=== PATIENT | female | born 1965 | race Caucasian/White ===

== ENCOUNTER 2020-01-26 15:01 | Outpatient (CLI) | payer OTHER, MEDICAID, SELFPAY ==
--- NOTE | ~2020-01-26 | XR_ITS ---
EXAMINATION: XR ribs RT 2V DATE: 01/26/2020 15:21 INDICATION: Lower posterior right rib pain TECHNIQUE: 3 views of the right ribs were obtained. COMPARISON: Chest radiograph dated 03/31/2018 FINDINGS: Nondisplaced fracture at the anteriormost right eighth rib. Old healed fractures at the anterior righ t third, fourth, fifth and sixth ribs. Right lung is clear with no pulmonary edema, pleural effusion or pneumothorax. Passage the left lung base with suggestion of small left pleural effusion. Heart siz e is normal. Mild S-shaped thoracolumbar scoliosis. IMPRESSION: 1. Acute appearing nondisplaced anterior right eighth rib fracture and old healed fractures of the an terior right third-sixth ribs. 2. Opacities at the left lung base which could represent atelectasis and/or pneumonia with suggestion of small left pleural effusion. Reviewed, dictated and finalized at location A. 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 Acute appearing nondisplaced anterior right eighth rib fracture and old heal ed fractures of the anterior right third-sixth ribs. 2. Opacities at the left lung base which could represent atelectasis and/or pne umonia with suggestion of small left pleural effusion.
== END 2020-01-26 15:02 | disposition home or self-care (01) ==
LOC: CHSIMG 15:03
PROVIDERS: PCP Internal Medicine; Visit Provider Nurse Practitioner Family
DX: R07.81 Pleurodynia (principal)
CPT/HCPCS: 71100

== ENCOUNTER 2020-02-08 10:02 | Outpatient (CLI) | payer OTHER, MEDICAID, SELFPAY ==
--- NOTE | ~2020-02-08 | CT_ITS ---
EXAMINATION: CT chest wo con DATE: 02/08/2020 10:34 INDICATION: Right-sided rib fractures. Right lower lateral rib pain. TECHNIQUE: Computed tomography (CT) of the chest was performed without intravenous contrast. The dose -length product was 177.89 mGy-cm. Automated exposure control and iterative reconstruction technique were employed. COMPARISON: None FINDINGS: Small pericardial effusion. No significant pleural effusion. No thoracic lymphadenopathy. T here are gallstones. Small subcentimeter hypodensity right hepatic lobe, most likely benign cyst or h emangioma. There are healed third-6 right rib fractures anteriorly. There is a nondisplaced right bhavna th rib fracture laterally, likely chronic or subacute. There is scoliosis. No endobronchial lesions. No suspicious pulmonary nodules or masses. No focal airspace consolidation. IMPRESSION: 1. No acute cardiopulmonary disease. 2: Nondisplaced right ninth rib fracture laterally, likely subacute or chronic. 3: Healed right third-sixth rib fractures. 4: Cholelithiasis. Reviewed, dictated and finalized at location A.
== END 2020-02-08 10:03 | disposition home or self-care (01) ==
PROVIDERS: PCP Internal Medicine; Visit Provider Internal Medicine
DX: S22.39XD Fracture of one rib, unspecified side, subsequent encounter for fracture with routine healing (principal)
CPT/HCPCS: 71250

== ENCOUNTER 2020-04-03 13:44 | Outpatient (CLI) | payer OTHER, MEDICAID, SELFPAY | END 2020-04-03 13:45 | disposition home or self-care (01) | LOC: CHSLAB 13:46 | PROVIDERS: PCP Internal Medicine; Visit Provider Specialist | DX: L57.0 Actinic keratosis (principal) | CPT/HCPCS: 88305 ==

== ENCOUNTER 2021-04-04 13:24 | Outpatient (CLI) | payer OTHER, MEDICAID, SELFPAY ==
--- NOTE | ~2021-04-04 | XR_ITS ---
EXAMINATION: XR lumbar spine 2-3V EXAM DATE: 04/04/2021 13:57 INDICATION: Low back pain . TECHNIQUE: Lumber spine frontal, lateral, lateral L5-S1 projections for interpretation. Comparison is made to prior examination from 04/04/2021. FINDINGS: The vertebral bodies are aligned in the AP dimension. Mild thoracolumbar scoliosis. Mild lo ss of the L1-2 and L3-4 disc height. There is mild to moderate lumbar facet arthropathy. There are no acute fractures identified. Paraspinal soft tissue is unremarkable. There are no bony erosions ident ified. Sacrum, sacroiliac joints, sacral arcuate lines are intact. Difficult to appreciate any signif icant change compared to prior study. IMPRESSION: 1. Mild thoracal lumbar scoliosis. 2. Mild to moderate facet arthropathy. 3. Mild disc disease. Reviewed, dictated and finalized at location B.
[2021-04-04 13:45] LABS: Add Urine Microscopic? NO; Appearance Urine Clear (Clear); Bilirubin Urine Negative (Negative); Blood Urine Negative (Negative); Color Urine Yellow (Yellow); Glucose Urine UA Negative (Negative); Hematocrit 39.7 % (35.0-49.0); Hemoglobin 13.1 g/dL (12.0-15.0); Ketones Urine Negative (Negative); Leukocyte Esterase Ur Negative LEU/UL (Negative); Mean Corpuscular Hemoglobin 29.6 pg (27.0-31.0); Mean Corpuscular Volume 89.6 fL (78.0-102.0); Mean Platelet Volume 9.7 fl (9.2-11.8); Nitrate Urine Negative (Negative); Platelet Count Result 251 K/mm3 (150-420); Protein Urine Negative (Negative); Red Blood Count 4.43 M/mm3 (4.20-5.40); Red Cell Distribution Width 12.9 % (11.6-14.4); Specific Grav Ur 1.015 (1.010-1.020); Urobilinogen Urine 0.2 mg/dL (0.2-1.0); White Blood Count 3.6 K/mm3 (4.8-10.8)
[2021-04-04 14:13] LABS: Band Neutrophils Percent 0 % (0-6); Basophils Percent Manual 0 % (0-1); Eosinophils Absolute Manual 0.18 K/mm3 (0.02-0.5); Eosinophils Percent Manual 5 % (1-6); Lymphocytes Percent Manual 28 % (18-44); Monocytes Absolute Manual 0.18 K/mm3 (0.1-0.90); Monocytes Percent Manual 5 % (3-9); Neutrophils Absolute Manual 2.23 K/mm3 (1.7-7.2); Neutrophils Percent Manual 62 % (46-73); Platelet Estimate Adequate (Adequate); Total Cells Counted 100
[2021-04-04 15:17] LABS: Alanine Aminotransferase 23 U/L (14-59); Albumin Level 4.2 g/dL (3.4-5.0); Alkaline Phosphatase 67 U/L (46-116); Anion Gap 6 mmol/L (8-16); Aspartate Amino Transferase 15 U/L (15-37); Bilirubin,Total 0.4 mg/dL (0.00-1.00); Blood Urea Nitrogen 16 mg/dL (7-18); Calcium 8.9 mg/dL (8.5-10.1); Carbon Dioxide 31 mmol/L (21-32); Chloride 101 mmol/L (98-108); Cholesterol 178 mg/dL (0-200); Estimated Glomerular Filt Rate > 60; Glucose 74 mg/dL (70-99); HDL Direct 49 mg/dL (40-60); LDL Cholesterol Calculated 111 mg/dL (<130); Osmolality Calculated 286 mOsm/kg (285-295); Potassium 4.8 mmol/L (3.5-5.1); Sodium 138 mmol/L (136-145); Thyroid Stimulating Hormone 1.58 uIU/mL (0.36-3.74); Triglycerides 88 mg/dL (0-150)
== END 2021-04-04 13:25 | disposition home or self-care (01) ==
LOC: CHSLAB 13:28
PROVIDERS: PCP Internal Medicine; Visit Provider Internal Medicine
DX: N30.90 Cystitis, unspecified without hematuria (principal); E78.00 Pure hypercholesterolemia, unspecified; M47.816 Spondylosis without myelopathy or radiculopathy, lumbar region
CPT/HCPCS: 36415; 72100; 80053; 80061; 81003; 84443; 85025

== ENCOUNTER 2021-09-03 14:54 | Outpatient (CLI) | payer OTHER, MEDICAID, SELFPAY ==
[2021-09-03 16:52] LABS: SARS-CoV-2 RNA PCR Negative (Negative)
== END 2021-09-03 14:55 | disposition home or self-care (01) ==
LOC: CHSLAB 14:57
PROVIDERS: Internal Medicine; PCP Internal Medicine; Visit Provider Internal Medicine
DX: Z20.822 Contact with and (suspected) exposure to COVID-19 (principal)
CPT/HCPCS: C9803; U0003; U0005

== ENCOUNTER 2024-01-09 12:01 | Emergency (ER) | payer OTHER, MEDICAID, SELFPAY ==
--- NOTE | ~2024-01-09 | CT_ITS ---
EXAMINATION: CT brain wo con INDICATION: Head injury COMPARISON: None TECHNIQUE: Standard unenhanced head CT. The dose-length product (DLP) was 605.33 mGy-cm. The mA was a djusted according to patient size. Iterative reconstruction technique was employed. FINDINGS: No acute intraparenchymal hemorrhage. No evidence of mass lesion. No evidence of acute infa rction. There is mild periventricular and subcortical hypodensity probably related to small vessel is chemic disease. There is mild prominence of the sulci and ventricles related to cerebral atrophy. Int racranial calcified cerebral atherosclerosis is noted. No extra-axial collections. No mass effect or midline shift. The orbits and soft tissues are unremarkable. There is mild mucosal thickening of the paranasal sinuses. IMPRESSION: 1. No acute intracranial abnormality. 2. Age related findings. Reviewed, dictated and finalized at location F. D DESIGNER
--- NOTE | ~2024-01-09 | CT_ITS ---
EXAMINATION: CT facial & cervical spine wo DATE: 01/09/2024 12:45 INDICATION: Head injury TECHNIQUE: Computed tomography (CT) of the maxillofacial region and cervical spine was performed with out intravenous contrast. The dose-length product (DLP) was 253.52 mGy-cm. Automated exposure control and iterative reconstruction technique were employed. COMPARISON: None FINDINGS: MAXILLOFACIAL CT: There are nondisplaced bilateral nasal bone fractures. The globes and orbits are normal. No additiona l facial fracture is identified. There is mild mucosal thickening of the paranasal sinuses. CERVICAL SPINE CT: Bone alignment is normal. There is no fracture. The vertebral body heights are normal. There is mild loss of intervertebral disc space height at C3-4 and C4-5. The odontoid process is intact. IMPRESSION: 1. Nondisplaced nasal bone fractures. 2. Mild cervical spondylosis without acute findings. Reviewed, dictated and finalized at location F. 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
[2024-01-09 12:01] VITALS: BP 137/88; PULSE 70; RESP 18; TEMP 36.7; O2SAT 98
[2024-01-09] MEDS: NEOMYCIN/POLYMYXIN/BACITRACIN OINTMENT PACKET 1 PACKET TOPICAL (12:41)
[2024-01-09] MEDS: TETANUS,DIPHTHERIA,AC PERTUSSIS ADULT 0.5 ML (ADACEL) IM (12:41)
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
[2024-01-09 13:20] VITALS: BP 151/90; PULSE 65; RESP 16; O2SAT 96
== END 2024-01-09 13:23 | disposition home or self-care (01) ==
PROVIDERS: Emergency Provider Emergency Medicine; PCP Internal Medicine
DX: S02.2XXA Fracture of nasal bones, initial encounter for closed fracture (principal); Z79.899 Other long term (current) drug therapy; Z23 Encounter for immunization; W05.2XXA Fall from non-moving motorized mobility scooter, initial encounter
CPT/HCPCS: 70450; 70486; 72125; 90471; 90715; 99284

== ENCOUNTER 2024-02-29 08:07 | Outpatient (CLI) | payer OTHER, MEDICAID, SELFPAY ==
--- NOTE | 2024-02-29 08:16 | EST_ITS ---
Patient Info Name: An Barrientos Age: 58 years : 1965 Gender: Female Ht: 59 in Wt: 166 lbs BSA: 1.81 m2 HR: 66 bpm BP: 139 / 78 mmHg Heart Rhythm: Sinus Rhythm Technical Quality: Excellent Exam Date: 02/29/2024 9:45 AM Exam Location: Echo Lab Patient Status: Outpatient Admit Date: 02/29/2024 Staff Ordering Physician: Xavi Allen MD Attending Provider: Xavi Allen MD Exercise Technologist: Hilaria Eid CRT Exercise Physician: Thuy Meier CEP Exam Type: CA stress jerry w NM Study Info Indications ChestPain - A nuclear stress test was performed. History/Risk Factors Patient has no known cardiac history or risk factors. Summary 1. Patient has no known cardiac history or risk factors. 2. 1. Negative lexiscan stress test for ischemic ST changes by ECG criteria. 3. 2. Stable hemodynamics throughout the test. 4. 3. Nuclear scan to follow and will be reported separately. Please correlate with it. Protocol: LEXISCAN Stress ECG Details Stage: REST Duration (min): 3 min : 44 sec HR (bpm): 65 SBP (mmHg): 139 DBP (mmHg): 78 Stage: REST Duration (min): 7 min : 17 sec HR (bpm): 64 SBP (mmHg): 139 DBP (mmHg): 78 Stage: STAGE 1 Duration (min): 0 min : 21 sec HR (bpm): 64 SBP (mmHg): 139 DBP (mmHg): 78 Stage: RECOVERY Duration (min): 0 min : 38 sec HR (bpm): 106 SBP (mmHg): 139 DBP (mmHg): 78 Stage: RECOVERY Duration (min): 1 min : 38 sec HR (bpm): 117 SBP (mmHg): 139 DBP (mmHg): 78 Stage: RECOVERY Duration (min): 2 min : 38 sec HR (bpm): 103 SBP (mmHg): 127 DBP (mmHg): 98 Stage: RECOVERY Duration (min): 3 min : 38 sec HR (bpm): 96 SBP (mmHg): 127 DBP (mmHg): 98 Stage: RECOVERY Duration (min): 4 min : 38 sec HR (bpm): 89 SBP (mmHg): 127 DBP (mmHg): 98 Stage: RECOVERY Duration (min): 5 min : 38 sec HR (bpm): 85 SBP (mmHg): 188 DBP (mmHg): 61 Stage: RECOVERY Duration (min): 6 min : 38 sec HR (bpm): 81 SBP (mmHg): 188 DBP (mmHg): 61 Stage: RECOVERY Duration (min): 6 min : 57 sec HR (bpm): 79 SBP (mmHg): 124 DBP (mmHg): 93 Rest HR: 64 bpm Peak HR: 117 bpm Rest Sys BP: 139 mmHg Peak Sys BP: 188 mmHg Max Pred HR: 163 bpm % Max Pred HR: 72 % Target HR: 139 bpm Max RPP: 21,996 bpm*mmHg Termination Reason: Completed Protocol Cardiac Symptoms: Lightheaded/pre-syncope, Dyspnea Total Time: 0 min : 21 sec Rest Enrique BP: 78 mmHg Peak Enrique BP: 61 mmHg Total Dose: 0.4 mg Resting ECG Normal sinus rhythm, low voltage in precordial leads. Stress ECG No abnormal ST/T wave changes. Arrhythmias No arrhythmias were observed during the examination. Report Signatures
--- NOTE | 2024-02-29 14:31 | WPDCARIOSTRE ---
Nuclear Stress Test INDICATIONS Indications: Chest pain PROCEDURE Procedure Performed: Myocardial Perf Spect-Multi Procedure: Patient underwent a lexiscan stress test and immediately was injected with 30 mCi of cardiolyte. Multiple tomographic images were obtained. These are of good quality. There is a moderate size, moderate severity apical perfusion defect with stress imaging. A separate resting images were obtained after patient was injected with 10 mCi of cardiolyte. Multiple tomographic images were obtained. These are of good quality. There is a moderate size, moderate severity apical perfusion defect with rest imaging. CONCLUSION Conclusion: 1. Myocardial perfusion imaging demonstrating a fixed moderate size apical perfusion defect suggestive of breast attenuation artifact. 2. No reversible ischemia. 3. Left ventriculogram demonstrates normal measured ejection fraction of 83% with no wall motion abnormalities. 4. TID score 1.01 is not elevated.
== END 2024-02-29 08:08 | disposition home or self-care (01) ==
LOC: CHSCARD 08:11
PROVIDERS: PCP Internal Medicine; Visit Provider Internal Medicine
DX: R07.9 Chest pain, unspecified (principal)
CPT/HCPCS: 78452; 93017; A9502; J2785

== ENCOUNTER 2024-06-16 11:33 | Outpatient (CLI) | payer OTHER, MEDICAID, SELFPAY ==
[2024-06-16 12:18] LABS: Appearance Urine Clear (Clear); Basophils Absolute Auto 0.07 K/mm3 (0.00-0.10); Basophils Percent Auto 1.6 % (0.0-1.0); Bilirubin Urine Negative (Negative); Blood Urine Negative (Negative); Color Urine Light Yellow (Yellow); Eosinophils Absolute Auto 0.17 K/mm3 (0.02-0.50); Eosinophils Percent Auto 3.9 % (1.0-6.0); Glucose Urine UA Negative (Negative); Hematocrit 42.5 % (35.0-49.0); Hemoglobin 14.2 g/dL (12.0-15.0); Immature Granulocyte Absolute 0.02 K/mm3 (0.00-0.00); Immature Granulocyte Percent A 0.5 % (0.0-0.0); Ketones Urine Negative (Negative); Leukocyte Esterase Ur Negative (Negative); Lymphocytes Absolute Auto 1.37 K/mm3 (1.10-4.50); Lymphocytes Percent Auto 31.8 % (18.0-42.0); Mean Corpuscular HGB Conc 33.4 g/dL (32-36); Mean Corpuscular Hemoglobin 30.4 pg (27.0-31.0); Mean Platelet Volume 9.9 fl (9.2-11.8); Monocytes Absolute Auto 0.34 K/mm3 (0.10-0.90); Monocytes Percent Auto 7.9 % (2.0-11.0); Neutrophils Absolute Auto 2.34 K/mm3 (1.70-7.20); Neutrophils Percent Auto 54.3 % (50.0-70.0); Nitrate Urine Negative (Negative); Platelet Count Result 276 K/mm3 (150-420); Protein Urine Negative (Negative); Red Blood Count 4.67 M/mm3 (4.20-5.40); Red Cell Distribution Width 12.4 % (11.6-14.4); Specific Grav Ur 1.015 (1.010-1.020); Urobilinogen Urine 0.2 mg/dL (0.2-1.0); White Blood Count 4.3 K/mm3 (4.8-10.8); pH Urine 5.5 (5.0-8.0)
[2024-06-16 12:49] LABS: Add Urine Microscopic? NO
[2024-06-16 13:33] LABS: Alanine Aminotransferase 22 U/L (14-59); Alkaline Phosphatase 96 U/L (46-116); Anion Gap 8 mmol/L (4-12); Aspartate Amino Transferase 18 U/L (15-37); Bilirubin,Total 0.2 mg/dL (0.00-1.00); Blood Urea Nitrogen 13 mg/dL (7-18); Calcium 9.1 mg/dL (8.5-10.1); Carbon Dioxide 30 mmol/L (21-32); Chloride 101 mmol/L (98-108); Estimated Glomerular Filt Rate > 60; Glucose 76 mg/dL (70-99); NT Pro B Type Natriuretic Pept 166 pg/mL (0-125); Osmolality Calculated 287 mOsm/kg (285-295); Potassium 4.4 mmol/L (3.5-5.1); Sodium 139 mmol/L (136-145); Total Protein 6.9 g/dL (6.4-8.2)
== END 2024-06-16 11:34 | disposition home or self-care (01) ==
PROVIDERS: PCP Internal Medicine; Visit Provider Internal Medicine
DX: R05.9 Cough, unspecified (principal); R60.9 Edema, unspecified
CPT/HCPCS: 36415; 80053; 81003; 83880; 84443; 85025

== ENCOUNTER 2024-06-17 11:03 | Outpatient (CLI) | payer OTHER, MEDICAID, SELFPAY | END 2024-06-17 11:04 | disposition home or self-care (01) | LOC: CHSCARD 11:05 | PROVIDERS: PCP Internal Medicine; Visit Provider Internal Medicine | DX: R05.3 Chronic cough (principal); R60.9 Edema, unspecified | CPT/HCPCS: 94060; 94726; 94729 ==

== ENCOUNTER 2024-07-15 11:58 | Outpatient (CLI) | payer OTHER, MEDICAID, SELFPAY ==
[2024-07-15 13:07] LABS: NT Pro B Type Natriuretic Pept 136 pg/mL (0-125)
== END 2024-07-15 11:59 | disposition home or self-care (01) ==
LOC: CHSLAB 12:00
PROVIDERS: PCP Internal Medicine; Visit Provider Internal Medicine
DX: R06.02 Shortness of breath (principal); R70.0 Elevated erythrocyte sedimentation rate
CPT/HCPCS: 36415; 83880

== ENCOUNTER 2024-08-03 13:15 | Outpatient (CLI) | payer OTHER, MEDICAID, SELFPAY ==
[2024-08-05 04:19] LABS: Vitamin D 25 Hydroxy 33 ng/mL (30-100)
[2024-08-05 10:22] LABS: Anion Gap 6 mmol/L (4-12); Blood Urea Nitrogen 22 mg/dL (7-17); Calcium 9.2 mg/dL (8.4-10.2); Carbon Dioxide 32 mmol/L (22-30); Chloride 100 mmol/L (98-107); Estimated Glomerular Filt Rate 51; Glucose 77 mg/dL (65-110); Osmolality Calculated 288 mOsm/kg (285-295); Potassium 4.3 mmol/L (3.4-5.0); Sodium 138 mmol/L (137-145)
== END 2024-08-03 13:16 | disposition home or self-care (01) ==
PROVIDERS: PCP Internal Medicine
DX: E03.9 Hypothyroidism, unspecified (principal); M81.0 Age-related osteoporosis without current pathological fracture
CPT/HCPCS: 36415; 80048; 82306; 84443

== ENCOUNTER 2025-06-30 21:02 | Emergency (ER) | payer OTHER, MEDICAID, SELFPAY ==
--- NOTE | ~2025-06-30 | CT_ITS ---
EXAMINATION: CT abdomen pelvis w con DATE: 07/01/2025 00:36 INDICATION: Chronic pelvic pain TECHNIQUE: Computed tomography (CT) of the abdomen and pelvis was performed with 100 mL Omnipaque-350 intravenous contrast. Automated exposure control and iterative reconstruction technique were employe d. The dose-length product was 515.11 mGy-cm. COMPARISON: None FINDINGS: Mild dependent atelectasis in bilateral lower lobes. Heart size normal. No pericardial or pleural eff usion. 1.5 similar cyst in the right hepatic lobe. Gallbladder, spleen, pancreas, bilateral adrenal g lands and kidneys are normal. Bowels including the appendix are normal. 14.2 x 5.3 x 13.2 cm septated cystic mass in the pelvis likely of ovarian origin but abutting both the left and right ovaries. Ike dder and uterus are unremarkable. Trace amount of likely physiologic free fluid in the deep pelvis. N o abscess or free intraperitoneal gas. No pathologically enlarged abdominal or pelvic lymphadenopathy . 25 degrees thoracolumbar levoscoliosis with mild spondylosis. IMPRESSION: 1. 14.2 cm complex septated cystic mass in the pelvis likely ovarian neoplasm but indeterminate wheth er arising from the left or right. Recommend gynecologic consultation. Reviewed, dictated and finalized at location A. IMPRESSION: 1. 14.2 cm complex septated cystic mass in the pelvis likely ovarian neoplasm b ut indeterminate whether arising from the left or right. Recommend gynecologic consultation.
[2025-06-30 21:05] VITALS: BP 148/81; PULSE 70; RESP 18; TEMP 36.4; O2SAT 100
--- OUTSIDE RECORDS SUMMARY | 2025-06-30 21:11 | XMS_ITS | Encounter Summary ---
Author Organization [employer] Address [address] [place] [address] Care Team Providers Care Linux Consultant Name Role Phone Xavi Allen MD Primary Care Provider [phone] Encounter Details Date Type Department Care Team (Late st Contact Info) Description 02/11/2006 Outpatient [facility] Division of Neurology [address] [address] Radha Lin MD [address] [facility] [address] [place] [address] Social History Tobacco Use Types Packs/Day Years Used Date Smoking Tobacco: Never Assessed Comments Unknown Sex and Gender Information Value Date Recorded Sex Assigned at Not on file Legal Sex Female 3:52 AM ANALYSIS INTERNSHIP Gender Identity Not on file Sexual Orientation Not on file documented as of this encounter Plan of Treatment Not on file documented as of this encounter Visit Diagnoses Not on filedocumented in this encounter Care Teams Linux Consultant Relationship Specialty Start Date End Date Xavi Allen MD [address] [place] [address] PCP - General Internal Medicine 07/02/18 documented as of this encounter
--- OUTSIDE RECORDS SUMMARY | 2025-06-30 21:12 | XMS_ITS | Encounter Summary ---
Author Organization [facility] Address [address] [place] [address] Care Team Providers Care Cager Operator Name Role Phone Xavi Allen MD Primary Care Provider [phone] Encounter Details Date Type Department Care Team (Late st Contact Info) Description 12/02/2000 Outpatient [facility] Division of Neurology [address] [address] Radha Lin MD [address] [facility] [address] [place] [phone] Social History Tobacco Use Types Packs/Day Years Used Date Smoking Tobacco: Never Assessed Comments Unknown Sex and Gender Information Value Date Recorded Sex Assigned at Not on file Legal Sex Female 3:52 AM PLASTIC DOLLS MOLD FILLER Gender Identity Not on file Sexual Orientation Not on file documented as of this encounter Plan of Treatment Not on file documented as of this encounter Visit Diagnoses Not on filedocumented in this encounter Care Teams Cager Operator Relationship Specialty Start Date End Date Xavi Allen MD [address] [place] [address] PCP - General Internal Medicine 07/02/18 documented as of this encounter
--- OUTSIDE RECORDS SUMMARY | 2025-06-30 21:12 | XMS_ITS | Encounter Summary ---
Author Organization [facility] Address [facility] [place] [address] Care Team Providers Care Wildlife Refuge Manager Name Role Phone Xavi Allen MD Primary Care Provider [phone] Encounter Details Date Type Department Care Team (Late st Contact Info) Description 01/08/2021 Editorially Message Enc [place] [address] Denise Hernandez, [facility] [address] [place] [address] [place] [address] Visit Follow Up Social History Tobacco Use Types Packs/Day Years Used Date Smoking Tobacco: Never Smokeless Tobacco: Never Alcohol Use Standard Drinks/Week Comments No 0 (1 standard drink = 0.6 oz pur e alcohol) AUDIT-C Answer Date Recorded Frequency of Alcohol Consumption Never 07/04/2019 Average Number of Drinks Not on file 019 Frequency of Binge Drinking Not on file 03/2019 Comments Unknown Sex and Gender Information Value Date Recorded Sex Assigned at Not on file Legal Sex Female 11:04 PM ENERGY INFRASTRUCTURE ENGINEER Gender Identity Not on file Sexual Orientation Not on file COVID-19 Exposure Response Date Recorded In the last month, have you been in contact with someone who was confirmed or suspected to have Coronavirus / COVID-19? No / Unsure 01/08/2021 2:12 PM ENERGY INFRASTRUCTURE ENGINEER documented as of this encounter Plan of Treatment Not on file documented as of this encounter Visit Diagnoses Not on filedocumented in this encounter Care Teams Wildlife Refuge Manager Relationship Specialty Start Date End Date Xavi Allen MD [address] [place] [address] PCP - General INTERNAL MEDICINE 05/10/19 documented as of this encounter
--- OUTSIDE RECORDS SUMMARY | 2025-06-30 21:12 | XMS_ITS | Encounter Summary ---
Author Organization [facility] Address [address] [place] [address] Care Team Providers Care Presser Machine Name Role Phone Xavi Allen MD Primary Care Provider [phone] Encounter Details Date Type Department Care Team (Latest Contact Info) Description 03/01/2002 Outpatient Historical [facility] Radha Lin MD [address] [facility] [address] [place] [address] MULTIPLE SCLEROSIS (CMS/HCC) (Primary Dx) Social History Tobacco Use Types Packs/Day Years Used Date Smoking Tobacco: Never Assessed Comments Unknown Sex and Gender Information Value Date Recorded Sex Assigned at Not on file Legal Sex Female 3:52 AM REIMBURSEMENT REP Gender Identity Not on file Sexual Orientation Not on file documented as of this encounter Plan of Treatment Not on file documented as of this encounter Visit Diagnoses Diagnosis Multiple sclerosis (CMS/HCC)- Primary Multiple sclerosis documented in this encounter Care Teams Presser Machine Relationship Specialty Start Date End Date Xavi Allen MD [address] [place] [address] PCP - General Internal Medicine 07/02/18 documented as of this encounter
--- OUTSIDE RECORDS SUMMARY | 2025-06-30 21:12 | XMS_ITS | Patient Health Record ---
Author Organization [facility] Address [address] [place], [place] [address] Care Team Providers Care Clinical Fellow Name Role Phone Xavi Allen Unavailable Unavailable Reason For Referral No Information Medications Medication SIG (Take, Route, Frequency, Duration) Notes Start Date End Date Status cholecalciferol 0.025 MG Oral Tablet ORAL cholecalciferol 0.025 MG Ora l TabletOriginal Medicationcholecalciferol 0.025 MG Oral Tablet *Reorder from [employer] for eRx and Interaction Alerts* 08/11/20 16 Active calcium carbonate 1250 MG Oral Tablet ORAL calcium carbonate 1250 MG Oral TabletOriginal Medicationcalcium carbonate 1250 MG Oral Tablet *Reorder from [employer] for eRx and Interaction Alerts* 08/11/20 16 Active levothyroxine sodium 0.137 MG Oral Capsule ORAL levothyroxine sodium 0.137 M G Oral CapsuleOriginal Medicationlevothyroxine sodium 0.137 MG Oral Capsule *Reorder from [employer] for eRx and Interaction Alerts* 08/11/20 16 Active citalopram 20 MG Oral Tablet [Celexa] ORAL citalopram 20 MG Oral Tablet [Celexa]Original Medicationcitalopram 20 MG Oral Tablet [Celexa] *Reorder from [employer] for eRx and Interaction Alerts* 08/11/20 16 Active Baclofen 20 MG Oral Tablet ORAL baclofen 20 MG Oral TabletOriginal Medicationbaclofen 20 MG Oral Tablet *Reorder from [employer] for eRx and Interaction Alerts* 08/11/20 16 Active nitrofurantoin, macrocrystals 25 MG / nitrofurantoin, monohydrate 75 MG Oral Capsule [Macrobid] ORAL nitrofurantoin, macrocrystal s 25 MG / nitrofurantoin, monohydrate 75 MG Oral Capsule [Macrobid]Original Medicationnitrofurantoin, macrocrystals 25 MG / nitrofurantoin, monohydrate 75 MG Oral Capsule [Macrobid] 08/11/20 16 Active montelukast 10 MG Oral Tablet ORAL montelukast 10 MG Oral TabletOriginal Medicationmontelukast 10 MG Oral Tablet *Reorder from [employer] for eRx and Interaction Alerts* 08/11/20 16 Active 12 HR dalfampridine 10 MG Extended Release Oral Tablet [Ampyra] ORAL 12 HR dalfampridine 10 MG Extended Release Oral Tablet [Ampyra]Original [id number] HR dalfampridine 10 MG Extended Release Oral Tablet [Ampyra] *Reorder from [employer] for eRx and Interaction Alerts* 08/11/20 16 Active Gabapentin 100 MG Oral Capsule ORAL gabapentin 100 MG Oral CapsuleOriginal Medicationgabapentin 100 MG Oral Capsule *Reorder from [employer] for eRx and Interaction Alerts* 08/11/20 16 Active alendronic acid 70 MG Oral Tablet [Fosamax] ORAL alendronic acid 70 MG Oral Tablet [Fosamax]Original Medicationalendronic acid 70 MG Oral Tablet [Fosamax] *Reorder from [employer] for eRx and Interaction Alerts* 08/11/20 16 Active 15 ML natalizumab 20 MG/ML Injection [Tysabri] INTRAVENOUS 15 ML natalizumab 20 MG/ML Injection [Tysabri]Original [id number] ML natalizumab 20 MG/ML Injection [Tysabri] *Reorder from [employer] for eRx and Interaction Alerts* 08/11/20 16 Active armodafinil 50 MG Oral Tablet [Nuvigil] ORAL armodafinil 50 MG Oral Table t [Nuvigil]Original Medicationarmodafinil 50 MG Oral Tablet [Nuvigil] *Reorder from [employer] for eRx and Interaction Alerts* 08/11/20 16 Active Plan Of Treatment No Information Insurance Providers Payer Name Payer Address Payer Phone Subscriber Number Group Number Insured Name Patient Relationship to Insured Coverage Start Date Coverage End Date Samuel Rule Insurance ([facility]) [address] [address] [place], [place] [id number] BUTCH HOLT Self - patient is the insured
--- OUTSIDE RECORDS SUMMARY | 2025-06-30 21:12 | XMS_ITS | Encounter Summary ---
Author Organization [facility] Address [address] [place] [address] Care Team Providers Care Wood Finisher Name Role Phone Xavi Allen MD Primary Care Provider [phone] Encounter Details Date Type Department Care Team (Latest Contact Info) Description 12/02/2000 Outpatient Historical [facility] KASI Lin, Radha Batres MD [address] [facility] [address] [place] [phone] Multiple sclerosis (CMS/HCC) (Primary Dx) Social History Tobacco Use Types Packs/Day Years Used Date Smoking Tobacco: Never Assessed Comments Unknown Sex and Gender Information Value Date Recorded Sex Assigned at Not on file Legal Sex Female 3:52 AM DIGITAL STRATEGY DIRECTOR Gender Identity Not on file Sexual Orientation Not on file documented as of this encounter Plan of Treatment Not on file documented as of this encounter Visit Diagnoses Diagnosis Multiple sclerosis (CMS/HCC)- Primary Multiple sclerosis documented in this encounter Care Teams Wood Finisher Relationship Specialty Start Date End Date Xavi Allen MD [address] [place] [address] PCP - General Internal Medicine 07/02/18 documented as of this encounter
--- OUTSIDE RECORDS SUMMARY | 2025-06-30 21:12 | XMS_ITS | Encounter Summary ---
Author Organization [facility] Address [address] [place] [address] Care Team Providers Care Van Driver Helper Name Role Phone Xavi Allen MD Primary Care Provider [phone] Encounter Details Date Type Department Care Team (Late st Contact Info) Description 09/02/2006 Outpatient [facility] Division of Neurology [address] [address] Radha Lin MD [address] [facility] [address] [place] [address] Social History Tobacco Use Types Packs/Day Years Used Date Smoking Tobacco: Never Assessed Comments Unknown Sex and Gender Information Value Date Recorded Sex Assigned at Not on file Legal Sex Female 3:52 AM JAVA SECURITY ARCHITECT Gender Identity Not on file Sexual Orientation Not on file documented as of this encounter Plan of Treatment Not on file documented as of this encounter Visit Diagnoses Not on filedocumented in this encounter Care Teams Van Driver Helper Relationship Specialty Start Date End Date Xavi Allen MD [address] [place] [address] PCP - General Internal Medicine 07/02/18 documented as of this encounter
--- OUTSIDE RECORDS SUMMARY | 2025-06-30 21:12 | XMS_ITS | Encounter Summary ---
Author Organization [employer] [facility] Address [address] [place] [address] Care Team Providers Care Middle School Reading Teacher Name Role Phone Xavi Allen MD Primary Care Provider [phone] Encounter Details Date Type Department Care Team (Latest Contact Info) Description 01/19/2001 Outpatient Historical [facility] Radha Lin MD [address] [facility] [address] [place] [phone] Special screening for osteoporosis (Primary Dx) Social History Tobacco Use Types Packs/Day Years Used Date Smoking Tobacco: Never Assessed Comments Unknown Sex and Gender Information Value Date Recorded Sex Assigned at Not on file Legal Sex Female 3:52 AM PIPELINE INSPECTOR Gender Identity Not on file Sexual Orientation Not on file documented as of this encounter Plan of Treatment Not on file documented as of this encounter Visit Diagnoses Diagnosis Special screening for osteoporosis- Primary documented in this encounter Care Teams Middle School Reading Teacher Relationship Specialty Start Date End Date Xavi Allen MD [address] [place] [address] PCP - General Internal Medicine 07/02/18 documented as of this encounter
--- OUTSIDE RECORDS SUMMARY | 2025-06-30 21:12 | XMS_ITS | Encounter Summary ---
Author Organization [facility] Address [address] [place] [address] Care Team Providers Care Sewer Pipe Layer Helper Name Role Phone Xavi Allen MD Primary Care Provider [phone] Encounter Details Date Type Department Care Team (Late st Contact Info) Description 09/02/2006 Outpatient Historical [facility] [address] [facility] [address] Radha Lin MD [address] [facility] [address] [place] [address] Social History Tobacco Use Types Packs/Day Years Used Date Smoking Tobacco: Never Assessed Comments Unknown Sex and Gender Information Value Date Recorded Sex Assigned at Not on file Legal Sex Female 3:52 AM GENERAL SURGEON Gender Identity Not on file Sexual Orientation Not on file documented as of this encounter Plan of Treatment Not on file documented as of this encounter Visit Diagnoses Not on filedocumented in this encounter Care Teams Sewer Pipe Layer Helper Relationship Specialty Start Date End Date Xavi Allen MD [address] [place] [address] PCP - General Internal Medicine 07/02/18 documented as of this encounter
--- OUTSIDE RECORDS SUMMARY | 2025-06-30 21:12 | XMS_ITS | Encounter Summary ---
Author Organization [facility] Address [address] [place] [address] Care Team Providers Care Industrial Machinery Mechanic Name Role Phone Xavi Allen MD Primary Care Provider Encounter Details Date Type Department Care Team (Late st Contact Info) Description 03/22/2002 Outpatient Historical [facility] Social History Tobacco Use Types Packs/Day Years Used Date Smoking Tobacco: Never Assessed Comments Unknown Sex and Gender Information Value Date Recorded Sex Assigned at Not on file Legal Sex Female 3:52 AM SLIP MIXER Gender Identity Not on file Sexual Orientation Not on file documented as of this encounter Plan of Treatment Not on file documented as of this encounter Visit Diagnoses Not on filedocumented in this encounter Care Teams Industrial Machinery Mechanic Relationship Specialty Start Date End Date Xavi Allen MD [address] [place] [address] PCP - General Internal Medicine 07/02/18 documented as of this encounter
--- OUTSIDE RECORDS SUMMARY | 2025-06-30 21:12 | XMS_ITS | Encounter Summary ---
Author Organization [facility] Address [address] [place] [address] Care Team Providers Care Cementer Machine Applicator Name Role Phone Xavi Allen MD Primary Care Provider [phone] Encounter Details Date Type Department Care Team (Late st Contact Info) Description 03/07/2002 Outpatient [facility] Division of Neurology [address] [address] Maverick Boyce MD [address] [place] [phone] Social History Tobacco Use Types Packs/Day Years Used Date Smoking Tobacco: Never Assessed Comments Unknown Sex and Gender Information Value Date Recorded Sex Assigned at Not on file Legal Sex Female 3:52 AM QUALITY COMPLIANCE CONSULTANT Gender Identity Not on file Sexual Orientation Not on file documented as of this encounter Plan of Treatment Not on file documented as of this encounter Visit Diagnoses Not on filedocumented in this encounter Care Teams Cementer Machine Applicator Relationship Specialty Start Date End Date Xavi Allen MD [address] [place] [address] PCP - General Internal Medicine 07/02/18 documented as of this encounter
--- OUTSIDE RECORDS SUMMARY | 2025-06-30 21:12 | XMS_ITS | Encounter Summary ---
Author Organization [facility] Address [address] [place] [address] Care Team Providers Care Firewall Administrator Name Role Phone Xavi Allen MD Primary Care Provider [phone] Encounter Details Date Type Department Care Team (Late st Contact Info) Description 03/01/2002 Outpatient [facility] Division of Neurology [address] [address] Radha Lin MD [address] [facility] [address] [place] [address] Social History Tobacco Use Types Packs/Day Years Used Date Smoking Tobacco: Never Assessed Comments Unknown Sex and Gender Information Value Date Recorded Sex Assigned at Not on file Legal Sex Female 3:52 AM SIGN CARPENTER Gender Identity Not on file Sexual Orientation Not on file documented as of this encounter Plan of Treatment Not on file documented as of this encounter Visit Diagnoses Not on filedocumented in this encounter Care Teams Firewall Administrator Relationship Specialty Start Date End Date Xavi Allen MD [address] [place] [address] PCP - General Internal Medicine 07/02/18 documented as of this encounter
--- OUTSIDE RECORDS SUMMARY | 2025-06-30 21:12 | XMS_ITS | Encounter Summary ---
Author Organization [facility] Address [address] [place] [address] Care Team Providers Care Varnishing Machine Operator Name Role Phone Xavi Allen MD Primary Care Provider [phone] Encounter Details Date Type Department Care Team (Late st Contact Info) Description 03/01/2002 Outpatient [facility] Division of Neurology [address] [address] Maverick Boyce MD [address] [place] [phone] Social History Tobacco Use Types Packs/Day Years Used Date Smoking Tobacco: Never Assessed Comments Unknown Sex and Gender Information Value Date Recorded Sex Assigned at Not on file Legal Sex Female 3:52 AM MANOMETER TECHNICIAN Gender Identity Not on file Sexual Orientation Not on file documented as of this encounter Plan of Treatment Not on file documented as of this encounter Visit Diagnoses Not on filedocumented in this encounter Care Teams Varnishing Machine Operator Relationship Specialty Start Date End Date Xavi Allen MD [address] [place] [address] PCP - General Internal Medicine 07/02/18 documented as of this encounter
--- OUTSIDE RECORDS SUMMARY | 2025-06-30 21:12 | XMS_ITS | Encounter Summary ---
Author Organization [facility] Address [facility] [place] [address] Care Team Providers Care Coordinator Of Placement Name Role Phone Xavi Allen MD Primary Care Provider [phone] Encounter Details Date Type Department Care Team (Late st Contact Info) Description 01/07/2023 HandInScan Message Enc [facility] [place] [address] eDnise Hernandez, [facility] [address] [place] [address] [place] [address] Visit Follow Up Social History Tobacco Use [...] on file Legal Sex Female 11:04 PM SEAMSTRESS FITTER Gender Identity Not on file Sexual Orientation Not on file COVID-19 Exposure Response Date Recorded In the last 10 days, have yo u been in contact with someone who was confirmed or suspected to have Coronavirus/COVID-19? No / Unsure 01/07/2023 11:06 AM SEAMSTRESS FITTER documented as of this encounter Plan of Treatment Not on file documented as of this encounter Visit Diagnoses Not on filedocumented in this encounter Care Teams Coordinator Of Placement Relationship Specialty Start Date End Date Xavi Allen MD [address] [place] [address] PCP - General INTERNAL MEDICINE 05/10/19 documented as of this encounter
--- OUTSIDE RECORDS SUMMARY | 2025-06-30 21:12 | XMS_ITS | Encounter Summary ---
Author Organization [facility] Address [address] [place] [address] Care Team Providers Care Over Short And Damage Clerk Name Role Phone Xavi Allen MD Primary Care Provider Encounter Details Date Type Department Care Team (Late st Contact Info) Description 03/11/2002 Outpatient Historical HIS MRI DEPT Social History Tobacco Use Types Packs/Day Years Used Date Smoking Tobacco: Never Assessed Comments Unknown Sex and Gender Information Value Date Recorded Sex Assigned at Not on file Legal Sex Female 3:52 AM TOPOGRAPHIC COMPUTATOR Gender Identity Not on file Sexual Orientation Not on file documented as of this encounter Plan of Treatment Not on file documented as of this encounter Visit Diagnoses Not on filedocumented in this encounter Care Teams Over Short And Damage Clerk Relationship Specialty Start Date End Date Xavi Allen MD [address] [place] [address] PCP - General Internal Medicine 07/02/18 documented as of this encounter
--- OUTSIDE RECORDS SUMMARY | 2025-06-30 21:12 | XMS_ITS | Clinical Summary ---
Author Organization [facility] Address [address] [place] [address] Phone Care Team Providers Care Sole Tacker Name Role Phone Xavi Allen MD Primary Care Provider [phone] Allergies Active Allergy Reactions Criticality Noted Date Comments Azathioprine Rash Low 02/03/2013 Hydrocodone-Ibuprofen Rash Low 03/03/2013 Sulfa (Sulfonamide Antibiotics) Fever Low 02/03/2013 Sulfamethoxazole-Trimet hoprim Unknown,Other (See Comments) 02/03/2013 gives me fever Medications calcium 500 mg Oral Tab Take 1,000 mg by mouth daily. Active ERGOCALCIFEROL, VITAMIN D2, (VITAMIN D ORAL) Take 1,000 mg by mouth daily . Active Cetirizine (ZYRTEC) 10 mg Oral Cap Take 10 mg by mouth daily with breakfast. Active natalizumab (TYSABRI) 300 mg/15 mL IV Soln 300 mg by See Admin Instructions route see administration instructions. 15 mg 11 03/24/20 13 Active MONTELUKAST SODIUM (SINGULAIR ORAL) daily at bedtime. Active nitrofurantoin macrocrystal (MACRODANTIN) 50 mg capsule Take 50 mg by mouth daily . 01/04/20 15 Active alendronate (FOSAMAX) 70 mg tablet 05/08/20 15 Active metroNIDAZOLE (METROGEL) 0.75 % Gel Apply to affected area 2 times daily. Active citalopram (CeleXA) 20 mg tabletIndication s:Multiple sclerosis (CMS/HCC) TAKE 1 TABLET BY MOUTH DAILY IN THE MORNING 30 Tablet 11 02/11/20 17 Active magnesium oxide (MAG-OX) 400 mg tablet Take 400 mg by mouth every Thursday, Thursday, and Thursday. Active cholecalciferol, vitamin D3, 1,000 unit Take by mouth. Acti ve levothyroxine 75 mcg tablet Take 75 mcg by mouth daily stummel selector. Active triamcinolone acetonide (KENALOG) 0.1 % Cream Apply to affected area 1 time daily as needed. Active armodafinil (NUVIGIL) 150 mg tabletIndication s:Multiple sclerosis (CMS/HCC) TAKE ONE TABLET BY MOUTH DAILY-GENERIC FOR NUVIGIL. 30 Tablet 5 10/20/20 17 Active dalfampridine (AMPYRA) 10 mg Extended Release 12 hour tabletIndication s:Multiple sclerosis (CMS/HCC),Neurol ogic gait disorder Take 1 tablet by mouth twice a day. DX: G35 Multiple Sclerosis, R26.9 Neurological Gait Disorder. 60 Tablet 6 12/22/19 18 Active gabapentin (NEURONTIN) 100 mg capsule TAKE 1 CAPSULE BY MOUTH THREE TIMES DAILY 90 Capsule 3 01/22/20 18 Active baclofen (LIORESAL) 20 mg tablet TAKE 1 TABLET BY MOUTH TWO TIMES A DAY. 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 MS (multiple sclerosis) 07/31/2001 Overview (10/26/2017): Sx 1988 Dx 1989? JCV antibody test: 08/21/17: Results: Neg; Index: 0.13. 1. Imuran: States for only 3 days, (systemic rash): Approx 1996 2.Avonex 01/1998-06/2009 3. Copaxone 06/2009-04/2011 4. Tysabri 05/29/2011-Present 05/12/17 JCV Antibody Negative Index 0.12 Ampyra 25 ft timed walk: 02/2012= 22.4, 23.1 seconds Off drug x1 yr Restart= 08/2015 25 ft timed walk: 04/29/16 33.58 sec Assessment & Plan (01/17/2016 1:49 PM ATOMIC PHYSICS TEACHER): . Resolved Problems Problem Noted Date Diagnosed Date Resolved Date Right sided weakness 03/01/2016 016 Urinary retention 03/01/2016 03/03/2016 Constipation 03/01/2016 03/03/2016 Encounters Date Type Department Care Team Description 06/14/2025 External Device Data STL ABSTRACTION Provider, Abstract 06/14/2025 External Device Data STL ABSTRACTION Provider, Abstract 05/16/2025 External Device Data STL ABSTRACTION Provider, Abstract 04/25/2025 External Device Data STL ABSTRACTION Provider, Abstract 04/19/2025 External Device Data STL ABSTRACTION Provider, Abstract 04/18/2025 External Device Data STL ABSTRACTION Provider, Abstract 04/04/2025 External Device Data STL ABSTRACTION Provider, Abstract from Last 3 Months Immunizations Immunization Administration Dates Next Due Influenza Seasonal Unspecified Formulation IM ,08/30/2015 Pneumococcal conjugate, unspecified formulation 08/30/2015 Family History Medical History Relation Name Comments Cancer Father Prostate Diabetes Maternal Grandfather Heart Disease Mother Diabetes Paternal Grandmother Heart Disease Sister 1 Other Sister 1 Heart Disease Sister 2 Cancer Sister 3 Relation Name Status Comments Father Maternal Grandfather Mother Alive Paternal Grandmother Sister 1 Alive Sister 2 Alive Sister 3 Alive Social History Tobacco Use Types Packs/Day Years Used Date Smoking Tobacco: Never Smokeless Tobacco: Never Alcohol Use Standard Drinks/Week Comments No 0 (1 standard drink = 0.6 oz pur e alcohol) Comments No Sex and Gender Information Value Date Recorded Sex Assigned at Not on file Legal Sex Female 3:52 AM ATOMIC PHYSICS TEACHER Gender Identity Not on file Sexual Orientation Not on file Occupation Industry Job Start Date Job End Date Not on file Not on file Not on file Not on file Last Filed Vital Signs Vital Sign Reading Time Taken Comments Blood Pressure 145/84 01/25/2018 3:07 PM ATOMIC PHYSICS TEACHER Pulse 104 01/25/2018 3:07 PM ATOMIC PHYSICS TEACHER Temperature 36.9 C (98.4 F) 01/25/2018 3:07 PM ATOMIC PHYSICS TEACHER Respiratory Rate 18 01/25/2018 2:26 PM ATOMIC PHYSICS TEACHER Oxygen Saturation 98% 08/17/2017 1:37 PM CDT Inhaled Oxygen Concentration - - Weight 70.3 kg (155 lb) 12/28/2017 10:37 AM ATOMIC PHYSICS TEACHER Height 144.8 cm (4' 9) 12/28/2017 10:37 AM ATOMIC PHYSICS TEACHER Body Mass Index 33.54 12/28/2017 10:37 AM ATOMIC PHYSICS TEACHER Plan of Treatment Health Maintenance Due Date Last Done Comments Pre-Diabetes and Diabetes Screening 1965 HEPATITIS B VACCINES (1 of 3 - 19+ 3-dose series) 1985 HPV/Cotest (21-29) 1987 HPV/Cotest (30-65) 1996 BREAST CANCER SCREENING 2006 COLORECTAL SCREENING 2011 Colorectal Cancer Screening 2011 FIT-DNA Q 3 years 2011 FIT/FOBT Q 1 year 2011 Flex Sig/CT Colonography Q 5 years 2011 COVID-19 Vaccine ( - 2023-2 5 season) 2024 02/21/2021, 02/01/2021 INFLUENZA VACCINE (#1) 2025 , 10/12/2020, 09/16/2019, Additional history exists CERVICAL CANCER SCREENING 06/01/2027 PAP SMEAR 06/01/2027 06/01/2024 DTAP/TDAP/TD VACCINES (2 - T d or Tdap) 10/20/2028 10/20/2018 ZOSTER VACCINE Completed 10/30/2021, 01/01, 07/05/2020 Insurance [place] [id number] Advance Directives For more information, please contact: [phone] * Full Code (Latest Code Status on File) Date Activated Date Inactivated Comments 03/01/2016 1:21 AM 03/04/2016 8:01 PM Care Teams Sole Tacker Relationship Specialty Start Date End Date Xavi Allen MD [address] [place] [address] PCP - General Internal Medicine 07/02/18
--- OUTSIDE RECORDS SUMMARY | 2025-06-30 21:12 | XMS_ITS | Encounter Summary ---
Author Organization [facility] Address [address] [place] [address] Care Team Providers Care Field Mechanic Name Role Phone Xavi Allen MD Primary Care Provider [phone] Encounter Details Date Type Department Care Team (Latest Contact Info) Description 09/02/2006 Outpatient Historical HIS [facility] KASI Lin, Radha Batres MD [address] [place] [address] Multiple Sclerosis (CMS/[facility]) (Primary Dx) Social History Tobacco Use Types Packs/Day Years Used Date Smoking Tobacco: Never Assessed Comments Unknown Sex and Gender Information Value Date Recorded Sex Assigned at Not on file Legal Sex Female 3:52 AM SHOEBLACK Gender Identity Not on file Sexual Orientation Not on file documented as of this encounter Plan of Treatment Not on file documented as of this encounter Procedures Procedure Name Priority Date/Time Associated Diagnosis Comments TSH REFLEXIVE Routine 09/02/2006 1:07 PM CDT URINALYSIS WITH REFLEX CULTURE Routine 09/02/2006 1:07 PM CDT URINALYSIS W/REFLEX MICROSCOPIC Routine 09/02/2006 1:07 PM CDT documented in this encounter Results * (ABNORMAL) URINALYSIS (09/02/2006 1:07 PM CDT) COLOR UA Yellow INTERFACE SYSTEM CLARITY UA Clear Clear INTERFACE SYSTEM SPECIFIC GRAVITY UA 1.005 1.001 - 1.035 INTERFACE SYSTEM PH UA 5.0 5.0 - 8.0 INTERFACE SYSTEM LEUKOCYTE ESTERASE UA Negative Negative INTERFACE SYSTEM NITRITE UA Negative Negative INTERFACE SYSTEM PROTEIN UA Negative Negative INTERFACE SYSTEM GLUCOSE UA Negative Negative INTERFACE SYSTEM KETONES UA 1+(A) Negative INTERFACE SYSTEM UROBILINOGEN UA <1 <=1 mg/dL INTE RFACE SYSTEM BILIRUBIN UA Negative Negative INTERFA CE SYSTEM BLOOD UA Negative Negative INTERFACE SYSTEM 09/02/2006 1:07 PM CDT Radha Lin MD URINE ORDERABLES Final Result Performing Organization Address [facility] de Phone Number INTERFACE SYSTEM Refer to clinic/hospital department * URINALYSIS WITH REFLEX CULTURE (09/02/2006 1:07 PM CDT) URINE CULTURE ORDER Not indicated INTERFACE SYSTEM Comment: Criteria for a reflex culture include one or more of the following: Abn ormal nitrite, leukocyte esterase, WBCs or RBCs. Lack of qualifying criteria does not exclude the possiblity of a urinary tract infection. Dilute urine, drug interference, etc. may decrease the sensitivity of the criteria analytes. 09/02/2006 1:07 PM CDT Radha Lin MD URINE ORDERABLES Final Result Performing Organization Address [facility] Phone Number INTERFACE SYSTEM Refer to clinic/hospital department * TSH REFLEXIVE (09/02/2006 1:07 PM CDT) TSH 3.82 0.27 - 4.20 uU/mL INTERFACE SYSTEM 09/02/2006 1:07 PM CDT Radha Lin MD CHEMISTRY ORDERABLES Final Re sult Performing Organization Address [facility] Phone Number INTERFACE SYSTEM Refer to clinic/hospital department documented in this encounter Visit Diagnoses Diagnosis Multiple sclerosis (CMS/HCC)- Primary Multiple sclerosis documented in this encounter Care Teams Field Mechanic Relationship Specialty Start Date End Date Xavi Allen MD [address] [place] [address] PCP - General Internal Medicine 07/02/18 documented as of this encounter
--- OUTSIDE RECORDS SUMMARY | 2025-06-30 21:12 | XMS_ITS | Encounter Summary ---
Author Organization [facility] Address [address] [place] [address] Care Team Providers Care Catastrophe Claims Supervisor Name Role Phone Xavi Allen MD Primary Care Provider [phone] Encounter Details Date Type Department Care Team (Late st Contact Info) Description 03/01/2002 Outpatient Historical HIS [facility] Social History Tobacco Use Types Packs/Day Years Used Date Smoking Tobacco: Never Assessed Comments Unknown Sex and Gender Information Value Date Recorded Sex Assigned at Not on file Legal Sex Female 3:52 AM MEDICAL FIELD REPRESENTATIVE Gender Identity Not on file Sexual Orientation Not on file documented as of this encounter Plan of Treatment Not on file documented as of this encounter Visit Diagnoses Not on filedocumented in this encounter Care Teams Catastrophe Claims Supervisor Relationship Specialty Start Date End Date Xavi Allen MD [address] [place] [address] PCP - General Internal Medicine 07/02/18 documented as of this encounter
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
--- OUTSIDE RECORDS SUMMARY | 2025-06-30 21:12 | XMS_ITS | Encounter Summary ---
Author Organization [facility] Address [address] [place] [address] Care Team Providers Care Core Checker Name Role Phone Xavi Allen MD Primary Care Provider [phone] Encounter Details Date Type Department Care Team (Late st Contact Info) Description 03/11/2002 Outpatient [facility] Division of Neurology [address] [facility], [address] [address] Maverick Boyce MD [address] [place] [id number] Social History Tobacco Use Types Packs/Day Years Used Date Smoking Tobacco: Never Assessed Comments Unknown Sex and Gender Information Value Date Recorded Sex Assigned at Not on file Legal Sex Female 3:52 AM SUPERVISOR GROWER Gender Identity Not on file Sexual Orientation Not on file documented as of this encounter Plan of Treatment Not on file documented as of this encounter Visit Diagnoses Not on filedocumented in this encounter Care Teams Core Checker Relationship Specialty Start Date End Date Xavi Allen MD [address] [place] [address] PCP - General Internal Medicine 07/02/18 documented as of this encounter
--- OUTSIDE RECORDS SUMMARY | 2025-06-30 21:12 | XMS_ITS | Encounter Summary ---
Author Organization [facility] Address [address] [place] [address] Care Team Providers Care Eeg Technologist Name Role Phone Xavi Allen MD Primary Care Provider [phone] Encounter Details Date Type Department Care Team (Late st Contact Info) Description 08/19/2005 Outpatient [facility] Division of Neurology [address] [address] Radha Lin MD [address] [facility] [address] [place] [address] Social History Tobacco Use Types Packs/Day Years Used Date Smoking Tobacco: Never Assessed Comments Unknown Sex and Gender Information Value Date Recorded Sex Assigned at Not on file Legal Sex Female 3:52 AM MUSEUM GUIDE Gender Identity Not on file Sexual Orientation Not on file documented as of this encounter Plan of Treatment Not on file documented as of this encounter Visit Diagnoses Not on filedocumented in this encounter Care Teams Eeg Technologist Relationship Specialty Start Date End Date Xavi Allen MD [address] [place] [address] PCP - General Internal Medicine 07/02/18 documented as of this encounter
--- OUTSIDE RECORDS SUMMARY | 2025-06-30 21:12 | XMS_ITS | Patient Health Record ---
Author Organization [facility] [employer] ([address]) Address [address] [place] [address] Care Team Providers Care Thermo Processor Name Role Phone Alejandro, Xavi Primary Care Provider Manny Guzman Unavailable [phone] Allergies Allergen (clinical drug ingredient) Drug/Non Drug Allergy documented on EMR Reaction Allergy Type Onset Date Status oxycodone oxyCODONE Unknown Drug Allergy Active Substance with sulfonamide structure and antibacterial mechanism of action (substance) Sulfa Antibiotics Unknown Drug Allergy Active Results Component Value Reference Range Notes -Respiratory Allergens w/Tot al IgE Area 8 Reviewed date:05/23/2025 06:59:26 PM Interpretation: Performing Lab:[facility], [address] [place] [id number], Phone - [phone], Director - Tyler Notes/Report: Class Description Levels of Specific IgE Class Description of Class ----- < 0.10 0 Negative 0.10 - 0.31 0/I Equivocal/Low 0.32 - 0.55 I Low 0.56 - 1.40 II Moderate 1.41 - 3.90 III High 3.91 - 19.00 IV Very High 19.01 - 100.00 V Very High >100.00 Very High Immunoglobulin E, Total 9 6-495 IU/mL N467-AtM D pteronyssinus <0.10 Class 0 kU/L T885-AiA D farinae <0.10 Class 0 kU/L Q761-YxD Cat Dander <0.10 Class 0 kU/L O458-VlZ Dog Dander <0.10 Class 0 kU/L M601-XuE Mouse Urine <0.10 Class 0 kU/L B590-NcO Berm[place] Grass <0.10 Class 0 kU/L C350-OsG Venkat Grass <0.10 Class 0 kU/L Z593-InS Cockroach, Frisian <0.10 Class 0 kU/L P760-FxE Penicillium chrysogen <0.10 Class 0 kU /L O067-IgE Cladosporium herbarum <0.10 Class 0 kU /L V042-JkZ Aspergillus fumigatus <0.10 Class 0 kU /L F254-PvP Alternaria alternata <0.10 Class 0 kU/ L C891-MzP Maple/[place] <0.10 Class 0 kU/L D386-EvM [place], [place] <0.10 Class 0 kU/L D081-KrH Palmer, White <0.10 Class 0 kU/L O184-SxP Elm, Vincentian <0.10 Class 0 kU/L P369-IyF [place] <0.10 Class 0 kU/L C039-SwC [place] <0.10 Class 0 kU/L B555-DkK [place] <0.10 Class 0 kU/L R222-KfD Dom, White <0.10 Class 0 kU/L B694-EyJ Pecan, [place] <0.10 Class 0 kU/L E681-EtK [place] <0.10 Class 0 kU/L C304-RvV Ragweed, Short <0.10 Class 0 kU/L H612-MdK Thistle, Angolan <0.10 Class 0 kU/L Z647-UrM Pigweed, Common <0.10 Class 0 kU/L Y884-DpB Rough [place] <0.10 Class 0 kU/L Reason For Referral No Information Medications Medication SIG (Take, Route, Frequency, Duration) Notes Start Date End Date Status Cetirizine HCl 10 MG 1 tablet Orally as needed; Duration: 30 days Active Flonase Allergy Relief 50 MCG/ACT 2 sprays in each nostril Nasally Twice a day 04/25/2025 Active Azelastine HCl 137 MCG/SPRAY 2 puffs (1 spray in each nostril) Nasally Twice a day; Duration: 30 days 06/14/2025 Active Kesimpta 20 MG/0.4ML as directed Subcutaneous Active Alendronate Sodium 70 MG 1 tablet 30 min utes before the first food, beverage or medicine of the day with plain water Orally Active Calcium Active Ampyra 10 MG 1 tablet Orally Twic e a day Active Magnesium 250 MG 1 tablet with a meal Orally Once a day Active Baclofen 20 MG/20ML as directed Intrathecal Active carBAMazepine Active Levothyroxine Sodium 75 MCG 1 tablet in the morning on an empty stomach Orally Once a day Active Airsupra 90-80 MCG/ACT 2 puffs as needed Inhalation Six times a day; Duration: 30 days 04/25/2025 Active Pantoprazole Sodium 40 MG 1 tablet 1/2 t o 1 hour before morning meal Orally Once a day Active Azelastine HCl 137 MCG/SPRAY 2 puffs (1 spray in each nostril) Nasally Twice a day; Duration: 30 days 04/25/2025 Active Tacrolimus 0.1 % 1 application Commodity Management Specialist ally Once a day Active metroNIDAZOLE 0.75 % 1 application Exter joby Twice a day Active Vitamin D3 25 MCG (1000 UT) 1 tablet Ora lly Once a day Active Hydrocortisone 2.5 % 1 application Exter joby Once a day Active Citalopram Hydrobromide 20 MG 1 tablet Orally Once a day Active Gabapentin 100 MG 1 capsule at bedtime Orally Once a day Active Ipratropium [place] 0.03 % 2 sprays in e ach nostril Nasally Twice a day Active Social History Tobacco Use: Social History Observation Description Date Details (start date - stop date) Never Smoker NA - NA Sex Assigned At : Social History Observation Description Sex Assigned At Female Tobacco Control (Standard) Question Answer Notes Tobacco use: Nonsmoker Problems Problem Type SNOMED Code ICD Code Onset Dates Problem Status W/U Status Risk Notes Problem Chronic allergic conjunctivitis (42807087) Other chronic allergic conjunctivitis (H10.45) Active confirmed Problem Allergic rhinitis caused by pollen (disorder) (04831647) Allergic rhinitis due to pollen (J30.1) Active confirmed Problem Allergic rhinitis (50407430) Other allergic rhinitis (J30.89) Active confirmed Problem Chronic rhinitis (95783855) Chronic rhinitis (J31.0) Active confirmed Problem Chronic sinusitis (46589256) Chronic sinusitis, unspecified (J32.9) Active confirmed Problem Mild intermittent asthma (887991351) Mild intermittent asthma, uncomplicated (J45.20) Active confirmed Problem Uncomplicated moderate persistent asthma (774856093) Moderate persistent asthma, uncomplicated (J45.40) Active confirmed Problem Uncomplicated severe persistent asthma (588879312) Severe persistent asthma, uncomplicated (J45.50) Active confirmed Problem Allergic rhinitis caused by animal hair and dander (448742952226678) Allergic rhinitis due to animal (cat) (dog) hair and dander (J30.81) Active confirmed Vital Signs Oximetry 97 % 06/13/2025 Blood pressure diastolic 84 mm Hg 06/13/2025 Height 62 in 06/13/2025 Blood pressure systolic 131 mm Hg 06/13/2025 Weight 160.8 lbs 06/13/2025 BMI 29.41 kg/m2 06/13/2025 Encounters Encounter Location Date Provider Diagnosis [facility] [address] [place] [address] 06/13/2025 Manny Jackson Hypertrophy of nasal turbinates J34.3 [facility] [address] [place] [address] 04/25/2025 Manny Jackson Allergic rhinitis du e to pollen J30.1 ; Allergic rhinitis due to animal (cat) (dog) hair and dander J30.81 ; Other allergic rhinitis J30.89 ; Other chronic allergic conjunctivitis H10.45 ; Mild intermittent asthma, uncomplicated J45.20 and Chronic sinusitis, unspecified J32.9 Assessments Encounter Date Diagnosis (ICD Code) Assessment Notes Treatment Notes Treatment Clinical Notes Section Notes 04/25/2025 Allergic rhinitis due to pollen (ICD-10 - J30.1) Given the history and symptoms, skin testing was performed to common aeroallergens to determine atopic status. An clearly suffers from atopic disease based upon our skin testing and clinical history. Accordingly, we have introduced a new, aggressive medication regimen, discussed nasal washes and allergy-specific avoidance measures. We also discussed adjunctive therapies including subcutaneous, specific allergen immunotherapy as relates to the treatment and prevention of atopic disease. They are currently considering the risks, benefits and alternatives to this care. Risks: bleeding, infection, allergic reaction, anaphylaxis; Benefits: reduced need for medications, improved symptoms, disease modification. Alternatives: watch/wait, change medication regimen, improve allergy avoidance measures. Follow-up in 1 month for interval evaluation and management 04/25/2025 Allergic rhinitis due to animal (cat) (dog) hair and dander (ICD-10 - J30.81) Follow allergen avoidance, meds and consider SCIT as an adjunctive treatment to current regimen 06/13/2025 Hypertrophy of nasal turbinates (ICD-10 - J34.3) She initially presented for evaluation of allergic rhinitis with equivocal skin testing and completely negative region 8 panel. I do believe she has more of a vasomotor rhinitis component. We will continue azelastine 1 spray in each nostril twice a day, Flonase 2 sprays in each nostril twice a day, cetirizine if she feels it provides improvement. Return in 3 to 4 months. 04/25/2025 Other allergic rhinitis (ICD-10 - J30.89) Follow allergen avoidance, meds and consider SCIT as an adjunctive treatment to current regimen 04/25/2025 Other chronic allergic conjunctivitis (ICD-10 - H10.45) Given ocular signs and symptoms I encouraged allergy avoidance measures and meds as above. If symptoms persist, consider adding additional medications including intraocular antihistamine/mas t cell stabilizer, PRN and consider SCIT as an adjunctive measure 04/25/2025 Mild intermittent asthma, uncomplicated (ICD-10 - J45.20) Diagnosed with asthma by her primary care physician mainly because of cough and apparently abnormal spirometry. Denies any major episodes of wheezing but does have significant coughing which does interrupt her daily routine and even causes nocturnal awakenings. I am not convinced that she has significant asthma but will switch lev albuterol to a trial of airsupra. 04/25/2025 Chronic sinusitis, unspecified (ICD-10 - J32.9) Patient does have symptoms suggestive of chronic sinusitis with main concern of recurring postnasal drainage. She did state that prior MRIs done by her neurologist suggested sinus mucosal thickening. I have requested a CAT scan but held off on antibiotics at this time. Plan Of Treatment Pending Test Test Name Order Date CT Scan : Sinuses 04/25/2025 Next Appt Details Provider Name:Manny Jackson, 10/16/2025 11:00:00 AM, [address], [place], [address], Insurance Providers Payer Name Payer Address Payer Phone Subscriber Number Group Number Insured Name Patient Relationship to Insured Coverage Start Date Coverage End Date Samuel Rule Insurance [facility] [address] [address] [place] [address] [id number] An Barrientos Self - patient is the insured Medical (General) History Medical History History ICD Code Cough variant asthma J45.991 Multiple sclerosis
--- OUTSIDE RECORDS SUMMARY | 2025-06-30 21:13 | XMS_ITS | Encounter Summary ---
Author Organization [facility] Address [address] [place] [address] Care Team Providers Care Loan Review Analyst Name Role Phone Xavi Allen MD Primary Care Provider [phone] Encounter Details Date Type Department Care Team (Late st Contact Info) Description 03/02/2001 Outpatient [facility] Division of Neurology 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
--- OUTSIDE RECORDS SUMMARY | 2025-06-30 21:13 | XMS_ITS | Encounter Summary ---
Author Organization [employer] [facility] Address [address] [place] [address] Care Team Providers Care Circle Edger Name Role Phone Xavi Allen MD Primary Care Provider [phone] Encounter Details Date Type Department Care Team (Latest Contact Info) Description 03/30/2001 Outpatient Historical [facility] Rudy Palma V., PhD 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
--- OUTSIDE RECORDS SUMMARY | 2025-06-30 21:13 | XMS_ITS | Encounter Summary ---
Author Organization [facility] Address 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
--- OUTSIDE RECORDS SUMMARY | 2025-06-30 21:14 | XMS_ITS | Encounter Summary ---
Author Organization [facility] Address 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
--- OUTSIDE RECORDS SUMMARY | 2025-06-30 21:14 | XMS_ITS | Encounter Summary ---
Author Organization [facility] Address [address] [place] [address] Care Team Providers Care Gastroenterology Nurse Name Role Phone Xavi Allen MD Primary Care Provider [phone] Encounter Details Date Type Department Care Team (Late st Contact Info) Description 09/06/2002 Outpatient [facility] Division of Neurology [address] [address] Radha Lin MD [address] [facility] [address] [place] [phone] Social History Tobacco Use Types Packs/Day Years Used Date Smoking Tobacco: Never Assessed Comments Unknown Sex and Gender Information Value Date Recorded Sex Assigned at Not on file 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
--- OUTSIDE RECORDS SUMMARY | 2025-06-30 21:14 | XMS_ITS | Encounter Summary ---
Author Organization [facility] Address [address] [place] [address] Care Team Providers Care Digital Research Analyst Name Role Phone Xavi Allen MD Primary Care Provider Encounter Details Date Type Department Care Team (Late st Contact Info) Description 10/31/2002 Outpatient [address] 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
--- OUTSIDE RECORDS SUMMARY | 2025-06-30 21:14 | XMS_ITS | Encounter Summary ---
Author Organization [facility] Address [address] [place] [address] Care Team Providers Care Commissioning Agent Name Role Phone Xavi Allen MD Primary Care Provider [phone] Encounter Details Date Type Department Care Team (Late st Contact Info) Description 03/22/2002 Outpatient [facility] Division of Neurology [address] [facility] [facility] [address] Maverick Boyce MD [address] [place] [phone] Social History Tobacco Use Types Packs/Day Years Used Date Smoking Tobacco: Never Assessed Comments Unknown Sex and Gender Information Value Date Recorded Sex Assigned at Not on file Legal Sex Female 3:52 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
--- OUTSIDE RECORDS SUMMARY | 2025-06-30 21:14 | XMS_ITS | Encounter Summary ---
Author Organization [facility] Address 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
--- OUTSIDE RECORDS SUMMARY | 2025-06-30 21:14 | XMS_ITS | Encounter Summary ---
Author Organization [facility] Address 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
--- OUTSIDE RECORDS SUMMARY | 2025-06-30 21:14 | XMS_ITS | Encounter Summary ---
Author Organization [facility] Address 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
--- OUTSIDE RECORDS SUMMARY | 2025-06-30 21:14 | XMS_ITS | Encounter Summary ---
Author Organization [facility] Address [address] [place] [address] Care Team Providers Care Calendering Machine Operator Name Role Phone Xavi Allen MD Primary Care Provider [phone] Encounter Details Date Type Department Care Team (Late st Contact Info) Description 10/03/2002 Outpatient [facility] Division of Neurology [address] [facility] [address] Radha Lin MD [address] [facility] [address] [place] [phone] Social History Tobacco Use Types Packs/Day Years Used Date Smoking Tobacco: Never Assessed Comments Unknown Sex and Gender Information Value Date Recorded Sex Assigned at Not on file 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
--- OUTSIDE RECORDS SUMMARY | 2025-06-30 21:14 | XMS_ITS | Encounter Summary ---
Author Organization [facility] Address [address] [place] [address] Care Team Providers Care Law Enforcement Director Name Role Phone Xavi Allen MD Primary Care Provider [phone] Encounter Details Date Type Department Care Team (Late st Contact Info) Description 08/19/2001 Outpatient [facility] Division of Neurology [address] [facility], [address] [address] Radha Lin MD [address] [facility] [address] [place] [phone] Social History Tobacco Use Types Packs/Day Years Used Date Smoking Tobacco: Never Assessed Comments Unknown Sex and Gender Information Value Date Recorded Sex Assigned at Not on file 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
--- OUTSIDE RECORDS SUMMARY | 2025-06-30 21:14 | XMS_ITS | Encounter Summary ---
Author Organization [employer] [facility] Address [address] [place] [address] Care Team Providers Care Building Equipment Inspector Name Role Phone Xavi Allen MD Primary Care Provider [phone] Encounter Details Date Type Department Care Team (Late st Contact Info) Description 11/25/2002 Outpatient [facility] Division of Neurology [address] [facility], [address] [address] Maverick Boyce MD [address] [place] [phone] Social History Tobacco Use Types Packs/Day Years Used Date Smoking Tobacco: Never Assessed Comments Unknown Sex and Gender Information Value Date Recorded Sex Assigned at Not on file 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
--- OUTSIDE RECORDS SUMMARY | 2025-06-30 21:14 | XMS_ITS | Encounter Summary ---
Author Organization [facility] Address [address] [place] [address] Care Team Providers Care Yarn Texturing Machine Operator Name Role Phone Xavi lAlen MD Primary Care Provider [phone] Encounter Details Date Type Department Care Team (Late st Contact Info) Description 03/22/2002 Outpatient [facility] Division of Neurology [address], [address] [address] Radha Lin MD [address] [facility] [address] [place] [phone] Social History Tobacco Use Types Packs/Day Years Used Date Smoking Tobacco: Never Assessed Comments Unknown Sex and Gender Information Value Date Recorded Sex Assigned at Not on file Legal Sex Female 3:52 AM NEWS SPECIALIST Gender Identity Not on file Sexual Orientation Not on file documented as of this encounter Plan of Treatment Not on file documented as of this encounter Visit Diagnoses Not on filedocumented in this encounter Care Teams Yarn Texturing Machine Operator Relationship Specialty Start Date End Date Xavi Allen MD [address] [place] [address] PCP - General Internal Medicine 07/02/18 documented as of this encounter
--- OUTSIDE RECORDS SUMMARY | 2025-06-30 21:14 | XMS_ITS | Encounter Summary ---
Author Organization [facility] Address [address] [place] [address] Care Team Providers Care Lieutenant/Deputy Name Role Phone Xavi Allen MD Primary Care Provider [phone] Encounter Details Date Type Department Care Team (Late st Contact Info) Description 05/01/2001 Outpatient Historical [facility] NEUROLOGY Radha Lin MD [address] [facility] [address] [place] [phone] Social History Tobacco Use Types Packs/Day Years Used Date Smoking Tobacco: Never Assessed Comments Unknown Sex and Gender Information Value Date Recorded Sex Assigned at Not on file Legal Sex Female 3:52 AM PRINCIPAL SOLUTIONS ARCHITECT Gender Identity Not on file Sexual Orientation Not on file documented as of this encounter Plan of Treatment Not on file documented as of this encounter Visit Diagnoses Not on filedocumented in this encounter Care Teams Lieutenant/Deputy Relationship Specialty Start Date End Date Xavi Allen MD [address] [place] [address] PCP - General Internal Medicine 07/02/18 documented as of this encounter
--- OUTSIDE RECORDS SUMMARY | 2025-06-30 21:14 | XMS_ITS | Encounter Summary ---
Author Organization [facility] Address [address] [place] [address] Care Team Providers Care Hvac Refrigeration Technician Name Role Phone Xavi Allen MD Primary Care Provider [phone] Encounter Details Date Type Department Care Team (Late st Contact Info) Description 10/31/2002 Outpatient [facility] Division of Neurology [address] [facility], [address] [address] Radha Lin MD [address] [facility] [address] [place] [address] Social History Tobacco Use Types Packs/Day Years Used Date Smoking Tobacco: Never Assessed Comments Unknown Sex and Gender Information Value Date Recorded Sex Assigned at Not on file Legal Sex Female 3:52 AM CAMPUS PRESIDENT Gender Identity Not on file Sexual Orientation Not on file documented as of this encounter Plan of Treatment Not on file documented as of this encounter Visit Diagnoses Not on filedocumented in this encounter Care Teams Hvac Refrigeration Technician Relationship Specialty Start Date End Date Xavi Allen MD [address] [place] [address] PCP - General Internal Medicine 07/02/18 documented as of this encounter
--- OUTSIDE RECORDS SUMMARY | 2025-06-30 21:14 | XMS_ITS | Encounter Summary ---
Author Organization [facility] Address [address] [place] [address] Care Team Providers Care Ram Car Operator Name Role Phone Xavi Allen MD Primary Care Provider [phone] Encounter Details Date Type Department Care Team (Late st Contact Info) Description 09/06/2002 Outpatient [facility] Division of Neurology [address], [address] [address] Maverick Boyce MD [address] [place] [phone] Social History Tobacco Use Types Packs/Day Years Used Date Smoking Tobacco: Never Assessed Comments Unknown Sex and Gender Information Value Date Recorded Sex Assigned at Not on file Legal Sex Female 3:52 AM DIAMOND CLEAVER Gender Identity Not on file Sexual Orientation Not on file documented as of this encounter Plan of Treatment Not on file documented as of this encounter Visit Diagnoses Not on filedocumented in this encounter Care Teams Ram Car Operator Relationship Specialty Start Date End Date Xavi Allen MD [address] [place] [address] PCP - General Internal Medicine 07/02/18 documented as of this encounter
--- OUTSIDE RECORDS SUMMARY | 2025-06-30 21:14 | XMS_ITS | Encounter Summary ---
Author Organization [facility] Address [address] [place] [address] Care Team Providers Care Professor Of Religion Name Role Phone Xavi Allen MD Primary Care Provider [phone] Encounter Details Date Type Department Care Team (Late st Contact Info) Description 06/14/2002 Outpatient [facility] Division of Neurology [address], [address] [address] Maverick Boyce MD [address] [place] [phone] Social History Tobacco Use Types Packs/Day Years Used Date Smoking Tobacco: Never Assessed Comments Unknown Sex and Gender Information Value Date Recorded Sex Assigned at Not on file Legal Sex Female 3:52 AM STEAM FITTER HELPER Gender Identity Not on file Sexual Orientation Not on file documented as of this encounter Plan of Treatment Not on file documented as of this encounter Visit Diagnoses Not on filedocumented in this encounter Care Teams Professor Of Religion Relationship Specialty Start Date End Date Xavi Allen MD [address] [place] [address] PCP - General Internal Medicine 07/02/18 documented as of this encounter
--- OUTSIDE RECORDS SUMMARY | 2025-06-30 21:14 | XMS_ITS | Encounter Summary ---
Author Organization [facility] Address [address] [place] [address] Care Team Providers Care Qc Tech Name Role Phone Xavi Allen MD Primary Care Provider [phone] Encounter Details Date Type Department Care Team (Late st Contact Info) Description 05/17/2002 Outpatient Historical [facility] Social History Tobacco Use Types Packs/Day Years Used Date Smoking Tobacco: Never Assessed Comments Unknown Sex and Gender Information Value Date Recorded Sex Assigned at Not on file Legal Sex Female 3:52 AM ALMOND BLANCHER HAND Gender Identity Not on file Sexual Orientation Not on file documented as of this encounter Plan of Treatment Not on file documented as of this encounter Visit Diagnoses Not on filedocumented in this encounter Care Teams Qc Tech Relationship Specialty Start Date End Date Xavi Allen MD [address] [place] [address] PCP - General Internal Medicine 07/02/18 documented as of this encounter
--- OUTSIDE RECORDS SUMMARY | 2025-06-30 21:14 | XMS_ITS | Encounter Summary ---
Author Organization [facility] Address [address] [place] [address] Care Team Providers Care Luggage Attendant Name Role Phone Xavi Allen MD Primary Care Provider Encounter Details Date Type Department Care Team (Late st Contact Info) Description 11/25/2002 Outpatient [facility] Division of Neurology [address], [address] [address] Radha Lin MD [address] [facility] [address] [place] [address] Social History Tobacco Use Types Packs/Day Years Used Date Smoking Tobacco: Never Assessed Comments Unknown Sex and Gender Information Value Date Recorded Sex Assigned at Not on file Legal Sex Female 3:52 AM PARTY PLAN SALES AGENT Gender Identity Not on file Sexual Orientation Not on file documented as of this encounter Plan of Treatment Not on file documented as of this encounter Visit Diagnoses Not on filedocumented in this encounter Care Teams Luggage Attendant Relationship Specialty Start Date End Date Xavi Allen MD [address] [place] [address] PCP - General Internal Medicine 07/02/18 documented as of this encounter
--- OUTSIDE RECORDS SUMMARY | 2025-06-30 21:14 | XMS_ITS | Encounter Summary ---
Author Organization [facility] Address [address] [place] [address] Care Team Providers Care Yard Operator Name Role Phone Xavi Allen MD Primary Care Provider Encounter Details Date Type Department Care Team (Late st Contact Info) Description 06/14/2002 Outpatient Historical [facility] Social History Tobacco Use Types Packs/Day Years Used Date Smoking Tobacco: Never Assessed Comments Unknown Sex and Gender Information Value Date Recorded Sex Assigned at Not on file Legal Sex Female 3:52 AM ROVING DEPARTMENT END FINDER Gender Identity Not on file Sexual Orientation Not on file documented as of this encounter Plan of Treatment Not on file documented as of this encounter Visit Diagnoses Not on filedocumented in this encounter Care Teams Yard Operator Relationship Specialty Start Date End Date Xvai Allen MD [address] [place] [address] PCP - General Internal Medicine 07/02/18 documented as of this encounter
--- OUTSIDE RECORDS SUMMARY | 2025-06-30 21:14 | XMS_ITS | Encounter Summary ---
Author Organization [facility] Address [address] [place] [address] Care Team Providers Care Sales Product Manager Name Role Phone Xavi Allen MD Primary Care Provider [phone] Encounter Details Date Type Department Care Team (Latest Contact Info) Description 03/30/2001 Outpatient Historical [facility] NEUROLOG[facility] Radha Lin MD [address] [facility] [address] [place] [address] Multiple sclerosis (CMS/HCC) (Primary Dx) Social History Tobacco Use Types Packs/Day Years Used Date Smoking Tobacco: Never Assessed Comments Unknown Sex and Gender Information Value Date Recorded Sex Assigned at Not on file Legal Sex Female 3:52 AM SIFTER AND MILLER Gender Identity Not on file Sexual Orientation Not on file documented as of this encounter Plan of Treatment Not on file documented as of this encounter Visit Diagnoses Diagnosis Multiple sclerosis (CMS/HCC)- Primary Multiple sclerosis documented in this encounter Care Teams Sales Product Manager Relationship Specialty Start Date End Date Xavi Allen MD [address] [place] [address] PCP - General Internal Medicine 07/02/18 documented as of this encounter
--- OUTSIDE RECORDS SUMMARY | 2025-06-30 21:14 | XMS_ITS | Encounter Summary ---
Author Organization [facility] Address [address] [place] [address] Care Team Providers Care Hasher Machine Operator Name Role Phone Xavi Allen MD Primary Care Provider Encounter Details Date Type Department Care Team (Late st Contact Info) Description 02/16/2002 Outpatient [facility] Division [facility]rology [address] [facility] [address] [facility] [address] Radha Lin MD [address] [facility] [address] [place] [phone] Social History Tobacco Use Types Packs/Day Years Used Date Smoking Tobacco: Never Assessed Comments Unknown Sex and Gender Information Value Date Recorded Sex Assigned at Not on file Legal Sex Female 3:52 AM FIELD CROP HARVEST CONTRACTOR Gender Identity Not on file Sexual Orientation Not on file documented as of this encounter Plan of Treatment Not on file documented as of this encounter Visit Diagnoses Not on filedocumented in this encounter Care Teams Hasher Machine Operator Relationship Specialty Start Date End Date Xavi Allen MD [address] [place] [address] PCP - General Internal Medicine 07/02/18 documented as of this encounter
--- OUTSIDE RECORDS SUMMARY | 2025-06-30 21:15 | XMS_ITS | Encounter Summary ---
Author Organization [facility] Address [address] [place] [address] Care Team Providers Care Bowling Ball Weigher And Packer Name Role Phone Xavi Allen MD Primary Care Provider Encounter Details Date Type Department Care Team (Late st Contact Info) Description 06/16/2003 Outpatient Historical [facility] Social History Tobacco Use Types Packs/Day Years Used Date Smoking Tobacco: Never Assessed Comments Unknown Sex and Gender Information Value Date Recorded Sex Assigned at Not on file Legal Sex Female 3:52 AM PHYSICAL SCIENTIST Gender Identity Not on file Sexual Orientation Not on file documented as of this encounter Plan of Treatment Not on file documented as of this encounter Visit Diagnoses Not on filedocumented in this encounter Care Teams Bowling Ball Weigher And Packer Relationship Specialty Start Date End Date Xavi Allen MD [address] [place] [address] PCP - General Internal Medicine 07/02/18 documented as of this encounter
--- OUTSIDE RECORDS SUMMARY | 2025-06-30 21:15 | XMS_ITS | Encounter Summary ---
Author Organization [facility] Address [address] [place] [address] Care Team Providers Care Center Administrator Name Role Phone Xavi Allen MD Primary Care Provider Encounter Details Date Type Department Care Team (Late st Contact Info) Description 03/20/2003 Outpatient Historical [facility] DE[facility] Social History Tobacco Use Types Packs/Day Years Used Date Smoking Tobacco: Never Assessed Comments Unknown Sex and Gender Information Value Date Recorded Sex Assigned at Not on file Legal Sex Female 3:52 AM BATTERY WRECKER OPERATOR Gender Identity Not on file Sexual Orientation Not on file documented as of this encounter Plan of Treatment Not on file documented as of this encounter Visit Diagnoses Not on filedocumented in this encounter Care Teams Center Administrator Relationship Specialty Start Date End Date Xavi Allen MD [address] [place] [address] PCP - General Internal Medicine 07/02/18 documented as of this encounter
--- OUTSIDE RECORDS SUMMARY | 2025-06-30 21:15 | XMS_ITS | Encounter Summary ---
Author Organization [facility] Address [address] [place] [address] Care Team Providers Care Credit Risk Associate Name Role Phone Xavi Allen MD Primary Care Provider [phone] Encounter Details Date Type Department Care Team (Late st Contact Info) Description 03/20/2003 Outpatient Historical [facility] DEPT Radha Lin MD [address] [facility] [address] [place] [phone] Social History Tobacco Use Types Packs/Day Years Used Date Smoking Tobacco: Never Assessed Comments Unknown Sex and Gender Information Value Date Recorded Sex Assigned at Not on file Legal Sex Female 3:52 AM ARCHITECT MARINE Gender Identity Not on file Sexual Orientation Not on file documented as of this encounter Plan of Treatment Not on file documented as of this encounter Visit Diagnoses Not on filedocumented in this encounter Care Teams Credit Risk Associate Relationship Specialty Start Date End Date Xavi Allen MD [address] [place] [address] PCP - General Internal Medicine 07/02/18 documented as of this encounter
--- OUTSIDE RECORDS SUMMARY | 2025-06-30 21:15 | XMS_ITS | Encounter Summary ---
Author Organization [facility] Address [address] [place] [address] Care Team Providers Care Electrical Wirer Name Role Phone Xavi Allen MD Primary Care Provider [phone] Encounter Details Date Type Department Care Team (Late st Contact Info) Description 09/06/2002 Outpatient [facility] Division of Neurology [address] [facility] [address] Radha Lin MD [address] [facility] [address] [place] [phone] Social History Tobacco Use Types Packs/Day Years Used Date Smoking Tobacco: Never Assessed Comments Unknown Sex and Gender Information Value Date Recorded Sex Assigned at Not on file Legal Sex Female 3:52 AM AIRPORT OPERATIONS SPECIALIST Gender Identity Not on file Sexual Orientation Not on file documented as of this encounter Plan of Treatment Not on file documented as of this encounter Visit Diagnoses Not on filedocumented in this encounter Care Teams Electrical Wirer Relationship Specialty Start Date End Date Xavi Allen MD [address] [place] [address] PCP - General Internal Medicine 07/02/18 documented as of this encounter
--- OUTSIDE RECORDS SUMMARY | 2025-06-30 21:15 | XMS_ITS | Encounter Summary ---
Author Organization [facility] Address [address] [place] [address] Care Team Providers Care Upkeep Mechanic Name Role Phone Xavi Allen MD Primary Care Provider [phone] Encounter Details Date Type Department Care Team (Late st Contact Info) Description 04/07/2003 Outpatient [facility] Division of Neurology [address] [facility] [facility] [address] Maverick Boyce MD [address] [place] [phone] Social History Tobacco Use Types Packs/Day Years Used Date Smoking Tobacco: Never Assessed Comments Unknown Sex and Gender Information Value Date Recorded Sex Assigned at Not on file Legal Sex Female 3:52 AM NECK CUTTER Gender Identity Not on file Sexual Orientation Not on file documented as of this encounter Plan of Treatment Not on file documented as of this encounter Visit Diagnoses Not on filedocumented in this encounter Care Teams Upkeep Mechanic Relationship Specialty Start Date End Date Xavi Allen MD [address] [place] [address] PCP - General Internal Medicine 07/02/18 documented as of this encounter
--- OUTSIDE RECORDS SUMMARY | 2025-06-30 21:15 | XMS_ITS | Encounter Summary ---
Author Organization [facility] Address [address] [place] [address] Care Team Providers Care Spice Blender Name Role Phone Xavi Allen MD Primary Care Provider Encounter Details Date Type Department Care Team (Late st Contact Info) Description 08/08/2002 Outpatient Historical [facility] Social History Tobacco Use Types Packs/Day Years Used Date Smoking Tobacco: Never Assessed Comments Unknown Sex and Gender Information Value Date Recorded Sex Assigned at Not on file Legal Sex Female 3:52 AM REHAB ASSISTANT Gender Identity Not on file Sexual Orientation Not on file documented as of this encounter Plan of Treatment Not on file documented as of this encounter Visit Diagnoses Not on filedocumented in this encounter Care Teams Spice Blender Relationship Specialty Start Date End Date Xavi Allen MD [address] [place] [address] PCP - General Internal Medicine 07/02/18 documented as of this encounter
--- OUTSIDE RECORDS SUMMARY | 2025-06-30 21:15 | XMS_ITS | Encounter Summary ---
Author Organization [facility] Address [address] [place] [address] Care Team Providers Care Powerhouse Electrician Name Role Phone Xavi Allen MD Primary Care Provider Encounter Details Date Type Department Care Team (Late st Contact Info) Description 09/06/2002 Outpatient Historical [facility] Social History Tobacco Use Types Packs/Day Years Used Date Smoking Tobacco: Never Assessed Comments Unknown Sex and Gender Information Value Date Recorded Sex Assigned at Not on file Legal Sex Female 3:52 AM OIL EXPELLER OPERATOR Gender Identity Not on file Sexual Orientation Not on file documented as of this encounter Plan of Treatment Not on file documented as of this encounter Visit Diagnoses Not on filedocumented in this encounter Care Teams Powerhouse Electrician Relationship Specialty Start Date End Date Xavi Allen MD [address] [place] [address] PCP - General Internal Medicine 07/02/18 documented as of this encounter
--- OUTSIDE RECORDS SUMMARY | 2025-06-30 21:15 | XMS_ITS | Encounter Summary ---
Author Organization [facility] Address [address] [place] [address] Care Team Providers Care Fiberglass Autobody Repairer Name Role Phone Xavi Allen MD Primary Care Provider [phone] Encounter Details Date Type Department Care Team (Latest Contact Info) Description 04/04/2003 Outpatient Historical [facility] NEURO PSYCHOLOGY [place] Pal[place] V., PhD [address] [place] [address] MULTIPLE SCLEROSIS (CMS/HCC) (Primary Dx) Social History Tobacco Use Types Packs/Day Years Used Date Smoking Tobacco: Never Assessed Comments Unknown Sex and Gender Information Value Date Recorded Sex Assigned at Not on file Legal Sex Female 3:52 AM JUKEBOX ROUTE DRIVER Gender Identity Not on file Sexual Orientation Not on file documented as of this encounter Plan of Treatment Not on file documented as of this encounter Visit Diagnoses Diagnosis Multiple sclerosis (CMS/HCC)- Primary Multiple sclerosis documented in this encounter Care Teams Fiberglass Autobody Repairer Relationship Specialty Start Date End Date Xavi Allen MD [address] [place] [address] PCP - General Internal Medicine 07/02/18 documented as of this encounter
--- OUTSIDE RECORDS SUMMARY | 2025-06-30 21:15 | XMS_ITS | Encounter Summary ---
[facility] Organization [facility] Address [address] [place] [address] Care Team Providers Care Director Digital Name Role Phone Xavi Allen MD Primary Care Provider [phone] Encounter Details Date Type Department Care Team (Late st Contact Info) Description 03/03/2003 Outpatient Historical [facility] DEPT Radha Lin MD [address] [facility] [address] [place] [id number] MULTIPLE SCLEROSIS (CMS/HCC) (Primary Dx) Social History Tobacco Use Types Packs/Day Years Used Date Smoking Tobacco: Never Assessed Comments Unknown Sex and Gender Information Value Date Recorded Sex Assigned at Not on file Legal Sex Female 3:52 AM KILN REPAIRER Gender Identity Not on file Sexual Orientation Not on file documented as of this encounter Plan of Treatment Not on file documented as of this encounter Visit Diagnoses Diagnosis Multiple sclerosis (CMS/HCC)- Primary Multiple sclerosis documented in this encounter Care Teams Director Digital Relationship Specialty Start Date End Date Xavi Allen MD [address] [place] [address] PCP - General Internal Medicine 07/02/18 documented as of this encounter
--- OUTSIDE RECORDS SUMMARY | 2025-06-30 21:15 | XMS_ITS | Encounter Summary ---
Author Organization [facility] Address [address] [place] [address] Care Team Providers Care Engine Watchman Name Role Phone Xavi Allen MD Primary Care Provider Encounter Details Date Type Department Care Team (Late st Contact Info) Description 03/20/2003 Outpatient Historical [facility] Social History Tobacco Use Types Packs/Day Years Used Date Smoking Tobacco: Never Assessed Comments Unknown Sex and Gender Information Value Date Recorded Sex Assigned at Not on file Legal Sex Female 3:52 AM FINANCE DIRECTOR Gender Identity Not on file Sexual Orientation Not on file documented as of this encounter Plan of Treatment Not on file documented as of this encounter Visit Diagnoses Not on filedocumented in this encounter Care Teams Engine Watchman Relationship Specialty Start Date End Date Xavi Allen MD [address] [place] [address] PCP - General Internal Medicine 07/02/18 documented as of this encounter
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
--- OUTSIDE RECORDS SUMMARY | 2025-06-30 21:16 | XMS_ITS | Encounter Summary ---
Author Organization [facility] Address [address] [place] [address] Care Team Providers Care Information Clerk Cashier Name Role Phone Xavi Allen MD Primary Care Provider [phone] Encounter Details Date Type Department Care Team (Late st Contact Info) Description 01/23/2004 Outpatient [facility] Division of Neurology [address] [address] Radha Lin MD [address] [facility] [facility] [address] [place] [phone] Social History Tobacco Use Types Packs/Day Years Used Date Smoking Tobacco: Never Assessed Comments Unknown Sex and Gender Information Value Date Recorded Sex Assigned at Not on file 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
--- OUTSIDE RECORDS SUMMARY | 2025-06-30 21:16 | XMS_ITS | Encounter Summary ---
Author Organization [facility] Address [address] [place] [address] Care Team Providers Care Platform Beater Name Role Phone Xavi Allen MD Primary Care Provider [phone] Encounter Details Date Type Department Care Team (Late st Contact Info) Description 02/21/2003 Outpatient [facility] Division of Neurology [address] [address] Maverick Boyce MD [address] [place] [phone] Social History Tobacco Use Types Packs/Day Years Used Date Smoking Tobacco: Never Assessed Comments Unknown Sex and Gender Information Value Date Recorded Sex Assigned at Not on file Legal Sex Female 3:52 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
--- OUTSIDE RECORDS SUMMARY | 2025-06-30 21:16 | XMS_ITS | Encounter Summary ---
Author Organization [facility] Address [address] [place] [address] Care Team Providers Care Paper Cap Machine Operator Name Role Phone Xavi Allen MD Primary Care Provider Encounter Details Date Type Department Care Team (Late st Contact Info) Description 08/08/2003 Outpatient Historical [facility] Social History Tobacco Use Types Packs/Day Years Used Date Smoking Tobacco: Never Assessed Comments Unknown Sex and Gender Information Value Date Recorded Sex Assigned at Not on file Legal Sex Female 3:52 AM ELECTRICAL SUPERINTENDENT Gender Identity Not on file Sexual Orientation Not on file documented as of this encounter Plan of Treatment Not on file documented as of this encounter Visit Diagnoses Not on filedocumented in this encounter Care Teams Paper Cap Machine Operator Relationship Specialty Start Date End Date Xavi Allen MD [address] [place] [address] PCP - General Internal Medicine 07/02/18 documented as of this encounter
--- OUTSIDE RECORDS SUMMARY | 2025-06-30 21:16 | XMS_ITS | Encounter Summary ---
Author Organization [facility] Address [address] [place] [address] Care Team Providers Care Paper Rewinder Name Role Phone Xavi Allen MD Primary Care Provider [phone] Encounter Details Date Type Department Care Team (Late st Contact Info) Description 03/22/2004 Outpatient [facility] Division of Neurology [address], [address] [address] Radha Lin MD [address] [facility] [address] [place] [phone] Social History Tobacco Use Types Packs/Day Years Used Date Smoking Tobacco: Never Assessed Comments Unknown Sex and Gender Information Value Date Recorded Sex Assigned at Not on file Legal Sex Female 3:52 AM MENTAL HEALTH PROGRAM DIRECTOR Gender Identity Not on file Sexual Orientation Not on file documented as of this encounter Plan of Treatment Not on file documented as of this encounter Visit Diagnoses Not on filedocumented in this encounter Care Teams Paper Rewinder Relationship Specialty Start Date End Date Xavi Allen MD [address] [place] [address] PCP - General Internal Medicine 07/02/18 documented as of this encounter
--- OUTSIDE RECORDS SUMMARY | 2025-06-30 21:16 | XMS_ITS | Encounter Summary ---
Author Organization [facility] Address 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
--- OUTSIDE RECORDS SUMMARY | 2025-06-30 21:16 | XMS_ITS | Encounter Summary ---
Author Organization [facility] Address 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
--- OUTSIDE RECORDS SUMMARY | 2025-06-30 21:16 | XMS_ITS | Encounter Summary ---
Author Organization [facility] Address [address] [place] [address] Care Team Providers Care Tire Trucker Name Role Phone Xavi Allen MD Primary Care Provider [phone] Encounter Details Date Type Department Care Team (Late st Contact Info) Description 01/23/2004 Outpatient [facility] Division of Neurology [address] [address] Maverick Boyce MD [address] [place] [phone] Social History Tobacco Use Types Packs/Day Years Used Date Smoking Tobacco: Never Assessed Comments Unknown Sex and Gender Information Value Date Recorded Sex Assigned at Not on file 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
--- OUTSIDE RECORDS SUMMARY | 2025-06-30 21:16 | XMS_ITS | Encounter Summary ---
Author Organization [facility] Address 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
--- OUTSIDE RECORDS SUMMARY | 2025-06-30 21:16 | XMS_ITS | Encounter Summary ---
Author Organization [facility] Address 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
--- OUTSIDE RECORDS SUMMARY | 2025-06-30 21:16 | XMS_ITS | Encounter Summary ---
Author Organization [facility] Address [address] [place] [address] Care Team Providers Care Stationary Engineer Supervisor Name Role Phone Xavi Allen MD Primary Care Provider [phone] Encounter Details Date Type Department Care Team (Late st Contact Info) Description 07/09/2004 Outpatient Historical [facility] Social History Tobacco Use Types Packs/Day Years Used Date Smoking Tobacco: Never Assessed Comments Unknown Sex and Gender Information Value Date Recorded Sex Assigned at Not on file Legal Sex Female 3:52 AM CONTENT MANAGER Gender Identity Not on file Sexual Orientation Not on file documented as of this encounter Plan of Treatment Not on file documented as of this encounter Visit Diagnoses Not on filedocumented in this encounter Care Teams Stationary Engineer Supervisor Relationship Specialty Start Date End Date Xavi Allen MD [address] [place] [address] PCP - General Internal Medicine 07/02/18 documented as of this encounter
--- OUTSIDE RECORDS SUMMARY | 2025-06-30 21:16 | XMS_ITS | Encounter Summary ---
Author Organization [facility] Address [address] [place] [address] Care Team Providers Care Band Shover Name Role Phone Xvai Allen MD Primary Care Provider Encounter Details Date Type Department Care Team (Late st Contact Info) Description 12/27/2003 Outpatient Historical [facility] Social History Tobacco Use Types Packs/Day Years Used Date Smoking Tobacco: Never Assessed Comments Unknown Sex and Gender Information Value Date Recorded Sex Assigned at Not on file Legal Sex Female 3:52 AM SALON SALES CONSULTANT Gender Identity Not on file Sexual Orientation Not on file documented as of this encounter Plan of Treatment Not on file documented as of this encounter Visit Diagnoses Not on filedocumented in this encounter Care Teams Band Shover Relationship Specialty Start Date End Date Xavi Allen MD [address] [place] [address] PCP - General Internal Medicine 07/02/18 documented as of this encounter
--- OUTSIDE RECORDS SUMMARY | 2025-06-30 21:16 | XMS_ITS | Encounter Summary ---
Author Organization [facility] Address [address] [place] [address] Care Team Providers Care Community Leader Name Role Phone Xavi Allen MD Primary Care Provider Encounter Details Date Type Department Care Team (Late st Contact Info) Description 07/12/2003 Outpatient Historical 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
--- OUTSIDE RECORDS SUMMARY | 2025-06-30 21:16 | XMS_ITS | Encounter Summary ---
Author Organization [facility] Address [address] [place] [address] Care Team Providers Care Asset Protection Specialist Name Role Phone Xavi Allen MD Primary Care Provider [phone] Encounter Details Date Type Department Care Team (Late st Contact Info) Description 08/08/2003 Outpatient [facility] Division of Neurology [address] [address] Maverick Boyce MD [address] [place] [id number] Social History Tobacco Use Types Packs/Day Years Used Date Smoking Tobacco: Never Assessed Comments Unknown Sex and Gender Information Value Date Recorded Sex Assigned at Not on file Legal Sex Female 3:52 AM APPLIED BIOLOGY PROFESSOR Gender Identity Not on file Sexual Orientation Not on file documented as of this encounter Plan of Treatment Not on file documented as of this encounter Visit Diagnoses Not on filedocumented in this encounter Care Teams Asset Protection Specialist Relationship Specialty Start Date End Date Xavi Allen MD [address] [place] [address] PCP - General Internal Medicine 07/02/18 documented as of this encounter
--- OUTSIDE RECORDS SUMMARY | 2025-06-30 21:16 | XMS_ITS | Encounter Summary ---
Author Organization [facility] Address [address] [place] [address] Care Team Providers Care Household Appliance Installer Name Role Phone aXvi Allen MD Primary Care Provider Encounter Details Date Type Department Care Team (Late st Contact Info) Description 03/22/2004 Outpatient Historical [facility] DEPT Social History [...] on filedocumented in this encounter Care Teams Household Appliance Installer Relationship Specialty Start Date End Date Xavi Allen MD [address] [place] [address] PCP - General Internal Medicine 07/02/18 documented as of this encounter
--- OUTSIDE RECORDS SUMMARY | 2025-06-30 21:16 | XMS_ITS | Encounter Summary ---
Author Organization [facility] Address [address] [place] [address] Care Team Providers Care Intake Assessor Name Role Phone Xavi Allen MD Primary Care Provider [phone] Encounter Details Date Type Department Care Team (Late st Contact Info) Description 05/16/2003 Outpatient [facility] Division of Neurology [address] [address] Maverick Boyce MD [address] [place] [phone] Social History Tobacco Use Types Packs/Day Years Used Date Smoking Tobacco: Never Assessed Comments Unknown Sex and Gender Information Value Date Recorded Sex Assigned at Not on file Legal Sex Female 3:52 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
--- OUTSIDE RECORDS SUMMARY | 2025-06-30 21:16 | XMS_ITS | Encounter Summary ---
Author Organization [facility] Address [address] [place] [address] Care Team Providers Care Drug Abuse Counselor Name Role Phone Xavi Allen MD Primary Care Provider [phone] Encounter Details Date Type Department Care Team (Late st Contact Info) Description 04/07/[address] [facility] Division of Neurology [address] [address] Maverick Boyce MD [address] [place] [phone] Social History Tobacco Use Types Packs/Day Years Used Date Smoking Tobacco: Never Assessed Comments Unknown Sex and Gender Information Value Date Recorded Sex Assigned at Not on file Legal Sex Female 3:52 AM DIRECT RESPONSE CONSULTANT Gender Identity Not on file Sexual Orientation Not on file documented as of this encounter Plan of Treatment Not on file documented as of this encounter Visit Diagnoses Not on filedocumented in this encounter Care Teams Drug Abuse Counselor Relationship Specialty Start Date End Date Xavi Allen MD [address] [place] [address] PCP - General Internal Medicine 07/02/18 documented as of this encounter
--- OUTSIDE RECORDS SUMMARY | 2025-06-30 21:16 | XMS_ITS | Encounter Summary ---
Author Organization [facility] Address 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
--- OUTSIDE RECORDS SUMMARY | 2025-06-30 21:16 | XMS_ITS | Encounter Summary ---
Author Organization [facility] Address [address] [place] [address] Care Team Providers Care Optical Coating Technician Name Role Phone Xavi Allen MD Primary Care Provider [phone] Encounter Details Date Type Department Care Team (Late st Contact Info) Description 02/21/2003 Outpatient [facility] Division of Neurology [address] [address] Radha Lin MD [address] [place] [phone] Social History Tobacco Use Types Packs/Day Years Used Date Smoking Tobacco: Never Assessed Comments Unknown Sex and Gender Information Value Date Recorded Sex Assigned at Not on file 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
--- OUTSIDE RECORDS SUMMARY | 2025-06-30 21:16 | XMS_ITS | Encounter Summary ---
Author Organization [facility] Address [address] [place] [address] Care Team Providers Care Line Controller Name Role Phone Xavi Allen MD Primary Care Provider Encounter Details Date Type Department Care Team (Late st Contact Info) Description 08/08/2003 Outpatient Historical [facility] Social History Tobacco Use Types Packs/Day Years Used Date Smoking Tobacco: Never Assessed Comments Unknown Sex and Gender Information Value Date Recorded Sex Assigned at Not on file Legal Sex Female 3:52 AM GRINDER HAND Gender Identity Not on file Sexual Orientation Not on file documented as of this encounter Plan of Treatment Not on file documented as of this encounter Visit Diagnoses Not on filedocumented in this encounter Care Teams Line Controller Relationship Specialty Start Date End Date Xavi Allen MD [address] [place] [address] PCP - General Internal Medicine 07/02/18 documented as of this encounter
--- OUTSIDE RECORDS SUMMARY | 2025-06-30 21:16 | XMS_ITS | Encounter Summary ---
Author Organization [facility] Address [address] [place] [address] Care Team Providers Care Breast Worker Name Role Phone Xavi Allen MD Primary Care Provider [phone] Encounter Details Date Type Department Care Team (Late st Contact Info) Description 01/23/2004 Outpatient Historical [facility] Social History Tobacco Use Types Packs/Day Years Used Date Smoking Tobacco: Never Assessed Comments Unknown Sex and Gender Information Value Date Recorded Sex Assigned at Not on file Legal Sex Female 3:52 AM PROJECT DEVELOPMENT COORDINATOR Gender Identity Not on file Sexual Orientation Not on file documented as of this encounter Plan of Treatment Not on file documented as of this encounter Visit Diagnoses Not on filedocumented in this encounter Care Teams Breast Worker Relationship Specialty Start Date End Date Xavi Allen MD [address] [place] [address] PCP - General Internal Medicine 07/02/18 documented as of this encounter
--- OUTSIDE RECORDS SUMMARY | 2025-06-30 21:16 | XMS_ITS | Encounter Summary ---
Author Organization [facility] Address 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
--- OUTSIDE RECORDS SUMMARY | 2025-06-30 21:16 | XMS_ITS | Encounter Summary ---
Author Organization [facility] Address 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
--- OUTSIDE RECORDS SUMMARY | 2025-06-30 21:16 | XMS_ITS | Encounter Summary ---
Author Organization [facility] Address 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
--- OUTSIDE RECORDS SUMMARY | 2025-06-30 21:16 | XMS_ITS | Encounter Summary ---
Author Organization [facility] Address [address] [place] [address] Care Team Providers Care Painter Spray Name Role Phone Xavi Allen MD Primary Care Provider [phone] Encounter Details Date Type Department Care Team (Late st Contact Info) Description 03/03/2003 Outpatient [facility] Division of Neurology [address] [address] Radha Lin MD [address] 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
--- OUTSIDE RECORDS SUMMARY | 2025-06-30 21:16 | XMS_ITS | Encounter Summary ---
Author Organization [facility] Address [address] [place] [address] Care Team Providers Care Scoop Driver Name Role Phone Xavi Allen MD Primary Care Provider Encounter Details Date Type Department Care Team (Late st Contact Info) Description 02/21/2003 Outpatient Historical [facility] Social History Tobacco Use Types Packs/Day Years Used Date Smoking Tobacco: Never Assessed Comments Unknown Sex and Gender Information Value Date Recorded Sex Assigned at Not on file Legal Sex Female 3:52 AM TRANSPORTATION WORKER Gender Identity Not on file Sexual Orientation Not on file documented as of this encounter Plan of Treatment Not on file documented as of this encounter Visit Diagnoses Not on filedocumented in this encounter Care Teams Scoop Driver Relationship Specialty Start Date End Date Xavi Allen MD [address] [place] [address] PCP - General Internal Medicine 07/02/18 documented as of this encounter
--- OUTSIDE RECORDS SUMMARY | 2025-06-30 21:16 | XMS_ITS | Encounter Summary ---
Author Organization [facility] Address [address] [place] [address] Care Team Providers Care Communications Supervisor Name Role Phone Xavi Allen MD Primary Care Provider [phone] Encounter Details Date Type Department Care Team (Late st Contact Info) Description 03/14/2025 Lab Requisition [facility] [address], [place] [address] Jennifer Lucio DO [address] [place] [address] Social History Tobacco Use Types Packs/Day Years Used Date Smoking Tobacco: Never Smokeless Tobacco: Never Comments No Sex and Gender Information Value Date Recorded Sex Assigned at Not on file Legal Sex Female 8:21 PM CDT Gender Identity Not on file Sexual Orientation Not on file documented as of this encounter Functional Status * Is person deaf or have serious hearing difficulty? Answer Date of Assessment Author No 04/09/2018 10:28 AM Johanne Lauren RN * Is person blind or have serious difficulty seeing? Answer Date of Assessment Author No 04/09/2018 10:28 AM Johanne Lauren RN * Does person have serious difficulty walking/climbing stairs? Answer Date of Assessment Author Yes 04/09/2018 10:28 AM Johanne Lauren RN * Does person have difficulty dressing/bathing? Answer Date of Assessment Author No 04/09/2018 10:28 AM CDT Johanne Moreira RN * Does person have difficulty doing errands alone? Answer Date of Assessment Author Yes 04/09/2018 10:28 AM CDT Johanne Moreira RN documented as of this encounter Mental Status * Does person have difficulty concentrating/remembering/making decisions? Answer Entry Date Author No 04/09/2018 10:28 AM CDT Johanne Moreira RN documented in this encounter Plan of Treatment Not on file documented as of this encounter Procedures Procedure Name Priority Date/Time Associated Diagnosis Comments DERMATOPATHOLOGY Routine 03/14/2025 9:31 AM CDT documented in this encounter Results * DERMATOPATHOLOGY (03/14/2025 9:31 AM CDT) Case Report Dermatopathology Report Case: [id number] Authorizing Provider: Jennifer Lucio DO Collected: 03/14/2025 09:31 AM Ordering Location: [facility] - Received: 03/14/2025 04:30 PM DermPath Lab Pathologist: Angelia Lloyd MD Specimen: Skin, left methodist 4:19 PM CDT DERMATOPATHOLOGY LABORATORY Final Diagnosis Specimen A. SKIN, left methodist: ACTINIC KERATOSIS, LICHENOID (L57.0) 4:19 PM CDT DERMATOPATHOLOGY LABORATORY at 1619 CDT Clinical History ISK, R/O Atypia 4:19 PM CDT DERMATOPATHOLOGY LABORATORY Gross Description Specimen A: Received is one formalin filled container labeled with the patient's name and designated left methodist. The specimen consists of a shave biopsy measuring 10x7x1 mm. Jar 0. 4:19 PM CDT DERMATOPATHOLOGY LABORATORY Microscopic Description Specimen A. SKIN, left methodist: There is focal parakeratosis. The lower half of the epidermis shows disorderly maturation of keratinocytes with nuclear pleomorphism. The dermis shows a band-like, chronic inflammatory infiltrate with occasional apoptotic keratinocytes and some basal vacuolar alteration. 4:19 PM CDT DERMATOPATHOLOGY LABORATORY Disclaimer An external and internal positive and negative controls are appropriate for the histochemical, immunohistochemical and immunofluorescence stain(s) in this case (if any), except where stated explicitly. The performance characteristics of the stain(s) cited in this report were developed and its performance characteristic determined by the Dermatopathology Laboratory at [facility], directed by Dr. aRine Lloyd. These tests need not be, and therefore are not, approved by the [place] Food and Drug Administration. The tests are used for clinical purposes. Billing Codes Specimen Charges Stain Charges 68035 1 5 4:19 PM CDT DERMATOPATHOLOGY LABORATORY Embedded Images 5 4:19 PM CDT DERMATOPATHOLOGY LABORATORY Pathology/Cytolo gy TISSUE SPECIMEN FROM SKIN / Unknown 03/14/2025 9:31 AM CDT 03/14/2025 4:30 PM CDT us Jennifer Lucio DO LAB - PATHOLOGY/CYTOLOGY ORDERABLES Final Result DERMATOPATHOLOGY LABORATORY [facility] Department of Dermatology [address], [address] [phone] documented in this encounter Visit Diagnoses Not on filedocumented in this encounter Care Teams Communications Supervisor Relationship Specialty Start Date End Date Xavi Allen MD [address] [place], [place] [phone] PCP - General 05/03/18 documented as of this encounter
--- OUTSIDE RECORDS SUMMARY | 2025-06-30 21:16 | XMS_ITS | Encounter Summary ---
Author Organization [facility] Address [address] 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
--- OUTSIDE RECORDS SUMMARY | 2025-06-30 21:16 | XMS_ITS | Encounter Summary ---
Author Organization [facility] Address [address] Mishran: Epic Prelude ADT [place] [address] Care Team Providers Care Manager Clinic Name Role Phone Xavi Allen MD Primary Care Provider [phone] Encounter Details Date Type Department Care Team ([facility] Contact Info) Description 02/22/2004 Outpatient Historical Social History Tobacco Use Types Packs/Day Years Used Date Smoking Tobacco: Never Assessed Comments Unknown Sex and Gender Information Value Date Recorded Sex Assigned at Not on file Legal Sex Female 3:52 AM PREVENTIVE MEDICINE SPECIALIST Gender Identity Not on file Sexual Orientation Not on file documented as of this encounter Plan of Treatment Not on file documented as of this encounter Visit Diagnoses Not on filedocumented in this encounter Care Teams Manager Clinic Relationship Specialty Start Date End Date Xavi Allen MD [address] [place] [address] PCP - General Internal Medicine 07/02/18 documented as of this encounter
--- OUTSIDE RECORDS SUMMARY | 2025-06-30 21:16 | XMS_ITS | Encounter Summary ---
Author Organization [facility] Address [address] [place] [address] Care Team Providers Care Cancer Genetic Counselor Name Role Phone Xavi Allen MD Primary Care Provider Encounter Details Date Type Department Care Team (Late st Contact Info) Description 02/22/2004 Outpatient Historical [facility] Social History Tobacco Use Types Packs/Day Years Used Date Smoking Tobacco: Never Assessed Comments Unknown Sex and Gender Information Value Date Recorded Sex Assigned at Not on file Legal Sex Female 3:52 AM HAND RUG BRAIDER Gender Identity Not on file Sexual Orientation Not on file documented as of this encounter Plan of Treatment Not on file documented as of this encounter Visit Diagnoses Not on filedocumented in this encounter Care Teams Cancer Genetic Counselor Relationship Specialty Start Date End Date Xavi Allen MD [address] [place] [address] PCP - General Internal Medicine 07/02/18 documented as of this encounter
--- OUTSIDE RECORDS SUMMARY | 2025-06-30 21:16 | XMS_ITS | Encounter Summary ---
Author Organization [facility] Address [address] [place] [address] Care Team Providers Care Hat Renovator Name Role Phone Xavi Allen MD Primary Care Provider [phone] Encounter Details Date Type Department Care Team (Late st Contact Info) Description 08/08/2003 Outpatient [facility] Division of Neurology [address] [address] Radha Lin MD [address] [facility] [address] [place] [address] Social History Tobacco Use Types Packs/Day Years Used Date Smoking Tobacco: Never Assessed Comments Unknown Sex and Gender Information Value Date Recorded Sex Assigned at Not on file Legal Sex Female 3:52 AM CUSTOMS GUARD Gender Identity Not on file Sexual Orientation Not on file documented as of this encounter Plan of Treatment Not on file documented as of this encounter Visit Diagnoses Not on filedocumented in this encounter Care Teams Hat Renovator Relationship Specialty Start Date End Date Xavi Allen MD [address] [place] [address] PCP - General Internal Medicine 07/02/18 documented as of this encounter
--- OUTSIDE RECORDS SUMMARY | 2025-06-30 21:16 | XMS_ITS | Encounter Summary ---
Author Organization [facility] Address 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
--- OUTSIDE RECORDS SUMMARY | 2025-06-30 21:16 | XMS_ITS | Encounter Summary ---
Author Organization [facility] Address [address] [place] [address] Care Team Providers Care Founder And Chief Executive Officer Name Role Phone Xavi Allen MD Primary Care Provider [phone] Encounter Details Date Type Department Care Team (Late st Contact Info) Description 10/31/2003 Outpatient [facility] Division of Neurology [address] [address] Maverick Boyce MD [address] [place] [id number] Social History Tobacco Use Types Packs/Day Years Used Date Smoking Tobacco: Never Assessed Comments Unknown Sex and Gender Information Value Date Recorded Sex Assigned at Not on file 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
--- OUTSIDE RECORDS SUMMARY | 2025-06-30 21:16 | XMS_ITS | Encounter Summary ---
Author Organization [facility] Address [address] [place] [address] Care Team Providers Care Clip Riveter Name Role Phone Xavi Allen MD Primary Care Provider [phone] Encounter Details Date Type Department Care Team (Late st Contact Info) Description 01/03/2003 Outpatient Historical [facility] Esequiel Olivares MD [address] [address] RETENTION OF URINE UNSPEC (Primary Dx) Social History Tobacco Use Types Packs/Day Years Used Date Smoking Tobacco: Never Assessed Comments Unknown Sex and Gender Information Value Date Recorded Sex Assigned at Not on file Legal Sex Female 3:52 AM OPEN HEARTH WORKER Gender Identity Not on file Sexual Orientation Not on file documented as of this encounter Plan of Treatment Not on file documented as of this encounter Visit Diagnoses Diagnosis Retention of urine, unspecified- Primary documented in this encounter Care Teams Clip Riveter Relationship Specialty Start Date End Date Xavi Allen MD [address] [place] [address] PCP - General Internal Medicine 07/02/18 documented as of this encounter
--- OUTSIDE RECORDS SUMMARY | 2025-06-30 21:16 | XMS_ITS | Encounter Summary ---
Author Organization [facility] Address [address] [place] [address] Care Team Providers Care Vine Pruner Name Role Phone Xavi Allen MD Primary Care Provider [phone] Encounter Details Date Type Department Care Team (Late st Contact Info) Description 05/16/2004 Outpatient Historical [facility] Social History Tobacco Use Types Packs/Day Years Used Date Smoking Tobacco: Never Assessed Comments Unknown Sex and Gender Information Value Date Recorded Sex Assigned at Not on file Legal Sex Female 3:52 AM KIT PLANNER Gender Identity Not on file Sexual Orientation Not on file documented as of this encounter Plan of Treatment Not on file documented as of this encounter Visit Diagnoses Not on filedocumented in this encounter Care Teams Vine Pruner Relationship Specialty Start Date End Date Xavi Allen MD [address] [place] [address] PCP - General Internal Medicine 07/02/18 documented as of this encounter
--- OUTSIDE RECORDS SUMMARY | 2025-06-30 21:16 | XMS_ITS | Encounter Summary ---
Author Organization [facility] Address [address] [place] [address] Care Team Providers Care Systems Technologist Name Role Phone Xavi Allen MD Primary Care Provider [phone] Encounter Details Date Type Department Care Team (Late st Contact Info) Description 04/16/2004 Outpatient [facility] Division of Neurology [address] [address] Maverick Boyce MD [address] [place] [id number] Social History Tobacco Use Types Packs/Day Years Used Date Smoking Tobacco: Never Assessed Comments Unknown Sex and Gender Information Value Date Recorded Sex Assigned at Not on file Legal Sex Female 3:52 AM ENTRY LEVEL DRAFTER Gender Identity Not on file Sexual Orientation Not on file documented as of this encounter Plan of Treatment Not on file documented as of this encounter Visit Diagnoses Not on filedocumented in this encounter Care Teams Systems Technologist Relationship Specialty Start Date End Date Xavi Allen MD [address] [place] [address] PCP - General Internal Medicine 07/02/18 documented as of this encounter
--- OUTSIDE RECORDS SUMMARY | 2025-06-30 21:16 | XMS_ITS | Encounter Summary ---
Author Organization [facility] Address [address] [place] [address] Care Team Providers Care Food Service Clerk Name Role Phone Xavi Allen MD Primary Care Provider [phone] Encounter Details Date Type Department Care Team (Late st Contact Info) Description 02/02/2004 Outpatient [facility] Division of Neurology [address] [address] Maverick Boyce MD [address] [place] [id number] Social History Tobacco Use Types Packs/Day Years Used Date Smoking Tobacco: Never Assessed Comments Unknown Sex and Gender Information Value Date Recorded Sex Assigned at Not on file Legal Sex Female 3:52 AM BRIM FLEXER Gender Identity Not on file Sexual Orientation Not on file documented as of this encounter Plan of Treatment Not on file documented as of this encounter Visit Diagnoses Not on filedocumented in this encounter Care Teams Food Service Clerk Relationship Specialty Start Date End Date Xavi Allen MD [address] [place] [address] PCP - General Internal Medicine 07/02/18 documented as of this encounter
--- OUTSIDE RECORDS SUMMARY | 2025-06-30 21:16 | XMS_ITS | Encounter Summary ---
Author Organization [facility] Address [address] [place] [address] Care Team Providers Care Ict Support And Test Engineers Name Role Phone Xavi Allen MD Primary Care Provider [phone] Encounter Details Date Type Department Care Team (Late st Contact Info) Description 10/31/2003 Outpatient [facility] Division of Neurology [address] [address] Radha Lin MD [address] [facility] [address] [place] [phone] Social History Tobacco Use Types Packs/Day Years Used Date Smoking Tobacco: Never Assessed Comments Unknown Sex and Gender Information Value Date Recorded Sex Assigned at Not on file Legal Sex Female 3:52 AM HOSE HANDLER Gender Identity Not on file Sexual Orientation Not on file documented as of this encounter Plan of Treatment Not on file documented as of this encounter Visit Diagnoses Not on filedocumented in this encounter Care Teams Ict Support And Test Engineers Relationship Specialty Start Date End Date Xavi Allen MD [address] [place] [address] PCP - General Internal Medicine 07/02/18 documented as of this encounter
--- OUTSIDE RECORDS SUMMARY | 2025-06-30 21:16 | XMS_ITS | Encounter Summary ---
Author Organization [facility] Address [address] [place] [address] Care Team Providers Care Routing Equipment Tender Name Role Phone Xavi Allen MD Primary Care Provider Encounter Details Date Type Department Care Team (Late st Contact Info) Description 10/05/2003 Outpatient Historical [facility] Social History Tobacco Use Types Packs/Day Years Used Date Smoking Tobacco: Never Assessed Comments Unknown Sex and Gender Information Value Date Recorded Sex Assigned at Not on file Legal Sex Female 3:52 AM ROLLER SKATE ASSEMBLER Gender Identity Not on file Sexual Orientation Not on file documented as of this encounter Plan of Treatment Not on file documented as of this encounter Visit Diagnoses Not on filedocumented in this encounter Care Teams Routing Equipment Tender Relationship Specialty Start Date End Date Xavi Allen MD [address] [place] [address] PCP - General Internal Medicine 07/02/18 documented as of this encounter
--- OUTSIDE RECORDS SUMMARY | 2025-06-30 21:16 | XMS_ITS | Encounter Summary ---
Author Organization [facility] Address [address] [place] [address] Care Team Providers Care Dosier Operator Name Role Phone Xavi Allen MD Primary Care Provider [phone] Encounter Details Date Type Department Care Team (Late st Contact Info) Description 12/26/2002 Outpatient Historical [facility] KASI Lin, Radha Batres MD [address] [facility] [address] [place] [phone] Social History Tobacco Use Types Packs/Day Years Used Date Smoking Tobacco: Never Assessed Comments Unknown Sex and Gender Information Value Date Recorded Sex Assigned at Not on file Legal Sex Female 3:52 AM WET POUR SUPERVISOR Gender Identity Not on file Sexual Orientation Not on file documented as of this encounter Plan of Treatment Not on file documented as of this encounter Visit Diagnoses Not on filedocumented in this encounter Care Teams Dosier Operator Relationship Specialty Start Date End Date Xavi Allen MD [address] [place] [address] PCP - General Internal Medicine 07/02/18 documented as of this encounter
--- OUTSIDE RECORDS SUMMARY | 2025-06-30 21:16 | XMS_ITS | Encounter Summary ---
Author Organization [facility] Address [address] [place] [address] Care Team Providers Care Splitting Machine Tender Name Role Phone Xavi Allen MD Primary Care Provider [phone] Encounter Details Date Type Department Care Team (Late st Contact Info) Description 02/02/2004 Outpatient [facility] Division of Neurology [address] [address] Radha Lin MD [address] [facility] [address] [place] [phone] Social History Tobacco Use Types Packs/Day Years Used Date Smoking Tobacco: Never Assessed Comments Unknown Sex and Gender Information Value Date Recorded Sex Assigned at Not on file Legal Sex Female 3:52 AM POWERHOUSE TENDER Gender Identity Not on file Sexual Orientation Not on file documented as of this encounter Plan of Treatment Not on file documented as of this encounter Visit Diagnoses Not on filedocumented in this encounter Care Teams Splitting Machine Tender Relationship Specialty Start Date End Date Xavi Allen MD [address] [place] [address] PCP - General Internal Medicine 07/02/18 documented as of this encounter
--- OUTSIDE RECORDS SUMMARY | 2025-06-30 21:16 | XMS_ITS | Encounter Summary ---
Author Organization [facility] Address [address] [place] [address] Care Team Providers Care Continuing Education Dean Name Role Phone Xavi Allen MD Primary Care Provider Encounter Details Date Type Department Care Team (Late st Contact Info) Description 04/21/2003 Outpatient Historical [facility] Social History Tobacco Use Types Packs/Day Years Used Date Smoking Tobacco: Never Assessed Comments Unknown Sex and Gender Information Value Date Recorded Sex Assigned at Not on file Legal Sex Female 3:52 AM BUS CLEANER Gender Identity Not on file Sexual Orientation Not on file documented as of this encounter Plan of Treatment Not on file documented as of this encounter Visit Diagnoses Not on filedocumented in this encounter Care Teams Continuing Education Dean Relationship Specialty Start Date End Date Xavi Allen MD [address] [place] [address] PCP - General Internal Medicine 07/02/18 documented as of this encounter
--- OUTSIDE RECORDS SUMMARY | 2025-06-30 21:17 | XMS_ITS | Encounter Summary ---
Author Organization [facility] Address [address] [place] [address] Care Team Providers Care Laborer Hoisting Name Role Phone Xavi Allen MD Primary Care Provider [phone] Encounter Details Date Type Department Care Team (Late st Contact Info) Description 12/27/[address] Outpatient [address] [facility] Radha Lin MD [address] [facility] [address] [place] [phone] Social History Tobacco Use Types Packs/Day Years Used Date Smoking Tobacco: Never Assessed Comments Unknown Sex and Gender Information Value Date Recorded Sex Assigned at Not on file Legal Sex Female 3:52 AM CARRIAGE SETTER Gender Identity Not on file Sexual Orientation Not on file documented as of this encounter Plan of Treatment Not on file documented as of this encounter Visit Diagnoses Not on filedocumented in this encounter Care Teams Laborer Hoisting Relationship Specialty Start Date End Date Xavi Allen MD [address] [place] [address] PCP - General Internal Medicine 07/02/18 documented as of this encounter
--- OUTSIDE RECORDS SUMMARY | 2025-06-30 21:17 | XMS_ITS | Encounter Summary ---
Author Organization [facility] Address [address] [place] [address] Care Team Providers Care Case Liner Name Role Phone Xavi Allen MD Primary Care Provider [phone] Encounter Details Date Type Department Care Team (Late st Contact Info) Description 12/03/2004 Outpatient Historical [facility] Radha Lin MD [address] [facility] [address] [place] [phone] Social History Tobacco Use Types Packs/Day Years Used Date Smoking Tobacco: Never Assessed Comments Unknown Sex and Gender Information Value Date Recorded Sex Assigned at Not on file Legal Sex Female 3:52 AM COINING PRESS OPERATOR Gender Identity Not on file Sexual Orientation Not on file documented as of this encounter Plan of Treatment Not on file documented as of this encounter Visit Diagnoses Not on filedocumented in this encounter Care Teams Case Liner Relationship Specialty Start Date End Date Xavi Allen MD [address] [place] [address] PCP - General Internal Medicine 07/02/18 documented as of this encounter
--- OUTSIDE RECORDS SUMMARY | 2025-06-30 21:17 | XMS_ITS | Encounter Summary ---
Author Organization [facility] Address [address] [place] [address] Care Team Providers Care Fleet Dispatch Manager Name Role Phone Xavi Allen MD Primary Care Provider Encounter Details Date Type Department Care Team (Late st Contact Info) Description 02/11/2005 Outpatient Historical [facility] Social History Tobacco Use Types Packs/Day Years Used Date Smoking Tobacco: Never Assessed Comments Unknown Sex and Gender Information Value Date Recorded Sex Assigned at Not on file Legal Sex Female 3:52 AM HAND ROUTER OPERATOR Gender Identity Not on file Sexual Orientation Not on file documented as of this encounter Plan of Treatment Not on file documented as of this encounter Visit Diagnoses Not on filedocumented in this encounter Care Teams Fleet Dispatch Manager Relationship Specialty Start Date End Date Xavi Allen MD [address] [place] [address] PCP - General Internal Medicine 07/02/18 documented as of this encounter
--- OUTSIDE RECORDS SUMMARY | 2025-06-30 21:17 | XMS_ITS | Referral Summary ---
Author Organization [facility] Building B Address [address] [place] [address] Care Team Providers Care Bulk Picker Name Role Phone Xavi Allen MD Primary Care Provider [phone] Encounters Date Type Department Care Team Description 04/27/2025 Telephone [facility] in [facility] [address] [address] Osbaldo Link MD request for orders 04/07/2025 Telephone [facility] [address], [place] [address] Tara Espinosa RN from Last 3 Months Allergies Active Allergy Reactions Criticality Noted Date Comments Azathioprine Rash Medium 02/03/2013 Gadoterate Meglumine Rash Medium 12/18/2023 Patient developed red progressive spots on her chest arms and legs shortly after being given contrast. Hydrocodone Unknown 09/03/2011 Hydrocodone-Ibuprofen Rash Medium 03/03/2013 Sulfa (Sulfonamide Antibiotics) Fever Medium 02/03/2013 Sulfamethoxazole-Trime thoprim Other (See comments) Low 02/03/2013 gives me fever Medications montelukast (SINGULAIR) 10 mg tablet Take 1 tablet (10 mg total) by mouth nightly Active nitrofurantoin (MACRODANTIN) 50 mg capsule Take 1 capsule (50 mg total) by mouth nightly Active alendronate (FOSAMAX) 70 mg tablet Take 1 tablet (70 mg total) by mouth every 7 days Take in the morning with a full glass of water, on an empty stomach, and do not take anything else by mouth or lie down for the next 30 min. Active cetirizine (ZyrTEC) 10 mg tablet Take 1 tablet (10 mg total) by mouth daily Active cholecalcifero l (VITAMIN D-3) 1,000 unit Take 1 tablet/capsu le (1,000 Units total) by mouth daily Active magnesium gluconate (MAGONATE) 27.5 mg (500 mg) tabletIndicati ons:hypomagnes emia Take 1 tablet (500 mg total) by mouth nightly Active ascorbate calcium 500 mg tablet Take 500 mg by mouth 2 (two) times a day Active pantoprazole DR (PROTONIX) 40 mg EC tablet 8 Active levothyroxine (SYNTHROID, LEVOTHROID) 75 mcg tablet Take 1 tablet (75 mcg total) by mouth daily 2 8 Active levalbuterol (XOPENEX HFA) 45 mcg/actuation inhaler Inhale 1-2 puffs 2 (two) times a day Active armodafiniL (NUVIGIL) 250 mg tabletIndicati ons:Multiple sclerosis (HCC) TAKE ONE TABLET BY MOUTH ONCE DAILY 30 tablet 1 5 Active carBAMazepine XR (TEGretol XR) 100 mg 12 hr tablet Take 1 tablet (100 mg total) by mouth 2 (two) times a day 180 tablet 5 Active baclofen (LIORESAL) 20 mg tabletIndicati ons:Multiple sclerosis (HCC) Take 1 tablet (20 mg total) by mouth 2 (two) times a day 60 tablet 3 5 Active gabapentin (NEURONTIN) 100 mg capsuleIndicat ions:Multiple sclerosis (HCC) TAKE 1 CAPSULE BY MOUTH TWO TIMES A DAY 60 capsule 5 5 Active Kesimpta Pen 20 mg/0.4 mL pen injectorIndica tions:relapsin g form of multiple sclerosis Inject 20 mg under the skin every 30 (thirty) days 0.4 mL 5 5 Active dalfampridine 10 mg tablet extended release 12 hrIndications: Multiple sclerosis (HCC) Take 1 tablet (10 mg total) by mouth every 12 (twelve) hours 180 tablet 5 Active citalopram (CeleXA) 40 mg tablet TAKE ONE TABLET BY MOUTH DAILY 90 tablet 5 Active citalopram (CeleXA) 40 mg tablet Take 1 tablet (40 mg total) by mouth daily 90 tablet 5 025 Discontinued Active Problems Problem Noted Date Diagnosed Date History of recurrent psychosocial stressors 01/01 Falls infrequently 01/28/2020 Anxiety and depression 11/27/2019 History of cervical fracture 06/23/2018 Neurogenic dysfunction of the urinary bladder Neurogenic bowel 06/23/2018 Dysphagia 06/23/2018 Multiple sclerosis ([facility] 01/25/2018 Overview (01/23/2025): MS medication history: RRMS/SPMS Symptom onset: 1988 Diagnosis: 1989 1. Imuran: States for only 3 days, (systemic rash): Approx 1996 2. Avonex 01/1998-06/2009 3. Copaxone 06/2009-04/2011 4. Tysabri 05/29/2011-04/30/2020. 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 Vumerity: 07/2020-02/2021 Breakthrough disease, clinical and MRI 6. Kesimpta: 04/27/2021- . Assessment & Plan (05/17/2020 4:55 PM CDT): Fortunately Butch's symptoms of sensory changes in her right foot and leg are improving. She reports mild increase her her short term memory loss and fatigue that is different than her baseline. Her exam appears mostly unchanged. She does not tolerate prednisone. MRI today reviewed with Dr Lin and radiologist Dr. Shannon. 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 We discussed Vumerity. Risks and benefits of Vumerity discussed including flushing, n/v/d, hepatotoxicity, harm, low white blood cell count, and serious infection including PML. She has material to take home but agrees with starting Vumerity. 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 Immunizations Immunization Administration Dates Next Due Immune Globulin, Intravenous 03/09/2015 Influenza, Quadrivalent, Spl it, Intramuscular 10/05/2018,09/01/2017,09/16/2016,09/25 Influenza, Quadrivalent, Spl it, Preservative Free, Intramuscular 09/30/2021,10/12/2020,09/16/2019 Influenza, Trivalent, IM (MDV) 09/24/2017,2014 Pfizer SARS-CoV-2 Monovalent Vaccination (12+ Yrs) PURPLE 02/21/2021,02/01/2021 Pneumococcal Conjugate, Unspecified 08/30/2015 Tdap 10/20/2018 ZOSTER Recombinant 10/30/2021,01/19/2021, 020 Social History Tobacco Use Types Packs/Day Years Used Date Smoking Tobacco: Never Smokeless Tobacco: Never Tobacco Cessation:Counseling Given: Not Answered Alcohol Use Standard Drinks/Week Comments No 0 (1 standard drink = 0.6 oz pur e alcohol) AUDIT-C Answer Date Recorded Q1: How often do you have a drink containing alc ohol? Never 01/29/2021 Average Number of Drinks Not on file 021 Frequency of Binge Drinking Not on file 12/2020 Comments No Sex and Gender Information Value Date Recorded Sex Assigned at Not on file Legal Sex Female 2:51 PM DELIVERY AND INSTALLATION SUBCONTRACTOR Gender Identity Female 07/23/2020 1:37 PM CDT Sexual Orientation Straight 05/01/2020 3: 10 PM CDT Last Filed Vital Signs Vital Sign Reading Time Taken Comments Blood Pressure 128/72 12/28/2024 12:17 PM DELIVERY AND INSTALLATION SUBCONTRACTOR Pulse 70 12/28/2024 12:17 PM DELIVERY AND INSTALLATION SUBCONTRACTOR Temperature 36.4 C (97.5 F) 12/28/2024 12:17 PM DELIVERY AND INSTALLATION SUBCONTRACTOR Respiratory Rate 18 07/08/2022 4:30 PM CDT Oxygen Saturation 99% 12/28/2024 12:17 PM DELIVERY AND INSTALLATION SUBCONTRACTOR Inhaled Oxygen Concentration - - Weight 73 kg (161 lb) 12/28/2024 12:17 PM DELIVERY AND INSTALLATION SUBCONTRACTOR Height 144.8 cm (4' 9) 12/28/2024 12:17 PM DELIVERY AND INSTALLATION SUBCONTRACTOR Body Mass Index 34.84 12/28/2024 12:17 PM DELIVERY AND INSTALLATION SUBCONTRACTOR Plan of Treatment Not on file Procedures Procedure Name Priority Date/Time Associated Diagnosis Comments HEPATITIS PANEL, ACUTE Routine 03/18/2021 3:02 PM CDT Multiple sclerosis (HCC) High risk medication use from Last 3 Months or Most Recently Relevant to Health Maintenance Results * Hepatitis panel, acute (03/18/2021 3:02 PM CDT) Hep A IgM NON-REACTIVE NON-REACT [facility] Comment: For additional information, please refer to http://Instablogs.Deep Driver/faq/QGF884 (This link is being provided for informational/ educational purposes only.) HepBsAg NON-REACTIVE NON-REACT [facility] HBV Surface ag, confirm CANCELED [facility] Comment:Result canceled by jerome locke. Hep B core IgM NON-REACTIVE NON-REACT [facility] Hep C Ab NON-REACTIVE NON-REACT [facility] SIGNAL TO CUT-OFF 0.01 <1.00 [facility] Comment: HCV antibody was non-reactive. There is no laboratory evidence of HCV infection. In most cases, no further action is required. However, if recent HCV exposure is suspected, a test for HCV RNA (test code 45790) is suggested. For additional information please refer to http://UFOstart AG/faq/BPX33b2 (This link is being provided for informational/ educational purposes only.) Blood specimen (specimen) 03/18/2021 3:02 PM CDT 03/18/2021 3:04 PM CDT Narrative [facility] - 03/19/2021 11:26 AM CDT AN UPDATE OR CORRECTION HAS BEEN MADE TO NAME us Radha Lin MD LAB MICROBIOLOGY - GENERAL O RDERABLES Final Result [facility] [id number] [address] [id number] from Last 3 Months or Most Recently Relevant to Health Maintenance Insurance [employer] [facility] H[facility]PPO Address: [address] [address] [place] [address] IDPA Care Teams Bulk Picker Relationship Specialty Start Date End Date Xavi Allen MD PCP - General Internal Medicine 01/20/18
--- OUTSIDE RECORDS SUMMARY | 2025-06-30 21:17 | XMS_ITS | Encounter Summary ---
Author Organization [facility] Address [address] [place] [address] Care Team Providers Care Machine Programmer Name Role Phone Xavi Allen MD Primary Care Provider Encounter Details Date Type Department Care Team (Late st Contact Info) Description 10/09/2004 Outpatient Historical [facility] Social History Tobacco Use Types Packs/Day Years Used Date Smoking Tobacco: Never Assessed Comments Unknown Sex and Gender Information Value Date Recorded Sex Assigned at Not on file Legal Sex Female 3:52 AM V BLOCK SAW OPERATOR Gender Identity Not on file Sexual Orientation Not on file documented as of this encounter Plan of Treatment Not on file documented as of this encounter Visit Diagnoses Not on filedocumented in this encounter Care Teams Machine Programmer Relationship Specialty Start Date End Date Xavi Allen MD [address] [place] [address] PCP - General Internal Medicine 07/02/18 documented as of this encounter
--- OUTSIDE RECORDS SUMMARY | 2025-06-30 21:17 | XMS_ITS | Encounter Summary ---
Author Organization [facility] Address [address] [place] [address] Care Team Providers Care Ballpoint Pens Assembler Name Role Phone Xavi Allen MD Primary Care Provider [phone] Encounter Details Date Type Department Care Team (Late st Contact Info) Description 07/09/2004 Outpatient Historical Division of Neurology [address] [address] (Excluded Provider) [place] [address] [place] [address] Social History Tobacco Use Types Packs/Day Years Used Date Smoking Tobacco: Never Assessed Comments Unknown Sex and Gender Information Value Date Recorded Sex Assigned at Not on file Legal Sex Female 3:52 AM CORN HUSKER Gender Identity Not on file Sexual Orientation Not on file documented as of this encounter Plan of Treatment Not on file documented as of this encounter Visit Diagnoses Not on filedocumented in this encounter Care Teams Ballpoint Pens Assembler Relationship Specialty Start Date End Date Xavi Allen MD [address] [place] [address] PCP - General Internal Medicine 07/02/18 documented as of this encounter
--- OUTSIDE RECORDS SUMMARY | 2025-06-30 21:17 | XMS_ITS | Clinical Summary ---
Author Organization [facility] Address [address] [place] [address] Care Team Providers Care Furnace Checker Name Role Phone Xavi Laurent MD Primary Care Provider [phone] Allergies Active Allergy Reactions Criticality Noted Date Comments Azathioprine Rash Medium 02/03/2013 Gadoterate Meglumine Rash Medium 12/18/2023 Patient developed red progressive spots on her chest arms and legs shortly after being given contrast. Hydrocodone Unknown 03/31/2018 Hydrocodone-Ibuprofen Rash Medium 03/03/2013 Sulfa Antibiotics Other (see comment),Unknown Medium 09/03/2011 Sulfamethoxazole-Trime thoprim Other (see comment),Unknown 02/03/2013 gives me fever Medications baclofen 20 MG tablet Take 1 tablet (20 mg total) by mouth 2 (two) times daily. 8 Active Calcium Carbonate Antacid 1000 MG Chew Tab Chew 1 tablet by mouth. Active magnesium oxide 400 MG tablet Take 1 tablet (400 mg total) by mouth. Active montelukast 10 MG tablet 9 Active nitrofurantoin 50 MG capsule Take 1 capsule (50 mg total) by mouth daily. 5 Active pantoprazole EC 40 MG tablet 9 Active gabapentin 100 MG capsule 9 Active vitamin D3, cholecalciferol , 25 MCG (1000 UT) capsule Take 1 capsule (1,000 Units total) by mouth daily. Active cetirizine 10 MG tablet Take 1 tablet (10 mg total) by mouth daily. Active Armodafinil 150 MG Tab Take 150 mg by mouth daily. 7 Active alendronate 70 MG tablet Take 1 tablet (70 mg total) by mouth once a week. 5 Active Dalfampridine 10 MG TABLET SR 12 HR Take 10 mg by mouth every 12 (twelve) hours. 0 Active levothyroxine 75 MCG tablet 0 Active citalopram 40 MG tablet 0 Active Ofatumumab (KESIMPTA) 20 MG/0.4ML Solution Auto-injector Inject 20 mg into the skin. 1 Active citalopram (CELEXA) 40 MG tablet Take 1 tablet (40 mg total) by mouth daily. 2 Active ondansetron (ZOFRAN) 4 MG tablet Take 1 tablet (4 mg total) by mouth every 8 (eight) hours as needed for Nausea. 20 tablet 4 Active carBAMazepine ER (CARBATROL) 100 MG 12 hr capsule Take 1 capsule (100 mg total) by mouth 2 (two) times daily. Active levalbuterol (XOPENEX) 0.31 MG/3ML nebulizer solution Take 3 mLs (0.31 mg total) by nebulization every 4 (four) hours as needed for Wheezing. Active Active Problems Problem Noted Date Diagnosed Date Patellar tendonitis of right knee 08/24/2024 Contusion of right knee, initial encounter 08/24 Weakness 02/17/2024 Gait abnormality 02/17/2024 Vestibular dizziness 02/17/2024 Sprain of medial collateral ligament of left knee, initial encounter 01/07/2023 De Quervain's tenosynovitis, right 07/06/2019 Back pain 05/24/2019 Encounters Date Type Department Care Team Description 06/07/2025 4:58 PM CDT - 06/07/2025 11:59 PM CDT Hospital Encounter [facility] [address] [place] [address] Irena Lopez MD Discharge Disposition: Home or Self Care (Routine Discharge) from Last 3 Months Family History Medical History Relation Comments Cancer Father Diabetes Mother Relation Status Comments Father Maternal Grandfather Maternal Grandmother Mother Paternal Grandfather Paternal Grandmother Social History Tobacco Use Types Packs/Day Years Used Date Smoking Tobacco: Never Smokeless Tobacco: Never Tobacco Cessation:Counseling Given: No Alcohol Use Standard Drinks/Week Comments No 0 (1 standard drink = 0.6 oz pur e alcohol) AUDIT-C Answer Date Recorded Frequency of Alcohol Consumption Never 07/04/2019 Average Number of Drinks Not on file 019 Frequency of Binge Drinking Not on file 03/2019 Comments Unknown Sex and Gender Information Value Date Recorded Sex Assigned at Not on file 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 Gender Identity Not on file Sexual Orientation Not on file Last Filed Vital Signs Vital Sign Reading Time Taken Comments Blood Pressure 143/91 07/30/2024 4:47 AM CDT Pulse 71 07/30/2024 4:47 AM CDT Temperature 36.7 C (98.1 F) 07/30/2024 4:47 AM CDT Respiratory Rate 16 07/30/2024 4:47 AM CDT Oxygen Saturation 98% 07/30/2024 4:47 AM CDT Inhaled Oxygen Concentration - - Weight 72.6 kg (160 lb) 08/23/2024 10:35 AM CDT Height 144.8 cm (4' 9) 08/23/2024 10:35 AM CDT Body Mass Index 34.62 08/23/2024 10:35 AM CDT Plan of Treatment Health Maintenance Due Date Last Done Comments Colorectal Cancer Screening Colonoscopy (10 Years) 1966 Annual Physical 1969 Hepatitis C 1984 Hepatitis B Vaccines (1 of 3 - 19+ 3-dose series) 1985 Mammogram Screening 2006 Pneumococcal Vaccine: 50+ Years (1 of 1 - PCV) 2016 COVID-19 Vaccine (3 - 2023-2 5 season) 2024 02/21/2021, 02/01/2021 Cervical Cancer Screening Pa p Smear (Age 30 to 64) Every 3 Years 06/01/2027 06/01/2024, 02/02/2019 DTaP, Tdap and Td Vaccines ( 2 - Td or Tdap) 10/20/2028 10/20/2018 Cervical Cancer Screening Pa p with HPV Testing (Age 30 to 64) Every 5 Years 06/01/2029 06/01/2024 Cervical Cancer Screening wi th HPV 06/01/2029 Zoster Vaccines Completed 10/30/2021, 01/19/2021, 07/05/2020 Meningococcal B Vaccine Aged Out No l onger eligible based on patient's age to complete this topic Meningococcal Vaccine Aged Out No soha erika eligible based on patient's age to complete this topic RSV Immunizations Under 20 Months Aged Out No longer eligible b ased on patient's age to complete this topic Procedures Procedure Name Priority Date/Time Associated Diagnosis Comments VAGINITIS SCREEN (VDS) Routine 06/07/2025 5:00 PM CDT HUMAN PAPILLOMAVIRUS, HIGH-RISK TYPES Routine 06/01/2024 12:00 PM CDT CYTOPATH CERV/VAG THIN LAYER Routine 06/01/2024 12:00 AM CDT from Last 3 Months or Most Recently Relevant to Health Maintenance Results * VAGINITIS SCREEN (DYLAN, TRICH, & G. VAG) (06/07/2025 5:00 PM CDT) SPECIMEN SOURCE VAGINAL SPECIMEN 06/07/2025 4:59 PM CDT [facility] TRICHOMONAS NEGATIVE NEGATIVE 06/07/2025 6:21 PM CDT [facility] Comment:NOT DETECTED BY DNA PROBE GARDNERELLA VAGINALIS NEGATIVE NEGATIVE 06/07/2025 6:21 PM CDT [facility] Comment:NOT DETECTED BY DNA PROBE DYLAN SPECIES NEGATIVE NEGATIVE 6:21 PM CDT [facility] Comment:NOT DETECTED BY DNA PROBE VAGINAL STRUCTURE / Unknown 06/07/2025 5:00 PM CDT us Irena Lopez MD MICROBIOLOGY - GENERAL OR DERABLES Final Result [facility] [address] [place] [address], [id number] * HUMAN PAPILLOMAVIRUS, HIGH-RISK TYPES (06/01/2024 12:00 PM CDT) SPECIMEN CERVIX 06/06/2024 8:38 AM CDT [facility] HPV DNA HIGH RISK NEGATIVE NEGATIVE 06/07/2024 12:25 AM CDT [facility] Comment:SEE CYTOLOGY REPORT 06/01/2024 12:0 0 PM CDT us Irena Lopez MD PATHOLOGY/CYTOLOGY ORDERA BLES Final Result [facility] [address] [place] [address], * Cytopath Cerv/Vag Thin Layer (06/01/2024 12:00 AM CDT) THIN PREP PAP [facility] [address] [place] [address] Department of Pathology Pathology Report CERVICAL/VAGINAL PAP SMEAR REPORT Name: BUTCH BARRIENTOS Age: 8 1965 (Age: 58) Location: [facility] Sex: F Collected Date: 06/01/2024 [facility] #: [id number] Date Received: 06/06/2024 Date Reported: 06/10/2024 Provider: IRENA LAURENT MD INTERPRETATION CERVICAL/ENDOCERVI MEHDI: SATISFACTORY FOR EVALUATION-PARTIAL LY OBSCURING FOREIGN MATERIAL CONSISTENT WITH LUBRICANT. NEGATIVE FOR INTRAEPITHELIAL LESION OR MALIGNANCY. ATROPHY. NEGATIVE FOR HIGH RISK HPV. The FDA approved Aptima HPV assay is an in vitro nucleic acid amplification test for the qualitative detection of E6/E7 viral messenger RNA (mRNA) from 14 high-risk types of human papillomavirus (HPV) in cervical specimens. The high-risk HPV types detected by the assay include: 16,18,31,33,35,39, 45,51,52,56,58,59, 66, and 68. Electronically Signed Out By Raeann L. Torres, [place] (ASCP) CLINICAL HISTORY Z12.4 SCREENING CERVICAL CANCER SCREENING PAP ThinPrep Pap Test with screening HR HPV testing requested, with reflex HPV 16/18 genotyping on negative cytology, positive HR HPV Date of Last Menstrual Period: 11/30/1999 Menstrual Status: Post-Menopausal Contraceptive History: Ablation SPECIMEN SUBMITTED CERVICAL/ENDOCERVI MEHDI Specimen Received:1 Thin Prep Vial, Image Assisted Pap (SMD) Please note: The Pap smear is not a diagnostic test. It is a screening test. Negative results on combined screening (Pap test and HPV-DNA) have a high negative predictive value (99.1-100 percent) for cervical cancer. The pap test is not effective in detecting cervical adenocarcinoma. [facility] 06/01/2024 06/06/2024 8:0 7 AM CDT Comment:CERVICAL/ENDOCERVICA L us Irena Lopez MD PATHOLOGY/CYTOLOGY ORDERA BLES Final Result [facility] [address] [place] [address], from Last 3 Months or Most Recently Relevant to Health Maintenance Insurance [place] [address] [place] [address] Care Teams Furnace Checker Relationship Specialty Start Date End Date Xavi Laurent MD [address] [place] [address] PCP - General INTERNAL MEDICINE 05/10/19
--- OUTSIDE RECORDS SUMMARY | 2025-06-30 21:17 | XMS_ITS | Encounter Summary ---
Author Organization [facility] Address 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
--- OUTSIDE RECORDS SUMMARY | 2025-06-30 21:17 | XMS_ITS | Encounter Summary ---
Author Organization [facility] Address 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
--- OUTSIDE RECORDS SUMMARY | 2025-06-30 21:17 | XMS_ITS | Encounter Summary ---
Author Organization [facility] Address 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
--- OUTSIDE RECORDS SUMMARY | 2025-06-30 21:17 | XMS_ITS | Clinical Summary ---
Author Organization [facility] Building B Address [address] [place] [address] Care Team Providers Care Deadener Name Role Phone Xavi Allen MD Primary Care Provider [phone] Allergies Active Allergy Reactions Criticality Noted Date [...] Neurogenic bowel 06/23/2018 Dysphagia 06/23/2018 Multiple sclerosis ([facility]) 01/25/2018 Overview (01/23/2025): MS medication history: RRMS/SPMS [...] with Dr Lin and radiologist Dr. Shannon. 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 due to her change in JCV status [...] Cognitive dysfunction accompanying multiple scle rosis 01/25/2018 Encounters Date Type Department Care Team Description 04/27/2025 Telephone [facility] Care [address] [address] Osbaldo Link MD request for orders 04/07/2025 Telephone [facility] for [facility] in Care [address] [place] [address] Tara Espinosa RN from Last 3 Months Immunizations Immunization Administration Dates Next Due Immune Globulin, Intravenous 03/09/2015 Influenza, Quadrivalent, Spl it, Intramuscular 10/05/2018,09/01/2017,09/16/2016,09/25 Influenza, Quadrivalent, Spl it, Preservative Free, Intramuscular 09/30/2021,10/12/2020,09/16/2019 Influenza, Trivalent, IM (MDV) 09/24/2017,2014 Pfizer SARS-CoV-2 Monovalent Vaccination (12+ Yrs) PURPLE 02/21/2021,02/01/2021 Pneumococcal Conjugate, Unspecified 08/30/2015 Tdap 10/20/2018 ZOSTER Recombinant 10/30/2021,01/19/2021, 020 Surgical History Surgery Date Site/Laterality Comments TONSILLECTOMY TUBAL LIGATION SECTION Medical History Medical History Date Comments MS (multiple sclerosis) Vertigo Thyroid disease Social History Tobacco Use Types Packs/Day Years Used Date Smoking Tobacco: Never Smokeless Tobacco: Never Tobacco Cessation:Counseling Given: Not Answered Alcohol Use Standard Drinks/Week Comments No 0 (1 standard drink = 0.6 oz pur e alcohol) AUDIT-C Answer Date Recorded Q1: How often do you have a drink containing alc ohol? Never 01/29/2021 Average Number of Drinks Not on file Frequency of Binge Drinking Not on file 12/2020 Comments No Sex and Gender Information Value Date Recorded Sex Assigned at Not on file Legal Sex Female 2:51 PM BURN CREW MEMBER Gender Identity Female 07/23/2020 1:37 PM CDT Sexual Orientation Straight 05/01/2020 3: 10 PM CDT Obstetrics History Last Filed Vital Signs Vital Sign Reading Time Taken Comments Blood Pressure 128/72 12/28/2024 12:17 PM BURN CREW MEMBER Pulse 70 12/28/2024 12:17 PM BURN CREW MEMBER Temperature 36.4 C (97.5 F) 12/28/2024 12:17 PM BURN CREW MEMBER Respiratory Rate 18 07/08/2022 4:30 PM CDT Oxygen Saturation 99% 12/28/2024 12:17 PM BURN CREW MEMBER Inhaled Oxygen Concentration - - Weight 73 kg (161 lb) 12/28/2024 12:17 PM BURN CREW MEMBER Height 144.8 cm (4' 9) 12/28/2024 12:17 PM BURN CREW MEMBER Body Mass Index 34.84 12/28/2024 12:17 PM BURN CREW MEMBER Plan of Treatment Health Maintenance Due Date Last Done Comments Breast Cancer Screening-Mammogram 1965 Colon Cancer Screening-Colonoscopy 1965 Depression Screening 1965 Hepatitis B Screening 1984 Regular Well Visit/Exam 18-64 1984 Covid-19 Vaccine ( season) 2024 10/12/2021, 02/21/2021, 02/01/2021 Cervical Cancer Screening 06/01/2025 06/01/2024 Influenza Vaccine (#1) 2025 , 10/12/2020, 09/16/2019, Additional history exists DTaP/Tdap/Td Vaccine (2 - Td or Tdap) 10/20/2028 10/20/2018 Pneumococcal vaccine <65 Aged Out 08/30/2015 No longer eligible based on patient's age to complete this topic Hepatitis C Screening Completed 03/18/2021 Zoster Vaccine Completed 10/30/2021, 01/01, 07/05/2020 Procedures Procedure Name Priority Date/Time Associated Diagnosis Comments HEPATITIS PANEL, ACUTE Routine 03/18/2021 3:02 PM CDT Multiple sclerosis (HCC) High risk medication use from Last 3 Months or Most Recently Relevant to Health Maintenance Results * Hepatitis panel, acute (03/18/2021 3:02 PM CDT) Hep A IgM NON-REACTIVE NON-REACT [facility] Comment: For additional information, please refer to http://education.UberMedia.Dizzywood/faq/VHT507 (This link is being provided for informational/ [...] a test for HCV RNA (test code 07716) is suggested. For additional information please refer to http://education.Food Brasil/faq/CWM76b0 (This link is being provided for informational/ educational purposes only.) Blood specimen (specimen) 03/18/2021 3:02 PM CDT 03/18/2021 3:04 PM CDT Narrative [facility] - 03/19/2021 11:26 AM CDT AN UPDATE OR CORRECTION HAS BEEN MADE TO NAME Radha Lin MD LAB MICROBIOLOGY - GENERAL O RDERABLES Final Result Performing Organization Address City/State/[facility] Co de Phone Number JERRICA Selah [facility] [address] [place] [address] from Last 3 Months or Most Recently Relevant to Health Maintenance Insurance IDPA [facility] IDPA [employer] Care Teams Deadener Relationship Specialty Start Date End Date Xavi Allen MD PCP - General Internal Medicine 01/20/18
--- OUTSIDE RECORDS SUMMARY | 2025-06-30 21:17 | XMS_ITS | Encounter Summary ---
Author Organization [facility] Address 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
--- OUTSIDE RECORDS SUMMARY | 2025-06-30 21:17 | XMS_ITS | Encounter Summary ---
Author Organization [facility] Address [address] [place] [address] Care Team Providers Care Oiler Bander Name Role Phone Xavi Allen MD Primary Care Provider [phone] Encounter Details Date Type Department Care Team (Late st Contact Info) Description 02/17/2005 Outpatient [facility] Division of Neurology [address] [address] Radha Lin MD [address] [facility] [address] [place] [address] Social History Tobacco Use Types Packs/Day Years Used Date Smoking Tobacco: Never Assessed Comments Unknown Sex and Gender Information Value Date Recorded Sex Assigned at Not on file 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
--- OUTSIDE RECORDS SUMMARY | 2025-06-30 21:17 | XMS_ITS | Encounter Summary ---
Author Organization [facility] Address [address] [place] [address] Care Team Providers Care Book Critic Name Role Phone Xavi Allen MD Primary Care Provider [phone] Encounter Details Date Type Department Care Team (Late st Contact Info) Description 07/09/2004 Outpatient Historical Division of Neurology [address] [facility] [address] Av Alvarado MD [address] [place] [phone] Social History Tobacco Use Types Packs/Day Years Used Date Smoking Tobacco: Never Assessed Comments Unknown Sex and Gender Information Value Date Recorded Sex Assigned at Not on file 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
--- OUTSIDE RECORDS SUMMARY | 2025-06-30 21:17 | XMS_ITS | Continuity of Care Document ---
Author Organization [facility] [employer] Address [address] [place] [address] Phone Care Team Providers Care Bicycle Subassembler Name Role Phone Rocael SANCHEZ, Mina Unavailable [...] Active carbamazepine ER 100 mg capsule,extended release rxbiby48mt take 1 capsule by oral route every [...] Providers Copied on Encounter OFFICE/OUTPA TIENT VISIT, [facility], [address] [place] [address] [address], [place], [place], [address], tel:[phone] OPH CONSULT [facility] MS (chief complaint) MS (multiple sclerosis)Opt ic neuritisNucle ar sclerosis of both eyesCataract, cortical, both eyesInsuffici ency of tear film of both eyes 5 Rocael Enriquez. [address] , [address], [place], [place], [address], [place]. tel:[phone] Referring Provider: Radha Lin MD, [address], [place], [address]. tel:[phone] OFFICE/OUTPA TIENT VISIT, [facility], [address], [place], [place], [address], [place] tel:[phone] OPH CONSULT [facility] Cataract, Nuclear SclerosisOpti c Atrophy Oct-0 2 Lavell Reese. [address], [address], [place], [place], [address], [place]. tel:[phone] Referring Provider: Hugh Perales, [address] [place] [address] [address], [place], [address]. tel:[phone] OFFICE/OUTPA TIENT VISIT, [facility], [address] [place], [place] [address], [place], [place], [address], [place] tel:[phone] OPH CONSULT [facility] Optic atrophy, unspecifiedSe nile nuclear sclerosis Oct-0 1 Lavell Hugh[address] [place] [address], [address], [place], [place], [address], [place]. tel:[phone] OFFICE/OUTPA TIENT VISIT, [facility], [address] [place], [place] [address], [place], [place], [address], [place] tel:[phone] OPH CONSULT [facility] No Information Bob- 0 Lavell Reese. [address] [place] [address], [address], [place], [place], [address], [place]. tel:[phone] Referring Provider: Rudy Boston MD P, [address] [facility] [address], [place], [address]. tel:[phone] Family History Family Member Type Diagnosis Age At Onset Paternal aunt Problem Macular degeneration Problem (finding) Family history of Diabe jaqueline mellitus Mother Problem Cataracts Payers Payer name Insurance type Covered democrat ID Abraham lambert(s) Samuel Rule [place] [id number] [id number] Social History Type Description Quantity Date Captured [...]
--- OUTSIDE RECORDS SUMMARY | 2025-06-30 21:17 | XMS_ITS | Encounter Summary ---
Author Organization [facility] Address 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
--- OUTSIDE RECORDS SUMMARY | 2025-06-30 21:17 | XMS_ITS | Encounter Summary ---
Author Organization [facility] Address [address] [place] [address] Care Team Providers Care Placer Miner Name Role Phone Xavi Allen MD Primary Care Provider [phone] Encounter Details Date Type Department Care Team (Late st Contact Info) Description 12/03/2004 Outpatient [facility] Division of Neurology 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
--- OUTSIDE RECORDS SUMMARY | 2025-06-30 23:04 | XMS_ITS | Encounter Summary ---
Author Organization [facility] Address [address] [place] [address] Care Team Providers Care Interior Design Program Chair Name Role Phone Xavi Allen MD Primary Care Provider Encounter Details Date Type Department Care Team (Late st Contact Info) Description 03/01/2002 Outpatient Historical [facility] Social History Tobacco Use Types Packs/Day Years Used Date Smoking Tobacco: Never Assessed Comments Unknown Sex and Gender Information Value Date Recorded Sex Assigned at Not on file Legal Sex Female 3:52 AM SENIOR ADVOCATE Gender Identity Not on file Sexual Orientation Not on file documented as of this encounter Plan of Treatment Not on file documented as of this encounter Visit Diagnoses Not on filedocumented in this encounter Care Teams Interior Design Program Chair Relationship Specialty Start Date End Date Xavi Allen MD [address] [place] [address] PCP - General Internal Medicine 07/02/18 documented as of this encounter
--- OUTSIDE RECORDS SUMMARY | 2025-06-30 23:04 | XMS_ITS | Encounter Summary ---
Author Organization [facility] Address [address] [place] [address] Care Team Providers Care Marine Steward Name Role Phone Xavi Allen MD Primary Care Provider [phone] Encounter Details Date Type Department Care Team (Latest Contact Info) Description 03/01/2002 Outpatient Historical [facility] Radha Lin MD [address] [facility] [address] [place] [address] MULTIPLE SCLEROSIS (CMS/HCC) (Primary Dx) Social History Tobacco Use Types Packs/Day Years Used Date Smoking Tobacco: Never Assessed Comments Unknown Sex and Gender Information Value Date Recorded Sex Assigned at Not on file 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
--- OUTSIDE RECORDS SUMMARY | 2025-06-30 23:04 | XMS_ITS | Encounter Summary ---
Author Organization [facility] Address [address] [place] [address] Care Team Providers Care Junior Oracle Dba Name Role Phone Xavi Allen MD Primary Care Provider [phone] Encounter Details Date Type Department Care Team (Latest Contact Info) Description 01/19/2009 Outpatient [facility] [address] [facility] [address] [place] [address] Radha Dong MD [address] [facility] [address] [place] [address] Multiple Sclerosis (CMS/[facility]) Social History Tobacco Use Types Packs/Day Years Used Date Smoking Tobacco: Never Assessed Comments Unknown Sex and Gender Information Value Date Recorded Sex Assigned at Not on file Legal Sex Female 3:52 AM GRID MAKER Gender Identity Not on file Sexual Orientation Not on file documented as of this encounter Plan of Treatment Not on file documented as of this encounter Procedures Procedure Name Priority Date/Time Associated Diagnosis Comments MRI BRAIN W WO CONTRAST Routine 01/19/2009 1:16 PM GRID MAKER documented in this encounter Results * MRI BRAIN W WO CONTRAST (01/19/2009 1:16 PM GRID MAKER) Anatomical Region Laterality Modality Head Other 01/19/2009 1:16 PM GRID MAKER Narrative 01/22/2009 9:03 PM GRID MAKER [facility] [address] [place], [place] [address] Admit Date: 01/19/2009 BUTCH EDGE Sex: F Admit Prov: RADHA DONG Date: 1965 Primary Care Prov: CMRN: [id number] Room: [facility] SSN: [id number] IMAGING SERVICES Ordering Prov: N/A Accession Number: [id number] Interpretation EXAM: MRI OF THE BRAIN WITHOUT AND WITH IV CONTRAST. 01/19/09 History: Multiple sclerosis. New MS symptoms. Difficulty walking. Lower extremity weakness. MRI of the brain is performed without and with contrast. Sagittal T1- weighted, axial FLAIR, sagittal FLAIR, coronal FLAIR and axial T1-weighted images are performed without contrast. Axial T2-weighted images were performed after contrast as well as axial weighted echo images after contrast. Axial diffusion-weighted images are also performed after contrast. Axial and coronal T1-weighted images are also performed after contrast. Exam is compared to prior exam dated 01/19/08. There has been no significant change since prior exam except for slight increased size of a plaque in the left occipital lobe subcortical white matter. This lesion is hyperintense on T2 and is hypointense on T1-weighted imaging and shows no abnormal enhancement. The rest of the plaques in the brain are stable in appearance and no new plaques are identified. Plaques are unchanged in signal intensity since prior exam and again show multiple plaques with hypointense T1-weighted signal. No midline shift, positive mass effect, or abnormal enhancement is seen in the brain. The craniocervical junction and sella are unremarkable. The intracranial flow- voids are unremarkable. The paranasal sinuses and mastoid air cells are unchanged. Mucous retention cyst in the right maxillary sinus is not different. Impression: 1. Plaque in the left occipital lobe subcortical white matter is increased slightly in size since prior exam. There is no other change since prior exam. The rest of the plaques in the brain are stable in size and signal intensity. There is no abnormal enhancement. There is no acute appearing abnormality in the brain. . Report revised on 01/22/2009 9:02:42 PM by RUDY MOREL Dictated by: RUDY MOREL 01/19/2009 14:50 Electronically signed by: RUDY MOREL 01/22/2009 21:02 Transcribed: 01/20/2009 08:42 AMK Procedure Note Rudy Morel - 01/22/2009 [facility] [address] [place], [place] [address] Admit Date: 01/19/2009 BUTCH EDGE Sex: F Admit Prov: RADHA DONG Date: 1965 Primary Care Prov: CMRN: [id number] Room: [facility] SSN: [id number] [address] IMAGING SERVICES Ordering Prov: N/A Interpretation EXAM: MRI OF THE BRAIN WITHOUT AND WITH IV CONTRAST. 01/19/09 History: Multiple sclerosis. New MS symptoms. Difficulty walking.Lower extremity weakness. MRI of the brain is performed without and with contrast. SagittalT1- weighted, axial FLAIR, sagittal FLAIR, coronal FLAIR and axialT1-weighted images are performed without contrast. Axial T2-weighted imageswere performed after contrast as well as axial weighted echo imagesafter contrast. Axial diffusion-weighted images are also performed after contrast. Axial and coronal T1-weighted images are also performedafter contrast. Exam is compared to prior exam dated 01/19/08. There has been no significant change since prior exam except forslight increased size of a plaque in the left occipital lobe subcorticalwhite matter. This lesion is hyperintense on T2 and is hypointense onT1-weighted imaging and shows no abnormal enhancement. The rest of the plaques inthe brain are stable in appearance and no new plaques are identified.Plaques are unchanged in signal intensity since prior exam and again showmultiple plaques with hypointense T1-weighted signal. No midline shift,positive mass effect, or abnormal enhancement is seen in the brain. The craniocervical junction and sella are unremarkable. The intracranialflow- voids are unremarkable. The paranasal sinuses and mastoid air cellsare unchanged. Mucous retention cyst in the right maxillary sinus isnot different. Impression: 1. Plaque in the left occipital lobe subcortical white matter isincreased slightly in size since prior exam. There is no other change sinceprior exam. The rest of the plaques in the brain are stable in size andsignal intensity. There is no abnormal enhancement. There is no acuteappearing abnormality in the brain. . Report revised on 01/22/2009 9:02:42 PM by RUDY MOREL Dictated by: RUDY MOREL 01/19/2009 14:50 Electronically signed by: RUDY MOREL 01/22/2009 21:02 Transcribed: 01/20/2009 08:42 AMK us Radha Dong MD MR ORDERABLES Edited documented in this encounter Visit Diagnoses Diagnosis Multiple sclerosis (CMS/HCC) Multiple sclerosis documented in this encounter Care Teams Junior Oracle Dba Relationship Specialty Start Date End Date Xavi Allen MD [address] [place] [address] PCP - General Internal Medicine 07/02/18 documented as of this encounter
--- OUTSIDE RECORDS SUMMARY | 2025-06-30 23:04 | XMS_ITS | Encounter Summary ---
Author Organization [facility] Address [address] [place] [address] Care Team Providers Care Helper Animal Laboratory Name Role Phone Xavi Allen MD Primary Care Provider [phone] Encounter Details Date Type Department Care Team (Late st Contact Info) Description 05/21/2005 Outpatient Historical HIS [facility] KASI Lin, Radah Batres MD [address] [facility] [address] [place] [address] Social History Tobacco Use Types Packs/Day Years Used Date Smoking Tobacco: Never Assessed Comments Unknown Sex and Gender Information Value Date Recorded Sex Assigned at Not on file Legal Sex Female 3:52 AM PROPULSION ENGINEER Gender Identity Not on file Sexual Orientation Not on file documented as of this encounter Plan of Treatment Not on file documented as of this encounter Procedures Procedure Name Priority Date/Time Associated Diagnosis Comments HEPATIC FUNCTION PANEL Routine 05/21/2005 3:42 PM CDT documented in this encounter Results * HEPATIC FUNCTION PANEL (05/21/2005 3:42 PM CDT) AST 17 12 - 32 U/L INTERFACE SYSTEM ALKALINE PHOSPHATASE 76 35 - 104 U/L INTERFACE SYSTEM BILIRUBIN TOTAL 0.2 0.2 - 1.0 mg/dL INTERFACE SYSTEM ALBUMIN 4.2 3.4 - 4.8 g/dL INTERFACE SYSTEM TOTAL PROTEIN 7.4 6.3 - 8.6 g/dL INTERFACE SYSTEM ALT 10 0 - 31 U/L INTERFACE SYSTEM BILIRUBIN DIRECT 0.1 0.0 - 0.3 mg/dL INTERFACE SYSTEM 05/21/2005 3:42 PM CDT us Radha Lin MD CHEMISTRY ORDERABLES Final Re sult INTERFACE SYSTEM Refer to clinic/hospital department documented in this encounter Visit Diagnoses Not on filedocumented in this encounter Care Teams Helper Animal Laboratory Relationship Specialty Start Date End Date Xavi Allen MD [address] [place] [address] PCP - General Internal Medicine 07/02/18 documented as of this encounter
--- OUTSIDE RECORDS SUMMARY | 2025-06-30 23:04 | XMS_ITS | Encounter Summary ---
Author Organization [facility] Address [address] [place] [address] Care Team Providers Care Commercial Lending Assistant Name Role Phone Xavi Allen MD Primary Care Provider [phone] Encounter Details Date Type Department Care Team (Latest Contact Info) Description 09/02/2006 Outpatient Historical HIS [facility] KASI Lin, Radha Batres MD [address] [place] [address] Multiple Sclerosis (CMS/[facility]) (Primary Dx) Social History Tobacco Use Types Packs/Day Years Used Date Smoking Tobacco: Never Assessed Comments Unknown Sex and Gender Information Value Date Recorded Sex Assigned at Not on file Legal Sex Female 3:52 AM MOLD STACKER Gender Identity Not on file Sexual Orientation [...] URINE ORDERABLES Final Result Performing Organization Address [facility] de Phone Number INTERFACE SYSTEM Refer to [...] URINE ORDERABLES Final Result Performing Organization Address [facility] Phone Number INTERFACE SYSTEM Refer to clinic/hospital department * TSH REFLEXIVE (09/02/2006 1:07 PM CDT) TSH 3.82 0.27 - 4.20 uU/mL INTERFACE SYSTEM 09/02/2006 1:07 PM CDT Radha Lin MD CHEMISTRY ORDERABLES Final Re sult Performing Organization Address [facility] Phone Number INTERFACE SYSTEM Refer to clinic/hospital department documented in this encounter Visit Diagnoses Diagnosis Multiple sclerosis (CMS/HCC)- Primary Multiple sclerosis documented in this encounter Care Teams Commercial Lending Assistant Relationship Specialty Start Date End Date Xavi Allen MD [address] [place] [address] PCP - General Internal Medicine 07/02/18 documented as of this encounter
--- OUTSIDE RECORDS SUMMARY | 2025-06-30 23:04 | XMS_ITS | Encounter Summary ---
Author Organization [facility] Address [address] [place] [address] Care Team Providers Care Picu Nurse Name Role Phone Xavi Allen MD Primary Care Provider [phone] Encounter Details Date Type Department Care Team (Late st Contact Info) Description 02/11/2006 Outpatient [facility] Division of Neurology [address] [address] Radha Lin MD [address] [facility] [address] [place] [phone] Social History Tobacco Use Types Packs/Day Years Used Date Smoking Tobacco: Never Assessed Comments Unknown Sex and Gender Information Value Date Recorded Sex Assigned at Not on file Legal Sex Female 3:52 AM RESIDENTIAL SERVICE TECHNICIAN Gender Identity Not on file Sexual Orientation Not on file documented as of this encounter Plan of Treatment Not on file documented as of this encounter Visit Diagnoses Not on filedocumented in this encounter Care Teams Picu Nurse Relationship Specialty Start Date End Date Xavi Allen MD [address] [place] [address] PCP - General Internal Medicine 07/02/18 documented as of this encounter
--- OUTSIDE RECORDS SUMMARY | 2025-06-30 23:04 | XMS_ITS | Encounter Summary ---
Author Organization [facility] Address [address] [place] [address] Care Team Providers Care Water Manager Name Role Phone Xavi Allen MD Primary Care Provider [phone] Encounter Details Date Type Department Care Team (Late st Contact Info) Description 09/02/2006 Outpatient Historical [facility] [address] [facility] [address] [address] [address] Radha Lin MD [address] [facility] [facility] [place] [address] Social History Tobacco Use Types Packs/Day Years Used Date Smoking Tobacco: Never Assessed Comments Unknown Sex and Gender Information Value Date Recorded Sex Assigned at Not on file Legal Sex Female 3:52 AM HUMAN SERVICES PROGRAM SPECIALIST Gender Identity Not on file Sexual Orientation Not on file documented as of this encounter Plan of Treatment Not on file documented as of this encounter Visit Diagnoses Not on filedocumented in this encounter Care Teams Water Manager Relationship Specialty Start Date End Date Xavi Allen MD [address] [place] [address] PCP - General Internal Medicine 07/02/18 documented as of this encounter
--- OUTSIDE RECORDS SUMMARY | 2025-06-30 23:04 | XMS_ITS | Encounter Summary ---
Author Organization [facility] Address [address] [place] [address] Care Team Providers Care Bootmaker Name Role Phone Xavi Allen MD Primary Care Provider [phone] Encounter Details Date Type Department Care Team (Late st Contact Info) Description 03/01/2002 Outpatient [facility] Division of Neurology [address] [address] Maverick Boyce MD [address] [place] [address] Social History Tobacco Use Types Packs/Day Years Used Date Smoking Tobacco: Never Assessed Comments Unknown Sex and Gender Information Value Date Recorded Sex Assigned at Not on file Legal Sex Female 3:52 AM MILL LABORER Gender Identity Not on file Sexual Orientation Not on file documented as of this encounter Plan of Treatment Not on file documented as of this encounter Visit Diagnoses Not on filedocumented in this encounter Care Teams Bootmaker Relationship Specialty Start Date End Date Xavi Allen MD [address] [place] [address] PCP - General Internal Medicine 07/02/18 documented as of this encounter
--- OUTSIDE RECORDS SUMMARY | 2025-06-30 23:04 | XMS_ITS | Encounter Summary ---
Author Organization [facility] Address [address] [place] [address] Care Team Providers Care Health Concierge Name Role Phone Xavi Allen MD Primary Care Provider Encounter Details Date Type Department Care Team (Late st Contact Info) Description 01/19/2008 Outpatient Historical [facility] Radha Dong MD [address] [facility] [address] [place] [address] Multiple Sclerosis ([facility]) Social History Tobacco Use Types Packs/Day Years Used Date Smoking Tobacco: Never Assessed Comments Unknown Sex and Gender Information Value Date Recorded Sex Assigned at Not on file Legal Sex Female 3:52 AM FLAKE DRIER Gender Identity Not on file Sexual Orientation Not on file documented as of this encounter Plan of Treatment Not on file documented as of this encounter Procedures Procedure Name Priority Date/Time Associated Diagnosis Comments MRI BRAIN W WO CONTRAST Timed Study 01/19/2008 11:44 AM FLAKE DRIER documented in this encounter Results * MRI BRAIN W WO CONTRAST (01/19/2008 11:44 AM FLAKE DRIER) Anatomical Region Laterality Modality Head Other 01/19/2008 11:4 4 AM FLAKE DRIER Narrative 01/19/2008 2:11 PM FLAKE DRIER [facility] [address] [place], [place] [address] Admit Date: 01/19/2008 [place] EDGE Sex: F Admit Prov: RADHA DONG Date: 1965 Primary Care Prov: CMRN: [id number] Room: [facility] SSN: [id number] IMAGING SERVICES Ordering Prov: N/A Accession Number: [id number] Interpretation MRI of the brain, with and without IV contrast Jan 19, 2008 11:44:25 AM Clinical History: Multiple sclerosis followup Scan Technique: Head coil GE 1.5 Ibeth imaging system. Routine brain multiple sclerosis imaging protocol was used with and without intravenous gadolinium contrast administration. Comparison: 02/11/2005 Findings: Since the previous examination, there has been further increase in the patchy and confluent T2 signal abnormality involving both cerebral hemispheres. The most obvious new or increased lesions are present in the right frontal lobe at the vertex, left frontal lobe in the operculum, and left frontal lobe in the chávez radiata on image 16. None of the lesions enhance. At least 30 of the lesions are hypointense on T1, increased in number since the last exam. The ventricles remain normal in size and position without midline shift. There is no mass effect, hemorrhage, or extra-axial collection. The pituitary gland and stalk are unremarkable. The marrow signal in the upper cervical spine is low on the T1 sequence, possibly artifactual. There is no diffusion restriction. There is mild ethmoidal mucosal thickening and right maxillary mucosal thickening. Impression: 1. Further progression of white matter plaque burden and further increase in number of hypointense T1 changes. . Dictated by: ROSHAN HINDS 01/19/2008 13:14 Electronically signed by: ROSHAN HINDS 01/19/2008 14:11 Transcribed: 01/19/2008 13:52 AMK Procedure Note Provider, Historical - 01/19/2008 [facility] [address] [place], [place] [address] Admit Date: 01/19/2008 BUT[place] EDGE Sex: F Admit Prov: RADHA DONG Date: 1965 Primary Care Prov: CMRN: [id number] [facility]: [id number] IMAGING SERVICES Ordering Prov: N/A Interpretation MRI of the brain, with and without IV contrast Jan 19, 2008 11:44:25 AM Clinical History: Multiple sclerosis followup Scan Technique: Head coil GE 1.5 Ibeth imaging system. Routinebrain multiple sclerosis imaging protocol was used with and withoutintravenous gadolinium contrast administration. Comparison: 02/11/2005 Findings: Since the previous examination, there has been furtherincrease in the patchy and confluent T2 signal abnormality involving bothcerebral hemispheres. The most obvious new or increased lesions are present inthe right frontal lobe at the vertex, left frontal lobe in the operculum,and left frontal lobe in the chávez radiata on image 16. None of thelesions enhance. At least 30 of the lesions are hypointense on T1, increasedin number since the last exam. The ventricles remain normal in sizeand position without midline shift. There is no mass effect, hemorrhage,or extra-axial collection. The pituitary gland and stalk areunremarkable. The marrow signal in the upper cervical spine is low on the [id number], possibly artifactual. There is no diffusion restriction. There ismild ethmoidal mucosal thickening and right maxillary mucosalthickening. Impression: 1. Further progression of white matter plaque burden and furtherincrease in number of hypointense T1 changes. . Dictated by: ROSHAN HINDS 01/19/2008 13:14 Electronically signed by: ROSHAN HINDS 01/19/2008 14:11 Transcribed: 01/19/2008 13:52 AMK us Radha Dong MD MR ORDERABLES Final Result documented in this encounter Visit Diagnoses Diagnosis Multiple sclerosis (CMS/HCC) Multiple sclerosis documented in this encounter Care Teams Health Concierge Relationship Specialty Start Date End Date Xavi Allen MD [address] [place] [address] PCP - General Internal Medicine 07/02/18 documented as of this encounter
--- OUTSIDE RECORDS SUMMARY | 2025-06-30 23:04 | XMS_ITS | Encounter Summary ---
Author Organization [facility] Address [facility] [place] [address] Care Team Providers Care Back Shoe Worker Name Role Phone Xavi Allen MD Primary Care Provider [phone] Encounter Details Date Type Department Care Team (Late st Contact Info) Description 01/08/2021 Satellogic Message Enc [facility] [place] [address] Denise Hernandez, [facility] [address] [place] [address] [place] [address] Visit Follow Up Social History Tobacco Use [...] on file Legal Sex Female 11:04 PM VP ANCILLARY Gender Identity Not on file Sexual Orientation Not on file COVID-19 Exposure Response Date Recorded In the last month, have you been in contact with someone who was confirmed or suspected to have Coronavirus / COVID-19? No / Unsure 01/08/2021 2:12 PM VP ANCILLARY documented as of this encounter Plan of Treatment Not on file documented as of this encounter Visit Diagnoses Not on filedocumented in this encounter Care Teams Back Shoe Worker Relationship Specialty Start Date End Date Xavi Allen MD [address] [place] [address] PCP - General INTERNAL MEDICINE 05/10/19 documented as of this encounter
--- OUTSIDE RECORDS SUMMARY | 2025-06-30 23:04 | XMS_ITS | Encounter Summary ---
Author Organization [facility] Address [address] [place] [address] Care Team Providers Care Programmer Or Analyst Name Role Phone Xavi Allen MD Primary Care Provider [phone] Encounter Details Date Type Department Care Team (Late st Contact Info) Description 05/21/2005 Outpatient [facility] Division of Neurology [address] [address] Radha Lin MD [address] [facility] [address] [place] [address] Social History Tobacco Use Types Packs/Day Years Used Date Smoking Tobacco: Never Assessed Comments Unknown Sex and Gender Information Value Date Recorded Sex Assigned at Not on file Legal Sex Female 3:52 AM 4TH GRADE TEACHER Gender Identity Not on file Sexual Orientation Not on file documented as of this encounter Plan of Treatment Not on file documented as of this encounter Visit Diagnoses Not on filedocumented in this encounter Care Teams Programmer Or Analyst Relationship Specialty Start Date End Date Xavi Allen MD [address] [place] [address] PCP - General Internal Medicine 07/02/18 documented as of this encounter
--- OUTSIDE RECORDS SUMMARY | 2025-06-30 23:04 | XMS_ITS | Clinical Summary ---
Author Organization [facility] Address [address] [place] [address] Phone Care Team Providers Care Piece Work Checker Name Role Phone Xavi Allen MD Primary Care Provider [phone] Allergies Active Allergy Reactions Criticality Noted Date [...] tablet Take 75 mcg by mouth daily fire protection inspector. Active triamcinolone acetonide (KENALOG) 0.1 % Cream [...] sec Assessment & Plan (01/17/2016 1:49 PM CLOUD SECURITY ARCHITECT): . Resolved Problems Problem Noted Date Diagnosed [...] on file Legal Sex Female 3:52 AM CLOUD SECURITY ARCHITECT Gender Identity Not on file Sexual Orientation Not on file Occupation Industry Job Start Date Job End Date Not on file Not on file Not on file Not on file Last Filed Vital Signs Vital Sign Reading Time Taken Comments Blood Pressure 145/84 01/25/2018 3:07 PM CLOUD SECURITY ARCHITECT Pulse 104 01/25/2018 3:07 PM CLOUD SECURITY ARCHITECT Temperature 36.9 C (98.4 F) 01/25/2018 3:07 PM CLOUD SECURITY ARCHITECT Respiratory Rate 18 01/25/2018 2:26 PM CLOUD SECURITY ARCHITECT Oxygen Saturation 98% 08/17/2017 1:37 PM CDT Inhaled Oxygen Concentration - - Weight 70.3 kg (155 lb) 12/28/2017 10:37 AM CLOUD SECURITY ARCHITECT Height 144.8 cm (4' 9) 12/28/2017 10:37 AM CLOUD SECURITY ARCHITECT Body Mass Index 33.54 12/28/2017 10:37 AM CLOUD SECURITY ARCHITECT Plan of Treatment Health Maintenance Due Date [...] VACCINE Completed 10/30/2021, 01/01, 07/05/2020 Insurance [place] [id number] Advance Directives For more information, please contact: [phone] * Full Code (Latest Code Status on File) Date Activated Date Inactivated Comments 03/01/2016 1:21 AM 03/04/2016 8:01 PM Care Teams Piece Work Checker Relationship Specialty Start Date End Date Xavi Allen MD [address] [place] [address] PCP - General Internal Medicine 07/02/18
--- OUTSIDE RECORDS SUMMARY | 2025-06-30 23:04 | XMS_ITS | Encounter Summary ---
Author Organization [facility] Address [facility] [place] [address] Care Team Providers Care Principal Java Developer Name Role Phone Xavi Allen MD Primary Care Provider [phone] Encounter Details Date Type Department Care Team (Late st Contact Info) Description 01/07/2023 Ubersnap Message Enc [facility] [place] [address] Denise Hernandez, [facility] [address] [place] [address] [place] [address] Visit Follow Up Social History Tobacco Use [...] on file Legal Sex Female 11:04 PM SERVICES PROGRAM MANAGER Gender Identity Not on file Sexual Orientation Not on file COVID-19 Exposure Response Date Recorded In the last 10 days, have yo u been in contact with someone who was confirmed or suspected to have Coronavirus/COVID-19? No / Unsure 01/07/2023 11:06 AM SERVICES PROGRAM MANAGER documented as of this encounter Plan of Treatment Not on file documented as of this encounter Visit Diagnoses Not on filedocumented in this encounter Care Teams Principal Java Developer Relationship Specialty Start Date End Date Xavi Allen MD [address] [place] [address] PCP - General INTERNAL MEDICINE 05/10/19 documented as of this encounter
--- OUTSIDE RECORDS SUMMARY | 2025-06-30 23:04 | XMS_ITS | Encounter Summary ---
Author Organization [facility] Address [address] [place] [address] Care Team Providers Care Barn And Property Manager Name Role Phone Xavi Allen MD Primary Care Provider [phone] Encounter Details Date Type Department Care Team (Late st Contact Info) Description 09/02/[address] [facility] Division of Neurology [address] [address] Radha Lin MD [address] [facility] [address] [place] [phone] Social History Tobacco Use Types Packs/Day Years Used Date Smoking Tobacco: Never Assessed Comments Unknown Sex and Gender Information Value Date Recorded Sex Assigned at Not on file Legal Sex Female 3:52 AM CONE TRUCKER Gender Identity Not on file Sexual Orientation Not on file documented as of this encounter Plan of Treatment Not on file documented as of this encounter Visit Diagnoses Not on filedocumented in this encounter Care Teams Barn And Property Manager Relationship Specialty Start Date End Date Xavi Allen MD [address] [place] [address] PCP - General Internal Medicine 07/02/18 documented as of this encounter
--- OUTSIDE RECORDS SUMMARY | 2025-06-30 23:04 | XMS_ITS | Encounter Summary ---
Author Organization [facility] Address [address] [place] [address] Care Team Providers Care Mineralogy Teacher Name Role Phone Xavi Allen MD Primary Care Provider [phone] Encounter Details Date Type Department Care Team (Late st Contact Info) Description 08/19/2005 Outpatient [facility] Division of Neurology [address] [address] Radha Lin MD [address] [facility] [address] [place] [phone] Social History Tobacco Use Types Packs/Day Years Used Date Smoking Tobacco: Never Assessed Comments Unknown Sex and Gender Information Value Date Recorded Sex Assigned at Not on file Legal Sex Female 3:52 AM CARE NURSE RN Gender Identity Not on file Sexual Orientation Not on file documented as of this encounter Plan of Treatment Not on file documented as of this encounter Visit Diagnoses Not on filedocumented in this encounter Care Teams Mineralogy Teacher Relationship Specialty Start Date End Date Xavi Allen MD [address] [place] [address] PCP - General Internal Medicine 07/02/18 documented as of this encounter
--- OUTSIDE RECORDS SUMMARY | 2025-06-30 23:04 | XMS_ITS | Encounter Summary ---
Author Organization [facility] Address [address] [place] [address] Care Team Providers Care Chute Feeder Name Role Phone Xavi Allen MD Primary Care Provider [phone] Encounter Details Date Type Department Care Team (Late st Contact Info) Description 03/07/2002 Outpatient [facility] Division of Neurology [address] [address] Maverick Boyce MD [address] [place] [phone] Social History Tobacco Use Types Packs/Day Years Used Date Smoking Tobacco: Never Assessed Comments Unknown Sex and Gender Information Value Date Recorded Sex Assigned at Not on file Legal Sex Female 3:52 AM LIBERAL ARTS DEAN Gender Identity Not on file Sexual Orientation Not on file documented as of this encounter Plan of Treatment Not on file documented as of this encounter Visit Diagnoses Not on filedocumented in this encounter Care Teams Chute Feeder Relationship Specialty Start Date End Date Xavi Allen MD [address] [place] [address] PCP - General Internal Medicine 07/02/18 documented as of this encounter
--- OUTSIDE RECORDS SUMMARY | 2025-06-30 23:05 | XMS_ITS | Encounter Summary ---
Author Organization [facility] Address [address] [place] [address] Care Team Providers Care Final Dressing Cutter Name Role Phone Xavi Allen MD Primary Care Provider [phone] Encounter Details Date Type Department Care Team (Late st Contact Info) Description 11/25/2002 Outpatient [facility] Division of Neurology [address] [address] Radha Lin MD [address] [facility] [address] [place] [address] Social History Tobacco Use Types Packs/Day Years Used Date Smoking Tobacco: Never Assessed Comments Unknown Sex and Gender Information Value Date Recorded Sex Assigned at Not on file Legal Sex Female 3:52 AM FORENSIC ANTHROPOLOGIST Gender Identity Not on file Sexual Orientation Not on file documented as of this encounter Plan of Treatment Not on file documented as of this encounter Visit Diagnoses Not on filedocumented in this encounter Care Teams Final Dressing Cutter Relationship Specialty Start Date End Date Xavi Allen MD [address] [place] [address] PCP - General Internal Medicine 07/02/18 documented as of this encounter
--- OUTSIDE RECORDS SUMMARY | 2025-06-30 23:05 | XMS_ITS | Encounter Summary ---
Author Organization [facility] Address 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
--- OUTSIDE RECORDS SUMMARY | 2025-06-30 23:05 | XMS_ITS | Clinical Summary ---
Author Organization [facility] Address [address] [place] [address] Care Team Providers Care Hull Line Crew Member Name Role Phone Xavi Allen MD Primary Care Provider [phone] Source Comments [facility],non-owned Affiliates and Associated Physician Practices is amultiple site organization consisting of ambulatory clinics and hospital sitesin [place], [place], [place] and [place]. This disclosure is being madepursuant to the Care Everywhere program and may not contain all information available regarding this patient. Last updated 18.[facility] Allergies Active Allergy Reactions Criticality Noted Date [...] 7 - 26 mg/dL 04/05/2018 10:33 AM [facility] Creatinine 0.7 0.6 - 1.2 mg/dL 04/05/2018 10:33 AM [facility] Sodium 137 136 - 145 mmol/L 04/05/2018 10:33 AM [facility] Potassium 4.3 3.5 - 4.5 mmol/L 04/05/2018 10:33 AM [facility] Chloride 104 98 - 107 mmol/L 04/05/2018 10:33 AM [facility] CO2 25 22 - 29 mmol/L 04/05/2018 10:33 AM [facility] Glucose 117(H) 70 - 115 mg/dL 04/05/2018 10:33 AM [facility] Calcium 8.5 8.4 - 10.2 mg/dL 04/05/2018 10:33 AM [facility] Anion Gap 12 8 - 18 04/05/2018 10:33 AM [facility] BUN/Creatinine Ratio 16 7 - 23 04/05/2018 10:33 AM [facility] Osmolality Calculated 284 270 - 300 mOsm/kg 04/05/2018 10:33 AM [facility] eGFR >60 >60 mL/min/1.7 3 m2 04/05/2018 10:33 AM [facility] Blood BLOOD SPECIMEN / Unknown 04/05/2018 9:46 AM CDT 04/05/2018 10:01 AM CDT us Najma Walls WELDING ENGINEER-MEDICARE SALES EXECUTIVE LAB - CHEMISTRY ORDERABL ES Final Result [facility] [address] [place] [address] from Last 3 Months or Most Recently Relevant to Health Maintenance Insurance [facility] Member Subscriber Plan / Payer (Ef fective 2011-Present) Name:Butch Barrientos Relation to Subscriber:Self Name:BUTCH BARRIENTOS Payer ID:[id number] (NAIC) Type:PPO Address: [place] [id number] MEDICAID - OUT OF STATE [facility] Advance Directives * Full Code (Latest Code Status on File) Date Activated Date Inactivated Comments 03/31/2018 11:53 PM 04/09/2018 2:02 PM Care Teams Hull Line Crew Member Relationship Specialty Start Date End Date Xavi Allen MD [address] [place] [id number] PCP - General 05/03/18
--- OUTSIDE RECORDS SUMMARY | 2025-06-30 23:05 | XMS_ITS | Encounter Summary ---
Author Organization [facility] Address [address] [place] [address] Care Team Providers Care American Studies Professor Name Role Phone Xavi Allen MD Primary Care Provider [phone] Encounter Details Date Type Department Care Team (Late st Contact Info) Description 02/02/2004 Outpatient [facility] Division of Neurology [address], [address] [address] Radha Lin MD [address] [facility] [facility] [address] [place] [phone] Social History Tobacco Use Types Packs/Day Years Used Date Smoking Tobacco: Never Assessed Comments Unknown Sex and Gender Information Value Date Recorded Sex Assigned at Not on file Legal Sex Female 3:52 AM BASKET OPERATOR Gender Identity Not on file Sexual Orientation Not on file documented as of this encounter Plan of Treatment Not on file documented as of this encounter Visit Diagnoses Not on filedocumented in this encounter Care Teams American Studies Professor Relationship Specialty Start Date End Date Xavi Allen MD [address] [place] [address] PCP - General Internal Medicine 07/02/18 documented as of this encounter
--- OUTSIDE RECORDS SUMMARY | 2025-06-30 23:05 | XMS_ITS | Encounter Summary ---
Author Organization [facility] Address [address] [place] [address] Care Team Providers Care Pediatric Neuropsychologist Name Role Phone Xavi Allen MD Primary Care Provider [phone] Encounter Details Date Type Department Care Team (Late st Contact Info) Description 03/22/2002 Outpatient [facility] Division of Neurology [address] [address] Maverick Boyce MD [address] [place] [id number] Social History Tobacco Use Types Packs/Day Years Used Date Smoking Tobacco: Never Assessed Comments Unknown Sex and Gender Information Value Date Recorded Sex Assigned at Not on file Legal Sex Female 3:52 AM PERSONAL CARE ATTENDANT Gender Identity Not on file Sexual Orientation Not on file documented as of this encounter Plan of Treatment Not on file documented as of this encounter Visit Diagnoses Not on filedocumented in this encounter Care Teams Pediatric Neuropsychologist Relationship Specialty Start Date End Date Xavi Allen MD [address] [place] [address] PCP - General Internal Medicine 07/02/18 documented as of this encounter
--- OUTSIDE RECORDS SUMMARY | 2025-06-30 23:05 | XMS_ITS | Encounter Summary ---
Author Organization [facility] Address [address] [place] [address] Care Team Providers Care Lehr Loader Name Role Phone Xavi Allen MD Primary Care Provider [phone] Encounter Details Date Type Department Care Team (Latest Contact Info) Description 03/30/2001 Outpatient Historical [facility] Radha Lin MD [address] [facility] [facility] [address] [place] [phone] Multiple sclerosis (CMS/HCC) (Primary Dx) Social History Tobacco Use Types Packs/Day Years Used Date Smoking Tobacco: Never Assessed Comments Unknown Sex and Gender Information Value Date Recorded Sex Assigned at Not on file Legal Sex Female 3:52 AM MOLD FILLER Gender Identity Not on file Sexual Orientation Not on file documented as of this encounter Plan of Treatment Not on file documented as of this encounter Visit Diagnoses Diagnosis Multiple sclerosis (CMS/HCC)- Primary Multiple sclerosis documented in this encounter Care Teams Lehr Loader Relationship Specialty Start Date End Date Xavi Allen MD [address] [place] [address] PCP - General Internal Medicine 07/02/18 documented as of this encounter
--- OUTSIDE RECORDS SUMMARY | 2025-06-30 23:05 | XMS_ITS | Encounter Summary ---
Author Organization [facility] Address [address] [place] [address] Care Team Providers Care Engineering Test Specialist Name Role Phone Xavi Allen MD Primary Care Provider Encounter Details Date Type Department Care Team (Late st Contact Info) Description 03/20/2003 Outpatient Historical [facility] DE[facility] Social History Tobacco Use Types Packs/Day Years Used Date Smoking Tobacco: Never Assessed Comments Unknown Sex and Gender Information Value Date Recorded Sex Assigned at Not on file Legal Sex Female 3:52 AM MATERIALS PLANNING ANALYST Gender Identity Not on file Sexual Orientation Not on file documented as of this encounter Plan of Treatment Not on file documented as of this encounter Visit Diagnoses Not on filedocumented in this encounter Care Teams Engineering Test Specialist Relationship Specialty Start Date End Date Xavi Allen MD [address] [place] [address] PCP - General Internal Medicine 07/02/18 documented as of this encounter
--- OUTSIDE RECORDS SUMMARY | 2025-06-30 23:05 | XMS_ITS | Encounter Summary ---
Author Organization [facility] Address [address] [place] [address] Care Team Providers Care Retail And Restaurant Associate Name Role Phone Xavi Allen MD Primary Care Provider [phone] Encounter Details Date Type Department Care Team (Late st Contact Info) Description 10/31/2002 Outpatient [facility] Division of Neurology [address] [address] Radha Lin MD [address] [facility] [address] [place] [phone] Social History Tobacco Use Types Packs/Day Years Used Date Smoking Tobacco: Never Assessed Comments Unknown Sex and Gender Information Value Date Recorded Sex Assigned at Not on file Legal Sex Female 3:52 AM MOTHER SUPERIOR Gender Identity Not on file Sexual Orientation Not on file documented as of this encounter Plan of Treatment Not on file documented as of this encounter Visit Diagnoses Not on filedocumented in this encounter Care Teams Retail And Restaurant Associate Relationship Specialty Start Date End Date Xavi Allen MD [address] [place] [address] PCP - General Internal Medicine 07/02/18 documented as of this encounter
--- OUTSIDE RECORDS SUMMARY | 2025-06-30 23:05 | XMS_ITS | Encounter Summary ---
Author Organization [facility] Address [address] [place] [address] Care Team Providers Care Fuel Retrofitting Technician Name Role Phone Xavi Allen MD Primary Care Provider [phone] Encounter Details Date Type Department Care Team (Late st Contact Info) Description 03/02/2001 Outpatient [facility] Division of Neurology [address] [address] Radha Lin MD [address] [facility] [address] [place] [phone] Social History Tobacco Use Types Packs/Day Years Used Date Smoking Tobacco: Never Assessed Comments Unknown Sex and Gender Information Value Date Recorded Sex Assigned at Not on file Legal Sex Female 3:52 AM UPHOLSTERY MECHANIC Gender Identity Not on file Sexual Orientation Not on file documented as of this encounter Plan of Treatment Not on file documented as of this encounter Visit Diagnoses Not on filedocumented in this encounter Care Teams Fuel Retrofitting Technician Relationship Specialty Start Date End Date Xavi Allen MD [address] [place] [address] PCP - General Internal Medicine 07/02/18 documented as of this encounter
--- OUTSIDE RECORDS SUMMARY | 2025-06-30 23:05 | XMS_ITS | Encounter Summary ---
Author Organization [facility] Address [address] [place] [address] Care Team Providers Care Harness Cutter Name Role Phone Xavi Allen MD Primary Care Provider [phone] Encounter Details Date Type Department Care Team (Late st Contact Info) Description 05/01/2001 Outpatient Historical [facility] Radha Lin MD [address] [facility] [address] [place] [phone] Social History Tobacco Use Types Packs/Day Years Used Date Smoking Tobacco: Never Assessed Comments Unknown Sex and Gender Information Value Date Recorded Sex Assigned at Not on file Legal Sex Female 3:52 AM PRODUCT MARKETING DIRECTOR Gender Identity Not on file Sexual Orientation Not on file documented as of this encounter Plan of Treatment Not on file documented as of this encounter Visit Diagnoses Not on filedocumented in this encounter Care Teams Harness Cutter Relationship Specialty Start Date End Date Xavi Allen MD [address] [place] [address] PCP - General Internal Medicine 07/02/18 documented as of this encounter
--- OUTSIDE RECORDS SUMMARY | 2025-06-30 23:05 | XMS_ITS | Encounter Summary ---
Author Organization [facility] Address [address] [place] [address] Care Team Providers Care Senior Teradata Developer Name Role Phone Xavi Allen MD Primary Care Provider Encounter Details Date Type Department Care Team (Late st Contact Info) Description 08/08/2002 Outpatient Historical [facility] Social History Tobacco Use Types Packs/Day Years Used Date Smoking Tobacco: Never Assessed Comments Unknown Sex and Gender Information Value Date Recorded Sex Assigned at Not on file Legal Sex Female 3:52 AM SUPERVISOR DRIED YEAST Gender Identity Not on file Sexual Orientation Not on file documented as of this encounter Plan of Treatment Not on file documented as of this encounter Visit Diagnoses Not on filedocumented in this encounter Care Teams Senior Teradata Developer Relationship Specialty Start Date End Date Xavi Allen MD [address] [place] [address] PCP - General Internal Medicine 07/02/18 documented as of this encounter
--- OUTSIDE RECORDS SUMMARY | 2025-06-30 23:05 | XMS_ITS | Encounter Summary ---
Author Organization [facility] Address [address] [place] [address] Care Team Providers Care Nut Sheller Machine Operator Name Role Phone Xavi Allen MD Primary Care Provider [phone] Encounter Details Date Type Department Care Team (Late st Contact Info) Description 03/22/2002 Outpatient Historical [facility] Social History Tobacco Use Types Packs/Day Years Used Date Smoking Tobacco: Never Assessed Comments Unknown Sex and Gender Information Value Date Recorded Sex Assigned at Not on file Legal Sex Female 3:52 AM VIDEO GAME DEVELOPER Gender Identity Not on file Sexual Orientation Not on file documented as of this encounter Plan of Treatment Not on file documented as of this encounter Visit Diagnoses Not on filedocumented in this encounter Care Teams Nut Sheller Machine Operator Relationship Specialty Start Date End Date Xavi Allen MD [address] [place] [address] PCP - General Internal Medicine 07/02/18 documented as of this encounter
--- OUTSIDE RECORDS SUMMARY | 2025-06-30 23:05 | XMS_ITS | Encounter Summary ---
Author Organization [facility] Address [address] [place] [address] Care Team Providers Care Institutional Asset Manager Name Role Phone Xavi Allen MD Primary Care Provider [phone] Encounter Details Date Type Department Care Team (Late st Contact Info) Description 03/11/2002 Outpatient Historical [facility] DEPT Social History Tobacco Use Types Packs/Day Years Used Date Smoking Tobacco: Never Assessed Comments Unknown Sex and Gender Information Value Date Recorded Sex Assigned at Not on file Legal Sex Female 3:52 AM MORTGAGE OPERATIONS MANAGER Gender Identity Not on file Sexual Orientation Not on file documented as of this encounter Plan of Treatment Not on file documented as of this encounter Visit Diagnoses Not on filedocumented in this encounter Care Teams Institutional Asset Manager Relationship Specialty Start Date End Date Xavi Allen MD [address] [place] [address] PCP - General Internal Medicine 07/02/18 documented as of this encounter
--- OUTSIDE RECORDS SUMMARY | 2025-06-30 23:05 | XMS_ITS | Encounter Summary ---
Author Organization [facility] Address [address] [place] [address] Care Team Providers Care Tug Master Name Role Phone Xavi Allen MD Primary Care Provider [phone] Encounter Details Date Type Department Care Team (Late st Contact Info) Description 03/22/2004 Outpatient [facility] Division of Neurology [address] [address] Radha Lin MD [address] [facility] [address] [place] [phone] Social History Tobacco Use Types Packs/Day Years Used Date Smoking Tobacco: Never Assessed Comments Unknown Sex and Gender Information Value Date Recorded Sex Assigned at Not on file Legal Sex Female 3:52 AM SCHOOL BUS MONITOR Gender Identity Not on file Sexual Orientation Not on file documented as of this encounter Plan of Treatment Not on file documented as of this encounter Visit Diagnoses Not on filedocumented in this encounter Care Teams Tug Master Relationship Specialty Start Date End Date Xavi Allen MD [address] [place] [address] PCP - General Internal Medicine 07/02/18 documented as of this encounter
--- OUTSIDE RECORDS SUMMARY | 2025-06-30 23:05 | XMS_ITS | Encounter Summary ---
Author Organization [facility] Address [address] [place] [address] Care Team Providers Care Slackline Operator Name Role Phone Xavi Allen MD Primary Care Provider Encounter Details Date Type Department Care Team (Late st Contact Info) Description 03/20/2003 Outpatient Historical [facility] Social History Tobacco Use Types Packs/Day Years Used Date Smoking Tobacco: Never Assessed Comments Unknown Sex and Gender Information Value Date Recorded Sex Assigned at Not on file Legal Sex Female 3:52 AM REFUELING RAMP ATTENDANT Gender Identity Not on file Sexual Orientation Not on file documented as of this encounter Plan of Treatment Not on file documented as of this encounter Visit Diagnoses Not on filedocumented in this encounter Care Teams Slackline Operator Relationship Specialty Start Date End Date Xavi Allen MD [address] [place] [address] PCP - General Internal Medicine 07/02/18 documented as of this encounter
--- OUTSIDE RECORDS SUMMARY | 2025-06-30 23:05 | XMS_ITS | Encounter Summary ---
Author Organization [facility] Address 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
--- OUTSIDE RECORDS SUMMARY | 2025-06-30 23:05 | XMS_ITS | Encounter Summary ---
Author Organization [facility] Address [address] 

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
--- OUTSIDE RECORDS SUMMARY | 2025-06-30 23:05 | XMS_ITS | Encounter Summary ---
Author Organization [facility] Address 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
--- OUTSIDE RECORDS SUMMARY | 2025-06-30 23:05 | XMS_ITS | Encounter Summary ---
Author Organization [facility] Address 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
--- OUTSIDE RECORDS SUMMARY | 2025-06-30 23:05 | XMS_ITS | Encounter Summary ---
Author Organization [facility] Address 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
--- OUTSIDE RECORDS SUMMARY | 2025-06-30 23:05 | XMS_ITS | Encounter Summary ---
Author Organization [facility] Address 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
--- OUTSIDE RECORDS SUMMARY | 2025-06-30 23:05 | XMS_ITS | Encounter Summary ---
Author Organization [facility] Address 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
--- OUTSIDE RECORDS SUMMARY | 2025-06-30 23:05 | XMS_ITS | Encounter Summary ---
Author Organization [facility] Address [address] [place] [address] Care Team Providers Care Lab Specialist Name Role Phone Xavi Allen MD Primary Care Provider [phone] Encounter Details Date Type Department Care Team (Late st Contact Info) Description 03/14/2025 Lab Requisition [facility] [address] [facility] [place] [address] Jennifer Lucio DO [address] [facility] [address] [place] [address] Social History Tobacco Use Types Packs/Day Years [...] AM CDT) Case Report Dermatopathology Report Case: [id number] Authorizing Provider: Jennifer Lucio DO Collected: 03/14/2025 09:31 AM Ordering Location: [facility] - Received: 03/14/2025 04:30 PM DermPath Lab Pathologist: Angelia Lloyd MD Specimen: Skin, left presybeterian 4:19 PM CDT DERMATOPATHOLOGY LABORATORY Final Diagnosis Specimen A. SKIN, left presybeterian: ACTINIC KERATOSIS, LICHENOID (L57.0) 4:19 PM CDT DERMATOPATHOLOGY LABORATORY at 1619 CDT Clinical History ISK, R/O Atypia 4:19 PM CDT DERMATOPATHOLOGY LABORATORY Gross Description Specimen A: Received is one formalin filled container labeled with the patient's name and designated left presybeterian. The specimen consists of a shave biopsy measuring 10x7x1 mm. Jar 0. 4:19 PM CDT DERMATOPATHOLOGY LABORATORY Microscopic Description Specimen A. SKIN, left presybeterian: There is focal parakeratosis. The lower half [...] characteristic determined by the Dermatopathology Laboratory at [facility], directed by Dr. Raine Lloyd. These tests need not be, and therefore are not, approved by the [place] Food and Drug Administration. The tests are used for clinical purposes. Billing Codes Specimen Charges Stain Charges 11880 1 5 4:19 PM CDT DERMATOPATHOLOGY LABORATORY Embedded Images 5 4:19 PM CDT DERMATOPATHOLOGY LABORATORY Pathology/Cytolo gy TISSUE SPECIMEN FROM SKIN / Unknown 03/14/2025 9:31 AM CDT 03/14/2025 4:30 PM CDT us Jennifer Lucio DO LAB - PATHOLOGY/CYTOLOGY ORDERABLES Final Result DERMATOPATHOLOGY LABORATORY [facility] - Department of Dermatology [address], [address] [phone] documented in this encounter Visit Diagnoses Not on filedocumented in this encounter Care Teams Lab Specialist Relationship Specialty Start Date End Date Xavi Allen MD [address] [place], [place] [phone] PCP - General 05/03/18 documented as of this encounter
--- OUTSIDE RECORDS SUMMARY | 2025-06-30 23:05 | XMS_ITS | Encounter Summary ---
Author Organization [facility] Address [address] [place] [address] Care Team Providers Care Vacuum Worker Name Role Phone Xavi Allen MD Primary Care Provider [phone] Encounter Details Date Type Department Care Team (Late st Contact Info) Description 03/03/2003 Outpatient [facility] Division of Neurology [address] [facility] [facility], [address] [address] Radha Lin MD [address] [facility] [address] [place] [phone] Social History Tobacco Use Types Packs/Day Years Used Date Smoking Tobacco: Never Assessed Comments Unknown Sex and Gender Information Value Date Recorded Sex Assigned at Not on file 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
--- OUTSIDE RECORDS SUMMARY | 2025-06-30 23:05 | XMS_ITS | Encounter Summary ---
Author Organization [facility] Address [address] [place] [address] Care Team Providers Care Sales Exhibitor Name Role Phone Xavi Allen MD Primary Care Provider Encounter Details Date Type Department Care Team (Late st Contact Info) Description 05/16/2003 Outpatient Historical [facility] Social History Tobacco Use Types Packs/Day Years Used Date Smoking Tobacco: Never Assessed Comments Unknown Sex and Gender Information Value Date Recorded Sex Assigned at Not on file Legal Sex Female 3:52 AM BARISTA Gender Identity Not on file Sexual Orientation Not on file documented as of this encounter Plan of Treatment Not on file documented as of this encounter Visit Diagnoses Not on filedocumented in this encounter Care Teams Sales Exhibitor Relationship Specialty Start Date End Date Xavi Allen MD [address] [place] [address] PCP - General Internal Medicine 07/02/18 documented as of this encounter
--- OUTSIDE RECORDS SUMMARY | 2025-06-30 23:05 | XMS_ITS | Encounter Summary ---
Author Organization [facility] Address [address] [place] [address] Care Team Providers Care Briquette Molder Name Role Phone Xavi Allen MD Primary Care Provider [phone] Encounter Details Date Type Department Care Team (Late st Contact Info) Description 09/06/2002 Outpatient [facility] Division of Neurology [address] [facility], [address] [address] Maverick Boyce MD [address] [place] [address] Social History Tobacco Use Types Packs/Day Years Used Date Smoking Tobacco: Never Assessed Comments Unknown Sex and Gender Information Value Date Recorded Sex Assigned at Not on file 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
--- OUTSIDE RECORDS SUMMARY | 2025-06-30 23:05 | XMS_ITS | Encounter Summary ---
Author Organization [facility] Address [address] [place] [address] Care Team Providers Care Center Line Cutter Operator Name Role Phone Xavi Allen MD Primary Care Provider [phone] Encounter Details Date Type Department Care Team (Late st Contact Info) Description 03/22/2002 Outpatient [facility] Division of Neurology [address] [address] Radha Lin MD [address] [facility] [address] [place] [phone] Social History Tobacco Use Types Packs/Day Years Used Date Smoking Tobacco: Never Assessed Comments Unknown Sex and Gender Information Value Date Recorded Sex Assigned at Not on file 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
--- OUTSIDE RECORDS SUMMARY | 2025-06-30 23:05 | XMS_ITS | Encounter Summary ---
Author Organization [facility] Address 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
--- OUTSIDE RECORDS SUMMARY | 2025-06-30 23:05 | XMS_ITS | Encounter Summary ---
Author Organization [facility] Address [address] [place] [address] Care Team Providers Care Armor Officer Name Role Phone Xavi Allen MD Primary Care Provider [phone] Encounter Details Date Type Department Care Team (Late st Contact Info) Description 09/06/2002 Outpatient [facility] Division of Neurology [address] [address] Radha Lin MD [address] [facility] [address] [place] [phone] Social History Tobacco Use Types Packs/Day Years Used Date Smoking Tobacco: Never Assessed Comments Unknown Sex and Gender Information Value Date Recorded Sex Assigned at Not on file 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
--- OUTSIDE RECORDS SUMMARY | 2025-06-30 23:05 | XMS_ITS | Encounter Summary ---
Author Organization [facility] Address 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
--- OUTSIDE RECORDS SUMMARY | 2025-06-30 23:05 | XMS_ITS | Encounter Summary ---
Author Organization [facility] Address [address] [place] [address] Care Team Providers Care Family Engagement Specialist Name Role Phone Xavi Allen MD Primary Care Provider [phone] Encounter Details Date Type Department Care Team (Late st Contact Info) Description 12/02/2000 Outpatient [facility] Division of Neurology [address] [facility] [address] Radha Lin MD [address] [facility] [address] [place] [phone] Social History Tobacco Use Types Packs/Day Years Used Date Smoking Tobacco: Never Assessed Comments Unknown Sex and Gender Information Value Date Recorded Sex Assigned at Not on file 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
--- OUTSIDE RECORDS SUMMARY | 2025-06-30 23:05 | XMS_ITS | Encounter Summary ---
Author Organization [facility] Address 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
--- OUTSIDE RECORDS SUMMARY | 2025-06-30 23:05 | XMS_ITS | Encounter Summary ---
Author Organization [facility] Address [address] [place] [address] Care Team Providers Care Charter Representative Name Role Phone Xavi Allen MD Primary Care Provider [phone] Encounter Details Date Type Department Care Team (Late st Contact Info) Description 02/16/2002 Outpatient [facility] Division of Neurology [address] [facility] [address] Radha Lin MD [address] [facility] [address] [place] [phone] Social History Tobacco Use Types Packs/Day Years [...] on filedocumented in this encounter Care Teams Charter Representative Relationship Specialty Start Date End Date Xavi Allen MD [address] [place] [address] PCP - General Internal Medicine 07/02/18 documented as of this encounter
--- OUTSIDE RECORDS SUMMARY | 2025-06-30 23:05 | XMS_ITS | Encounter Summary ---
Author Organization [facility] Address [address] [place] [address] Care Team Providers Care Felt Strip Finisher Name Role Phone Xavi Allen MD Primary Care Provider Encounter Details Date Type Department Care Team (Late st Contact Info) Description 07/12/2002 Outpatient Historical [facility] Social History Tobacco Use Types Packs/Day Years Used Date Smoking Tobacco: Never Assessed Comments Unknown Sex and Gender Information Value Date Recorded Sex Assigned at Not on file Legal Sex Female 3:52 AM MANAGEMENT LEAD Gender Identity Not on file Sexual Orientation Not on file documented as of this encounter Plan of Treatment Not on file documented as of this encounter Visit Diagnoses Not on filedocumented in this encounter Care Teams Felt Strip Finisher Relationship Specialty Start Date End Date Xavi Allen MD [address] [place] [address] PCP - General Internal Medicine 07/02/18 documented as of this encounter
--- OUTSIDE RECORDS SUMMARY | 2025-06-30 23:05 | XMS_ITS | Encounter Summary ---
Author Organization [facility] Address [address] [place] [address] Care Team Providers Care Hostel Manager Name Role Phone Xavi Allen MD Primary Care Provider [phone] Encounter Details Date Type Department Care Team (Latest Contact Info) Description 04/04/2003 Outpatient Historical [facility] NEURO PSYCHOLOG[facility] Rudy Palma V., PhD 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
--- OUTSIDE RECORDS SUMMARY | 2025-06-30 23:05 | XMS_ITS | Encounter Summary ---
Author Organization [facility] Address [address] [place] [address] Care Team Providers Care Movement Therapist Name Role Phone Xavi Allen MD Primary Care Provider Encounter Details Date Type Department Care Team (Late st Contact Info) Description 09/08/2003 Outpatient Historical [facility] Social History Tobacco Use Types Packs/Day Years Used Date Smoking Tobacco: Never Assessed Comments Unknown Sex and Gender Information Value Date Recorded Sex Assigned at Not on file Legal Sex Female 3:52 AM BOTTLE LABELER Gender Identity Not on file Sexual Orientation Not on file documented as of this encounter Plan of Treatment Not on file documented as of this encounter Visit Diagnoses Not on filedocumented in this encounter Care Teams Movement Therapist Relationship Specialty Start Date End Date Xavi Allen MD [address] [place] [address] PCP - General Internal Medicine 07/02/18 documented as of this encounter
--- OUTSIDE RECORDS SUMMARY | 2025-06-30 23:05 | XMS_ITS | Encounter Summary ---
Author Organization [facility] Address [address] [place] [address] Care Team Providers Care Crystal Grinder Name Role Phone Xavi Allen MD Primary Care Provider Encounter Details Date Type Department Care Team (Late st Contact Info) Description 06/14/2002 Outpatient Historical [facility] Social History Tobacco Use Types Packs/Day Years Used Date Smoking Tobacco: Never Assessed Comments Unknown Sex and Gender Information Value Date Recorded Sex Assigned at Not on file Legal Sex Female 3:52 AM DISTRICT REPRESENTATIVE Gender Identity Not on file Sexual Orientation Not on file documented as of this encounter Plan of Treatment Not on file documented as of this encounter Visit Diagnoses Not on filedocumented in this encounter Care Teams Crystal Grinder Relationship Specialty Start Date End Date Xavi Allen MD [address] [place] [address] PCP - General Internal Medicine 07/02/18 documented as of this encounter
--- OUTSIDE RECORDS SUMMARY | 2025-06-30 23:05 | XMS_ITS | Encounter Summary ---
Author Organization [facility] Address [address] [place] [address] Care Team Providers Care Early Intervention School Psychologist Name Role Phone Xavi Allen MD Primary Care Provider [phone] Encounter Details Date Type Department Care Team (Late st Contact Info) Description 01/23/2004 Outpatient [facility] Division of Neurology [address], [address] [address] Maverick Boyce MD [address] [place] [phone] Social History Tobacco Use Types Packs/Day Years Used Date Smoking Tobacco: Never Assessed Comments Unknown Sex and Gender Information Value Date Recorded Sex Assigned at Not on file Legal Sex Female 3:52 AM SPICE FUMIGATOR Gender Identity Not on file Sexual Orientation Not on file documented as of this encounter Plan of Treatment Not on file documented as of this encounter Visit Diagnoses Not on filedocumented in this encounter Care Teams Early Intervention School Psychologist Relationship Specialty Start Date End Date Xavi Allen MD [address] [place] [address] PCP - General Internal Medicine 07/02/18 documented as of this encounter
--- OUTSIDE RECORDS SUMMARY | 2025-06-30 23:05 | XMS_ITS | Encounter Summary ---
Author Organization [facility] Address 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
--- OUTSIDE RECORDS SUMMARY | 2025-06-30 23:05 | XMS_ITS | Encounter Summary ---
Author Organization [facility] Address [address] [place] [address] Care Team Providers Care Breastfeeding Educator Name Role Phone Xavi Allen MD Primary Care Provider Encounter Details Date Type Department Care Team (Late st Contact Info) Description 09/06/2002 Outpatient Historical [facility] Social History Tobacco Use Types Packs/Day Years Used Date Smoking Tobacco: Never Assessed Comments Unknown Sex and Gender Information Value Date Recorded Sex Assigned at Not on file Legal Sex Female 3:52 AM SOCIAL SERVICES DESIGNEE Gender Identity Not on file Sexual Orientation Not on file documented as of this encounter Plan of Treatment Not on file documented as of this encounter Visit Diagnoses Not on filedocumented in this encounter Care Teams Breastfeeding Educator Relationship Specialty Start Date End Date Xavi Allen MD [address] [place] [address] PCP - General Internal Medicine 07/02/18 documented as of this encounter
--- OUTSIDE RECORDS SUMMARY | 2025-06-30 23:05 | XMS_ITS | Encounter Summary ---
Author Organization [facility] Address [address] [place] [address] Care Team Providers Care Project Executive Name Role Phone Xavi Allen MD Primary Care Provider [phone] Encounter Details Date Type Department Care Team (Late st Contact Info) Description 08/19/2001 Outpatient [facility] Division of Neurology [address], [address] [address] Radha Lin MD [address] [facility] [address] [place] [phone] Social History Tobacco Use Types Packs/Day Years Used Date Smoking Tobacco: Never Assessed Comments Unknown Sex and Gender Information Value Date Recorded Sex Assigned at Not on file Legal Sex Female 3:52 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
--- OUTSIDE RECORDS SUMMARY | 2025-06-30 23:05 | XMS_ITS | Encounter Summary ---
Author Organization [facility] Address [address] [place] [address] Care Team Providers Care Sliver Cutter Name Role Phone Xavi Allen MD Primary Care Provider [phone] Encounter Details Date Type Department Care Team (Latest Contact Info) Description 01/19/2001 Outpatient Historical [facility] Radha Lin MD [address] [facility] [address] [place] [phone] Special screening for osteoporosis (Primary Dx) Social History Tobacco Use Types Packs/Day Years Used Date Smoking Tobacco: Never Assessed Comments Unknown Sex and Gender Information Value Date Recorded Sex Assigned at Not on file Legal Sex Female 3:52 AM OUTPATIENT SURGERY RN Gender Identity Not on file Sexual Orientation Not on file documented as of this encounter Plan of Treatment Not on file documented as of this encounter Visit Diagnoses Diagnosis Special screening for osteoporosis- Primary documented in this encounter Care Teams Sliver Cutter Relationship Specialty Start Date End Date Xavi Allen MD [address] [place] [address] PCP - General Internal Medicine 07/02/18 documented as of this encounter
--- OUTSIDE RECORDS SUMMARY | 2025-06-30 23:05 | XMS_ITS | Encounter Summary ---
Author Organization [facility] Address [address] [place] [address] Care Team Providers Care Sales Route Driver Helper Name Role Phone Xavi Allen MD Primary Care Provider Encounter Details Date Type Department Care Team (Late st Contact Info) Description 08/08/2003 Outpatient Historical [facility] Social History Tobacco Use Types Packs/Day Years Used Date Smoking Tobacco: Never Assessed Comments Unknown Sex and Gender Information Value Date Recorded Sex Assigned at Not on file Legal Sex Female 3:52 AM BREAKFAST HOSTESS Gender Identity Not on file Sexual Orientation Not on file documented as of this encounter Plan of Treatment Not on file documented as of this encounter Visit Diagnoses Not on filedocumented in this encounter Care Teams Sales Route Driver Helper Relationship Specialty Start Date End Date Xavi Allen MD [address] [place] [address] PCP - General Internal Medicine 07/02/18 documented as of this encounter
--- OUTSIDE RECORDS SUMMARY | 2025-06-30 23:05 | XMS_ITS | Encounter Summary ---
Author Organization [facility] Address [address] [place] [address] Care Team Providers Care Senior Relationship Manager Name Role Phone Xavi Allen MD Primary Care Provider [phone] Encounter Details Date Type Department Care Team (Late st Contact Info) Description 02/21/2003 Outpatient [facility] Division of Neurology [address] [address] Radha Lin MD [address] [facility] [address] [place] [phone] Social History Tobacco Use Types Packs/Day Years Used Date Smoking Tobacco: Never Assessed Comments Unknown Sex and Gender Information Value Date Recorded Sex Assigned at Not on file Legal Sex Female 3:52 AM FACULTY MEMBER Gender Identity Not on file Sexual Orientation Not on file documented as of this encounter Plan of Treatment Not on file documented as of this encounter Visit Diagnoses Not on filedocumented in this encounter Care Teams Senior Relationship Manager Relationship Specialty Start Date End Date Xavi Allen MD [address] [place] [address] PCP - General Internal Medicine 07/02/18 documented as of this encounter
--- OUTSIDE RECORDS SUMMARY | 2025-06-30 23:05 | XMS_ITS | Encounter Summary ---
Author Organization [facility] Address [address] [place] [address] Care Team Providers Care Toxics Program Officer Name Role Phone Xavi Allen MD Primary Care Provider [phone] Encounter Details Date Type Department Care Team (Late st Contact Info) Description 12/26/2002 Outpatient Historical [facility] KASI Lin, Radha Batres MD [address] 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
--- OUTSIDE RECORDS SUMMARY | 2025-06-30 23:05 | XMS_ITS | Encounter Summary ---
Author Organization [facility] Address [address] [place] [address] Care Team Providers Care Wrapping Machine Tender Name Role Phone Xavi Allen MD Primary Care Provider Encounter Details Date Type Department Care Team (Late st Contact Info) Description 12/27/2003 Outpatient Historical [facility] Social History Tobacco Use Types Packs/Day Years Used Date Smoking Tobacco: Never Assessed Comments Unknown Sex and Gender Information Value Date Recorded Sex Assigned at Not on file Legal Sex Female 3:52 AM IRRIGATION SERVICE TECHNICIAN Gender Identity Not on file Sexual Orientation Not on file documented as of this encounter Plan of Treatment Not on file documented as of this encounter Visit Diagnoses Not on filedocumented in this encounter Care Teams Wrapping Machine Tender Relationship Specialty Start Date End Date Xavi Allen MD [address] [place] [address] PCP - General Internal Medicine 07/02/18 documented as of this encounter
--- OUTSIDE RECORDS SUMMARY | 2025-06-30 23:05 | XMS_ITS | Encounter Summary ---
Author Organization [facility] Address [address] [place] [address] Care Team Providers Care Sales And Service Agent Name Role Phone Xavi Allen MD Primary Care Provider [phone] Encounter Details Date Type Department Care Team (Late st Contact Info) Description 05/16/2003 Outpatient [facility] Division of Neurology [address] [address] Maverick Boyce MD [address] [place] [phone] Social History Tobacco Use Types Packs/Day Years Used Date Smoking Tobacco: Never Assessed Comments Unknown Sex and Gender Information Value Date Recorded Sex Assigned at Not on file Legal Sex Female 3:52 AM CRM SPECIALIST Gender Identity Not on file Sexual Orientation Not on file documented as of this encounter Plan of Treatment Not on file documented as of this encounter Visit Diagnoses Not on filedocumented in this encounter Care Teams Sales And Service Agent Relationship Specialty Start Date End Date Xavi Allen MD [address] [place] [address] PCP - General Internal Medicine 07/02/18 documented as of this encounter
--- OUTSIDE RECORDS SUMMARY | 2025-06-30 23:05 | XMS_ITS | Encounter Summary ---
Author Organization [facility] Address [address] [place] [address] Care Team Providers Care Punch Hand Name Role Phone Xavi Allen MD Primary Care Provider [phone] Encounter Details Date Type Department Care Team (Late st Contact Info) Description 10/03/2002 Outpatient [address] 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
--- OUTSIDE RECORDS SUMMARY | 2025-06-30 23:05 | XMS_ITS | Encounter Summary ---
Author Organization [facility] Address [address] [place] [address] Care Team Providers Care Cement Side Laster Name Role Phone Xavi Allen MD Primary Care Provider [phone] Encounter Details Date Type Department Care Team (Late st Contact Info) Description 04/07/2003 Outpatient [facility] Division of Neurology [address] [address] Maverick Boyce MD [address] [place] [phone] Social History Tobacco Use Types Packs/Day Years Used Date Smoking Tobacco: Never Assessed Comments Unknown Sex and Gender Information Value Date Recorded Sex Assigned at Not on file 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
--- OUTSIDE RECORDS SUMMARY | 2025-06-30 23:05 | XMS_ITS | Encounter Summary ---
Author Organization [facility] Address [address] [place] [address] Care Team Providers Care Executive Relations Specialist Name Role Phone Xavi Allen MD Primary Care Provider [phone] Encounter Details Date Type Department Care Team (Late st Contact Info) Description 03/11/2002 Outpatient [facility] Division of Neurology [address] [address] Maverick Boyce MD [address] [place] [phone] Social History Tobacco Use Types Packs/Day Years Used Date Smoking Tobacco: Never Assessed Comments Unknown Sex and Gender Information Value Date Recorded Sex Assigned at Not on file Legal Sex Female 3:52 AM SURGICAL MANAGER Gender Identity Not on file Sexual Orientation Not on file documented as of this encounter Plan of Treatment Not on file documented as of this encounter Visit Diagnoses Not on filedocumented in this encounter Care Teams Executive Relations Specialist Relationship Specialty Start Date End Date Xavi Allen MD [address] [place] [address] PCP - General Internal Medicine 07/02/18 documented as of this encounter
--- OUTSIDE RECORDS SUMMARY | 2025-06-30 23:05 | XMS_ITS | Encounter Summary ---
Author Organization [facility] Address [address] [place] [address] Care Team Providers Care Manager Clinical Informatics Name Role Phone Xavi Allen MD Primary Care Provider [phone] Encounter Details Date Type Department Care Team (Late st Contact Info) Description 10/03/2002 Outpatient [facility] Division of Neurology [address] [address] Radha Lin MD [address] [facility] [address] [place] [phone] Social History Tobacco Use Types Packs/Day Years Used Date Smoking Tobacco: Never Assessed Comments Unknown Sex and Gender Information Value Date Recorded Sex Assigned at Not on file Legal Sex Female 3:52 AM INTERNSHIP Gender Identity Not on file Sexual Orientation Not on file documented as of this encounter Plan of Treatment Not on file documented as of this encounter Visit Diagnoses Not on filedocumented in this encounter Care Teams Manager Clinical Informatics Relationship Specialty Start Date End Date Xavi Allen MD [address] [place] [address] PCP - General Internal Medicine 07/02/18 documented as of this encounter
--- OUTSIDE RECORDS SUMMARY | 2025-06-30 23:05 | XMS_ITS | Encounter Summary ---
Author Organization [facility] Address [address] [place] [address] Care Team Providers Care Automatic Head Sawyer Name Role Phone Xavi Allen MD Primary Care Provider [phone] Encounter Details Date Type Department Care Team (Late st Contact Info) Description 03/01/2002 Outpatient [facility] Division of Neurology [address] [address] Radha Lin MD [address] [facility] [address] [place] [phone] Social History Tobacco Use Types Packs/Day Years Used Date Smoking Tobacco: Never Assessed Comments Unknown Sex and Gender Information Value Date Recorded Sex Assigned at Not on file Legal Sex Female 3:52 AM ELECTION JUDGE Gender Identity Not on file Sexual Orientation Not on file documented as of this encounter Plan of Treatment Not on file documented as of this encounter Visit Diagnoses Not on filedocumented in this encounter Care Teams Automatic Head Sawyer Relationship Specialty Start Date End Date Xavi Allen MD [address] [place] [address] PCP - General Internal Medicine 07/02/18 documented as of this encounter
--- OUTSIDE RECORDS SUMMARY | 2025-06-30 23:05 | XMS_ITS | Encounter Summary ---
Author Organization [facility] Address [address] [place] [address] Care Team Providers Care Ripper Operator Name Role Phone Xavi Allen MD Primary Care Provider [phone] Encounter Details Date Type Department Care Team (Late st Contact Info) Description 06/14/2002 Outpatient [facility] Division of Neurology [address] [address] Maverick Boyce MD [address] [place] [phone] Social History Tobacco Use Types Packs/Day Years Used Date Smoking Tobacco: Never Assessed Comments Unknown Sex and Gender Information Value Date Recorded Sex Assigned at Not on file Legal Sex Female 3:52 AM RESERVOIR ENGINEER Gender Identity Not on file Sexual Orientation Not on file documented as of this encounter Plan of Treatment Not on file documented as of this encounter Visit Diagnoses Not on filedocumented in this encounter Care Teams Ripper Operator Relationship Specialty Start Date End Date Xavi Allen MD [address] [place] [address] PCP - General Internal Medicine 07/02/18 documented as of this encounter
--- OUTSIDE RECORDS SUMMARY | 2025-06-30 23:05 | XMS_ITS | Encounter Summary ---
Author Organization [facility] Address [address] [place] [address] Care Team Providers Care Animal Rescuer Name Role Phone Xavi Allen MD Primary Care Provider Encounter Details Date Type Department Care Team (Late st Contact Info) Description 02/21/2003 Outpatient [facility] Division of Neurology [address] [facility] [address] Maverick Boyce MD [address] [place] [phone] Social History Tobacco Use Types Packs/Day Years Used Date Smoking Tobacco: Never Assessed Comments Unknown Sex and Gender Information Value Date Recorded Sex Assigned at Not on file Legal Sex Female 3:52 AM DETAIL MAKER AND FITTER Gender Identity Not on file Sexual Orientation Not on file documented as of this encounter Plan of Treatment Not on file documented as of this encounter Visit Diagnoses Not on filedocumented in this encounter Care Teams Animal Rescuer Relationship Specialty Start Date End Date Xavi Allen MD [address] [place] [address] PCP - General Internal Medicine 07/02/18 documented as of this encounter
--- OUTSIDE RECORDS SUMMARY | 2025-06-30 23:05 | XMS_ITS | Encounter Summary ---
Author Organization [facility] Address [address] [place] [address] Care Team Providers Care Braddisher Name Role Phone Xavi Allen MD Primary Care Provider [phone] Encounter Details Date Type Department Care Team (Late st Contact Info) Description 01/23/2004 Outpatient [facility] Division of Neurology [address] [address] Radha Lin MD [address] [facility] [address] [place] [phone] Social History Tobacco Use Types Packs/Day Years Used Date Smoking Tobacco: Never Assessed Comments Unknown Sex and Gender Information Value Date Recorded Sex Assigned at Not on file Legal Sex Female 3:52 AM AGENCY OPERATOR Gender Identity Not on file Sexual Orientation Not on file documented as of this encounter Plan of Treatment Not on file documented as of this encounter Visit Diagnoses Not on filedocumented in this encounter Care Teams Braddisher Relationship Specialty Start Date End Date Xavi Allen MD [address] [place] [address] PCP - General Internal Medicine 07/02/18 documented as of this encounter
--- OUTSIDE RECORDS SUMMARY | 2025-06-30 23:05 | XMS_ITS | Encounter Summary ---
Author Organization [facility] Address [address] [place] [address] Care Team Providers Care Supervisor Toy Assembly Name Role Phone Xavi Allen MD Primary Care Provider [phone] Encounter Details Date Type Department Care Team (Late st Contact Info) Description 09/06/[address] 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
--- OUTSIDE RECORDS SUMMARY | 2025-06-30 23:05 | XMS_ITS | Encounter Summary ---
Author Organization [email or web address] Address [address] [place] [address] Care Team Providers Care Almond Sorter Name Role Phone Xavi Allen MD Primary Care Provider Encounter Details Date Type Department Care Team (Late st Contact Info) Description 08/08/2003 Outpatient Historical [facility] Social History Tobacco Use Types Packs/Day Years Used Date Smoking Tobacco: Never Assessed Comments Unknown Sex and Gender Information Value Date Recorded Sex Assigned at Not on file Legal Sex Female 3:52 AM ASSISTANT TO THE DEAN Gender Identity Not on file Sexual Orientation Not on file documented as of this encounter Plan of Treatment Not on file documented as of this encounter Visit Diagnoses Not on filedocumented in this encounter Care Teams Almond Sorter Relationship Specialty Start Date End Date Xavi Allne MD [address] [place] [address] PCP - General Internal Medicine 07/02/18 documented as of this encounter
--- OUTSIDE RECORDS SUMMARY | 2025-06-30 23:05 | XMS_ITS | Encounter Summary ---
Author Organization [facility] Address 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
--- OUTSIDE RECORDS SUMMARY | 2025-06-30 23:05 | XMS_ITS | Encounter Summary ---
Author Organization [facility] Address 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
--- OUTSIDE RECORDS SUMMARY | 2025-06-30 23:05 | XMS_ITS | Encounter Summary ---
Author Organization [facility] Address 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
--- OUTSIDE RECORDS SUMMARY | 2025-06-30 23:05 | XMS_ITS | Encounter Summary ---
Author Organization [facility] Address 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
--- OUTSIDE RECORDS SUMMARY | 2025-06-30 23:05 | XMS_ITS | Encounter Summary ---
Author Organization [facility] Address [address] [place] [address] Care Team Providers Care Hospice Bereavement Coordinator Name Role Phone Xavi Allen MD Primary Care Provider [phone] Encounter Details Date Type Department Care Team (Late st Contact Info) Description 04/07/2003 Outpatient [facility] Division of Neurology [address] [address] Maverick Boyce MD [address] [place] [id number] Social History Tobacco Use Types Packs/Day Years Used Date Smoking Tobacco: Never Assessed Comments Unknown Sex and Gender Information Value Date Recorded Sex Assigned at Not on file 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
--- OUTSIDE RECORDS SUMMARY | 2025-06-30 23:05 | XMS_ITS | Encounter Summary ---
Author Organization [facility] Address 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
--- OUTSIDE RECORDS SUMMARY | 2025-06-30 23:05 | XMS_ITS | Encounter Summary ---
Author Organization [facility] Address [address] 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
--- OUTSIDE RECORDS SUMMARY | 2025-06-30 23:05 | XMS_ITS | Encounter Summary ---
Author Organization [facility] Address [address] [place] [address] Care Team Providers Care Furnace Mechanic Name Role Phone Xavi Allen MD Primary Care Provider [phone] Encounter Details Date Type Department Care Team (Late st Contact Info) Description 10/31/2003 Outpatient [facility] Division of Neurology [address] [address] Maverick Boyce MD [address] [place] [phone] Social History Tobacco Use Types Packs/Day Years Used Date Smoking Tobacco: Never Assessed Comments Unknown Sex and Gender Information Value Date Recorded Sex Assigned at Not on file Legal Sex Female 3:52 AM CARDIOVASCULAR OR NURSE Gender Identity Not on file Sexual Orientation Not on file documented as of this encounter Plan of Treatment Not on file documented as of this encounter Visit Diagnoses Not on filedocumented in this encounter Care Teams Furnace Mechanic Relationship Specialty Start Date End Date Xavi Allen MD [address] [place] [address] PCP - General Internal Medicine 07/02/18 documented as of this encounter
--- OUTSIDE RECORDS SUMMARY | 2025-06-30 23:05 | XMS_ITS | Encounter Summary ---
Author Organization [facility] Address 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
--- OUTSIDE RECORDS SUMMARY | 2025-06-30 23:05 | XMS_ITS | Encounter Summary ---
Author Organization [facility] Address [address] [place] [address] Care Team Providers Care Roundhouse Worker Name Role Phone Xavi Allen MD Primary Care Provider [phone] Encounter Details Date Type Department Care Team (Late st Contact Info) Description 08/08/2003 Outpatient [facility] Division of Neurology [address] [address] Radha Lin MD [address] [facility] [address] [place] [phone] Social History Tobacco Use Types Packs/Day Years Used Date Smoking Tobacco: Never Assessed Comments Unknown Sex and Gender Information Value Date Recorded Sex Assigned at Not on file 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
--- OUTSIDE RECORDS SUMMARY | 2025-06-30 23:05 | XMS_ITS | Encounter Summary ---
Author Organization [facility] Address [address] [place] [address] Care Team Providers Care Backing In Machine Tender Name Role Phone Xavi Allen MD Primary Care Provider [phone] Encounter Details Date Type Department Care Team (Late st Contact Info) Description 02/02/2004 Outpatient [facility] Division of Neurology [address] [address] Maverick Boyce MD [address] [place] [phone] Social History Tobacco Use Types Packs/Day Years Used Date Smoking Tobacco: Never Assessed Comments Unknown Sex and Gender Information Value Date Recorded Sex Assigned at Not on file Legal Sex Female 3:52 AM SETTER UP Gender Identity Not on file Sexual Orientation Not on file documented as of this encounter Plan of Treatment Not on file documented as of this encounter Visit Diagnoses Not on filedocumented in this encounter Care Teams Backing In Machine Tender Relationship Specialty Start Date End Date Xavi Allen MD [address] [place] [address] PCP - General Internal Medicine 07/02/18 documented as of this encounter
--- OUTSIDE RECORDS SUMMARY | 2025-06-30 23:05 | XMS_ITS | Encounter Summary ---
Author Organization [facility] Address 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
--- OUTSIDE RECORDS SUMMARY | 2025-06-30 23:05 | XMS_ITS | Encounter Summary ---
Author Organization [facility] Address 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
--- OUTSIDE RECORDS SUMMARY | 2025-06-30 23:05 | XMS_ITS | Encounter Summary ---
Author Organization [facility] Address [address] [place] [address] Care Team Providers Care Floor Layer Name Role Phone Xavi Allen MD Primary Care Provider [phone] Encounter Details Date Type Department Care Team (Late st Contact Info) Description 11/25/2002 Outpatient [facility] Division of Neurology [address] [address] Maverick Boyce MD [address] [place] [address] Social History Tobacco Use Types Packs/Day Years Used Date Smoking Tobacco: Never Assessed Comments Unknown Sex and Gender Information Value Date Recorded Sex Assigned at Not on file Legal Sex Female 3:52 AM REGIONAL MAINTENANCE MANAGER Gender Identity Not on file Sexual Orientation Not on file documented as of this encounter Plan of Treatment Not on file documented as of this encounter Visit Diagnoses Not on filedocumented in this encounter Care Teams Floor Layer Relationship Specialty Start Date End Date Xavi Allen MD [address] [place] [address] PCP - General Internal Medicine 07/02/18 documented as of this encounter
--- OUTSIDE RECORDS SUMMARY | 2025-06-30 23:05 | XMS_ITS | Encounter Summary ---
Author Organization [facility] Address [address] [place] [address] Care Team Providers Care Brake [address] Freight Name Role Phone Xavi Allen MD Primary Care Provider [phone] Encounter Details Date Type Department Care Team (Latest Contact Info) Description 03/30/2001 Outpatient Historical [facility] NEURO PSYCHOLOGY Rudy Palma V., PhD 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
--- OUTSIDE RECORDS SUMMARY | 2025-06-30 23:05 | XMS_ITS | Encounter Summary ---
Author Organization [facility] Address [address] [place] [address] Care Team Providers Care Steam Cleaning Machine Operator Name Role Phone Xavi Allen MD Primary Care Provider [phone] Encounter Details Date Type Department Care Team (Late st Contact Info) Description 12/26/2002 Outpatient Historical [facility] K[facility] Lin, Radha Batres MD [address] [facility] [address] [place] [phone] Social History Tobacco Use Types Packs/Day Years Used Date Smoking Tobacco: Never Assessed Comments Unknown Sex and Gender Information Value Date Recorded Sex Assigned at Not on file Legal Sex Female 3:52 AM CONTACT LENS TECHNICIAN Gender Identity Not on file Sexual Orientation Not on file documented as of this encounter Plan of Treatment Not on file documented as of this encounter Visit Diagnoses Not on filedocumented in this encounter Care Teams Steam Cleaning Machine Operator Relationship Specialty Start Date End Date Xavi Allen MD [address] [place] [address] PCP - General Internal Medicine 07/02/18 documented as of this encounter
--- OUTSIDE RECORDS SUMMARY | 2025-06-30 23:05 | XMS_ITS | Encounter Summary ---
Author Organization [facility] Address [address] [place] [address] Care Team Providers Care Public Affairs Director Name Role Phone Xavi Allen MD Primary Care Provider [phone] Encounter Details Date Type Department Care Team (Late st Contact Info) Description 01/03/2003 Inpatient Historical [facility], Maximo Temple MD NO ADDRESS ON FILE Esequiel Olivares MD [address] [address] URINARY FREQUENCY (Primary Dx) Social History Tobacco Use Types Packs/Day Years Used Date Smoking Tobacco: Never Assessed Comments Unknown Sex and Gender Information Value Date Recorded Sex Assigned at Not on file Legal Sex Female 3:52 AM FISCAL ASSISTANT Gender Identity Not on file Sexual Orientation Not on file documented as of this encounter Plan of Treatment Not on file documented as of this encounter Visit Diagnoses Diagnosis Urinary frequency- Primary documented in this encounter Care Teams Public Affairs Director Relationship Specialty Start Date End Date Xavi Allen MD [address] [place] [address] PCP - General Internal Medicine 07/02/18 documented as of this encounter
--- OUTSIDE RECORDS SUMMARY | 2025-06-30 23:06 | XMS_ITS | Encounter Summary ---
Author Organization [facility] Address [address] [place] [address] Care Team Providers Care Lunchroom Mother Name Role Phone Xavi Allen MD Primary Care Provider [phone] Encounter Details Date Type Department Care Team (Late st Contact Info) Description 01/24/2005 Outpatient Historical [facility] Radha Lin MD [address] [facility] [address] [place] [phone] Social History Tobacco Use Types Packs/Day Years Used Date Smoking Tobacco: Never Assessed Comments Unknown Sex and Gender Information Value Date Recorded Sex Assigned at Not on file Legal Sex Female 3:52 AM RETAINING ROOM CUTTER Gender Identity Not on file Sexual Orientation Not on file documented as of this encounter Plan of Treatment Not on file documented as of this encounter Visit Diagnoses Not on filedocumented in this encounter Care Teams Lunchroom Mother Relationship Specialty Start Date End Date Xavi Allen MD [address] [place] [address] PCP - General Internal Medicine 07/02/18 documented as of this encounter
--- OUTSIDE RECORDS SUMMARY | 2025-06-30 23:06 | XMS_ITS | Clinical Summary ---
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 TRICHOMONAS NEGATIVE NEGATIVE 06/07/2025 6:[address] [facility] Comment:NOT DETECTED BY DNA PROBE GARDNERELLA VAGINALIS NEGATIVE NEGATIVE 06/07/2025 6:[address] [facility] Comment:NOT DETECTED BY DNA PROBE DYLAN SPECIES NEGATIVE NEGATIVE 6:[address] [facility] Comment:NOT DETECTED BY DNA PROBE VAGINAL STRUCTURE / Unknown 06/07/2025 5:00 PM CDT us Irena Lopez MD MICROBIOLOGY - GENERAL OR DERABLES Final Result [facility] [address] [place] [address], [id number] * HUMAN PAPILLOMAVIRUS, HIGH-RISK TYPES (06/01/2024 12:00 PM CDT) SPECIMEN CERVIX 06/06/2024 8:38 AM CDT [facility] HPV DNA HIGH RISK NEGATIVE NEGATIVE 06/07/2024 12:25 AM CDT [facility] Comment:SEE CYTOLOGY REPORT 06/01/2024 12:0 0 PM CDT us Irena Lopez MD PATHOLOGY/CYTOLOGY ORDERA BLES Final Result [facility] [address] [place] [address], * Cytopath Cerv/Vag Thin Layer (06/01/2024 12:00 AM CDT) THIN PREP PAP [facility] [address] [place] [address] Department of Pathology Pathology Report CERVICAL/VAGINAL PAP SMEAR REPORT Name: BUTCH BARRIENTOS Age: 8 1965 (Age: 58) Location: [facility] Sex: F Collected Date: 06/01/2024 [facility] #: [id number] Date Received: 06/06/2024 Date Reported: 06/10/2024 Provider: [...] is not effective in detecting cervical adenocarcinoma. [facility] 06/01/2024 06/06/2024 8:0 7 AM CDT Comment:CERVICAL/ENDOCERVICA L us Irena Lopez MD PATHOLOGY/CYTOLOGY ORDERA BLES Final Result [facility] [address] [place] [address], from Last 3 Months or Most Recently Relevant to Health Maintenance Insurance [place] [address] [address] [place] [address] Care Teams Fire Captain Marine Relationship Specialty Start Date End Date Xavi Laurent MD [address] [place] [address] PCP - General INTERNAL MEDICINE 05/10/19
--- OUTSIDE RECORDS SUMMARY | 2025-06-30 23:06 | XMS_ITS | Continuity of Care Document ---
Author Organization [facility] Address [address] [place] [address] Phone Care Team Providers Care Toy Department Manager Name Role Phone Rocael SANCHEZ, Mina Unavailable [...] Active carbamazepine ER 100 mg capsule,extended release dmatdf98ef take 1 capsule by oral route every [...] Providers Copied on Encounter OFFICE/OUTPA TIENT VISIT, [facility], [address] [place] [address] [address], [place], [place], [address], tel:[phone] OPH CONSULT [facility] MS (chief complaint) MS (multiple sclerosis)Opt ic neuritisNucle ar sclerosis of both eyesCataract, cortical, both eyesInsuffici ency of tear film of both eyes 5 Rocael Enriquez. [address] , [address], [place], [place], [address], [place]. tel:[phone] Referring Provider: Radha Lin MD, [address], [place], [address]. tel:[phone] OFFICE/OUTPA TIENT VISIT, [facility], [address], [place], [place], [address], [place] tel:[phone] OPH CONSULT [facility] Cataract, Nuclear SclerosisOpti c Atrophy Oct-0 2 Lavell Reese. [address] [facility], [address], [place], [place], [address], [place]. tel:[phone] Referring Provider: Hugh Perales, [address] [place] [address] [address], [place], [address]. tel:[phone] OFFICE/OUTPA TIENT VISIT, [facility], [address] [place], [place] [address] [address], [place], [place], [address], [place] tel:[phone] O[facility] CONSULT [facility] Optic atrophy, unspecifiedSe nile nuclear sclerosis Oct-0 1 Lavell Hugh. [address] [place] [address], [address], [place], [place], [address], [place]. tel:[phone] OFFICE/OUTPA TIENT VISIT, [facility], [address] [place], [place] [address], [place], [place], [address], [place] tel:[phone] OPH CONSULT [facility] No Information Bob- 0 Lavell Reese. [address] [place] [address], [address], [place], [place], [address], [place]. tel:[phone] Referring Provider: Rudy Boston MD P, [address] [facility] [address], [place], [address]. tel:[phone] Family History Family Member Type Diagnosis Age At Onset Paternal aunt Problem Macular degeneration Problem (finding) Family history of Diabe jaqueline mellitus Mother Problem Cataracts Payers Payer name Insurance type Covered republican ID Abraham lambert(s) Samuel Rule [place] [id number] [id number] Social History Type Description Quantity Date Captured [...]
--- OUTSIDE RECORDS SUMMARY | 2025-06-30 23:06 | XMS_ITS | Encounter Summary ---
Author Organization [facility] Address 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
--- OUTSIDE RECORDS SUMMARY | 2025-06-30 23:06 | XMS_ITS | Encounter Summary ---
Author Organization [facility] Address 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
--- OUTSIDE RECORDS SUMMARY | 2025-06-30 23:06 | XMS_ITS | Encounter Summary ---
Author Organization [facility] Address [address] [place] [address] Care Team Providers Care Clinical Trainer Name Role Phone Xavi Allen MD Primary Care Provider [phone] Encounter Details Date Type Department Care Team (Late st Contact Info) Description 07/09/2004 Outpatient Historical Division of Neurology [address] [facility] [address] Av Alvarado MD [address] [address] [place] [address] Social History Tobacco Use Types Packs/Day Years Used Date Smoking Tobacco: Never Assessed Comments Unknown Sex and Gender Information Value Date Recorded Sex Assigned at Not on file 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
--- OUTSIDE RECORDS SUMMARY | 2025-06-30 23:06 | XMS_ITS | Encounter Summary ---
Author Organization [facility] Address 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
--- OUTSIDE RECORDS SUMMARY | 2025-06-30 23:06 | XMS_ITS | Encounter Summary ---
Author Organization [facility] Address 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
--- OUTSIDE RECORDS SUMMARY | 2025-06-30 23:06 | XMS_ITS | Encounter Summary ---
Author Organization [facility] Address [address] [place] [address] Care Team Providers Care Ore Dryer Name Role Phone Xavi Allen MD Primary Care Provider [phone] Encounter Details Date Type Department Care Team (Late st Contact Info) Description 10/31/2003 Outpatient [facility] Division of Neurology [address] [address] Radha Lin MD [address] [facility] [address] [place] [address] Social History Tobacco Use Types Packs/Day Years Used Date Smoking Tobacco: Never Assessed Comments Unknown Sex and Gender Information Value Date Recorded Sex Assigned at Not on file 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
--- OUTSIDE RECORDS SUMMARY | 2025-06-30 23:06 | XMS_ITS | Encounter Summary ---
Author Organization [facility] Address [address] [place] [address] Care Team Providers Care Homemaker Companion Name Role Phone Xavi Allen MD Primary Care Provider [phone] Encounter Details Date Type Department Care Team (Late st Contact Info) Description 04/16/2004 Outpatient [facility] Division of Neurology [address] [address] Maverick Boyce MD [address] [place] [address] Social History Tobacco Use Types Packs/Day Years Used Date Smoking Tobacco: Never Assessed Comments Unknown Sex and Gender Information Value Date Recorded Sex Assigned at Not on file 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
--- OUTSIDE RECORDS SUMMARY | 2025-06-30 23:06 | XMS_ITS | Encounter Summary ---
Author Organization [facility] Address 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
--- OUTSIDE RECORDS SUMMARY | 2025-06-30 23:06 | XMS_ITS | Encounter Summary ---
Author Organization [facility] Address [address] [place] [address] Care Team Providers Care Dairy Technologist Name Role Phone Xavi Allen MD Primary Care Provider [phone] Encounter Details Date Type Department Care Team (Late st Contact Info) Description 07/09/2004 Outpatient Historical Division of Neurology [address] [address] (Excluded Provider) [place] [address] [facility] [address] [facility] [address] [place] [address] Social History Tobacco Use Types Packs/Day Years Used Date Smoking Tobacco: Never Assessed Comments Unknown Sex and Gender Information Value Date Recorded Sex Assigned at Not on file 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
--- OUTSIDE RECORDS SUMMARY | 2025-06-30 23:06 | XMS_ITS | Encounter Summary ---
Author Organization [facility] Address [address] [place] [address] Care Team Providers Care Computer Training Specialist Name Role Phone Xavi Allen MD Primary Care Provider [phone] Encounter Details Date Type Department Care Team (Late st Contact Info) Description 11/05/2004 Outpatient Historical [facility] Radha Lin MD [address] 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
--- OUTSIDE RECORDS SUMMARY | 2025-06-30 23:06 | XMS_ITS | Encounter Summary ---
Author Organization [employer] Address 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
--- OUTSIDE RECORDS SUMMARY | 2025-06-30 23:06 | XMS_ITS | Encounter Summary ---
Author Organization [facility] Address [address] [place] [address] Care Team Providers Care Leather Crafter Name Role Phone Xavi Allen MD Primary Care Provider [phone] Encounter Details Date Type Department Care Team (Late st Contact Info) Description 12/03/2004 Outpatient [facility] Division of Neurology [address] [address] Maverick Boyce MD [address] [place] [address] Social History Tobacco Use Types Packs/Day Years Used Date Smoking Tobacco: Never Assessed Comments Unknown Sex and Gender Information Value Date Recorded Sex Assigned at Not on file 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
--- OUTSIDE RECORDS SUMMARY | 2025-06-30 23:06 | XMS_ITS | Encounter Summary ---
Author Organization [facility] Address [address] [place] [address] Care Team Providers Care Machine Operator Hop Picker Name Role Phone Xavi Allen MD Primary Care Provider Encounter Details Date Type Department Care Team (Late st Contact Info) Description 05/16/2004 Outpatient Historical [facility] Social History Tobacco Use Types Packs/Day Years Used Date Smoking Tobacco: Never Assessed Comments Unknown Sex and Gender Information Value Date Recorded Sex Assigned at Not on file Legal Sex Female 3:52 AM LAST SCOURER Gender Identity Not on file Sexual Orientation Not on file documented as of this encounter Plan of Treatment Not on file documented as of this encounter Visit Diagnoses Not on filedocumented in this encounter Care Teams Machine Operator Hop Picker Relationship Specialty Start Date End Date Xavi Allen MD [address] [place] [address] PCP - General Internal Medicine 07/02/18 documented as of this encounter
--- OUTSIDE RECORDS SUMMARY | 2025-06-30 23:06 | XMS_ITS | Referral Summary ---
Author Organization [facility] [address] Address [address] [place] [address] Care Team Providers Care Dean Name Role Phone Xavi Allen MD Primary Care Provider [phone] Encounters Date Type Department Care Team Description 04/27/2025 Telephone [facility] [address] [facility] [address] [address] Osbaldo Link MD request for orders 04/07/2025 Telephone [facility] [address] [facility] [address] [address] Tara Espinosa RN from Last [...] Neurogenic bowel 06/23/2018 Dysphagia 06/23/2018 Multiple sclerosis ([facility]) 01/25/2018 Overview (01/23/2025): MS medication history: RRMS/SPMS [...] with Dr Lin and radiologist Dr. Shannon. 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 [...] on file Legal Sex Female 2:51 PM VEHICLE MECHANIC Gender Identity Female 07/23/2020 1:37 PM CDT Sexual Orientation Straight 05/01/2020 3: 10 PM CDT Last Filed Vital Signs Vital Sign Reading Time Taken Comments Blood Pressure 128/72 12/28/2024 12:17 PM VEHICLE MECHANIC Pulse 70 12/28/2024 12:17 PM VEHICLE MECHANIC Temperature 36.4 C (97.5 F) 12/28/2024 12:17 PM VEHICLE MECHANIC Respiratory Rate 18 07/08/2022 4:30 PM CDT Oxygen Saturation 99% 12/28/2024 12:17 PM VEHICLE MECHANIC Inhaled Oxygen Concentration - - Weight 73 kg (161 lb) 12/28/2024 12:17 PM VEHICLE MECHANIC Height 144.8 cm (4' 9) 12/28/2024 12:17 PM VEHICLE MECHANIC Body Mass Index 34.84 12/28/2024 12:17 PM VEHICLE MECHANIC Plan of Treatment Not on file Procedures [...] Comment: For additional information, please refer to http://elmeme.me.[facility]/faq/JRN308 (This link is being provided for informational/ [...] a test for HCV RNA (test code 52333) is suggested. For additional information please refer to http://[employer]/faq/KFF31l4 (This link is being provided for informational/ educational purposes only.) Blood specimen (specimen) 03/18/2021 3:02 PM CDT 03/18/2021 3:04 PM CDT Narrative [facility] - 03/19/2021 11:26 AM CDT AN UPDATE OR CORRECTION HAS BEEN MADE TO NAME us Radha Lin MD LAB MICROBIOLOGY - GENERAL O RDERABLES Final Result [facility] [id number] [id number] from Last 3 Months or Most Recently Relevant to Health Maintenance Insurance [employer] [facility] Address: [address] [address] [employer] [facility] Address: [address] [place] [phone] [facility] [place] [employer] Care Teams Dean Relationship Specialty Start Date End Date Xavi Allen MD PCP - General Internal Medicine 01/20/18
--- OUTSIDE RECORDS SUMMARY | 2025-06-30 23:06 | XMS_ITS | Encounter Summary ---
Author Organization [facility] Address [address] [place] [address] Care Team Providers Care Digital Forensics Examiner Name Role Phone Xavi Allen MD Primary Care Provider [phone] Encounter Details Date Type Department Care Team (Late st Contact Info) Description 07/09/2004 Outpatient Historical [facility] Social History Tobacco Use Types Packs/Day Years Used Date Smoking Tobacco: Never Assessed Comments Unknown Sex and Gender Information Value Date Recorded Sex Assigned at Not on file Legal Sex Female 3:52 AM TOOLING SPECIALIST Gender Identity Not on file Sexual Orientation Not on file documented as of this encounter Plan of Treatment Not on file documented as of this encounter Visit Diagnoses Not on filedocumented in this encounter Care Teams Digital Forensics Examiner Relationship Specialty Start Date End Date Xavi Allen MD [address] [place] [address] PCP - General Internal Medicine 07/02/18 documented as of this encounter
--- OUTSIDE RECORDS SUMMARY | 2025-06-30 23:06 | XMS_ITS | Encounter Summary ---
Author Organization [facility] Address [address] [place] [address] Care Team Providers Care Business Intelligence Analyst Name Role Phone Xavi Allen MD Primary Care Provider [phone] Encounter Details Date Type Department Care Team (Late st Contact Info) Description 12/27/2004 Outpatient Historical [facility] Radha Lin MD [address] [facility] [address] [place] [address] Social History Tobacco Use Types Packs/Day Years Used Date Smoking Tobacco: Never Assessed Comments Unknown Sex and Gender Information Value Date Recorded Sex Assigned at Not on file Legal Sex Female 3:52 AM SENIOR HYDROGEOLOGIST Gender Identity Not on file Sexual Orientation Not on file documented as of this encounter Plan of Treatment Not on file documented as of this encounter Visit Diagnoses Not on filedocumented in this encounter Care Teams Business Intelligence Analyst Relationship Specialty Start Date End Date Xavi Allen MD [address] [place] [address] PCP - General Internal Medicine 07/02/18 documented as of this encounter
--- OUTSIDE RECORDS SUMMARY | 2025-06-30 23:06 | XMS_ITS | Encounter Summary ---
Author Organization [facility] Address [address] [place] [address] Care Team Providers Care Muck Miner Blasting Name Role Phone Xavi Allen MD Primary Care Provider Encounter Details Date Type Department Care Team (Late st Contact Info) Description 10/05/2003 Outpatient Historical [facility] Social History Tobacco Use Types Packs/Day Years Used Date Smoking Tobacco: Never Assessed Comments Unknown Sex and Gender Information Value Date Recorded Sex Assigned at Not on file Legal Sex Female 3:52 AM MEDICAL RECORDS RECEPTIONIST Gender Identity Not on file Sexual Orientation Not on file documented as of this encounter Plan of Treatment Not on file documented as of this encounter Visit Diagnoses Not on filedocumented in this encounter Care Teams Muck Miner Blasting Relationship Specialty Start Date End Date Xavi Allen MD [address] [place] [address] PCP - General Internal Medicine 07/02/18 documented as of this encounter
--- OUTSIDE RECORDS SUMMARY | 2025-06-30 23:06 | XMS_ITS | Encounter Summary ---
Author Organization [facility] Address [address] [place] [address] Care Team Providers Care Corner Trimmer Operator Name Role Phone Xavi Allen MD Primary Care Provider Encounter Details Date Type Department Care Team (Late st Contact Info) Description 10/09/2004 Outpatient Historical [facility] Social History Tobacco Use Types Packs/Day Years Used Date Smoking Tobacco: Never Assessed Comments Unknown Sex and Gender Information Value Date Recorded Sex Assigned at Not on file Legal Sex Female 3:52 AM PROFESSOR CRIMINAL JUSTICE Gender Identity Not on file Sexual Orientation Not on file documented as of this encounter Plan of Treatment Not on file documented as of this encounter Visit Diagnoses Not on filedocumented in this encounter Care Teams Corner Trimmer Operator Relationship Specialty Start Date End Date Xavi Allen MD [address] [place] [address] PCP - General Internal Medicine 07/02/18 documented as of this encounter
--- OUTSIDE RECORDS SUMMARY | 2025-06-30 23:06 | XMS_ITS | Encounter Summary ---
Author Organization [facility] Address [address] [place] [address] Care Team Providers Care Caponizer Name Role Phone Xavi Allen MD Primary Care Provider [phone] Encounter Details Date Type Department Care Team (Late st Contact Info) Description 08/08/2003 Outpatient [facility] Division of Neurology [address] [address] Maverick Boyce MD [address] [place] [id number] Social History Tobacco Use Types Packs/Day Years Used Date Smoking Tobacco: Never Assessed Comments Unknown Sex and Gender Information Value Date Recorded Sex Assigned at Not on file Legal Sex Female 3:52 AM DIAMOND SIZER Gender Identity Not on file Sexual Orientation Not on file documented as of this encounter Plan of Treatment Not on file documented as of this encounter Visit Diagnoses Not on filedocumented in this encounter Care Teams Caponizer Relationship Specialty Start Date End Date Xavi Allen MD [address] [place] [address] PCP - General Internal Medicine 07/02/18 documented as of this encounter
--- OUTSIDE RECORDS SUMMARY | 2025-06-30 23:06 | XMS_ITS | Encounter Summary ---
Author Organization [facility] Address [address] [place] [address] Care Team Providers Care Production Welder Name Role Phone Xavi Allen MD Primary Care Provider [phone] Encounter Details Date Type Department Care Team (Late st Contact Info) Description 02/17/2005 Outpatient [facility] Division of Neurology [address] [address] Radha Lin MD [address] [place] [phone] Social History Tobacco Use Types Packs/Day Years Used Date Smoking Tobacco: Never Assessed Comments Unknown Sex and Gender Information Value Date Recorded Sex Assigned at Not on file Legal Sex Female 3:52 AM MANAGER LEAN Gender Identity Not on file Sexual Orientation Not on file documented as of this encounter Plan of Treatment Not on file documented as of this encounter Visit Diagnoses Not on filedocumented in this encounter Care Teams Production Welder Relationship Specialty Start Date End Date Xavi Allen MD [address] [place] [address] PCP - General Internal Medicine 07/02/18 documented as of this encounter
--- OUTSIDE RECORDS SUMMARY | 2025-06-30 23:06 | XMS_ITS | Encounter Summary ---
Author Organization [facility] Address [address] [place] [address] Care Team Providers Care Environmental Science Technician Name Role Phone Xavi Allen MD Primary Care Provider [phone] Encounter Details Date Type Department Care Team (Late st Contact Info) Description 12/03/2004 Outpatient Historical [facility] Radha Lin MD [address] [facility] [address] [place] [address] Social History Tobacco Use Types Packs/Day Years Used Date Smoking Tobacco: Never Assessed Comments Unknown Sex and Gender Information Value Date Recorded Sex Assigned at Not on file Legal Sex Female 3:52 AM VP ANCILLARY Gender Identity Not on file Sexual Orientation Not on file documented as of this encounter Plan of Treatment Not on file documented as of this encounter Visit Diagnoses Not on filedocumented in this encounter Care Teams Environmental Science Technician Relationship Specialty Start Date End Date Xavi Allen MD [address] [place] [address] PCP - General Internal Medicine 07/02/18 documented as of this encounter
--- OUTSIDE RECORDS SUMMARY | 2025-06-30 23:06 | XMS_ITS | Clinical Summary ---
Author Organization [facility] [address] Address [address] [place] [address] Care Team Providers Care Early Childhood Assistant Name Role Phone Xavi Allen MD Primary Care Provider [phone] Allergies Active Allergy Reactions Criticality Noted Date [...] Neurogenic bowel 06/23/2018 Dysphagia 06/23/2018 Multiple sclerosis ([facility]) 01/25/2018 Overview (01/23/2025): MS medication history: RRMS/SPMS [...] with Dr Lin and radiologist Dr. Shannon. 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 [...] Type Department Care Team Description 04/27/2025 Telephone [facility] [address] [address] Osbaldo Link MD request for orders 04/07/2025 Telephone [facility] [address] [place] [address] Tara Espinosa RN from Last [...] on file Legal Sex Female 2:51 PM DOOR PANELER Gender Identity Female 07/23/2020 1:37 PM CDT Sexual Orientation Straight 05/01/2020 3: 10 PM CDT Obstetrics History Last Filed Vital Signs Vital Sign Reading Time Taken Comments Blood Pressure 128/72 12/28/2024 12:17 PM DOOR PANELER Pulse 70 12/28/2024 12:17 PM DOOR PANELER Temperature 36.4 C (97.5 F) 12/28/2024 12:17 PM DOOR PANELER Respiratory Rate 18 07/08/2022 4:30 PM CDT Oxygen Saturation 99% 12/28/2024 12:17 PM DOOR PANELER Inhaled Oxygen Concentration - - Weight 73 kg (161 lb) 12/28/2024 12:17 PM DOOR PANELER Height 144.8 cm (4' 9) 12/28/2024 12:17 PM DOOR PANELER Body Mass Index 34.84 12/28/2024 12:17 PM DOOR PANELER Plan of Treatment Health Maintenance Due Date [...] Comment: For additional information, please refer to http://education.GridCure.CommunityForce/faq/JES207 (This link is being provided for informational/ [...] a test for HCV RNA (test code 71796) is suggested. For additional information please refer to http://education.Procurify/faq/NWI17k1 (This link is being provided for informational/ educational purposes only.) Blood specimen (specimen) 03/18/2021 3:02 PM CDT 03/18/2021 3:04 PM CDT Narrative [facility] - 03/19/2021 11:26 AM CDT AN UPDATE OR CORRECTION HAS BEEN MADE TO NAME Radha Lin MD LAB MICROBIOLOGY - GENERAL O RDERABLES Final Result Performing Organization Address City/State/[facility] Co de Phone Number [facility] [employer] [facility] [address] [place] [address] from Last 3 Months or Most Recently Relevant to Health Maintenance Insurance IDPA [facility] ID[employer] Care Teams Early Childhood Assistant Relationship Specialty Start Date End Date Xavi Allen MD PCP - General Internal Medicine 01/20/18
[2025-06-30 23:29] LABS: Add Urine Microscopic? YES; Appearance Urine Clear (Clear); Glucose Urine UA Negative (Negative); Leukocyte Esterase Ur Trace LEU/UL (Negative); Nitrate Urine Negative (Negative); Specific Grav Ur 1.012 (1.001-1.035)
[2025-06-30 23:33] LABS: Non Pathogenic Casts 0-2
[2025-06-30 23:41] LABS: Hematocrit 41.0 % (37.0-47.0); Hemoglobin 13.5 g/dL (12.0-15.0); Immature Granulocyte Percent A 0.2 % (0-0.5); Lymphocytes Absolute Auto 1.81 K/mm3 (0.9-3.2); Mean Corpuscular HGB Conc 32.9 g/dl (32-36); Mean Corpuscular Hemoglobin 30.2 pg (26-34); Mean Corpuscular Volume 91.7 fl (80-100); Nucleated Red Blood Cells Absolute Auto 0.000 K/mm3 (0.0-0.012); Nucleated Red Blood Cells Perc 0.0 % (0.0-0.2); Platelet Count Result 262 k/mm3 (150-375); Red Blood Count 4.47 M/mm3 (4.2-5.4); White Blood Count 5.4 K/mm3 (4.5-10.0)
[2025-06-30 23:49] LABS: Alanine Aminotransferase 16 U/L (6-35); Albumin Level 4.3 g/dL (3.5-5.1); Alkaline Phosphatase 89 U/L (38-126); Anion Gap 3 mmol/L (4-12); Aspartate Amino Transferase 26 U/L (14-36); Bilirubin,Total 0.2 mg/dL (0.2-1.3); Blood Urea Nitrogen 16 mg/dL (7-17); Calcium 9.2 mg/dL (8.4-10.2); Carbon Dioxide 26 mmol/L (22-30); Chloride 102 mmol/L (98-107); Estimated Glomerular Filt Rate > 60; Glucose 92 mg/dL (65-110); Potassium 4.3 mmol/L (3.4-5.0); Sodium 131 mmol/L (137-145); Total Protein 6.9 g/dL (6.3-8.2)
[2025-06-30 23:58] VITALS: BP 150/89; PULSE 62; RESP 13; O2SAT 96
--- NOTE | 2025-07-01 02:05 | ED.FEMALEGU ---
HPI - Female Genitourinary General Chief complaint: Urogenital-Female Stated complaint: vaginal pain Time Seen by Provider: 06/30/25 22:20 History of Present Illness HPI Narrative: Patient has been having pelvic pain and to her lower back for last 3 weeks, with some irritation when she self caths, saw her pv design and installation technician and ultrasound ordered outpatient but has not gotten it yet. Came in today because pain is increasing and she does not want wait. Related Data Home Medications ?Medication ?Instructions ?Recorded ?Confirmed ?Last Taken ?Type alendronate 70 mg tablet 70 mg PO WEEKLY 01/09/24 01/09/24 Unknown History armodafinil 150 mg tablet 150 mg PO QAM 01/09/24 01/09/24 Unknown History baclofen 20 mg tablet 20 mg PO BID 01/09/24 01/09/24 Unknown History carbamazepine 100 mg 100 mg PO BID 01/09/24 01/09/24 Unknown History tablet,extended release,12 hr citalopram 40 mg tablet 20 mg PO QAM 01/09/24 01/09/24 Unknown History dalfampridine 10 mg 10 mg PO BID 01/09/24 01/09/24 Unknown History tablet,extended release,12 hr (Ampyra) gabapentin 100 mg capsule 100 mg PO BID 01/09/24 01/09/24 Unknown History levothyroxine 125 mcg tablet 125 mcg PO QAM 01/09/24 01/09/24 Unknown History montelukast 10 mg tablet 10 mg PO BID 01/09/24 01/09/24 Unknown History nitrofurantoin macrocrystal 50 mg 50 mg PO QHS 01/09/24 01/09/24 Unknown History capsule ofatumumab 20 mg/0.4 mL 20 mg subcut [id number] 01/09/24 01/09/24 Unknown History subcutaneous pen injector (Kesimpta Pen) pantoprazole 40 mg tablet,delayed 40 mg PO DAILY 01/09/24 01/09/24 Unknown History release Allergies Allergy/AdvReac Type Severity Reaction Status Date / Time azathioprine Allergy Unknown UNK Verified 01/09/24 12:13 hydrocodone Allergy Unknown Unknown Verified 01/09/24 12:13 ibuprofen Allergy Unknown Unknown Verified 01/09/24 12:13 Sulfa (Sulfonamide Allergy Unknown Unknown Verified 01/09/24 12:13 Antibiotics) Review of Systems Review of Systems: All systems reviewed & are unremarkable except as noted in HPI and below PMFSH Past Medical History Medical History Multiple sclerosis Exam Narrative: EXAMINATION OF ORGAN SYSTEMS/BODY AREAS: Constitutional: Vital signs per nursing GENERAL:[No acute distress, non-toxic appearing.] HEAD: Normal with no signs of head trauma. EYES: EOMI, conjunctiva normal ENT: Hearing grossly intact LUNGS: Nonlabored breathing. HEART: [Regular rate and rhythm] ABD: [Soft], [nontender to palpation] EXT: Normal range of motion SKIN: [No rashes or lesions.] NEURO: [Alert and oriented x 3.] PSYCH: Normal affect Course Vital Signs Vital signs: Vital Signs Temperature 97.5 F L 06/30/25 21:05 Pulse Rate 70 06/30/25 21:05 Respiratory Rate 18 06/30/25 21:05 Blood Pressure 148/81 H 06/30/25 21:05 Pulse Oximetry 100 06/30/25 21:05 Oxygen Delivery Room Air 06/30/25 21:05 Temperature 97.5 F L 06/30/25 21:05 Pulse Rate 62 06/30/25 23:58 Respiratory Rate 13 06/30/25 23:58 Blood Pressure 150/89 H 06/30/25 23:58 Pulse Oximetry 96 06/30/25 23:58 Oxygen Delivery Room Air 06/30/25 21:05 MDM - Female Genitourinary MDM Narrative Medical decision making narrative: Patient has been having pelvic pain and to her lower back for last 3 weeks, with some irritation when she self caths, saw her pv design and installation technician and ultrasound ordered outpatient but has not gotten it yet. Came in today because pain is increasing and she does not want to wait. CT unfortunately shows a cystic mass in the pelvis measuring 13.5 x 12.3 cm, likely ovarian in etiology. Discussed this with patient, she has an ultrasound scheduled in 4 days, and already following with pv design and installation technician. Discussed potential that this is ovarian malignancy. Patient expresses understanding, requesting some pain medication which I have ordered, and she is agreeable to strict return precautions. Lab Data 06/30/25 23:35 06/30/25 23:35 Labs: Lab Results 06/30/25 06/30/25 Range/Units 23:14 23:35 WBC 5.4 (4.5-10.0) K/mm3 RBC 4.47 (4.2-5.4) M/mm3 Hgb 13.5 (12.0-15.0) g/dL Hct 41.0 (37.0-47.0) % MCV 91.7 (80-100) fl MCH 30.2 (26-34) pg MCHC 32.9 (32-36) g/dl RDW 12.6 (11.5-14.5) % Plt Count 262 (150-375) k/mm3 MPV 9.9 (7.4-10.4) fl Immature Gran % (Auto) 0.2 (0-0.5) % Neut % (Auto) 49.3 (45.5-73.1) % Lymph % (Auto) 33.6 (18.3-44.2) % Dane % (Auto) 10.8 H (2.6-8.5) % Eos % (Auto) 4.6 H (0-4.4) % Baso % (Auto) 1.5 H (0.2-1.2) % Lymph # (Auto) 1.81 (0.9-3.2) K/mm3 Dane # (Auto) 0.6 (0.1-0.6) K/mm3 Eos # (Auto) 0.3 (0-0.3) K/mm3 Baso # (Auto) 0.1 (0.0-0.1) K/mm3 Abs Immat Gran (auto) 0.01 (0.00-0.031) K/mm3 Absolute Neuts (auto) 2.7 (1.3-6.7) K/mm3 Absolute Nucleated RBC 0.000 (0.0-0.012) K/mm3 Nucleated RBC % 0.0 (0.0-0.2) % Sodium 131 L (137-145) mmol/L Potassium 4.3 (3.4-5.0) mmol/L Chloride 102 (98-107) mmol/L Carbon Dioxide 26 (22-30) mmol/L Anion Gap 3 L (4-12) mmol/L BUN 16 (7-17) mg/dL Creatinine 0.90 (0.7-1.0) mg/dL Estim Creat Clear Calc Not Reportable Estimated GFR > 60 (59 - ) Glucose 92 (65-110) mg/dL Calcium 9.2 (8.4-10.2) mg/dL Total Bilirubin 0.2 (0.2-1.3) mg/dL AST 26 (14-36) U/L ALT 16 (6-35) U/L Alkaline Phosphatase 89 (38-126) U/L Total Protein 6.9 (6.3-8.2) g/dL Albumin 4.3 (3.5-5.1) g/dL Urine Color Yellow (Yellow) Urine Appearance Clear (Clear) Urine pH 5.5 (5.0-9.0) Ur Specific Mclean 1.012 (1.001-1.035) Urine Protein Negative (Negative) mg/dL Urine Glucose (UA) Negative (Negative) mg/dL Urine Ketones Negative (Negative) mg/dL Ur Blood (Man) Negative (Negative) Urine Nitrate Negative (Negative) Urine Bilirubin Negative (Negative) Urine Urobilinogen 0.2 (<2.0) mg/dL Leukocyte Esterase Rfl Trace H (Negative) GABRIEL/UL Urine RBC 0-2 (0-2) /hpf Urine WBC 0-5 (0-3) /hpf Ur Squamous Epith Cells None seen (Few) /hpf Urine Bacteria None seen /hpf Urine Casts 0-2 Discharge Plan Discharge Clinical Impression: Pelvic mass in female Patient Disposition: Home Condition: Stable Additional Instructions: Your CT today shows a cystic mass in the pelvis measuring 13.5 x 12.3 cm, likely ovarian in etiology. Please follow-up with your OBGYN as scheduled and have the ultrasound outpatient as scheduled. If your symptoms get much worse, you can always return to the emergency room. Patient Language: Amharic Prescriptions: New ketorolac 10 mg tablet 10 mg PO Q8H PRN (Reason: pain) Qty: 14 0RF Rx Instructions: maximum total duration of 5 days from all oral, intranasal, or parenteral formulations No Action nitrofurantoin macrocrystal 50 mg capsule 50 mg PO QHS citalopram 40 mg tablet 20 mg PO QAM carbamazepine 100 mg tablet extended release 12 hr 100 mg PO BID alendronate 70 mg tablet 70 mg PO WEEKLY baclofen 20 mg tablet 20 mg PO BID pantoprazole 40 mg tablet,delayed release (DR/EC) 40 mg PO DAILY levothyroxine 125 mcg tablet 125 mcg PO QAM montelukast 10 mg tablet 10 mg PO BID gabapentin 100 mg capsule 100 mg PO BID armodafinil 150 mg tablet 150 mg PO QAM dalfampridine [Ampyra] 10 mg Tablet Extended Release 12 Hr 10 mg PO BID Kesimpta Pen 20 mg/0.4 mL Pen Injector 20 mg SUBCUT [id number] Follow-up/Referrals: Xavi Allen MD [Primary Care Provider] -
[2025-07-01] MEDS: HYDROmorphone HCL INJ (*CRX) 2 MG/ML VIAL 0.5 MG IV PUSH (02:40)
[2025-07-01] MEDS: KETOROLAC 15 MG/ML VIAL (*BKC) IV PUSH (02:42)
[2025-07-01 02:50] VITALS: BP 152/84; PULSE 66; RESP 17; O2SAT 98
[2025-07-01] MEDS: ONDANSETRON INJ 4 MG/2 ML VIAL IM (02:56)
[2025-07-01 03:01] VITALS: BP 152/84; PULSE 66; RESP 17; O2SAT 98
== END 2025-07-01 03:04 | disposition home or self-care (01) ==
PROVIDERS: Emergency Provider Emergency Medicine; PCP Internal Medicine
DX: N94.9 Unspecified condition associated with female genital organs and menstrual cycle (principal); G35 Multiple sclerosis; Z79.899 Other long term (current) drug therapy
CPT/HCPCS: 36415; 74177; 80053; 81001; 85025; 96372; 96374; 96375; 99284; J1171; J1885; J2405; Q9967

== ENCOUNTER 2025-08-09 14:24 | Outpatient (CLI) | payer OTHER, MEDICAID, SELFPAY ==
--- OUTSIDE RECORDS SUMMARY | 2025-02-22 07:15 | XMS_ITS | Continuity of Care Document ---
Author Organization [facility] Address [address] [place] [address] Phone Care Team Providers Care Sales Agent Trading Stamps Name Role Phone Rocael SANCHEZ, Mina Unavailable [...] Active carbamazepine ER 100 mg capsule,extended release [id number] take 1 capsule by oral route every [...] Providers Copied on Encounter OFFICE/OUTPA TIENT VISIT, [facility], [address] [place] [address] [address], [place], [place], [address], tel:[phone] [facility] MS (chief complaint) MS (multiple sclerosis)Opt ic neuritisNucle ar sclerosis of both eyesCataract, cortical, both eyesInsuffici ency of tear film of both eyes 5 Rocael Enriquez. [address] , [address], [place], [place], [address], [place]. tel:[phone] Referring Provider: Radha Lin MD, [address], [place], [address]. tel:[phone] OFFICE/OUTPA TIENT VISIT, [facility], [address], [place], [place], [address], [place] tel:[phone] OPH CONSULT [facility] Cataract, Nuclear SclerosisOpti c Atrophy Oct-0 2 Lavell Reese. [address] [facility], [address], [place], [place], [address], [place]. tel:[phone] Referring Provider: Hugh Perales, [address] [place] [address] [address], [place], [address]. tel:[phone] OFFICE/OUTPA TIENT VISIT, [facility], [address] [place], [place] [address] [address], [place], [place], [address], [place] tel:[phone] OPH CONSULT [facility] Optic atrophy, unspecifiedSe nile nuclear sclerosis Oct-0 1 Lavell Hugh. [address] [place] [address], [address], [place], [place], [address], [place]. tel:[phone] OFFICE/OUTPA TIENT VISIT, [facility], [address] [place], [place] [address], [place], [place], [address], [place] tel:[phone] OPH CONSULT [facility] No Information Bob- 0 Lavell Reese. [address] [place] [address], [address], [place], [place], [address], [place]. tel:[phone] Referring Provider: Rudy Boston MD P, [address] [facility] [address], [place], [address]. tel:[phone] Family History Family Member Type Diagnosis Age At Onset Paternal aunt Problem Macular degeneration Problem (finding) Family history of Diabe jaqueline mellitus Mother Problem Cataracts Payers Payer name Insurance type Covered constitution party ID Abraham lambert(s) Samuel Rule [place] [id number] [place] [id number] Social History Type Description Quantity Date Captured [...]
--- NOTE | ~2025-08-09 | XR_ITS ---
EXAMINATION: XR chest 2V 08/09/2025 14:38 INDICATION: Cough PROCEDURE: 2 view chest COMPARISON: 03/31/2018 FINDINGS: The lungs are clear. The cardiomediastinal silhouette is within normal limits. There are no pleural effusions. There is no pneumothorax suspected. There is scoliosis. IMPRESSION: 1: NO ACUTE CARDIOPULMONARY DISEASE. Reviewed, dictated and finalized at location O.
--- OUTSIDE RECORDS SUMMARY | 2025-08-09 14:58 | XMS_ITS | Encounter Summary ---
Author Organization [facility] Address [address] [place] [address] Care Team Providers Care Servicenow Administrator Developer Name Role Phone Xavi Allen MD Primary Care Provider [phone] Encounter Details Date Type Department Care Team (Late st Contact Info) Description 12/02/2000 Outpatient [facility] Division of Neurology [address] [address] Radha Lin MD [address] [facility] [address] [place] [address] Social History Tobacco Use Types Packs/Day Years Used Date Smoking Tobacco: Never Assessed Comments Unknown Sex and Gender Information Value Date Recorded Sex Assigned at Not on file Legal Sex Female 3:52 AM RAISE DRILL OPERATOR Gender Identity Not on file Sexual Orientation Not on file documented as of this encounter Plan of Treatment Not on file documented as of this encounter Visit Diagnoses Not on filedocumented in this encounter Care Teams Servicenow Administrator Developer Relationship Specialty Start Date End Date Xavi Allen MD [address] [place] [address] PCP - General Internal Medicine 07/02/18 documented as of this encounter
--- OUTSIDE RECORDS SUMMARY | 2025-08-09 14:58 | XMS_ITS | Encounter Summary ---
Author Organization [facility] Address [address] [place] [address] Care Team Providers Care Blending Operator Name Role Phone Xavi Allen MD Primary Care Provider [phone] Encounter Details Date Type Department Care Team (Late st Contact Info) Description 03/11/2002 Outpatient [facility] Division of Neurology [address] [address] Maverick Boyce MD [address] [place] [phone] Social History Tobacco Use Types Packs/Day Years Used Date Smoking Tobacco: Never Assessed Comments Unknown Sex and Gender Information Value Date Recorded Sex Assigned at Not on file Legal Sex Female 3:52 AM AMMUNITION ASSEMBLY I LABORER Gender Identity Not on file Sexual Orientation Not on file documented as of this encounter Plan of Treatment Not on file documented as of this encounter Visit Diagnoses Not on filedocumented in this encounter Care Teams Blending Operator Relationship Specialty Start Date End Date Xavi Allen MD [address] [place] [address] PCP - General Internal Medicine 07/02/18 documented as of this encounter
--- OUTSIDE RECORDS SUMMARY | 2025-08-09 14:58 | XMS_ITS | Encounter Summary ---
Author Organization [facility] Address [address] [place] [address] Care Team Providers Care Vice President Of Advertising Name Role Phone Xavi Allen MD Primary Care Provider Encounter Details Date Type Department Care Team (Late st Contact Info) Description 03/01/2002 Outpatient Historical [facility] Social History Tobacco Use Types Packs/Day Years Used Date Smoking Tobacco: Never Assessed Comments Unknown Sex and Gender Information Value Date Recorded Sex Assigned at Not on file Legal Sex Female 3:52 AM ENGINEERING WRITER Gender Identity Not on file Sexual Orientation Not on file documented as of this encounter Plan of Treatment Not on file documented as of this encounter Visit Diagnoses Not on filedocumented in this encounter Care Teams Vice President Of Advertising Relationship Specialty Start Date End Date Xavi Allen MD [address] [place] [address] PCP - General Internal Medicine 07/02/18 documented as of this encounter
--- OUTSIDE RECORDS SUMMARY | 2025-08-09 14:58 | XMS_ITS | Encounter Summary ---
Author Organization [facility] Address [address] [place] [address] Care Team Providers Care Residential Director Name Role Phone Xavi Allen MD Primary Care Provider [phone] Encounter Details Date Type Department Care Team (Late st Contact Info) Description 08/19/2005 Outpatient [facility] Division of Neurology [address] [address] Radha Lin MD [address] [facility] [facility] [address] [place] [address] Social History Tobacco Use Types Packs/Day Years Used Date Smoking Tobacco: Never Assessed Comments Unknown Sex and Gender Information Value Date Recorded Sex Assigned at Not on file Legal Sex Female 3:52 AM SIEBEL DEVELOPER Gender Identity Not on file Sexual Orientation Not on file documented as of this encounter Plan of Treatment Not on file documented as of this encounter Visit Diagnoses Not on filedocumented in this encounter Care Teams Residential Director Relationship Specialty Start Date End Date Xavi Allen MD [address] [place] [address] PCP - General Internal Medicine 07/02/18 documented as of this encounter
--- OUTSIDE RECORDS SUMMARY | 2025-08-09 14:58 | XMS_ITS | Encounter Summary ---
Author Organization [facility] Address [address] [place] [address] Care Team Providers Care Fabric And Textile Factory Worker Name Role Phone Xavi Allen MD Primary Care Provider Encounter Details Date Type Department Care Team (Late st Contact Info) Description 03/22/2002 Outpatient Historical [facility] Social History Tobacco Use Types Packs/Day Years Used Date Smoking Tobacco: Never Assessed Comments Unknown Sex and Gender Information Value Date Recorded Sex Assigned at Not on file Legal Sex Female 3:52 AM MATERNAL CHILD NURSE Gender Identity Not on file Sexual Orientation Not on file documented as of this encounter Plan of Treatment Not on file documented as of this encounter Visit Diagnoses Not on filedocumented in this encounter Care Teams Fabric And Textile Factory Worker Relationship Specialty Start Date End Date Xavi Allen MD [address] [place] [address] PCP - General Internal Medicine 07/02/18 documented as of this encounter
--- OUTSIDE RECORDS SUMMARY | 2025-08-09 14:58 | XMS_ITS | Encounter Summary ---
Author Organization [facility] Address [address] [place] [address] Care Team Providers Care Medical Van Driver Name Role Phone Xavi Allen MD Primary Care Provider [phone] Encounter Details Date Type Department Care Team (Late st Contact Info) Description 03/01/2002 Outpatient [facility] Division of Neurology [address] [facility], [address] [address] Maverick Boyce MD [address] [place] [id number] Social History Tobacco Use Types Packs/Day Years Used Date Smoking Tobacco: Never Assessed Comments Unknown Sex and Gender Information Value Date Recorded Sex Assigned at Not on file Legal Sex Female 3:52 AM CHIEF MEDICAL OFFICER Gender Identity Not on file Sexual Orientation Not on file documented as of this encounter Plan of Treatment Not on file documented as of this encounter Visit Diagnoses Not on filedocumented in this encounter Care Teams Medical Van Driver Relationship Specialty Start Date End Date Xavi Allen MD [address] [place] [address] PCP - General Internal Medicine 07/02/18 documented as of this encounter
--- OUTSIDE RECORDS SUMMARY | 2025-08-09 14:58 | XMS_ITS | Encounter Summary ---
Author Organization [email or web address] Address [address] [place] [address] Care Team Providers Care Eap Clinician Name Role Phone Xavi Allen MD Primary Care Provider [phone] Encounter Details Date Type Department Care Team (Late st Contact Info) Description 01/19/2008 Outpatient Historical HIS MRI DEPT Radha Dong MD [address] [facility] [address] [place] [address] Multiple Sclerosis ([facility]) Social History Tobacco Use Types Packs/Day Years Used Date Smoking Tobacco: Never Assessed Comments Unknown Sex and Gender Information Value Date Recorded Sex Assigned at Not on file Legal Sex Female 3:52 AM DIRECTOR OF HOTEL Gender Identity Not on file Sexual Orientation Not on file documented as of this encounter Plan of Treatment Not on file documented as of this encounter Procedures Procedure Name Priority Date/Time Associated Diagnosis Comments MRI BRAIN W WO CONTRAST Timed Study 01/19/2008 11:44 AM DIRECTOR OF HOTEL documented in this encounter Results * MRI BRAIN W WO CONTRAST (01/19/2008 11:44 AM DIRECTOR OF HOTEL) Anatomical Region Laterality Modality Head Other 01/19/2008 11:4 4 AM DIRECTOR OF HOTEL Narrative 01/19/2008 2:11 PM DIRECTOR OF HOTEL [facility] [address] [place], [place] [address] Admit Date: 01/19/2008 [place] Sex: F Admit Prov: RADHA DONG Date: 1965 Primary Care Prov: CMRN: [id number] Room: [facility] SSN: [id number] IMAGING SERVICES Ordering Prov: N/A Accession Number: [id number] Interpretation MRI of the brain, with and [...] AMK Procedure Note Provider, Historical - 01/19/2008 [facility] [address], [place] [address] Admit Date: 01/19/2008 [place] EDGE Sex: F Admit Prov: RADHA DONG Date: 1965 Primary Care Prov: CMRN: [id number] [facility]: [id number] IMAGING SERVICES Ordering Prov: N/A Interpretation MRI [...] upper cervical spine is low on the [id number], possibly artifactual. There is no diffusion restriction. [...] sclerosis documented in this encounter Care Teams Eap Clinician Relationship Specialty Start Date End Date Xavi Allen MD [address] [place] [address] PCP - General Internal Medicine 07/02/18 documented as of this encounter
--- OUTSIDE RECORDS SUMMARY | 2025-08-09 14:58 | XMS_ITS | Encounter Summary ---
Author Organization [facility] Address [address] [place] [address] Care Team Providers Care French Comber Name Role Phone Xavi Allen MD Primary Care Provider Encounter Details Date Type Department Care Team (Late st Contact Info) Description 03/11/2002 Outpatient Historical HIS MRI DEPT Social History Tobacco Use Types Packs/Day Years Used Date Smoking Tobacco: Never Assessed Comments Unknown Sex and Gender Information Value Date Recorded Sex Assigned at Not on file Legal Sex Female 3:52 AM SECONDARY ENGLISH TEACHER Gender Identity Not on file Sexual Orientation Not on file documented as of this encounter Plan of Treatment Not on file documented as of this encounter Visit Diagnoses Not on filedocumented in this encounter Care Teams French Comber Relationship Specialty Start Date End Date Xavi Allen MD [address] [place] [address] PCP - General Internal Medicine 07/02/18 documented as of this encounter
--- OUTSIDE RECORDS SUMMARY | 2025-08-09 14:58 | XMS_ITS | Encounter Summary ---
Author Organization [facility] Address [facility] [place] [address] Care Team Providers Care Meat Grader Name Role Phone Xavi Allen MD Primary Care Provider [phone] Encounter Details Date Type Department Care Team (Late st Contact Info) Description 01/08/2021 Zhihu Message Enc [facility] [place] [address] Denise Hernandez, [facility] [address] [place] [address] [place] [address] Visit Follow Up Social History Tobacco Use [...] Information Value Date Recorded Sex Assigned at Female 07/06/2025 12:34 PM CDT Legal Sex Female 11:04 PM HOT HEADER OPERATOR Gender Identity Not on file Sexual Orientation Not on file COVID-19 Exposure Response Date Recorded In the last month, have you been in contact with someone who was confirmed or suspected to have Coronavirus / COVID-19? No / Unsure 01/08/2021 2:12 PM HOT HEADER OPERATOR documented as of this encounter Plan of Treatment Upcoming Encounters Date Type Department Care Team (Latest Contact Info) Description 08/17/2025 1:52 PM CDT Hospital Encounter [facility] [address] [place] [address] Maury Gutierrez MD [address] [place] [address] [address] [place] [address] 08/17/2025 1:52 PM CDT - 08/17/2025 7:14 PM CDT Surgery [facility] [address] [place] [address] Maury Gutierrez MD [address] [place] [address] [address] [place] [address] ROBOTIC ASSISTED LAPAROSCOPIC BILATERAL SALPINGO-OOPHORECTOM Y, POSSIBLE TOTAL LAPAROSCOPIC HYSTERECTOMY, POSSIBLE OMENTECTOMY, POSSIBLE BILATERAL PELVIC AND PARA AORTIC LYMPH NODE DISSECTION, POSSIBLE STAGING FOR OVARIAN CANCER, POSSIBLE CYSTOSCOPY, POSSIBLE OPEN PROCEDURE Scheduled Procedures Name Priority Associated Diagnoses Date/Ti me ROBOTIC ASSISTED HYSTERECTOMY PELVIC MASS 08/17/2025 1:52 PM CDT documented as of this encounter Visit Diagnoses Not on filedocumented in this encounter Care Teams Meat Grader Relationship Specialty Start Date End Date Xavi Allen MD [address] [place] [address] PCP - General INTERNAL MEDICINE 05/10/19 documented as of this encounter
--- OUTSIDE RECORDS SUMMARY | 2025-08-09 14:58 | XMS_ITS | Encounter Summary ---
Author Organization [facility] Address [address] [place] [address] Care Team Providers Care Gauntlet Pairer Name Role Phone Xavi Allen MD Primary Care Provider Encounter Details Date Type Department Care Team (Late st Contact Info) Description 05/21/2005 Outpatient Historical HIS [facility] KASI Lin, Radha Batres MD [address] [facility] [address] [place] [address] Social History Tobacco Use Types Packs/Day Years Used Date Smoking Tobacco: Never Assessed Comments Unknown Sex and Gender Information Value Date Recorded Sex Assigned at Not on file Legal Sex Female 3:52 AM SERVICE CLEANER Gender Identity Not on file Sexual [...] on filedocumented in this encounter Care Teams Gauntlet Pairer Relationship Specialty Start Date End Date Xavi Allen MD [address] [place] [address] PCP - General Internal Medicine 07/02/18 documented as of this encounter
--- OUTSIDE RECORDS SUMMARY | 2025-08-09 14:58 | XMS_ITS | Encounter Summary ---
Author Organization [facility] Address [address] [place] [address] Care Team Providers Care Employee Relations Specialist Name Role Phone Xavi Allen MD Primary Care Provider [phone] Encounter Details Date Type Department Care Team (Latest Contact Info) Description 03/01/2002 Outpatient Historical HIS OP NEUROLOGY Radha Lin MD [address] [facility] [address] [place] [address] MULTIPLE SCLEROSIS (CMS/HCC) (Primary Dx) Social History Tobacco Use Types Packs/Day Years Used Date Smoking Tobacco: Never Assessed Comments Unknown Sex and Gender Information Value Date Recorded Sex Assigned at Not on file Legal Sex Female 3:52 AM PIPE LINE WALKER Gender Identity Not on file Sexual Orientation Not on file documented as of this encounter Plan of Treatment Not on file documented as of this encounter Visit Diagnoses Diagnosis Multiple sclerosis (CMS/HCC)- Primary Multiple sclerosis documented in this encounter Care Teams Employee Relations Specialist Relationship Specialty Start Date End Date Xavi Allen MD [address] [place] [address] PCP - General Internal Medicine 07/02/18 documented as of this encounter
--- OUTSIDE RECORDS SUMMARY | 2025-08-09 14:58 | XMS_ITS | Patient Health Record ---
Author Organization [facility] [email or web address] [place] ([address]) Address [address] [place] [address] Care Team Providers Care Construction Equipment Mechanic Helper Name Role Phone Alejandro, Xavi Primary Care Provider Manny Guzman Unavailable [phone] Allergies Allergen (clinical drug ingredient) Drug/Non Drug Allergy documented on EMR Reaction Allergy Type Onset Date Status oxycodone oxyCODONE Unknown Drug Allergy Active Substance with sulfonamide structure and antibacterial mechanism of action (substance) Sulfa Antibiotics Unknown Drug Allergy Active Results Component Value Reference Range Notes -Respiratory Allergens w/Tot al IgE Area 8 Reviewed date:05/23/2025 06:59:26 PM Interpretation: Performing Lab:[facility], [address] [place] [id number], Phone - [phone], Director - Tyler Notes/Report: Class Description Levels of Specific IgE Class Description of Class ----- < 0.10 0 Negative 0.10 - 0.31 0/I Equivocal/Low 0.32 - 0.55 I Low 0.56 - 1.40 II Moderate 1.41 - 3.90 III High 3.91 - 19.00 IV Very High 19.01 - 100.00 V Very High >100.00 Very High Immunoglobulin E, Total 9 6-495 IU/mL Y321-KyU D pteronyssinus <0.10 Class 0 kU/L I416-MiL D farinae <0.10 Class 0 kU/L G788-AlR Cat Dander <0.10 Class 0 kU/L O297-HkR Dog Dander <0.10 Class 0 kU/L S437-OgZ Mouse Urine <0.10 Class 0 kU/L M034-HzM B[place] Grass <0.10 Class 0 kU/L X583-UlN Venkat Grass <0.10 Class 0 kU/L B359-DfV Cockroach, Italian <0.10 Class 0 kU/L T560-KdK Penicillium chrysogen <0.10 Class 0 kU /L E901-KvK Cladosporium herbarum <0.10 Class 0 kU /L S703-IkR Aspergillus fumigatus <0.10 Class 0 kU /L G555-EsM Alternaria alternata <0.10 Class 0 kU/ L X518-EpK Maple/[place] <0.10 Class 0 kU/L M554-JdU Culebra, Mountain <0.10 Class 0 kU/L M808-XqF Bonnie, White <0.10 Class 0 kU/L A129-LsU Elm, Senegalese <0.10 Class 0 kU/L M672-UaP [place] <0.10 Class 0 kU/L J400-YhU Maple [place] <0.10 Class 0 kU/L C252-SwK [place] <0.10 Class 0 kU/L J839-YqO Dom, White <0.10 Class 0 kU/L H688-SwX Pecan, Cay[place] <0.10 Class 0 kU/L E978-IeW White [place] <0.10 Class 0 kU/L T621-WmO Ragweed, Short <0.10 Class 0 kU/L W367-SoQ Thistle, Dutch <0.10 Class 0 kU/L G978-WzP Pigweed, Common <0.10 Class 0 kU/L A928-OuN Rough Marshelder <0.10 Class 0 kU/L Reason [...] 04/25/2025 Active Tacrolimus 0.1 % 1 application Grounds And Nursery Specialist ally Once a day Active metroNIDAZOLE [...] bedtime Orally Once a day Active Ipratropium [place] 0.03 % 2 sprays in e ach [...] Status Risk Notes Problem Chronic allergic conjunctivitis (54054090) Other chronic allergic conjunctivitis (H10.45) Active confirmed Problem Allergic rhinitis caused by pollen (disorder) (61486649) Allergic rhinitis due to pollen (J30.1) Active confirmed Problem Allergic rhinitis (88633022) Other allergic rhinitis (J30.89) Active confirmed Problem Chronic rhinitis (59109605) Chronic rhinitis (J31.0) Active confirmed Problem Chronic sinusitis (73254158) Chronic sinusitis, unspecified (J32.9) Active confirmed Problem Mild intermittent asthma (431175314) Mild intermittent asthma, uncomplicated (J45.20) Active confirmed Problem Uncomplicated moderate persistent asthma (342091634) Moderate persistent asthma, uncomplicated (J45.40) Active confirmed Problem Uncomplicated severe persistent asthma (756806689) Severe persistent asthma, uncomplicated (J45.50) Active confirmed Problem Allergic rhinitis caused by animal hair and dander (778541409240472) Allergic rhinitis due to animal (cat) (dog) hair and dander (J30.81) Active confirmed Vital Signs Oximetry 97 % 06/13/2025 Blood pressure diastolic 84 mm Hg 06/13/2025 Height 62 in 06/13/2025 Blood pressure systolic 131 mm Hg 06/13/2025 Weight 160.8 lbs 06/13/2025 BMI 29.41 kg/m2 06/13/2025 Encounters Encounter Location Date Provider Diagnosis [facility] [address] [place] [address] 06/13/2025 Manny Jackson Hypertrophy of nasal turbinates J34.3 [facility] [address] [place] [address] 04/25/2025 Manny Jackson Allergic rhinitis du e [...] Provider Name:Manny Jackson, 10/16/2025 11:00:00 AM, [address], [place], [address], Insurance Providers Payer Name Payer Address Payer Phone Subscriber Number Group Number Insured Name Patient Relationship to Insured Coverage Start Date Coverage End Date Samuel Rule Insurance [facility] [address] [address] [place] [address] [id number] An Barrientos Self - patient is the insured Medical (General) History Medical History History ICD Code Cough variant asthma J45.991 Multiple sclerosis
--- OUTSIDE RECORDS SUMMARY | 2025-08-09 14:58 | XMS_ITS | Encounter Summary ---
Author Organization [facility] Address [facility] [place] [address] Care Team Providers Care Remote Recruiter Name Role Phone Xavi Allen MD Primary Care Provider [phone] Encounter Details Date Type Department Care Team (Late st Contact Info) Description 01/07/2023 [place] [address] Denise Hernandez, [facility] [address] [place] [address] [place] [address] Visit Follow Up Social History Tobacco Use [...] PM CDT Legal Sex Female 11:04 PM MANUAL ARTS THERAPY TEACHER Gender Identity Not on file Sexual Orientation Not on file COVID-19 Exposure Response Date Recorded In the last 10 days, have yo u been in contact with someone who was confirmed or suspected to have Coronavirus/COVID-19? No / Unsure 01/07/2023 11:06 AM MANUAL ARTS THERAPY TEACHER documented as of this encounter Plan of Treatment Upcoming Encounters Date Type Department Care Team (Latest Contact Info) Description 08/17/2025 1:52 PM CDT Hospital Encounter [facility] [address] [place] [address] Maury Gutierrez MD [address] [place] [address] [place] [address] 08/17/2025 1:52 PM CDT - 08/17/2025 7:14 PM CDT [facility] [address] [place] [address] Maury Gutierrez MD [address] [place] [address] [place] [address] ROBOTIC ASSISTED LAPAROSCOPIC BILATERAL SALPINGO-OOPHORECTOM Y, POSSIBLE TOTAL LAPAROSCOPIC HYSTERECTOMY, POSSIBLE OMENTECTOMY, POSSIBLE BILATERAL PELVIC AND PARA AORTIC LYMPH NODE DISSECTION, POSSIBLE STAGING FOR OVARIAN CANCER, POSSIBLE CYSTOSCOPY, POSSIBLE OPEN PROCEDURE Scheduled Procedures Name Priority Associated Diagnoses Date/Ti me ROBOTIC ASSISTED HYSTERECTOMY PELVIC MASS 08/17/2025 1:52 PM CDT documented as of this encounter Visit Diagnoses Not on filedocumented in this encounter Care Teams Remote Recruiter Relationship Specialty Start Date End Date Xavi Allen MD [address] [place] [address] PCP - General INTERNAL MEDICINE 05/10/19 documented as of this encounter
--- OUTSIDE RECORDS SUMMARY | 2025-08-09 14:58 | XMS_ITS | Encounter Summary ---
Author Organization [facility] Address [address] [place] [address] Care Team Providers Care Stock Sorter Name Role Phone Xavi Allen MD Primary Care Provider [phone] Encounter Details Date Type Department Care Team (Late st Contact Info) Description 05/21/2005 Outpatient [facility] Division of Neurology [address] [address] Radha Lin MD [address] [facility] [address] [place] [address] Social History Tobacco Use Types Packs/Day Years Used Date Smoking Tobacco: Never Assessed Comments Unknown Sex and Gender Information Value Date Recorded Sex Assigned at Not on file Legal Sex Female 3:52 AM LEAD SIMULATION MODELING ENGINEER Gender Identity Not on file Sexual Orientation Not on file documented as of this encounter Plan of Treatment Not on file documented as of this encounter Visit Diagnoses Not on filedocumented in this encounter Care Teams Stock Sorter Relationship Specialty Start Date End Date Xavi Allen MD [address] [place] [address] PCP - General Internal Medicine 07/02/18 documented as of this encounter
--- OUTSIDE RECORDS SUMMARY | 2025-08-09 14:58 | XMS_ITS | Encounter Summary ---
Author Organization [facility] Address [address] [place] [address] Care Team Providers Care Private Eye Name Role Phone Xavi Allen MD Primary Care Provider [phone] Encounter Details Date Type Department Care Team (Late st Contact Info) Description 09/02/2006 Outpatient [facility] Division of Neurology [address] [address] Radha Lin MD [address] [facility] [address] [place] [address] Social History Tobacco Use Types Packs/Day Years Used Date Smoking Tobacco: Never Assessed Comments Unknown Sex and Gender Information Value Date Recorded Sex Assigned at Not on file Legal Sex Female 3:52 AM FACILITIES AND GROUNDS DIRECTOR Gender Identity Not on file Sexual Orientation Not on file documented as of this encounter Plan of Treatment Not on file documented as of this encounter Visit Diagnoses Not on filedocumented in this encounter Care Teams Private Eye Relationship Specialty Start Date End Date Xavi Allen MD [address] [place] [address] PCP - General Internal Medicine 07/02/18 documented as of this encounter
--- OUTSIDE RECORDS SUMMARY | 2025-08-09 14:58 | XMS_ITS | Encounter Summary ---
Author Organization [facility] Address [address] [place] [address] Care Team Providers Care Accountant Cost Name Role Phone Xavi Allen MD Primary Care Provider [phone] Encounter Details Date Type Department Care Team (Late st Contact Info) Description 03/01/2002 Outpatient [facility] Division of Neurology [address] [facility] [address] Radha Lin MD [address] [facility] [address] [place] [address] Social History Tobacco Use Types Packs/Day Years Used Date Smoking Tobacco: Never Assessed Comments Unknown Sex and Gender Information Value Date Recorded Sex Assigned at Not on file Legal Sex Female 3:52 AM ORDER SCHEDULE CLERK Gender Identity Not on file Sexual Orientation Not on file documented as of this encounter Plan of Treatment Not on file documented as of this encounter Visit Diagnoses Not on filedocumented in this encounter Care Teams Accountant Cost Relationship Specialty Start Date End Date Xavi Allen MD [address] [place] [address] PCP - General Internal Medicine 07/02/18 documented as of this encounter
--- OUTSIDE RECORDS SUMMARY | 2025-08-09 14:58 | XMS_ITS | Encounter Summary ---
Author Organization [facility] Address [address] [place] [address] Care Team Providers Care Parking Meter Installer Name Role Phone Xavi Allen MD Primary Care Provider [phone] Encounter Details Date Type Department Care Team (Latest Contact Info) Description 09/02/2006 Outpatient Historical HIS [facility] KASI Lin, Radha Batres MD [address] [place] [address] Multiple Sclerosis (CMS/[facility]) (Primary Dx) Social History Tobacco Use Types Packs/Day Years Used Date Smoking Tobacco: Never Assessed Comments Unknown Sex and Gender Information Value Date Recorded Sex Assigned at Not on file Legal Sex Female 3:52 AM MICA SIZER Gender Identity Not on file Sexual [...] URINE ORDERABLES Final Result Performing Organization Address [facility] de Phone Number INTERFACE SYSTEM [...] URINE ORDERABLES Final Result Performing Organization Address [facility] Phone Number INTERFACE SYSTEM Refer to clinic/hospital department * TSH REFLEXIVE (09/02/2006 1:07 PM CDT) TSH 3.82 0.27 - 4.20 uU/mL INTERFACE SYSTEM 09/02/2006 1:07 PM CDT Radha Lin MD CHEMISTRY ORDERABLES Final Re sult Performing Organization Address [facility] Phone Number INTERFACE SYSTEM Refer to clinic/hospital department documented in this encounter Visit Diagnoses Diagnosis Multiple sclerosis (CMS/HCC)- Primary Multiple sclerosis documented in this encounter Care Teams Parking Meter Installer Relationship Specialty Start Date End Date Xavi Allen MD [address] [place] [address] PCP - General Internal Medicine 07/02/18 documented as of this encounter
--- OUTSIDE RECORDS SUMMARY | 2025-08-09 14:58 | XMS_ITS | Encounter Summary ---
Author Organization [facility] Address [address] [place] [address] Care Team Providers Care Steel Loader Name Role Phone Xavi Allen MD Primary Care Provider [phone] Encounter Details Date Type Department Care Team (Latest Contact Info) Description 01/19/2009 Outpatient [facility] for [facility] [address] [facility] [place] [address] [place] [address] Radha Dong MD [address] [facility] [address] [place] [address] Multiple Sclerosis (CMS/[facility]) Social History Tobacco Use Types Packs/Day Years Used Date Smoking Tobacco: Never Assessed Comments Unknown Sex and Gender Information Value Date Recorded Sex Assigned at Not on file Legal Sex Female 3:52 AM OPEN HEARTH DOOR LINER Gender Identity Not on file Sexual Orientation Not on file documented as of this encounter Plan of Treatment Not on file documented as of this encounter Procedures Procedure Name Priority Date/Time Associated Diagnosis Comments MRI BRAIN W WO CONTRAST Routine 01/19/2009 1:16 PM OPEN HEARTH DOOR LINER documented in this encounter Results * MRI BRAIN W WO CONTRAST (01/19/2009 1:16 PM OPEN HEARTH DOOR LINER) Anatomical Region Laterality Modality Head Other 01/19/2009 1:16 PM OPEN HEARTH DOOR LINER Narrative 01/22/2009 9:03 PM OPEN HEARTH DOOR LINER [facility] [address] [place], [place] [address] Admit Date: 01/19/2009 [place] EDGE Sex: F Admit Prov: RADHA DONG Date: 1965 Primary Care Prov: CMRN: [id number] Room: [facility] SSN: [id number] IMAGING SERVICES Ordering Prov: N/A Accession Number: [id number] Interpretation EXAM: MRI OF THE BRAIN WITHOUT [...] AMK Procedure Note Rudy Morel - 01/22/2009 [facility] [address] [place], [place] [address] Admit Date: 01/19/2009 [place] EDGE Sex: F Admit Prov: RADHA DONG Date: 1965 Primary Care Prov: CMRN: [id number] Room: [facility] SSN: [address] [place] [address] IMAGING SERVICES Ordering Prov: N/A Interpretation EXAM: [...] sclerosis documented in this encounter Care Teams Steel Loader Relationship Specialty Start Date End Date Xavi Allen MD [address] [place] [address] PCP - General Internal Medicine 07/02/18 documented as of this encounter
--- OUTSIDE RECORDS SUMMARY | 2025-08-09 14:58 | XMS_ITS | Encounter Summary ---
Author Organization [facility] Address [address] [place] [address] Care Team Providers Care Color Repairer Name Role Phone Xavi Allen MD Primary Care Provider [phone] Encounter Details Date Type Department Care Team (Late st Contact Info) Description 03/07/2002 Outpatient [facility] Division of Neurology [address] [address] Maverick Boyce MD [address] [place] [id number] Social History Tobacco Use Types Packs/Day Years Used Date Smoking Tobacco: Never Assessed Comments Unknown Sex and Gender Information Value Date Recorded Sex Assigned at Not on file Legal Sex Female 3:52 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
--- OUTSIDE RECORDS SUMMARY | 2025-08-09 14:58 | XMS_ITS | Patient Health Record ---
Author Organization [facility] Address [address] [place], [place] [address] Care Team Providers Care Naval Architect Specialist Name Role Phone Xavi Allen Unavailable Unavailable Reason For Referral No Information Medications Medication SIG (Take, Route, Frequency, Duration) Notes Start Date End Date Status cholecalciferol 0.025 MG Oral Tablet ORAL cholecalciferol 0.025 MG Ora l TabletOriginal Medicationcholecalciferol 0.025 MG Oral Tablet *Reorder from Simple for eRx and Interaction Alerts* 08/11/20 16 Active calcium carbonate 1250 MG Oral Tablet ORAL calcium carbonate 1250 MG Oral TabletOriginal Medicationcalcium carbonate 1250 MG Oral Tablet *Reorder from Simple for eRx and Interaction Alerts* 08/11/20 16 Active levothyroxine sodium 0.137 MG Oral Capsule ORAL levothyroxine sodium 0.137 M G Oral CapsuleOriginal Medicationlevothyroxine sodium 0.137 MG Oral Capsule *Reorder from Simple for eRx and Interaction Alerts* 08/11/20 16 Active citalopram 20 MG Oral Tablet [Celexa] ORAL citalopram 20 MG Oral Tablet [Celexa]Original Medicationcitalopram 20 MG Oral Tablet [Celexa] *Reorder from Simple for eRx and Interaction Alerts* 08/11/20 16 Active Baclofen 20 MG Oral Tablet ORAL baclofen 20 MG Oral TabletOriginal Medicationbaclofen 20 MG Oral Tablet *Reorder from Simple for eRx and Interaction Alerts* 08/11/20 16 [...] Medicationmontelukast 10 MG Oral Tablet *Reorder from Simple for eRx and Interaction Alerts* 08/11/20 16 Active 12 HR dalfampridine 10 MG Extended Release Oral Tablet [Ampyra] ORAL 12 HR dalfampridine 10 MG Extended Release Oral Tablet [Ampyra]Original [id number] HR dalfampridine 10 MG Extended Release Oral Tablet [Ampyra] *Reorder from Simple for eRx and Interaction Alerts* 08/11/20 16 Active Gabapentin 100 MG Oral Capsule ORAL gabapentin 100 MG Oral CapsuleOriginal Medicationgabapentin 100 MG Oral Capsule *Reorder from Simple for eRx and Interaction Alerts* 08/11/20 16 Active alendronic acid 70 MG Oral Tablet [Fosamax] ORAL alendronic acid 70 MG Oral Tablet [Fosamax]Original Medicationalendronic acid 70 MG Oral Tablet [Fosamax] *Reorder from Simple for eRx and Interaction Alerts* 08/11/20 16 Active 15 ML natalizumab 20 MG/ML Injection [Tysabri] INTRAVENOUS 15 ML natalizumab 20 MG/ML Injection [Tysabri]Original [id number] ML natalizumab 20 MG/ML Injection [Tysabri] *Reorder from Simple for eRx and Interaction Alerts* 08/11/20 16 Active armodafinil 50 MG Oral Tablet [Nuvigil] ORAL armodafinil 50 MG Oral Table t [Nuvigil]Original Medicationarmodafinil 50 MG Oral Tablet [Nuvigil] *Reorder from Simple for eRx and Interaction Alerts* 08/11/20 16 Active Plan Of Treatment No Information Insurance Providers Payer Name Payer Address Payer Phone Subscriber Number Group Number Insured Name Patient Relationship to Insured Coverage Start Date Coverage End Date [employer] ([facility]) [address] [address] [place], [place] [id number] BUTCH HOLT Self - patient is the insured
--- OUTSIDE RECORDS SUMMARY | 2025-08-09 14:58 | XMS_ITS | Clinical Summary ---
Author Organization [facility] Address [address] [place] [address] Phone Care Team Providers Care Crm Functional Analyst Name Role Phone Xavi Allen MD Primary Care Provider [phone] Allergies Active Allergy Reactions Criticality Noted Date [...] tablet Take 75 mcg by mouth daily licensing worker. Active triamcinolone acetonide (KENALOG) 0.1 % Cream [...] sec Assessment & Plan (01/17/2016 1:49 PM CULLET WASHER): . Resolved Problems Problem Noted Date Diagnosed Date Resolved Date Right sided weakness 03/01/2016 016 Urinary retention 03/01/2016 03/03/2016 Constipation 03/01/2016 03/03/2016 Encounters Date Type Department Care Team Description 07/05/2025 External Device Data STL ABSTRACTION Provider, Abstract 07/04/2025 External Device Data STL ABSTRACTION Provider, Abstract 07/04/2025 External Device Data STL ABSTRACTION Provider, Abstract [...] on file Legal Sex Female 3:52 AM CULLET WASHER Gender Identity Not on file Sexual Orientation Not on file Occupation Industry Job Start Date Job End Date Not on file Not on file Not on file Not on file Last Filed Vital Signs Vital Sign Reading Time Taken Comments Blood Pressure 145/84 01/25/2018 3:07 PM CULLET WASHER Pulse 104 01/25/2018 3:07 PM CULLET WASHER Temperature 36.9 C (98.4 F) 01/25/2018 3:07 PM CULLET WASHER Respiratory Rate 18 01/25/2018 2:26 PM CULLET WASHER Oxygen Saturation 98% 08/17/2017 1:37 PM CDT Inhaled Oxygen Concentration - - Weight 70.3 kg (155 lb) 12/28/2017 10:37 AM CULLET WASHER Height 144.8 cm (4' 9) 12/28/2017 10:37 AM CULLET WASHER Body Mass Index 33.54 12/28/2017 10:37 AM CULLET WASHER Plan of Treatment Health Maintenance Due Date Last Done Comments Pre-Diabetes and Diabetes Screening 1965 HEPATITIS B VACCINES (1 of 3 - 19+ 3-dose series) 1985 HPV/Cotest (21-29) 1987 HPV/Cotest (30-65) 1996 BREAST CANCER SCREENING 2006 COLORECTAL SCREENING 2011 Colorectal Cancer Screening 2011 FIT-DNA Q 3 years 2011 FIT/FOBT Q 1 year 2011 Flex Sig/CT Colonography Q 5 years 2011 INFLUENZA VACCINE (#1) 2025 , 10/12/2020, 09/16/2019, Additional history exists COVID-19 Vaccine (2024-2 6 season) 2025 02/21/2021, 02/01/2021 CERVICAL CANCER SCREENING 06/01/2027 PAP SMEAR 06/01/2027 06/01/2024 DTAP/TDAP/TD VACCINES (2 - T d or Tdap) 10/20/2028 10/20/2018 ZOSTER VACCINE Completed 10/30/2021, 01/01, 07/05/2020 Insurance Advance Directives For more information, please contact: [phone] * Full Code (Latest Code Status on File) Date Activated Date Inactivated Comments 03/01/2016 1:21 AM 03/04/2016 8:01 PM Care Teams Crm Functional Analyst Relationship Specialty Start Date End Date Xavi Allen MD [address] [place] [address] PCP - General Internal Medicine 07/02/18
--- OUTSIDE RECORDS SUMMARY | 2025-08-09 14:58 | XMS_ITS | Encounter Summary ---
Author Organization [facility] Address [address] [place] [address] Care Team Providers Care Performance Makeup Artist Name Role Phone Xavi Allen MD Primary Care Provider [phone] Encounter Details Date Type Department Care Team (Late st Contact Info) Description 02/11/2006 Outpatient [facility] Division of Neurology [address] [address] Radha Lin MD [address] [facility] [address] [place] [address] Social History Tobacco Use Types Packs/Day Years Used Date Smoking Tobacco: Never Assessed Comments Unknown Sex and Gender Information Value Date Recorded Sex Assigned at Not on file Legal Sex Female 3:52 AM PHYSICAL SCIENCE AIDE Gender Identity Not on file Sexual Orientation Not on file documented as of this encounter Plan of Treatment Not on file documented as of this encounter Visit Diagnoses Not on filedocumented in this encounter Care Teams Performance Makeup Artist Relationship Specialty Start Date End Date Xavi Allen MD [address] [place] [address] PCP - General Internal Medicine 07/02/18 documented as of this encounter
--- OUTSIDE RECORDS SUMMARY | 2025-08-09 14:58 | XMS_ITS | Encounter Summary ---
Author Organization [facility] Address [address] [place] [address] Care Team Providers Care Psychiatric Social Worker Name Role Phone Xavi Allen MD Primary Care Provider [phone] Encounter Details Date Type Department Care Team (Late st Contact Info) Description 09/02/[address] [facility] [address] [address] Rahda Lin MD [address] [address] [place] [address] Social History Tobacco Use Types Packs/Day Years [...] on filedocumented in this encounter Care Teams Psychiatric Social Worker Relationship Specialty Start Date End Date Xavi Allen MD [address] [place] [address] PCP - General Internal Medicine 07/02/18 documented as of this encounter
--- OUTSIDE RECORDS SUMMARY | 2025-08-09 14:58 | XMS_ITS | Encounter Summary ---
Author Organization [facility] Address [address] [place] [address] Care Team Providers Care Space Controller Name Role Phone Xavi Allen MD Primary Care Provider Encounter Details Date Type Department Care Team (Latest Contact Info) Description 01/19/2001 Outpatient Historical [facility] Radha Lin MD [address] [facility] [address] [place] [address] Special screening for osteoporosis (Primary Dx) Social History Tobacco Use Types Packs/Day Years Used Date Smoking Tobacco: Never Assessed Comments Unknown Sex and Gender Information Value Date Recorded Sex Assigned at Not on file Legal Sex Female 3:52 AM SPLUNK ARCHITECT Gender Identity Not on file Sexual Orientation Not on file documented as of this encounter Plan of Treatment Not on file documented as of this encounter Visit Diagnoses Diagnosis Special screening for osteoporosis- Primary documented in this encounter Care Teams Space Controller Relationship Specialty Start Date End Date Xavi Allen MD [address] [place] [address] PCP - General Internal Medicine 07/02/18 documented as of this encounter
--- OUTSIDE RECORDS SUMMARY | 2025-08-09 14:59 | XMS_ITS | Encounter Summary ---
Author Organization [facility] Address [address] [place] [address] Care Team Providers Care Paver Name Role Phone Xavi Allen MD Primary Care Provider [phone] Encounter Details Date Type Department Care Team (Late st Contact Info) Description 10/31/2002 Outpatient [facility] Division of Neurology [address] [address] Radha Lin MD [address] [facility] [address] [place] [address] Social History Tobacco Use Types Packs/Day Years Used Date Smoking Tobacco: Never Assessed Comments Unknown Sex and Gender Information Value Date Recorded Sex Assigned at Not on file Legal Sex Female 3:52 AM HEALTH CARE LIAISON Gender Identity Not on file Sexual Orientation Not on file documented as of this encounter Plan of Treatment Not on file documented as of this encounter Visit Diagnoses Not on filedocumented in this encounter Care Teams Paver Relationship Specialty Start Date End Date Xavi Allen MD [address] [place] [address] PCP - General Internal Medicine 07/02/18 documented as of this encounter
--- OUTSIDE RECORDS SUMMARY | 2025-08-09 14:59 | XMS_ITS | Encounter Summary ---
Author Organization [facility] Address [address] [place] [address] Care Team Providers Care Staff Accountant Name Role Phone Xavi Allen MD Primary Care Provider [phone] Encounter Details Date Type Department Care Team (Late st Contact Info) Description 06/16/2003 Outpatient Historical [facility] Social History Tobacco Use Types Packs/Day Years Used Date Smoking Tobacco: Never Assessed Comments Unknown Sex and Gender Information Value Date Recorded Sex Assigned at Not on file Legal Sex Female 3:52 AM BANK MESSENGER Gender Identity Not on file Sexual Orientation Not on file documented as of this encounter Plan of Treatment Not on file documented as of this encounter Visit Diagnoses Not on filedocumented in this encounter Care Teams Staff Accountant Relationship Specialty Start Date End Date Xavi Allen MD [address] [place] [address] PCP - General Internal Medicine 07/02/18 documented as of this encounter
--- OUTSIDE RECORDS SUMMARY | 2025-08-09 14:59 | XMS_ITS | Encounter Summary ---
Author Organization [facility] Address [address] [place] [address] Care Team Providers Care Diesel Locomotive Crane Operator Name Role Phone Xavi Allen MD Primary Care Provider Encounter Details Date Type Department Care Team (Late st Contact Info) Description 02/21/2003 Outpatient Historical [facility] Social History Tobacco Use Types Packs/Day Years Used Date Smoking Tobacco: Never Assessed Comments Unknown Sex and Gender Information Value Date Recorded Sex Assigned at Not on file Legal Sex Female 3:52 AM DOG BARBER Gender Identity Not on file Sexual Orientation Not on file documented as of this encounter Plan of Treatment Not on file documented as of this encounter Visit Diagnoses Not on filedocumented in this encounter Care Teams Diesel Locomotive Crane Operator Relationship Specialty Start Date End Date Xavi Allen MD [address] [place] [address] PCP - General Internal Medicine 07/02/18 documented as of this encounter
--- OUTSIDE RECORDS SUMMARY | 2025-08-09 14:59 | XMS_ITS | Encounter Summary ---
Author Organization [facility] Address [address] [place] [address] Care Team Providers Care Manager Clinical Informatics Name Role Phone Xavi Allen MD Primary Care Provider [phone] Encounter Details Date Type Department Care Team (Late st Contact Info) Description 01/23/2004 Outpatient [facility] Division of Neurology [address] [address] Maverick Boyce MD [address] [place] [address] Social History Tobacco Use Types Packs/Day Years Used Date Smoking Tobacco: Never Assessed Comments Unknown Sex and Gender Information Value Date Recorded Sex Assigned at Not on file Legal Sex Female 3:52 AM MEDIA SENIOR RECRUITER Gender Identity Not on file Sexual Orientation Not on file documented as of this encounter Plan of Treatment Not on file documented as of this encounter Visit Diagnoses Not on filedocumented in this encounter Care Teams Manager Clinical Informatics Relationship Specialty Start Date End Date Xavi Allen MD [address] [place] [address] PCP - General Internal Medicine 07/02/18 documented as of this encounter
--- OUTSIDE RECORDS SUMMARY | 2025-08-09 14:59 | XMS_ITS | Encounter Summary ---
Author Organization [facility] Address [address] [place] [address] Care Team Providers Care Research Aide Name Role Phone Xavi Allen MD Primary Care Provider [phone] Encounter Details Date Type Department Care Team (Late st Contact Info) Description 11/25/2002 Outpatient [facility] Division of Neurology [address] [address] Maverick Boyce MD [address] [place] [address] Social History Tobacco Use Types Packs/Day Years Used Date Smoking Tobacco: Never Assessed Comments Unknown Sex and Gender Information Value Date Recorded Sex Assigned at Not on file Legal Sex Female 3:52 AM CALL CIRCUIT WORKER Gender Identity Not on file Sexual Orientation Not on file documented as of this encounter Plan of Treatment Not on file documented as of this encounter Visit Diagnoses Not on filedocumented in this encounter Care Teams Research Aide Relationship Specialty Start Date End Date Xavi Allen MD [address] [place] [address] PCP - General Internal Medicine 07/02/18 documented as of this encounter
--- OUTSIDE RECORDS SUMMARY | 2025-08-09 14:59 | XMS_ITS | Encounter Summary ---
Author Organization [facility] Address [address] [place] [address] Care Team Providers Care Orientation & Mobility Specialist Name Role Phone Xavi Allen MD Primary Care Provider Encounter Details Date Type Department Care Team (Late st Contact Info) Description 05/16/2003 Outpatient Historical [facility] Social History Tobacco Use Types Packs/Day Years Used Date Smoking Tobacco: Never Assessed Comments Unknown Sex and Gender Information Value Date Recorded Sex Assigned at Not on file Legal Sex Female 3:52 AM INSTRUCTOR TECHNICAL TRAINING Gender Identity Not on file Sexual Orientation Not on file documented as of this encounter Plan of Treatment Not on file documented as of this encounter Visit Diagnoses Not on filedocumented in this encounter Care Teams Orientation & Mobility Specialist Relationship Specialty Start Date End Date Xavi Allen MD [address] [place] [address] PCP - General Internal Medicine 07/02/18 documented as of this encounter
--- OUTSIDE RECORDS SUMMARY | 2025-08-09 14:59 | XMS_ITS | Encounter Summary ---
Author Organization [facility] Address [address] [place] [address] Care Team Providers Care Fountain Dispenser Name Role Phone Xavi Allen MD Primary Care Provider [phone] Encounter Details Date Type Department Care Team (Late st Contact Info) Description 02/02/2004 Outpatient [facility] Division of Neurology [address] [address] Radha Lin MD [address] [facility] [address] [place] [address] Social History Tobacco Use Types Packs/Day Years Used Date Smoking Tobacco: Never Assessed Comments Unknown Sex and Gender Information Value Date Recorded Sex Assigned at Not on file Legal Sex Female 3:52 AM OPTICAL SYSTEMS ENGINEER Gender Identity Not on file Sexual Orientation Not on file documented as of this encounter Plan of Treatment Not on file documented as of this encounter Visit Diagnoses Not on filedocumented in this encounter Care Teams Fountain Dispenser Relationship Specialty Start Date End Date Xavi Allen MD [address] [place] [address] PCP - General Internal Medicine 07/02/18 documented as of this encounter
--- OUTSIDE RECORDS SUMMARY | 2025-08-09 14:59 | XMS_ITS | Encounter Summary ---
Author Organization [facility] Address [address] [place] [address] Care Team Providers Care Radio Rigger Name Role Phone Xavi Allen MD Primary Care Provider [phone] Encounter Details Date Type Department Care Team (Late st Contact Info) Description 02/02/2004 Outpatient [facility] Division of Neurology [address] [address] Maverick Boyce MD [address] [place] [address] Social History Tobacco Use Types Packs/Day Years Used Date Smoking Tobacco: Never Assessed Comments Unknown Sex and Gender Information Value Date Recorded Sex Assigned at Not on file Legal Sex Female 3:52 AM LETTER OF CREDIT DOCUMENT EXAMINER Gender Identity Not on file Sexual Orientation Not on file documented as of this encounter Plan of Treatment Not on file documented as of this encounter Visit Diagnoses Not on filedocumented in this encounter Care Teams Radio Rigger Relationship Specialty Start Date End Date Xavi Allen MD [address] [place] [address] PCP - General Internal Medicine 07/02/18 documented as of this encounter
--- OUTSIDE RECORDS SUMMARY | 2025-08-09 14:59 | XMS_ITS | Encounter Summary ---
Author Organization [facility] Address [address] [place] [address] Care Team Providers Care Senior Research Manager Name Role Phone Xavi Allen MD Primary Care Provider Encounter Details Date Type Department Care Team (Late st Contact Info) Description 06/14/2002 Outpatient Historical [facility] Social History Tobacco Use Types Packs/Day Years Used Date Smoking Tobacco: Never Assessed Comments Unknown Sex and Gender Information Value Date Recorded Sex Assigned at Not on file Legal Sex Female 3:52 AM SUPERINTENDENT TRANSMISSION Gender Identity Not on file Sexual Orientation Not on file documented as of this encounter Plan of Treatment Not on file documented as of this encounter Visit Diagnoses Not on filedocumented in this encounter Care Teams Senior Research Manager Relationship Specialty Start Date End Date Xavi Allen MD [address] [place] [address] PCP - General Internal Medicine 07/02/18 documented as of this encounter
--- OUTSIDE RECORDS SUMMARY | 2025-08-09 14:59 | XMS_ITS | Encounter Summary ---
Author Organization [facility] Address [address] Mishran: Epic Prelude ADT MEL[place] [address] Care Team Providers Care General Manager In Training Name Role Phone Xavi Allen MD Primary Care Provider [phone] Encounter Details Date Type Department Care Team ([facility] Contact Info) Description 12/26/2002 Outpatient Historical Social History Tobacco Use Types Packs/Day Years Used Date Smoking Tobacco: Never Assessed Comments Unknown Sex and Gender Information Value Date Recorded Sex Assigned at Not on file Legal Sex Female 3:52 AM LEHR OPERATOR Gender Identity Not on file Sexual Orientation Not on file documented as of this encounter Plan of Treatment Not on file documented as of this encounter Visit Diagnoses Not on filedocumented in this encounter Care Teams General Manager In Training Relationship Specialty Start Date End Date Xavi Allen MD [address] [place] [address] PCP - General Internal Medicine 07/02/18 documented as of this encounter
--- OUTSIDE RECORDS SUMMARY | 2025-08-09 14:59 | XMS_ITS | Encounter Summary ---
Author Organization [facility] Address [address] [place] [address] Care Team Providers Care Supervisor Train Operations Name Role Phone Xavi Allen MD Primary Care Provider [phone] Encounter Details Date Type Department Care Team (Late st Contact Info) Description 10/31/2003 Outpatient [facility] Division of Neurology [address], [address] [address] Maverick Boyce MD [address] [place] [id number] Social History Tobacco Use Types Packs/Day Years Used Date Smoking Tobacco: Never Assessed Comments Unknown Sex and Gender Information Value Date Recorded Sex Assigned at Not on file Legal Sex Female 3:52 AM EPILEPSY PHYSICIAN Gender Identity Not on file Sexual Orientation Not on file documented as of this encounter Plan of Treatment Not on file documented as of this encounter Visit Diagnoses Not on filedocumented in this encounter Care Teams Supervisor Train Operations Relationship Specialty Start Date End Date Xavi Allen MD [address] [place] [address] PCP - General Internal Medicine 07/02/18 documented as of this encounter
--- OUTSIDE RECORDS SUMMARY | 2025-08-09 14:59 | XMS_ITS | Encounter Summary ---
Author Organization [facility] Address [address] [place] [address] Care Team Providers Care Semiautomatic Stitcher Operator Name Role Phone Xavi Allen MD Primary Care Provider [phone] Encounter Details Date Type Department Care Team (Late st Contact Info) Description 01/27/2003 Outpatient Historical [facility] Social History Tobacco Use Types Packs/Day Years Used Date Smoking Tobacco: Never Assessed Comments Unknown Sex and Gender Information Value Date Recorded Sex Assigned at Not on file Legal Sex Female 3:52 AM PHYSICAL BIOCHEMIST Gender Identity Not on file Sexual Orientation Not on file documented as of this encounter Plan of Treatment Not on file documented as of this encounter Visit Diagnoses Not on filedocumented in this encounter Care Teams Semiautomatic Stitcher Operator Relationship Specialty Start Date End Date Xavi Allen MD [address] [place] [address] PCP - General Internal Medicine 07/02/18 documented as of this encounter
--- OUTSIDE RECORDS SUMMARY | 2025-08-09 14:59 | XMS_ITS | Encounter Summary ---
Author Organization [facility] Address [address] [place] [address] Care Team Providers Care Bridge/Structure Inspection Team Leader Name Role Phone Xavi Allen MD Primary Care Provider [phone] Encounter Details Date Type Department Care Team (Late st Contact Info) Description 12/26/2002 Outpatient Historical [facility] KASI Lin, Radha Batres MD [address] [facility] [address] [place] [address] Social History Tobacco Use Types Packs/Day Years Used Date Smoking Tobacco: Never Assessed Comments Unknown Sex and Gender Information Value Date Recorded Sex Assigned at Not on file Legal Sex Female 3:52 AM RANCH SUPERVISOR Gender Identity Not on file Sexual Orientation Not on file documented as of this encounter Plan of Treatment Not on file documented as of this encounter Visit Diagnoses Not on filedocumented in this encounter Care Teams Bridge/Structure Inspection Team Leader Relationship Specialty Start Date End Date Xavi Allen MD [address] [place] [address] PCP - General Internal Medicine 07/02/18 documented as of this encounter
--- OUTSIDE RECORDS SUMMARY | 2025-08-09 14:59 | XMS_ITS | Encounter Summary ---
Author Organization [facility] Address [address] [place] [address] Care Team Providers Care Money Manager Name Role Phone Xavi Allen MD Primary Care Provider [phone] Encounter Details Date Type Department Care Team (Late st Contact Info) Description 10/03/2002 Outpatient [facility] Division of Neurology [address] [address] Radha Lin MD [address] [facility] [address] [place] [phone] Social History Tobacco Use Types Packs/Day Years Used Date Smoking Tobacco: Never Assessed Comments Unknown Sex and Gender Information Value Date Recorded Sex Assigned at Not on file Legal Sex Female 3:52 AM SAP DATA ARCHITECT Gender Identity Not on file Sexual Orientation Not on file documented as of this encounter Plan of Treatment Not on file documented as of this encounter Visit Diagnoses Not on filedocumented in this encounter Care Teams Money Manager Relationship Specialty Start Date End Date Xavi Allen MD [address] [place] [address] PCP - General Internal Medicine 07/02/18 documented as of this encounter
--- OUTSIDE RECORDS SUMMARY | 2025-08-09 14:59 | XMS_ITS | Encounter Summary ---
Author Organization [facility] Address [address] [place] [address] Care Team Providers Care Base Cloth Inspector Name Role Phone Xavi Allen MD Primary Care Provider [phone] Encounter Details Date Type Department Care Team (Late st Contact Info) Description 03/03/2003 Outpatient [facility] Division of Neurology [address] [address] Radha Lin MD [address] [facility] [address] [place] [address] Social History Tobacco Use Types Packs/Day Years Used Date Smoking Tobacco: Never Assessed Comments Unknown Sex and Gender Information Value Date Recorded Sex Assigned at Not on file Legal Sex Female 3:52 AM BRACELET FORMER Gender Identity Not on file Sexual Orientation Not on file documented as of this encounter Plan of Treatment Not on file documented as of this encounter Visit Diagnoses Not on filedocumented in this encounter Care Teams Base Cloth Inspector Relationship Specialty Start Date End Date Xavi Allen MD [address] [place] [address] PCP - General Internal Medicine 07/02/18 documented as of this encounter
--- OUTSIDE RECORDS SUMMARY | 2025-08-09 14:59 | XMS_ITS | Encounter Summary ---
Author Organization [facility] Address [address] [place] [address] Care Team Providers Care Mechanical Design Engineer Facilities Name Role Phone Xavi Allen MD Primary Care Provider Encounter Details Date Type Department Care Team (Late st Contact Info) Description 01/23/2004 Outpatient Historical [facility] Social History Tobacco Use Types Packs/Day Years Used Date Smoking Tobacco: Never Assessed Comments Unknown Sex and Gender Information Value Date Recorded Sex Assigned at Not on file Legal Sex Female 3:52 AM TAILOR MEN'S READY TO WEAR Gender Identity Not on file Sexual Orientation Not on file documented as of this encounter Plan of Treatment Not on file documented as of this encounter Visit Diagnoses Not on filedocumented in this encounter Care Teams Mechanical Design Engineer Facilities Relationship Specialty Start Date End Date Xavi Allen MD [address] [place] [address] PCP - General Internal Medicine 07/02/18 documented as of this encounter
--- OUTSIDE RECORDS SUMMARY | 2025-08-09 14:59 | XMS_ITS | Encounter Summary ---
Author Organization [facility] Address [address] [place] [address] Care Team Providers Care Avionics System Engineer Name Role Phone Xavi Allen MD Primary Care Provider [phone] Encounter Details Date Type Department Care Team (Late st Contact Info) Description 04/07/2003 Outpatient [facility] Division of Neurology [address] [address] Maverick Boyce MD [address] [place] [phone] Social History Tobacco Use Types Packs/Day Years Used Date Smoking Tobacco: Never Assessed Comments Unknown Sex and Gender Information Value Date Recorded Sex Assigned at Not on file Legal Sex Female 3:52 AM MANAGER SERVICES Gender Identity Not on file Sexual Orientation Not on file documented as of this encounter Plan of Treatment Not on file documented as of this encounter Visit Diagnoses Not on filedocumented in this encounter Care Teams Avionics System Engineer Relationship Specialty Start Date End Date Xavi Allen MD [address] [place] [address] PCP - General Internal Medicine 07/02/18 documented as of this encounter
--- OUTSIDE RECORDS SUMMARY | 2025-08-09 14:59 | XMS_ITS | Encounter Summary ---
Author Organization [facility] Address 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
--- OUTSIDE RECORDS SUMMARY | 2025-08-09 14:59 | XMS_ITS | Encounter Summary ---
Author Organization [facility] Address [address] [place] [address] Care Team Providers Care Millwright Instructor Name Role Phone Xavi Allen MD Primary Care Provider [phone] Encounter Details Date Type Department Care Team (Late st Contact Info) Description 08/08/2002 Outpatient Historical [facility] Social History Tobacco Use Types Packs/Day Years Used Date Smoking Tobacco: Never Assessed Comments Unknown Sex and Gender Information Value Date Recorded Sex Assigned at Not on file Legal Sex Female 3:52 AM TOUR PRODUCTION SUPERVISOR Gender Identity Not on file Sexual Orientation Not on file documented as of this encounter Plan of Treatment Not on file documented as of this encounter Visit Diagnoses Not on filedocumented in this encounter Care Teams Millwright Instructor Relationship Specialty Start Date End Date Xavi Allen MD [address] [place] [address] PCP - General Internal Medicine 07/02/18 documented as of this encounter
--- OUTSIDE RECORDS SUMMARY | 2025-08-09 14:59 | XMS_ITS | Encounter Summary ---
Author Organization [facility] Address [address] [place] [address] Care Team Providers Care Emerging Solutions Executive Name Role Phone Xavi Allen MD Primary Care Provider [phone] Encounter Details Date Type Department Care Team (Late st Contact Info) Description 05/16/2003 Outpatient [facility] Division of Neurology [address] [address] Maverick Boyce MD [address] [place] [phone] Social History Tobacco Use Types Packs/Day Years Used Date Smoking Tobacco: Never Assessed Comments Unknown Sex and Gender Information Value Date Recorded Sex Assigned at Not on file Legal Sex Female 3:52 AM SWINE GENETICS RESEARCHER Gender Identity Not on file Sexual Orientation Not on file documented as of this encounter Plan of Treatment Not on file documented as of this encounter Visit Diagnoses Not on filedocumented in this encounter Care Teams Emerging Solutions Executive Relationship Specialty Start Date End Date Xavi Allen MD [address] [place] [address] PCP - General Internal Medicine 07/02/18 documented as of this encounter
--- OUTSIDE RECORDS SUMMARY | 2025-08-09 14:59 | XMS_ITS | Encounter Summary ---
Author Organization [facility] Address [address] [place] [address] Care Team Providers Care Jig Filler Name Role Phone Xavi Allen MD Primary Care Provider Encounter Details Date Type Department Care Team (Late st Contact Info) Description 08/08/2003 Outpatient Historical [facility] Social History Tobacco Use Types Packs/Day Years Used Date Smoking Tobacco: Never Assessed Comments Unknown Sex and Gender Information Value Date Recorded Sex Assigned at Not on file Legal Sex Female 3:52 AM INFORMATION AND REFERRAL DIRECTOR Gender Identity Not on file Sexual Orientation Not on file documented as of this encounter Plan of Treatment Not on file documented as of this encounter Visit Diagnoses Not on filedocumented in this encounter Care Teams Jig Filler Relationship Specialty Start Date End Date Xavi Allen MD [address] [place] [address] PCP - General Internal Medicine 07/02/18 documented as of this encounter
--- OUTSIDE RECORDS SUMMARY | 2025-08-09 14:59 | XMS_ITS | Encounter Summary ---
Author Organization [facility] Address [address] [place] [address] Care Team Providers Care Outsewer Name Role Phone Xavi Allen MD Primary Care Provider [phone] Encounter Details Date Type Department Care Team (Late st Contact Info) Description 03/02/2001 Outpatient [facility] Division of Neurology [address] [address] Radha Lin MD [address] [facility] [address] [place] [phone] Social History Tobacco Use Types Packs/Day Years Used Date Smoking Tobacco: Never Assessed Comments Unknown Sex and Gender Information Value Date Recorded Sex Assigned at Not on file Legal Sex Female 3:52 AM EMT PARAMEDIC Gender Identity Not on file Sexual Orientation Not on file documented as of this encounter Plan of Treatment Not on file documented as of this encounter Visit Diagnoses Not on filedocumented in this encounter Care Teams Outsewer Relationship Specialty Start Date End Date Xavi Allen MD [address] [place] [address] PCP - General Internal Medicine 07/02/18 documented as of this encounter
--- OUTSIDE RECORDS SUMMARY | 2025-08-09 14:59 | XMS_ITS | Encounter Summary ---
Author Organization [facility] Address [address] [place] [address] Care Team Providers Care District Leader Name Role Phone Xavi Allen MD Primary Care Provider Encounter Details Date Type Department Care Team (Late st Contact Info) Description 07/12/2003 Outpatient Historical [facility] Social History Tobacco Use Types Packs/Day Years Used Date Smoking Tobacco: Never Assessed Comments Unknown Sex and Gender Information Value Date Recorded Sex Assigned at Not on file Legal Sex Female 3:52 AM SAUSAGE STUFFER Gender Identity Not on file Sexual Orientation Not on file documented as of this encounter Plan of Treatment Not on file documented as of this encounter Visit Diagnoses Not on filedocumented in this encounter Care Teams District Leader Relationship Specialty Start Date End Date Xavi Allen MD [address] [place] [address] PCP - General Internal Medicine 07/02/18 documented as of this encounter
--- OUTSIDE RECORDS SUMMARY | 2025-08-09 14:59 | XMS_ITS | Encounter Summary ---
Author Organization [facility] Address [address] [place] [address] Care Team Providers Care Supervisor Fleshing Name Role Phone Xavi Allen MD Primary Care Provider [phone] Encounter Details Date Type Department Care Team (Latest Contact Info) Description 04/04/2003 Outpatient Historical [facility] NEURO PSYCHOLOGY Rudy Palma V., PhD [address] [place] [address] MULTIPLE SCLEROSIS (CMS/HCC) (Primary Dx) Social History Tobacco Use Types Packs/Day Years Used Date Smoking Tobacco: Never Assessed Comments Unknown Sex and Gender Information Value Date Recorded Sex Assigned at Not on file Legal Sex Female 3:52 AM CLINICAL MANAGER Gender Identity Not on file Sexual Orientation Not on file documented as of this encounter Plan of Treatment Not on file documented as of this encounter Visit Diagnoses Diagnosis Multiple sclerosis (CMS/HCC)- Primary Multiple sclerosis documented in this encounter Care Teams Supervisor Fleshing Relationship Specialty Start Date End Date Xavi Allen MD [address] [place] [address] PCP - General Internal Medicine 07/02/18 documented as of this encounter
--- OUTSIDE RECORDS SUMMARY | 2025-08-09 14:59 | XMS_ITS | Encounter Summary ---
Author Organization [facility] Address [address] [place] [address] Care Team Providers Care Factory Maintenance Technician Name Role Phone Xavi Allen MD Primary Care Provider Encounter Details Date Type Department Care Team (Late st Contact Info) Description 05/17/[address] [facility] Social History Tobacco Use Types Packs/Day Years Used Date Smoking Tobacco: Never Assessed Comments Unknown Sex and Gender Information Value Date Recorded Sex Assigned at Not on file Legal Sex Female 3:52 AM RETAIL EXPERIENCE SPECIALIST Gender Identity Not on file Sexual Orientation Not on file documented as of this encounter Plan of Treatment Not on file documented as of this encounter Visit Diagnoses Not on filedocumented in this encounter Care Teams Factory Maintenance Technician Relationship Specialty Start Date End Date Xavi Allen MD [address] [place] [address] PCP - General Internal Medicine 07/02/18 documented as of this encounter
--- OUTSIDE RECORDS SUMMARY | 2025-08-09 14:59 | XMS_ITS | Encounter Summary ---
Author Organization [facility] Address [address] [place] [address] Care Team Providers Care Nuclear Physicist Name Role Phone Xavi Allen MD Primary Care Provider [phone] Encounter Details Date Type Department Care Team (Late st Contact Info) Description 03/03/2003 Outpatient Historical [facility] MRI DEPT Radha Lin MD [address] [facility] [address] [place] [phone] MULTIPLE SCLEROSIS (CMS/HCC) (Primary Dx) Social History Tobacco Use Types Packs/Day Years Used Date Smoking Tobacco: Never Assessed Comments Unknown Sex and Gender Information Value Date Recorded Sex Assigned at Not on file Legal Sex Female 3:52 AM YARDAGE CALLER Gender Identity Not on file Sexual Orientation Not on file documented as of this encounter Plan of Treatment Not on file documented as of this encounter Visit Diagnoses Diagnosis Multiple sclerosis (CMS/HCC)- Primary Multiple sclerosis documented in this encounter Care Teams Nuclear Physicist Relationship Specialty Start Date End Date Xavi Allen MD [address] [place] [address] PCP - General Internal Medicine 07/02/18 documented as of this encounter
--- OUTSIDE RECORDS SUMMARY | 2025-08-09 14:59 | XMS_ITS | Encounter Summary ---
Author Organization [facility] Address [address] [place] [address] Care Team Providers Care Dry Cell Assembly Supervisor Name Role Phone Xavi Allen MD Primary Care Provider Encounter Details Date Type Department Care Team (Late st Contact Info) Description 09/08/2003 Outpatient Historical [facility] Social History Tobacco Use Types Packs/Day Years Used Date Smoking Tobacco: Never Assessed Comments Unknown Sex and Gender Information Value Date Recorded Sex Assigned at Not on file Legal Sex Female 3:52 AM VIDEOGAME DESIGNER Gender Identity Not on file Sexual Orientation Not on file documented as of this encounter Plan of Treatment Not on file documented as of this encounter Visit Diagnoses Not on filedocumented in this encounter Care Teams Dry Cell Assembly Supervisor Relationship Specialty Start Date End Date Xavi Allen MD [address] [place] [address] PCP - General Internal Medicine 07/02/18 documented as of this encounter
--- OUTSIDE RECORDS SUMMARY | 2025-08-09 14:59 | XMS_ITS | Encounter Summary ---
Author Organization [facility] Address [address] [place] [address] Care Team Providers Care Geodesy Teacher Name Role Phone Xavi Allen MD Primary Care Provider [phone] Encounter Details Date Type Department Care Team (Late st Contact Info) Description 05/01/2001 Outpatient Historical [facility] OP NEUROLOGY Radha Lin MD [address] [facility] [address] [place] [address] Social History Tobacco Use Types Packs/Day Years Used Date Smoking Tobacco: Never Assessed Comments Unknown Sex and Gender Information Value Date Recorded Sex Assigned at Not on file Legal Sex Female 3:[address]AFETY ENGINEER Gender Identity Not on file Sexual Orientation Not on file documented as of this encounter Plan of Treatment Not on file documented as of this encounter Visit Diagnoses Not on filedocumented in this encounter Care Teams Geodesy Teacher Relationship Specialty Start Date End Date Xavi Allen MD [address] [place] [address] PCP - General Internal Medicine 07/02/18 documented as of this encounter
--- OUTSIDE RECORDS SUMMARY | 2025-08-09 14:59 | XMS_ITS | Encounter Summary ---
Author Organization [facility] Address [address] [place] [address] Care Team Providers Care Senior Solutions Engineer Name Role Phone Xavi Allen MD Primary Care Provider [phone] Encounter Details Date Type Department Care Team (Late st Contact Info) Description 02/21/2003 Outpatient [facility] Division of Neurology [address] [address] Maverick Boyce MD [address] [place] [phone] Social History Tobacco Use Types Packs/Day Years Used Date Smoking Tobacco: Never Assessed Comments Unknown Sex and Gender Information Value Date Recorded Sex Assigned at Not on file Legal Sex Female 3:52 AM NUTRITION HELPER Gender Identity Not on file Sexual Orientation Not on file documented as of this encounter Plan of Treatment Not on file documented as of this encounter Visit Diagnoses Not on filedocumented in this encounter Care Teams Senior Solutions Engineer Relationship Specialty Start Date End Date Xavi Allen MD [address] [place] [address] PCP - General Internal Medicine 07/02/18 documented as of this encounter
--- OUTSIDE RECORDS SUMMARY | 2025-08-09 14:59 | XMS_ITS | Encounter Summary ---
Author Organization [facility] Address [address] [place] [address] Care Team Providers Care Pairing Machine Operator Name Role Phone Xavi Allen MD Primary Care Provider Encounter Details Date Type Department Care Team (Late st Contact Info) Description 02/22/2004 Outpatient Historical [facility] Social History Tobacco Use Types Packs/Day Years Used Date Smoking Tobacco: Never Assessed Comments Unknown Sex and Gender Information Value Date Recorded Sex Assigned at Not on file Legal Sex Female 3:52 AM HAT SPRAYER Gender Identity Not on file Sexual Orientation Not on file documented as of this encounter Plan of Treatment Not on file documented as of this encounter Visit Diagnoses Not on filedocumented in this encounter Care Teams Pairing Machine Operator Relationship Specialty Start Date End Date Xavi Allen MD [address] [place] [address] PCP - General Internal Medicine 07/02/18 documented as of this encounter
--- OUTSIDE RECORDS SUMMARY | 2025-08-09 14:59 | XMS_ITS | Encounter Summary ---
Author Organization [facility] Address [address] [place] [address] Care Team Providers Care Commercial Loan Administrator Name Role Phone Xavi Allen MD Primary Care Provider [phone] Encounter Details Date Type Department Care Team (Late st Contact Info) Description 10/31/2003 Outpatient Historical [facility] Social History Tobacco Use Types Packs/Day Years Used Date Smoking Tobacco: Never Assessed Comments Unknown Sex and Gender Information Value Date Recorded Sex Assigned at Not on file Legal Sex Female 3:52 AM MANAGEMENT COORDINATOR Gender Identity Not on file Sexual Orientation Not on file documented as of this encounter Plan of Treatment Not on file documented as of this encounter Visit Diagnoses Not on filedocumented in this encounter Care Teams Commercial Loan Administrator Relationship Specialty Start Date End Date Xavi Allen MD [address] [place] [address] PCP - General Internal Medicine 07/02/18 documented as of this encounter
--- OUTSIDE RECORDS SUMMARY | 2025-08-09 14:59 | XMS_ITS | Encounter Summary ---
Author Organization [facility] Address [address] [place] [address] Care Team Providers Care Medical Billing Coordinator Name Role Phone Xavi Allen MD Primary Care Provider Encounter Details Date Type Department Care Team (Late st Contact Info) Description 03/22/2004 Outpatient Historical [facility] Social History Tobacco Use Types Packs/Day Years Used Date Smoking Tobacco: Never Assessed Comments Unknown Sex and Gender Information Value Date Recorded Sex Assigned at Not on file Legal Sex Female 3:52 AM TRAINING PERSONNEL SUPERVISOR Gender Identity Not on file Sexual Orientation Not on file documented as of this encounter Plan of Treatment Not on file documented as of this encounter Visit Diagnoses Not on filedocumented in this encounter Care Teams Medical Billing Coordinator Relationship Specialty Start Date End Date Xavi Allen MD [address] [place] [address] PCP - General Internal Medicine 07/02/18 documented as of this encounter
--- OUTSIDE RECORDS SUMMARY | 2025-08-09 14:59 | XMS_ITS | Encounter Summary ---
Author Organization [facility] Address [address] [place] [address] Care Team Providers Care Office Machinery Or Equipment Installer Name Role Phone Xavi Allen MD Primary Care Provider Encounter Details Date Type Department Care Team (Late st Contact Info) Description 12/04/[address] [facility] Social History Tobacco Use Types Packs/Day Years Used Date Smoking Tobacco: Never Assessed Comments Unknown Sex and Gender Information Value Date Recorded Sex Assigned at Not on file Legal Sex Female 3:52 AM VENEER CLIPPER HELPER Gender Identity Not on file Sexual Orientation Not on file documented as of this encounter Plan of Treatment Not on file documented as of this encounter Visit Diagnoses Not on filedocumented in this encounter Care Teams Office Machinery Or Equipment Installer Relationship Specialty Start Date End Date Xavi Allen MD [address] [place] [address] PCP - General Internal Medicine 07/02/18 documented as of this encounter
--- OUTSIDE RECORDS SUMMARY | 2025-08-09 14:59 | XMS_ITS | Encounter Summary ---
Author Organization [facility] Address [address] [place] [address] Care Team Providers Care Slate Roofer Helper Name Role Phone Xavi Allen MD Primary Care Provider [phone] Encounter Details Date Type Department Care Team (Late st Contact Info) Description 10/31/2002 Outpatient Historical [facility] Social History Tobacco Use Types Packs/Day Years Used Date Smoking Tobacco: Never Assessed Comments Unknown Sex and Gender Information Value Date Recorded Sex Assigned at Not on file Legal Sex Female 3:52 AM PYROTECHNICIAN Gender Identity Not on file Sexual Orientation Not on file documented as of this encounter Plan of Treatment Not on file documented as of this encounter Visit Diagnoses Not on filedocumented in this encounter Care Teams Slate Roofer Helper Relationship Specialty Start Date End Date Xavi Allen MD [address] [place] [address] PCP - General Internal Medicine 07/02/18 documented as of this encounter
--- OUTSIDE RECORDS SUMMARY | 2025-08-09 14:59 | XMS_ITS | Encounter Summary ---
Author Organization [facility] Address [address] [place] [address] Care Team Providers Care Cash Applications Representative Name Role Phone Xavi Allen MD Primary Care Provider [phone] Encounter Details Date Type Department Care Team (Late st Contact Info) Description 04/07/2003 Outpatient [facility] Division of Neurology [address], [address] [address] Maverick Boyce MD [address] [place] [address] Social History Tobacco Use Types Packs/Day Years Used Date Smoking Tobacco: Never Assessed Comments Unknown Sex and Gender Information Value Date Recorded Sex Assigned at Not on file Legal Sex Female 3:52 AM DEPUTY K 9 Gender Identity Not on file Sexual Orientation Not on file documented as of this encounter Plan of Treatment Not on file documented as of this encounter Visit Diagnoses Not on filedocumented in this encounter Care Teams Cash Applications Representative Relationship Specialty Start Date End Date Xavi Allen MD [address] [place] [address] PCP - General Internal Medicine 07/02/18 documented as of this encounter
--- OUTSIDE RECORDS SUMMARY | 2025-08-09 14:59 | XMS_ITS | Encounter Summary ---
Author Organization [facility] Address [address] [place] [address] Care Team Providers Care Automotive Collision Repair Instructor Name Role Phone Xavi Allen MD Primary Care Provider [phone] Encounter Details Date Type Department Care Team (Latest Contact Info) Description 08/09/2025 Travel Social History Tobacco Use Types Packs/Day Years Used Date Smoking Tobacco: Never Smokeless Tobacco: Never Alcohol Use Standard Drinks/Week Comments No 0 (1 standard drink = 0.6 oz pur e alcohol) AUDIT-C Answer Date Recorded Frequency of Alcohol Consumption Never 07/04/2019 Average Number of Drinks Not on file 019 Frequency of Binge Drinking Not on file 03/2019 Comments No Sex and Gender Information Value Date Recorded Sex Assigned at Female 07/06/2025 12:34 PM CDT 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 Gender Identity Not on file Sexual Orientation Not on file documented as of this encounter Plan of Treatment Upcoming Encounters Date Type Department Care Team (Latest Contact Info) Description 08/17/2025 1:52 PM CDT Hospital Encounter [facility] [address] [place], [place] [id number] Maury Gutierrez MD [address] [place] [address] [address] [place] [address] 08/17/2025 1:52 PM CDT - 08/17/2025 7:14 PM CDT [facility] [address] [place] [address] Maury Gutierrez MD [address] [place] [address] ROBOTIC ASSISTED LAPAROSCOPIC BILATERAL SALPINGO-OOPHORECTOM Y, POSSIBLE TOTAL LAPAROSCOPIC HYSTERECTOMY, POSSIBLE OMENTECTOMY, POSSIBLE BILATERAL PELVIC AND PARA AORTIC LYMPH NODE DISSECTION, POSSIBLE STAGING FOR OVARIAN CANCER, POSSIBLE CYSTOSCOPY, POSSIBLE OPEN PROCEDURE Scheduled Procedures Name Priority Associated Diagnoses Date/Ti ia ROBOTIC ASSISTED HYSTERECTOMY PELVIC MASS 08/17/2025 1:52 PM CDT documented as of this encounter Goals Goal Patient Goal Type Associated Problems Recent Progress Patient-Stated? Author Autogenerat ed Goal Care Plan Autogenerated Problem No Sivan Merlos RN documented as of this encounter Visit Diagnoses Not on filedocumented in this encounter Additional Health Concerns Active Problems Noted Date Diagnosed Date Autogenerated Problem 08/03/2025 documented as of this encounter Care Teams Automotive Collision Repair Instructor Relationship Specialty Start Date End Date Xavi Allen MD [address] [place] [phone] PCP - General INTERNAL MEDICINE 05/10/19 documented as of this encounter
--- OUTSIDE RECORDS SUMMARY | 2025-08-09 14:59 | XMS_ITS | Encounter Summary ---
Author Organization [facility] Address [address] [place] [address] Care Team Providers Care Cover Cutter Name Role Phone Xavi Allen MD Primary Care Provider [phone] Encounter Details Date Type Department Care Team (Late st Contact Info) Description 08/19/2001 Outpatient [facility] Division of Neurology [address], [address] [address] Radha Lin MD [address] [facility] [address] [place] [address] Social History Tobacco Use Types Packs/Day Years Used Date Smoking Tobacco: Never Assessed Comments Unknown Sex and Gender Information Value Date Recorded Sex Assigned at Not on file 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
--- OUTSIDE RECORDS SUMMARY | 2025-08-09 14:59 | XMS_ITS | Encounter Summary ---
Author Organization [facility] Address [address] 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
--- OUTSIDE RECORDS SUMMARY | 2025-08-09 14:59 | XMS_ITS | Encounter Summary ---
Author Organization [facility] Address 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
--- OUTSIDE RECORDS SUMMARY | 2025-08-09 14:59 | XMS_ITS | Encounter Summary ---
Author Organization [facility] Address 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
--- OUTSIDE RECORDS SUMMARY | 2025-08-09 14:59 | XMS_ITS | Encounter Summary ---
Author Organization [employer] [facility] Address [address] [place] [address] Care Team Providers Care Lorry Weigher Name Role Phone Xavi Allen MD Primary Care Provider [phone] Encounter Details Date Type Department Care Team (Latest Contact Info) Description 03/30/2001 Outpatient Historical [facility] Rudy Palma V., PhD 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
--- OUTSIDE RECORDS SUMMARY | 2025-08-09 14:59 | XMS_ITS | Encounter Summary ---
Author Organization [facility] Address [address] [place] [address] Care Team Providers Care Outside Laborer Name Role Phone Xavi Allen MD Primary Care Provider Encounter Details Date Type Department Care Team (Late st Contact Info) Description 03/14/2025 Lab Requisition [facility] Derm[facility] Lab [address], [place] [address] Jennifer Lucio DO [address] [facility] [address] [place] [address] Social History Tobacco Use Types Packs/Day Years [...] AM CDT) Case Report Dermatopathology Report Case: [id number] Authorizing Provider: Jennifer Lucio DO Collected: 03/14/2025 09:31 AM Ordering Location: [facility] - Received: 03/14/2025 04:30 PM DermPath Lab Pathologist: Angelia Lloyd MD Specimen: Skin, left worship 4:19 PM CDT DERMATOPATHOLOGY LABORATORY Final Diagnosis Specimen A. SKIN, left worship: ACTINIC KERATOSIS, LICHENOID (L57.0) 4:19 PM CDT DERMATOPATHOLOGY LABORATORY at 1619 CDT Clinical History ISK, R/O Atypia 4:19 PM CDT DERMATOPATHOLOGY LABORATORY Gross Description Specimen A: Received is one formalin filled container labeled with the patient's name and designated left worship. The specimen consists of a shave biopsy measuring 10x7x1 mm. Jar 0. 4:19 PM CDT DERMATOPATHOLOGY LABORATORY Microscopic Description Specimen A. SKIN, left worship: There is focal parakeratosis. The lower half [...] determined by the Dermatopathology Laboratory at [facility], directed by Dr. Raine Lloyd. These tests need not be, and therefore are not, approved by the [place] Food and Drug Administration. The tests are used for clinical purposes. Billing Codes Specimen Charges Stain Charges 12561 1 5 4:19 PM CDT DERMATOPATHOLOGY LABORATORY Embedded Images 5 4:19 PM CDT DERMATOPATHOLOGY LABORATORY Pathology/Cytolo gy TISSUE SPECIMEN FROM SKIN / Unknown 03/14/2025 9:31 AM CDT 03/14/2025 4:30 PM CDT us Jennifer Lucio DO LAB - PATHOLOGY/CYTOLOGY ORDERABLES Final Result DERMATOPATHOLOGY LABORATORY [facility] - Department of Dermatology [address], [address] [phone] documented in this encounter Visit Diagnoses Not on filedocumented in this encounter Care Teams Outside Laborer Relationship Specialty Start Date End Date Xavi Allen MD [address] [place], [place] [phone] PCP - General 05/03/18 documented as of this encounter
--- OUTSIDE RECORDS SUMMARY | 2025-08-09 14:59 | XMS_ITS | Encounter Summary ---
Author Organization [employer] Address [address] [place] [address] Care Team Providers Care Drone Pilot Name Role Phone Xavi Allen MD Primary Care Provider [phone] Encounter Details Date Type Department Care Team (Late st Contact Info) Description 08/08/2003 Outpatient [facility] Division of Neurology [address] [address] Radha Lin MD [address] [facility] [address] [place] [address] Social History Tobacco Use Types Packs/Day Years Used Date Smoking Tobacco: Never Assessed Comments Unknown Sex and Gender Information Value Date Recorded Sex Assigned at Not on file 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
--- OUTSIDE RECORDS SUMMARY | 2025-08-09 14:59 | XMS_ITS | Encounter Summary ---
Author Organization [facility] Address 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
--- OUTSIDE RECORDS SUMMARY | 2025-08-09 14:59 | XMS_ITS | Encounter Summary ---
Author Organization [facility] Address 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
--- OUTSIDE RECORDS SUMMARY | 2025-08-09 14:59 | XMS_ITS | Encounter Summary ---
Author Organization [facility] Address [address] [place] [address] Care Team Providers Care District Recruiter Name Role Phone Xavi Allen MD Primary Care Provider [phone] Encounter Details Date Type Department Care Team (Latest Contact Info) Description 12/02/2000 Outpatient Historical [facility] KASI Lin, Radha Batres MD [address] [facility] [address] [place] [address] Multiple sclerosis (CMS/HCC) (Primary Dx) Social History Tobacco Use Types Packs/Day Years Used Date Smoking Tobacco: Never Assessed Comments Unknown Sex and Gender Information Value Date Recorded Sex Assigned at Not on file 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
--- OUTSIDE RECORDS SUMMARY | 2025-08-09 14:59 | XMS_ITS | Encounter Summary ---
Author Organization [facility] Address [address] [place] [address] Care Team Providers Care Link Trainer Mechanic Name Role Phone Xavi Allen MD Primary Care Provider [phone] Encounter Details Date Type Department Care Team (Late st Contact Info) Description 09/06/2002 Outpatient [facility] Division of Neurology [address] [address] Maverick Boyce MD [address] [place] [phone] Social History Tobacco Use Types Packs/Day Years Used Date Smoking Tobacco: Never Assessed Comments Unknown Sex and Gender Information Value Date Recorded Sex Assigned at Not on file 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
--- OUTSIDE RECORDS SUMMARY | 2025-08-09 14:59 | XMS_ITS | Encounter Summary ---
Author Organization [facility] Address [address] [place] [address] Care Team Providers Care Change Management Coordinator Name Role Phone Xvai Allen MD Primary Care Provider [phone] Encounter Details Date Type Department Care Team (Late st Contact Info) Description 11/25/2002 Outpatient [facility] Division of Neurology [address], [address] [address] Radha Lin MD [address] [facility] [address] [place] [phone] Social History Tobacco Use Types Packs/Day Years Used Date Smoking Tobacco: Never Assessed Comments Unknown Sex and Gender Information Value Date Recorded Sex Assigned at Not on file 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
--- OUTSIDE RECORDS SUMMARY | 2025-08-09 14:59 | XMS_ITS | Encounter Summary ---
Author Organization [facility] Address 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
--- OUTSIDE RECORDS SUMMARY | 2025-08-09 14:59 | XMS_ITS | Encounter Summary ---
Author Organization [facility] Address [address] [place] [address] Care Team Providers Care Major Appliance Assembly Supervisor Name Role Phone Xavi Allen MD Primary Care Provider [phone] Encounter Details Date Type Department Care Team (Late st Contact Info) Description 06/14/2002 Outpatient [facility] Division of Neurology [address], [address] [address] Maverick Boyce MD [address] [place] [phone] Social History Tobacco Use Types Packs/Day Years Used Date Smoking Tobacco: Never Assessed Comments Unknown Sex and Gender Information Value Date Recorded Sex Assigned at Not on file Legal Sex Female 3:52 AM MED CARE MANAGER Gender Identity Not on file Sexual Orientation Not on file documented as of this encounter Plan of Treatment Not on file documented as of this encounter Visit Diagnoses Not on filedocumented in this encounter Care Teams Major Appliance Assembly Supervisor Relationship Specialty Start Date End Date Xavi Allen MD [address] [place] [address] PCP - General Internal Medicine 07/02/18 documented as of this encounter
--- OUTSIDE RECORDS SUMMARY | 2025-08-09 14:59 | XMS_ITS | Encounter Summary ---
Author Organization [facility] Address 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
--- OUTSIDE RECORDS SUMMARY | 2025-08-09 14:59 | XMS_ITS | Encounter Summary ---
Author Organization [facility] Address 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
--- OUTSIDE RECORDS SUMMARY | 2025-08-09 14:59 | XMS_ITS | Clinical Summary ---
Author Organization [facility] Address [address] [place] [address] Care Team Providers Care Client Finance Analyst Name Role Phone Xavi Allen MD Primary Care Provider [phone] Source Comments [facility],non-owned Affiliates and Associated Physician Practices is amultiple site organization consisting of ambulatory clinics and hospital sitesin [place], [place], [place] and [place]. This disclosure is being madepursuant to the Care Everywhere program and may not contain all information available regarding this patient. Last updated 18.[facility] Allergies Active Allergy Reactions Criticality Noted [...] 04/05/2021 8, 04/03/2018, 04/01/2018, Additional history exists DEPRESSION SCREENING 11/30/2024 COVID-19 VACCINE ( season) 2025 INFLUENZA VACCINE (#1) 2025 HIB VACCINE Aged [...] 7 - 26 mg/dL 04/05/2018 10:33 AM [facility] Creatinine 0.7 0.6 - 1.2 mg/dL 04/05/2018 10:33 AM [facility] Sodium 137 136 - 145 mmol/L 04/05/2018 10:33 AM [facility] Potassium 4.3 3.5 - 4.5 mmol/L 04/05/2018 10:33 AM [facility] Chloride 104 98 - 107 mmol/L 04/05/2018 10:33 AM [facility] CO2 25 22 - 29 mmol/L 04/05/2018 10:33 AM [facility] Glucose 117(H) 70 - 115 mg/dL 04/05/2018 10:33 AM [facility] Calcium 8.5 8.4 - 10.2 mg/dL 04/05/2018 10:33 AM [facility] Anion Gap 12 8 - 18 04/05/2018 10:33 AM [facility] BUN/Creatinine Ratio 16 7 - 23 04/05/2018 10:33 AM [facility] Osmolality Calculated 284 270 - 300 mOsm/kg 04/05/2018 10:33 AM [facility] eGFR >60 >60 mL/min/1.7 3 m2 04/05/2018 10:33 AM [facility] Blood BLOOD SPECIMEN / Unknown 04/05/2018 9:46 AM CDT 04/05/2018 10:01 AM CDT us Najma Walls AUTO PAINTER HELPER-PULLEY MORTISER OPERATOR LAB - CHEMISTRY ORDERABL ES Final Result [facility] [address] [place] [address] from Last 3 Months or Most Recently Relevant to Health Maintenance Insurance [facility] Member Subscriber Plan / Payer (Ef fective 2011-Present) Name:Butch Barrientos Relation to Subscriber:Self Name:BUTCH BARRIENTOS Payer ID:[id number] (NAIC) Type:PPO Address: [place] [phone] MEDICAID - OUT OF STATE [facility] Advance Directives * Full Code (Latest Code Status on File) Date Activated Date Inactivated Comments 03/31/2018 11:53 PM 04/09/2018 2:02 PM Care Teams Client Finance Analyst Relationship Specialty Start Date End Date Xavi Allen MD [address] [place] [id number] PCP - General 05/03/18
--- OUTSIDE RECORDS SUMMARY | 2025-08-09 14:59 | XMS_ITS | Encounter Summary ---
Author Organization [facility] Address [address] [place] [address] Care Team Providers Care Saute Chef Name Role Phone Xavi Allen MD Primary Care Provider Encounter Details Date Type Department Care Team (Late st Contact Info) Description 10/03/2002 Outpatient Historical [facility] Social History Tobacco Use Types Packs/Day Years Used Date Smoking Tobacco: Never Assessed Comments Unknown Sex and Gender Information Value Date Recorded Sex Assigned at Not on file Legal Sex Female 3:52 AM LAY OUT AND DETAIL DRAFTER Gender Identity Not on file Sexual Orientation Not on file documented as of this encounter Plan of Treatment Not on file documented as of this encounter Visit Diagnoses Not on filedocumented in this encounter Care Teams Saute Chef Relationship Specialty Start Date End Date Xavi Allen MD [address] [place] [address] PCP - General Internal Medicine 07/02/18 documented as of this encounter
--- OUTSIDE RECORDS SUMMARY | 2025-08-09 14:59 | XMS_ITS | Encounter Summary ---
Author Organization [facility] Address [address] [place] [address] Care Team Providers Care Rotor Assembler Name Role Phone Xavi Allen MD Primary Care Provider Encounter Details Date Type Department Care Team (Late st Contact Info) Description 09/06/2002 Outpatient [facility] Division of Neurology [address] [address] Radha Lin MD [address] [facility] [address] [place] [phone] Social History Tobacco Use Types Packs/Day Years Used Date Smoking Tobacco: Never Assessed Comments Unknown Sex and Gender Information Value Date Recorded Sex Assigned at Not on file Legal Sex Female 3:52 AM STUDENT LOAN COUNSELOR Gender Identity Not on file Sexual Orientation Not on file documented as of this encounter Plan of Treatment Not on file documented as of this encounter Visit Diagnoses Not on filedocumented in this encounter Care Teams Rotor Assembler Relationship Specialty Start Date End Date Xavi Allen MD [address] [place] [address] PCP - General Internal Medicine 07/02/18 documented as of this encounter
--- OUTSIDE RECORDS SUMMARY | 2025-08-09 14:59 | XMS_ITS | Encounter Summary ---
Author Organization [facility] Address [address] [place] [address] Care Team Providers Care Electronic Commerce Specialist Name Role Phone Xavi Allen MD Primary Care Provider [phone] Encounter Details Date Type Department Care Team (Late st Contact Info) Description 01/23/2004 Outpatient [facility] Division of Neurology [address] [address] Radha Lin MD [address] [facility] [address] [place] [phone] Social History Tobacco Use Types Packs/Day Years Used Date Smoking Tobacco: Never Assessed Comments Unknown Sex and Gender Information Value Date Recorded Sex Assigned at Not on file Legal Sex Female 3:52 AM MANAGER UNIX Gender Identity Not on file Sexual Orientation Not on file documented as of this encounter Plan of Treatment Not on file documented as of this encounter Visit Diagnoses Not on filedocumented in this encounter Care Teams Electronic Commerce Specialist Relationship Specialty Start Date End Date Xavi Allen MD [address] [place] [address] PCP - General Internal Medicine 07/02/18 documented as of this encounter
--- OUTSIDE RECORDS SUMMARY | 2025-08-09 14:59 | XMS_ITS | Encounter Summary ---
Author Organization [facility] Address [address] [place] [address] Care Team Providers Care Insurance Job Titles Name Role Phone Xavi Allen MD Primary Care Provider [phone] Encounter Details Date Type Department Care Team (Late st Contact Info) Description 03/22/2002 Outpatient [facility] Division of Neurology [address] [address] Maverick Boyce MD [address] [place] [phone] Social History Tobacco Use Types Packs/Day Years Used Date Smoking Tobacco: Never Assessed Comments Unknown Sex and Gender Information Value Date Recorded Sex Assigned at Not on file Legal Sex Female 3:52 AM PRINT WASHER Gender Identity Not on file Sexual Orientation Not on file documented as of this encounter Plan of Treatment Not on file documented as of this encounter Visit Diagnoses Not on filedocumented in this encounter Care Teams Insurance Job Titles Relationship Specialty Start Date End Date Xavi Allen MD [address] [place] [address] PCP - General Internal Medicine 07/02/18 documented as of this encounter
--- OUTSIDE RECORDS SUMMARY | 2025-08-09 14:59 | XMS_ITS | Encounter Summary ---
Author Organization [facility] Address [address] [place] [address] Care Team Providers Care Nurse Ldr Name Role Phone Xavi Allen MD Primary Care Provider [phone] Encounter Details Date Type Department Care Team (Late st Contact Info) Description 03/22/2004 Outpatient [facility] Division of Neurology [address] [address] Radha Lin MD [address] [facility] [address] [place] [phone] Social History Tobacco Use Types Packs/Day Years Used Date Smoking Tobacco: Never Assessed Comments Unknown Sex and Gender Information Value Date Recorded Sex Assigned at Not on file Legal Sex Female 3:52 AM RAILCAR SWITCHER Gender Identity Not on file Sexual Orientation Not on file documented as of this encounter Plan of Treatment Not on file documented as of this encounter Visit Diagnoses Not on filedocumented in this encounter Care Teams Nurse Ldr Relationship Specialty Start Date End Date Xavi Allen MD [address] [place] [address] PCP - General Internal Medicine 07/02/18 documented as of this encounter
--- OUTSIDE RECORDS SUMMARY | 2025-08-09 14:59 | XMS_ITS | Encounter Summary ---
Author Organization [facility] Address [address] [place] [address] Care Team Providers Care Auto Former Machine Operator Name Role Phone Xavi Allen MD Primary Care Provider Encounter Details Date Type Department Care Team (Latest Contact Info) Description 03/30/2001 Outpatient Historical [facility] Radha Lin MD [address] [facility] [address] [place] [phone] Multiple sclerosis (CMS/HCC) (Primary Dx) Social History Tobacco Use Types Packs/Day Years Used Date Smoking Tobacco: Never Assessed Comments Unknown Sex and Gender Information Value Date Recorded Sex Assigned at Not on file Legal Sex Female 3:52 AM DIRECTOR OF LABORATORY OPERATIONS Gender Identity Not on file Sexual Orientation Not on file documented as of this encounter Plan of Treatment Not on file documented as of this encounter Visit Diagnoses Diagnosis Multiple sclerosis (CMS/HCC)- Primary Multiple sclerosis documented in this encounter Care Teams Auto Former Machine Operator Relationship Specialty Start Date End Date Xavi Allen MD [address] [place] [address] PCP - General Internal Medicine 07/02/18 documented as of this encounter
--- OUTSIDE RECORDS SUMMARY | 2025-08-09 14:59 | XMS_ITS | Encounter Summary ---
Author Organization [facility] Address [address] [place] [address] Care Team Providers Care Lunchroom Worker Name Role Phone Xavi Allen MD Primary Care Provider Encounter Details Date Type Department Care Team (Late st Contact Info) Description 08/08/2003 Outpatient Historical [facility] Social History Tobacco Use Types Packs/Day Years Used Date Smoking Tobacco: Never Assessed Comments Unknown Sex and Gender Information Value Date Recorded Sex Assigned at Not on file Legal Sex Female 3:52 AM PROJECT LEAD Gender Identity Not on file Sexual Orientation Not on file documented as of this encounter Plan of Treatment Not on file documented as of this encounter Visit Diagnoses Not on filedocumented in this encounter Care Teams Lunchroom Worker Relationship Specialty Start Date End Date Xavi Allen MD [address] [place] [address] PCP - General Internal Medicine 07/02/18 documented as of this encounter
--- OUTSIDE RECORDS SUMMARY | 2025-08-09 14:59 | XMS_ITS | Encounter Summary ---
Author Organization [facility] Address [address] [place] [address] Care Team Providers Care Resaw Machine Operator Name Role Phone Xavi Allen MD Primary Care Provider Encounter Details Date Type Department Care Team (Late st Contact Info) Description 04/21/2003 Outpatient [address] [facility] Social History Tobacco Use Types Packs/Day Years Used Date Smoking Tobacco: Never Assessed Comments Unknown Sex and Gender Information Value Date Recorded Sex Assigned at Not on file Legal Sex Female 3:52 AM BILINGUAL CALL CENTER REPRESENTATIVE Gender Identity Not on file Sexual Orientation Not on file documented as of this encounter Plan of Treatment Not on file documented as of this encounter Visit Diagnoses Not on filedocumented in this encounter Care Teams Resaw Machine Operator Relationship Specialty Start Date End Date Xavi Allen MD [address] [place] [address] PCP - General Internal Medicine 07/02/18 documented as of this encounter
--- OUTSIDE RECORDS SUMMARY | 2025-08-09 14:59 | XMS_ITS | Encounter Summary ---
Author Organization [facility] Address [address] [place] [address] Care Team Providers Care Inspector Dials Name Role Phone Xavi Allen MD Primary Care Provider [phone] Encounter Details Date Type Department Care Team (Late st Contact Info) Description 02/16/2002 Outpatient [facility] Division of Neurology [address] [address] Radha Lin MD [address] [facility] [address] [place] [phone] Social History Tobacco Use Types Packs/Day Years Used Date Smoking Tobacco: Never Assessed Comments Unknown Sex and Gender Information Value Date Recorded Sex Assigned at Not on file Legal Sex Female 3:52 AM CERTIFIED CREDIT COUNSELOR Gender Identity Not on file Sexual Orientation Not on file documented as of this encounter Plan of Treatment Not on file documented as of this encounter Visit Diagnoses Not on filedocumented in this encounter Care Teams Inspector Dials Relationship Specialty Start Date End Date Xavi Allen MD [address] [place] [address] PCP - General Internal Medicine 07/02/18 documented as of this encounter
--- OUTSIDE RECORDS SUMMARY | 2025-08-09 14:59 | XMS_ITS | Encounter Summary ---
Author Organization [facility] Address [address] [place] [address] Care Team Providers Care Petroleum Inspector Supervisor Name Role Phone Xavi Allen MD Primary Care Provider Encounter Details Date Type Department Care Team (Late st Contact Info) Description 11/25/2002 Outpatient Historical [facility] Social History Tobacco Use Types Packs/Day Years Used Date Smoking Tobacco: Never Assessed Comments Unknown Sex and Gender Information Value Date Recorded Sex Assigned at Not on file Legal Sex Female 3:52 AM CYLINDER MACHINE OPERATOR PULP DRIER Gender Identity Not on file Sexual Orientation Not on file documented as of this encounter Plan of Treatment Not on file documented as of this encounter Visit Diagnoses Not on filedocumented in this encounter Care Teams Petroleum Inspector Supervisor Relationship Specialty Start Date End Date Xavi Allen MD [address] [place] [address] PCP - General Internal Medicine 07/02/18 documented as of this encounter
--- OUTSIDE RECORDS SUMMARY | 2025-08-09 14:59 | XMS_ITS | Encounter Summary ---
Author Organization [facility] Address [address] [place] [address] Care Team Providers Care Mechanical Expert Name Role Phone Xavi Allen MD Primary Care Provider [phone] Encounter Details Date Type Department Care Team (Late st Contact Info) Description 02/21/2003 Outpatient [facility] Division of Neurology [address] [address] Radha Lin MD [address] [facility] [address] [place] [phone] Social History Tobacco Use Types Packs/Day Years Used Date Smoking Tobacco: Never Assessed Comments Unknown Sex and Gender Information Value Date Recorded Sex Assigned at Not on file Legal Sex Female 3:52 AM ATMOSPHERIC CHEMIST Gender Identity Not on file Sexual Orientation Not on file documented as of this encounter Plan of Treatment Not on file documented as of this encounter Visit Diagnoses Not on filedocumented in this encounter Care Teams Mechanical Expert Relationship Specialty Start Date End Date Xavi Allen MD [address] [place] [address] PCP - General Internal Medicine 07/02/18 documented as of this encounter
--- OUTSIDE RECORDS SUMMARY | 2025-08-09 14:59 | XMS_ITS | Encounter Summary ---
Author Organization [facility] Address [address] [place] [address] Care Team Providers Care Hot Die Press Feeder Name Role Phone Xavi Allen MD Primary Care Provider [phone] Encounter Details Date Type Department Care Team (Late st Contact Info) Description 01/03/2003 Inpatient Historical [facility], Maximo Temple MD NO ADDRESS ON FILE Esequiel Olivares MD [address] [address] URINARY FREQUENCY (Primary Dx) Social History Tobacco Use Types Packs/Day Years Used Date Smoking Tobacco: Never Assessed Comments Unknown Sex and Gender Information Value Date Recorded Sex Assigned at Not on file Legal Sex Female 3:52 AM AIR SEALING TECHNICIAN Gender Identity Not on file Sexual Orientation Not on file documented as of this encounter Plan of Treatment Not on file documented as of this encounter Visit Diagnoses Diagnosis Urinary frequency- Primary documented in this encounter Care Teams Hot Die Press Feeder Relationship Specialty Start Date End Date Xavi Allen MD [address] [place] [address] PCP - General Internal Medicine 07/02/18 documented as of this encounter
--- OUTSIDE RECORDS SUMMARY | 2025-08-09 14:59 | XMS_ITS | Encounter Summary ---
Author Organization [facility] Address [address] [place] [address] Care Team Providers Care Psychology Intern Name Role Phone Xavi [place] MD Primary Care Provider [phone] Encounter Details Date Type Department Care Team (Late st Contact Info) Description 08/08/2003 Outpatient [facility] Division of Neurology [address], [address] [address] Maverick Boyce MD [address] [place] [id number] Social History Tobacco Use Types Packs/Day Years Used Date Smoking Tobacco: Never Assessed Comments Unknown Sex and Gender Information Value Date Recorded Sex Assigned at Not on file Legal Sex Female 3:52 AM THERMO PROCESSOR Gender Identity Not on file Sexual Orientation Not on file documented as of this encounter Plan of Treatment Not on file documented as of this encounter Visit Diagnoses Not on filedocumented in this encounter Care Teams Psychology Intern Relationship Specialty Start Date End Date Xavi [place] MD [address] [place] [address] PCP - General Internal Medicine 07/02/18 documented as of this encounter
--- OUTSIDE RECORDS SUMMARY | 2025-08-09 14:59 | XMS_ITS | Encounter Summary ---
Author Organization [facility] Address [address] [place] [address] Care Team Providers Care Heat Pump Installer Name Role Phone Xavi [place] MD Primary Care Provider [phone] Encounter Details Date Type Department Care Team (Late st Contact Info) Description 01/03/2003 Outpatient Historical [facility] Esequiel Olivares MD [address] [address] RETENTION OF URINE UNSPEC (Primary Dx) Social History Tobacco Use Types Packs/Day Years Used Date Smoking Tobacco: Never Assessed Comments Unknown Sex and Gender Information Value Date Recorded Sex Assigned at Not on file Legal Sex Female 3:52 AM KILN HAND Gender Identity Not on file Sexual Orientation Not on file documented as of this encounter Plan of Treatment Not on file documented as of this encounter Visit Diagnoses Diagnosis Retention of urine, unspecified- Primary documented in this encounter Care Teams Heat Pump Installer Relationship Specialty Start Date End Date Xavi [place] MD [address] [place] [address] PCP - General Internal Medicine 07/02/18 documented as of this encounter
--- OUTSIDE RECORDS SUMMARY | 2025-08-09 14:59 | XMS_ITS | Encounter Summary ---
Author Organization [facility] Address [address] [place] [address] Care Team Providers Care Project Manager Retail Name Role Phone Xavi [place] MD Primary Care Provider [phone] Encounter Details Date Type Department Care Team (Late st Contact Info) Description 12/27/2003 Outpatient Historical [facility] Social History Tobacco Use Types Packs/Day Years Used Date Smoking Tobacco: Never Assessed Comments Unknown Sex and Gender Information Value Date Recorded Sex Assigned at Not on file Legal Sex Female 3:52 AM DEVIL DOG Gender Identity Not on file Sexual Orientation Not on file documented as of this encounter Plan of Treatment Not on file documented as of this encounter Visit Diagnoses Not on filedocumented in this encounter Care Teams Project Manager Retail Relationship Specialty Start Date End Date Xavi [place] MD [address] [place] [address] PCP - General Internal Medicine 07/02/18 documented as of this encounter
--- OUTSIDE RECORDS SUMMARY | 2025-08-09 14:59 | XMS_ITS | Encounter Summary ---
Author Organization [facility] Address [address] [place] [address] Care Team Providers Care Health Assistant Name Role Phone Xavi [place] MD Primary Care Provider [phone] Encounter Details Date Type Department Care Team (Late st Contact Info) Description 09/06/2002 Outpatient [facility] Division of Neurology [address], [address] [address] Radha Lin MD [address] [facility] [address] [place] [phone] Social History Tobacco Use Types Packs/Day Years Used Date Smoking Tobacco: Never Assessed Comments Unknown Sex and Gender Information Value Date Recorded Sex Assigned at Not on file Legal Sex Female 3:52 AM DRAWING TRACER Gender Identity Not on file Sexual Orientation Not on file documented as of this encounter Plan of Treatment Not on file documented as of this encounter Visit Diagnoses Not on filedocumented in this encounter Care Teams Health Assistant Relationship Specialty Start Date End Date Xavi [place] MD [address] [place] [address] PCP - General Internal Medicine 07/02/18 documented as of this encounter
--- OUTSIDE RECORDS SUMMARY | 2025-08-09 14:59 | XMS_ITS | Encounter Summary ---
Author Organization [facility] Address [address] [place] [address] Care Team Providers Care Warp Knit Operator Name Role Phone Xavi [place] MD Primary Care Provider [phone] Encounter Details Date Type Department Care Team (Late st Contact Info) Description 03/22/2002 Outpatient [facility] Division of Neurology [address], [address] [address] Radha Lin MD [address] [facility] [address] [place] [phone] Social History Tobacco Use Types Packs/Day Years Used Date Smoking Tobacco: Never Assessed Comments Unknown Sex and Gender Information Value Date Recorded Sex Assigned at Not on file Legal Sex Female 3:52 AM HEATSET WINDER OPERATOR Gender Identity Not on file Sexual Orientation Not on file documented as of this encounter Plan of Treatment Not on file documented as of this encounter Visit Diagnoses Not on filedocumented in this encounter Care Teams Warp Knit Operator Relationship Specialty Start Date End Date Xavi [place] MD [address] [place] [address] PCP - General Internal Medicine 07/02/18 documented as of this encounter
--- OUTSIDE RECORDS SUMMARY | 2025-08-09 14:59 | XMS_ITS | Encounter Summary ---
Author Organization [facility] Address [address] [place] [address] Care Team Providers Care Avionics Repair Technician Name Role Phone Xavi [place] MD Primary Care Provider [phone] Encounter Details Date Type Department Care Team (Late st Contact Info) Description 03/20/2003 Outpatient Historical [facility] Social History Tobacco Use Types Packs/Day Years Used Date Smoking Tobacco: Never Assessed Comments Unknown Sex and Gender Information Value Date Recorded Sex Assigned at Not on file Legal Sex Female 3:52 AM OUTREACH SPECIALIST Gender Identity Not on file Sexual Orientation Not on file documented as of this encounter Plan of Treatment Not on file documented as of this encounter Visit Diagnoses Not on filedocumented in this encounter Care Teams Avionics Repair Technician Relationship Specialty Start Date End Date Xavi [place] MD [address] [place] [address] PCP - General Internal Medicine 07/02/18 documented as of this encounter
--- OUTSIDE RECORDS SUMMARY | 2025-08-09 15:00 | XMS_ITS | Encounter Summary ---
Author Organization [facility] Address [address] [place] [address] Care Team Providers Care Polysilicon Preparation Worker Name Role Phone Xavi [place] MD Primary Care Provider [phone] Encounter Details Date Type Department Care Team (Late st Contact Info) Description 02/17/2005 Outpatient [facility] Division of Neurology [address] [address] Radha Lin MD [address] [facility] [address] [place] [phone] Social History Tobacco Use Types Packs/Day Years Used Date Smoking Tobacco: Never Assessed Comments Unknown Sex and Gender Information Value Date Recorded Sex Assigned at Not on file Legal Sex Female 3:52 AM GROUND CREW SUPERVISOR Gender Identity Not on file Sexual Orientation Not on file documented as of this encounter Plan of Treatment Not on file documented as of this encounter Visit Diagnoses Not on filedocumented in this encounter Care Teams Polysilicon Preparation Worker Relationship Specialty Start Date End Date Xavi [place] MD [address] [place] [address] PCP - General Internal Medicine 07/02/18 documented as of this encounter
--- OUTSIDE RECORDS SUMMARY | 2025-08-09 15:00 | XMS_ITS | Encounter Summary ---
Author Organization [facility] Address [address] [place] [address] Care Team Providers Care Township Supervisor Name Role Phone Xavi [place] MD Primary Care Provider [phone] Encounter Details Date Type Department Care Team (Late st Contact Info) Description 02/11/2005 Outpatient Historical [facility] Social History Tobacco Use Types Packs/Day Years Used Date Smoking Tobacco: Never Assessed Comments Unknown Sex and Gender Information Value Date Recorded Sex Assigned at Not on file Legal Sex Female 3:52 AM WELL TREATMENT OFFSIDER Gender Identity Not on file Sexual Orientation Not on file documented as of this encounter Plan of Treatment Not on file documented as of this encounter Visit Diagnoses Not on filedocumented in this encounter Care Teams Township Supervisor Relationship Specialty Start Date End Date Xavi [place] MD [address] [place] [address] PCP - General Internal Medicine 07/02/18 documented as of this encounter
--- OUTSIDE RECORDS SUMMARY | 2025-08-09 15:00 | XMS_ITS | Encounter Summary ---
Author Organization [facility] Address [address] [place] [address] Care Team Providers Care Thermal Technician Name Role Phone Xavi [place] MD Primary Care Provider Encounter Details Date Type Department Care Team (Late st Contact Info) Description 10/09/2004 Outpatient Historical [facility] Social History Tobacco Use Types Packs/Day Years Used Date Smoking Tobacco: Never Assessed Comments Unknown Sex and Gender Information Value Date Recorded Sex Assigned at Not on file Legal Sex Female 3:52 AM TRAIN GATE ATTENDANT Gender Identity Not on file Sexual Orientation Not on file documented as of this encounter Plan of Treatment Not on file documented as of this encounter Visit Diagnoses Not on filedocumented in this encounter Care Teams Thermal Technician Relationship Specialty Start Date End Date Xavi [place] MD [address] [place] [address] PCP - General Internal Medicine 07/02/18 documented as of this encounter
--- OUTSIDE RECORDS SUMMARY | 2025-08-09 15:00 | XMS_ITS | Encounter Summary ---
Author Organization [facility] Address [address] [place] [address] Care Team Providers Care Genetic Physician Name Role Phone Xavi [place] MD Primary Care Provider [phone] Encounter Details Date Type Department Care Team (Late st Contact Info) Description 07/09/2004 Outpatient Historical Division of Neurology [address] [address] Av Alvarado MD [address] [place] [phone] Social History Tobacco Use Types Packs/Day Years Used Date Smoking Tobacco: Never Assessed Comments Unknown Sex and Gender Information Value Date Recorded Sex Assigned at Not on file Legal Sex Female 3:52 AM SCRAP YARD WORKER Gender Identity Not on file Sexual Orientation Not on file documented as of this encounter Plan of Treatment Not on file documented as of this encounter Visit Diagnoses Not on filedocumented in this encounter Care Teams Genetic Physician Relationship Specialty Start Date End Date Xavi [place] MD [address] [place] [address] PCP - General Internal Medicine 07/02/18 documented as of this encounter
--- OUTSIDE RECORDS SUMMARY | 2025-08-09 15:00 | XMS_ITS | Encounter Summary ---
Author Organization [facility] Address 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
--- OUTSIDE RECORDS SUMMARY | 2025-08-09 15:00 | XMS_ITS | Encounter Summary ---
Author Organization [facility] Address 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
--- OUTSIDE RECORDS SUMMARY | 2025-08-09 15:00 | XMS_ITS | Encounter Summary ---
Author Organization [facility] Address [address] [place] [address] Care Team Providers Care User Support Analyst Name Role Phone Xavi [place] MD Primary Care Provider Encounter Details Date Type Department Care Team (Late st Contact Info) Description 12/03/2004 Outpatient [facility] Division of Neurology [address] [address] Maverick Boyce MD [address] [place] [phone] Social History Tobacco Use Types Packs/Day Years Used Date Smoking Tobacco: Never Assessed Comments Unknown Sex and Gender Information Value Date Recorded Sex Assigned at Not on file Legal Sex Female 3:52 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
--- OUTSIDE RECORDS SUMMARY | 2025-08-09 15:00 | XMS_ITS | Encounter Summary ---
Author Organization [facility] Address [address] [place] [address] Care Team Providers Care Web Operations Lead Name Role Phone Xavi [place] MD Primary Care Provider [phone] Encounter Details Date Type Department Care Team (Late st Contact Info) Description 12/03/2004 Outpatient Historical [facility] Radha Lin MD [address] [facility] [address] [place] [address] Social History Tobacco Use Types Packs/Day Years Used Date Smoking Tobacco: Never Assessed Comments Unknown Sex and Gender Information Value Date Recorded Sex Assigned at Not on file Legal Sex Female 3:52 AM PRENATAL GENETIC COUNSELOR Gender Identity Not on file Sexual Orientation Not on file documented as of this encounter Plan of Treatment Not on file documented as of this encounter Visit Diagnoses Not on filedocumented in this encounter Care Teams Web Operations Lead Relationship Specialty Start Date End Date Xavi [place] MD [address] [place] [address] PCP - General Internal Medicine 07/02/18 documented as of this encounter
--- OUTSIDE RECORDS SUMMARY | 2025-08-09 15:00 | XMS_ITS | Encounter Summary ---
Author Organization [facility] Address [address] [place] [address] Care Team Providers Care Service Station Equipment Mechanic Name Role Phone Xavi [place] MD Primary Care Provider [phone] Encounter Details Date Type Department Care Team (Late st Contact Info) Description 11/05/2004 Outpatient Historical [facility] Radha Lin MD [address] [facility] [address] [place] [phone] Social History Tobacco Use Types Packs/Day Years Used Date Smoking Tobacco: Never Assessed Comments Unknown Sex and Gender Information Value Date Recorded Sex Assigned at Not on file Legal Sex Female 3:52 AM HEEL PRICKER Gender Identity Not on file Sexual Orientation Not on file documented as of this encounter Plan of Treatment Not on file documented as of this encounter Visit Diagnoses Not on filedocumented in this encounter Care Teams Service Station Equipment Mechanic Relationship Specialty Start Date End Date Xavi [place] MD [address] [place] [address] PCP - General Internal Medicine 07/02/18 documented as of this encounter
--- OUTSIDE RECORDS SUMMARY | 2025-08-09 15:00 | XMS_ITS | Encounter Summary ---
Author Organization [facility] Address 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
--- OUTSIDE RECORDS SUMMARY | 2025-08-09 15:00 | XMS_ITS | Encounter Summary ---
Author Organization [facility] Address [address] [place] [address] Care Team Providers Care Online Advertising Manager Name Role Phone Xavi [place] MD Primary Care Provider Encounter Details Date Type Department Care Team (Late st Contact Info) Description 10/05/2003 Outpatient Historical [facility] Social History Tobacco Use Types Packs/Day Years Used Date Smoking Tobacco: Never Assessed Comments Unknown Sex and Gender Information Value Date Recorded Sex Assigned at Not on file Legal Sex Female 3:52 AM [place] BI CONSULTANT Gender Identity Not on file Sexual Orientation Not on file documented as of this encounter Plan of Treatment Not on file documented as of this encounter Visit Diagnoses Not on filedocumented in this encounter Care Teams Online Advertising Manager Relationship Specialty Start Date End Date Xavi [place] MD [address] [place] [address] PCP - General Internal Medicine 07/02/18 documented as of this encounter
--- OUTSIDE RECORDS SUMMARY | 2025-08-09 15:00 | XMS_ITS | Clinical Summary ---
Author Organization [facility] Address [address] [place] [address] Care Team Providers Care Metal Moulder Name Role Phone Xavi Allen MD Primary Care Provider [phone] Allergies Active Allergy Reactions Criticality Noted Date [...] pantoprazole DR (PROTONIX) 40 mg EC tablet 05/24/20 18 Active levothyroxine (SYNTHROID, LEVOTHROID) 75 mcg tablet Take 1 tablet (75 mcg total) by mouth daily 2 06/16/20 18 Active levalbuterol (XOPENEX HFA) 45 mcg/actuation inhaler Inhale 1-2 puffs 2 (two) times a day Active armodafiniL (NUVIGIL) 250 mg tabletIndicati ons:Multiple sclerosis (HCC) TAKE ONE TABLET BY MOUTH ONCE DAILY 30 tablet 1 01/26/20 25 Active baclofen (LIORESAL) 20 mg tabletIndicati ons:Multiple sclerosis (HCC) Take 1 tablet (20 mg total) by mouth 2 (two) times a day 60 tablet 3 05/01/20 25 Active gabapentin (NEURONTIN) 100 mg capsuleIndicat ions:Multiple sclerosis (HCC) TAKE 1 CAPSULE BY MOUTH TWO TIMES A DAY 60 capsule 5 05/19/20 25 Active dalfampridine 10 mg tablet extended release 12 hrIndications: Multiple sclerosis (HCC) Take 1 tablet (10 mg total) by mouth every 12 (twelve) hours 180 tablet 05/31/20 25 Active citalopram (CeleXA) 40 mg tablet TAKE ONE TABLET BY MOUTH DAILY 90 tablet 06/19/20 25 Active carBAMazepine XR (TEGretol XR) 100 mg 12 hr tablet TAKE 1 TABLET (100 MG TOTAL) BY MOUTH 2 (TWO) TIMES A DAY 180 tablet 07/18/20 25 Active azelastine (ASTELIN) 137 mcg (0.1 %) nasal spray every 12 hours 04/25/20 25 Active oxyBUTYnin (DITROPAN) 5 mg tablet Take 1 tablet (5 mg total) by mouth 2 (two) times a day 07/13/20 25 Active Flonase Allergy Relief 50 mcg/actuation nasal spray every 12 hours 04/25/20 25 Active levothyroxine (SYNTHROID) 125 mcg tablet 06/26/20 25 Active Kesimpta Pen 20 mg/0.4 mL pen injectorIndica tions:relapsin g form of multiple sclerosis Inject 20 mg under the skin every 30 (thirty) days 0.4 mL 5 07/24/20 Active carBAMazepine XR (TEGretol XR) 100 mg 12 hr tablet Take 1 tablet (100 mg total) by mouth 2 (two) times a day 180 tablet 03/22/20 025 Discontinued Kesimpta Pen 20 mg/0.4 mL pen injectorIndica tions:relapsin g form of multiple sclerosis Inject 20 mg under the skin every 30 (thirty) days 0.4 mL 5 05/30/20 25 025 Discontinued(Re order) Active Problems Problem Noted Date Diagnosed Date History of recurrent psychosocial stressors 01/01 Falls infrequently 01/28/2020 Anxiety and depression 11/27/2019 History of cervical fracture 06/23/2018 Neurogenic dysfunction of the urinary bladder Neurogenic bowel 06/23/2018 Dysphagia 06/23/2018 Multiple sclerosis ([facility]) 01/25/2018 Overview (01/23/2025): MS medication history: RRMS/SPMS Symptom onset: 1988 Diagnosis: 1989 1. Imuran: States for only 3 days, (systemic rash): Approx 1996 2. Avonex 01/1998-06/2009 3. Copaxone 06/2009-04/2011 4. Tysabri 05/29/2011-04/30/2020. 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 Vumerity: 07/2020-02/2021 Breakthrough disease, clinical and MRI 6. Kesimpta: 04/27/2021- . Assessment & Plan (07/24/2025 2:14 PM CDT): The patient is presenting for multiple sclerosis. She reports that she has been largely stable from a neurological perspective reports some ongoing symptoms related to a recently discovered right ovarian cyst. She reports that as a consequence of the cyst she has prominent ongoing right-sided abdominal pain that worsens with activity. Consequently, she has not been as active and believes this is decreasing her functionality overall. She reports no significant new weakness or numbness beyond this. She continues to take Kesimpta in his tolerating it well without notable side effects. She continues to have worsening of her cognitive dysfunction and repeat neuropsychological testing in January, demonstrated some worsening compared to her 2019 neuropsychological evaluation. We discussed ongoing management of her multiple sclerosis. Given her clinical stability and MRI from August, showing stability of her brain lesions I suspect her multiple sclerosis is stable at this time. I recommended continuing Kesimpta as well as continuing carbamazepine, baclofen, Ditropan, and dalfampridine for symptomatic treatment. The patient will hopefully get relief of her right abdominal pain with upcoming treatment of her right ovarian cyst. I will see the patient back in follow up instructed her to reach out if any questions arise before next visit. Assessment & Plan (05/17/2020 4:55 PM CDT): Fortunately Butch's symptoms of sensory changes in her right foot and leg are improving. She reports mild increase her her short term memory loss and fatigue that is different than her baseline. Her exam appears mostly unchanged. She does not tolerate prednisone. MRI today reviewed with Dr Lin and radiologist Dr. Shannon. intermediate frame tender due to her change in JCV status [...] Encounters Date Type Department Care Team Description 07/24/2025 1:00 PM CDT Office Visit [facility] [address] [place] [address] Osbaldo Link MD Multiple sclerosis (CMS/HCC) (HCC) (Primary Dx) 07/24/2025 Telephone [facility] [address] [place] [address] [address], [place] [address] Osbaldo Link MD Med Refill from Last 3 Months Immunizations Immunization Administration [...] on file Legal Sex Female 2:51 PM BLOOD BANK ORDER CONTROL CLERK Gender Identity Female 07/23/2020 1:37 PM CDT Sexual Orientation Straight 05/01/2020 3: 10 PM CDT Obstetrics History Last Filed Vital Signs Vital Sign Reading Time Taken Comments Blood Pressure 120/80 07/24/2025 1:20 PM CDT Pulse 67 07/24/2025 1:20 PM CDT Temperature 36.5 C (97.7 F) 07/24/2025 1:20 PM CDT Respiratory Rate 18 07/08/2022 4:30 PM CDT Oxygen Saturation 98% 07/24/2025 1:20 PM CDT Inhaled Oxygen Concentration - - Weight 72.6 kg (160 lb) 07/24/2025 1:20 PM CDT Height 144.8 cm (4' 9) 07/24/2025 1:20 PM CDT Body Mass Index 34.62 07/24/2025 1:20 PM CDT Plan of Treatment Health Maintenance Due Date Last Done Comments Breast Cancer Screening-Mammogram 1966 Colon Cancer Screening-Colonoscopy 1966 Depression Screening 1966 Hepatitis B Screening 1984 Regular Well Visit/Exam 18-64 1984 Pneumococcal vaccine <65 (2 of 2 - PPSV23, PCV20, or PCV21) 10/25/2015 08/30/2015 Cervical Cancer Screening 06/01/2025 06/01/2024 Covid-19 Vaccine (4 - 2024-2 6 season) 2025 10/12/2021, 02/21/2021, 02/01/2021 Influenza Vaccine (#1) 2025 , 10/12/2020, 09/16/2019, Additional history exists DTaP/Tdap/Td Vaccine (3 - Td or Tdap) 01/09/2034 01/09/2024, 10/20/2018 Hepatitis C Screening Completed 03/18/2021 Zoster Vaccine [...] Comment: For additional information, please refer to http://education.Twice.Lamsa/faq/YPZ175 (This link is being provided for informational/ [...] a test for HCV RNA (test code 98912) is suggested. For additional information please refer to http://education.LilaKutu/faq/LCV74n3 (This link is being provided for informational/ educational purposes only.) Blood specimen (specimen) 03/18/2021 3:02 PM CDT 03/18/2021 3:04 PM CDT Narrative [facility] - 03/19/2021 11:26 AM CDT AN UPDATE OR CORRECTION HAS BEEN MADE TO NAME us Radha Lin MD LAB MICROBIOLOGY - GENERAL O RDERABLES Final Result Performing Organization Address City/State/[facility] Co de Phone Number [facility] [address] [facility] [place] [address] from Last 3 Months or Most Recently Relevant to Health Maintenance Insurance ID[place] [facility] HMO/PPO Address: [address] [address] [place] [address] IDPA [employer] [place] [facility] HMO/PPO Address: [facility] [address] [place] [address] [employer] [place] [facility] HMO/PPO Address: [id number] [place] [address] IDPA Care Teams Metal Moulder Relationship Specialty Start Date End Date Xavi Allen MD PCP - General Internal Medicine 01/20/18
--- OUTSIDE RECORDS SUMMARY | 2025-08-09 15:00 | XMS_ITS | Encounter Summary ---
Author Organization [facility] Address [address] [place] [address] Care Team Providers Care Manager Of Business Name Role Phone Xavi Allen MD Primary Care Provider [phone] Encounter Details Date Type Department Care Team (Late st Contact Info) Description 10/31/2003 Outpatient [facility] Division of Neurology [address] [address] Radha Lin MD [address] [facility] [address] [place] [phone] Social History Tobacco Use Types Packs/Day Years Used Date Smoking Tobacco: Never Assessed Comments Unknown Sex and Gender Information Value Date Recorded Sex Assigned at Not on file Legal Sex Female 3:52 AM BANKING SERVICES OFFICER Gender Identity Not on file Sexual Orientation Not on file documented as of this encounter Plan of Treatment Not on file documented as of this encounter Visit Diagnoses Not on filedocumented in this encounter Care Teams Manager Of Business Relationship Specialty Start Date End Date Xavi Allen MD [address] [place] [address] PCP - General Internal Medicine 07/02/18 documented as of this encounter
--- OUTSIDE RECORDS SUMMARY | 2025-08-09 15:00 | XMS_ITS | Encounter Summary ---
Author Organization [facility] Address [address] [place] [address] Care Team Providers Care Aerodynamicist Name Role Phone Xavi Allen MD Primary Care Provider [phone] Encounter Details Date Type Department Care Team (Late st Contact Info) Description 04/16/2004 Outpatient [facility] Division of Neurology [address] [address] Maverick Boyce MD [address] [place] [phone] Social History Tobacco Use Types Packs/Day Years Used Date Smoking Tobacco: Never Assessed Comments Unknown Sex and Gender Information Value Date Recorded Sex Assigned at Not on file Legal Sex Female 3:52 AM RECORDING STUDIO SET UP WORKER Gender Identity Not on file Sexual Orientation Not on file documented as of this encounter Plan of Treatment Not on file documented as of this encounter Visit Diagnoses Not on filedocumented in this encounter Care Teams Aerodynamicist Relationship Specialty Start Date End Date Xavi Allen MD [address] [place] [address] PCP - General Internal Medicine 07/02/18 documented as of this encounter
--- OUTSIDE RECORDS SUMMARY | 2025-08-09 15:00 | XMS_ITS | Encounter Summary ---
Author Organization [facility] Address [address] [place] [address] Care Team Providers Care Valve Steamer Name Role Phone Xavi Allen MD Primary Care Provider [phone] Encounter Details Date Type Department Care Team (Late st Contact Info) Description 12/27/2004 Outpatient Historical [facility] Radha Lin MD [address] [facility] [address] [place] [phone] Social History Tobacco Use Types Packs/Day Years Used Date Smoking Tobacco: Never Assessed Comments Unknown Sex and Gender Information Value Date Recorded Sex Assigned at Not on file Legal Sex Female 3:52 AM DOULA Gender Identity Not on file Sexual Orientation Not on file documented as of this encounter Plan of Treatment Not on file documented as of this encounter Visit Diagnoses Not on filedocumented in this encounter Care Teams Valve Steamer Relationship Specialty Start Date End Date Xavi Allen MD [address] [place] [address] PCP - General Internal Medicine 07/02/18 documented as of this encounter
--- OUTSIDE RECORDS SUMMARY | 2025-08-09 15:00 | XMS_ITS | Encounter Summary ---
Author Organization [facility] Address [address] [place] [address] Care Team Providers Care Internet Database Specialist Name Role Phone Xavi Allen MD Primary Care Provider [phone] Encounter Details Date Type Department Care Team (Late st Contact Info) Description 07/09/2004 Outpatient Historical Division of Neurology [address] [address] (Excluded Provider) [place] [address] [facility] [address] [place] [address] Social History Tobacco Use Types Packs/Day Years Used Date Smoking Tobacco: Never Assessed Comments Unknown Sex and Gender Information Value Date Recorded Sex Assigned at Not on file Legal Sex Female 3:52 AM KIOSK SALES REPRESENTATIVE Gender Identity Not on file Sexual Orientation Not on file documented as of this encounter Plan of Treatment Not on file documented as of this encounter Visit Diagnoses Not on filedocumented in this encounter Care Teams Internet Database Specialist Relationship Specialty Start Date End Date Xavi Allen MD [address] [place] [address] PCP - General Internal Medicine 07/02/18 documented as of this encounter
--- OUTSIDE RECORDS SUMMARY | 2025-08-09 15:00 | XMS_ITS | Encounter Summary ---
Author Organization [facility] Address [address] [place] [address] Care Team Providers Care Environmental Scientists Name Role Phone Xavi Allen MD Primary Care Provider Encounter Details Date Type Department Care Team (Late st Contact Info) Description 07/09/2004 Outpatient Historical [facility] Social History Tobacco Use Types Packs/Day Years Used Date Smoking Tobacco: Never Assessed Comments Unknown Sex and Gender Information Value Date Recorded Sex Assigned at Not on file Legal Sex Female 3:52 AM DIGITAL PRODUCT SPECIALIST Gender Identity Not on file Sexual Orientation Not on file documented as of this encounter Plan of Treatment Not on file documented as of this encounter Visit Diagnoses Not on filedocumented in this encounter Care Teams Environmental Scientists Relationship Specialty Start Date End Date Xavi Allen MD [address] [place] [address] PCP - General Internal Medicine 07/02/18 documented as of this encounter
--- OUTSIDE RECORDS SUMMARY | 2025-08-09 15:00 | XMS_ITS | Encounter Summary ---
Author Organization [facility] Address [address] [place] [address] Care Team Providers Care Felt Finishing Supervisor Name Role Phone Xavi Allen MD Primary Care Provider [phone] Encounter Details Date Type Department Care Team (Late st Contact Info) Description 09/05/2004 Outpatient Historical [facility] Social History Tobacco Use Types Packs/Day Years Used Date Smoking Tobacco: Never Assessed Comments Unknown Sex and Gender Information Value Date Recorded Sex Assigned at Not on file Legal Sex Female 3:52 AM RN TELEHEALTH Gender Identity Not on file Sexual Orientation Not on file documented as of this encounter Plan of Treatment Not on file documented as of this encounter Visit Diagnoses Not on filedocumented in this encounter Care Teams Felt Finishing Supervisor Relationship Specialty Start Date End Date Xavi Allen MD [address] [place] [address] PCP - General Internal Medicine 07/02/18 documented as of this encounter
--- OUTSIDE RECORDS SUMMARY | 2025-08-09 15:00 | XMS_ITS | Clinical Summary ---
Author Organization [facility] Address [address] [place] [address] Care Team Providers Care Ad Terminal Makeup Operator Name Role Phone Xavi Allen MD Primary Care Provider [phone] Allergies Active Allergy Reactions Criticality Noted Date [...] Encounters Date Type Department Care Team Description 08/09/2025 Travel 07/06/2025 12:35 PM CDT - 07/06/2025 11:59 PM CDT [place] [address] Cynthia Lopez MD Discharge Disposition: Home or Self Care (Routine Discharge) 07/06/[address] [place] [address] Cynthia Lopez MD 07/06/2025 Travel 07/05/2025 Orders Only [facility] [address] [place] [address] Cynthia Lopez MD 06/07/2025 4:58 PM CDT - 06/07/2025 11:59 PM CDT Hospital Encounter [facility] [address] [place] [address] Cynthia Lopez MD Discharge Disposition: Home or Self [...] PM CDT Legal Sex Female 11:04 PM GLASSIE Gender Identity Not on file Sexual Orientation [...] - - Weight 72.6 kg (160 lb) 08/09/2025 1:35 PM CDT Height 144.8 cm (4' 9) 08/09/2025 1:35 PM CDT Body Mass Index 34.62 08/09/2025 1:35 PM CDT Plan of Treatment Upcoming Encounters Date Type Department Care Team (Latest Contact Info) Description 08/17/2025 1:52 PM CDT Hospital Encounter [facility] [address] [place] [address] Maury Gutierrez MD [address] [place] [address] [address] [place] [address] 08/17/2025 1:52 PM CDT - 08/17/2025 7:14 PM CDT Surgery [facility] [address] [place] [address] Maury Gutierrez MD [address] [place] [address] [address] [place] [address] ROBOTIC ASSISTED LAPAROSCOPIC BILATERAL SALPINGO-OOPHORECTOM Y, POSSIBLE TOTAL LAPAROSCOPIC HYSTERECTOMY, POSSIBLE OMENTECTOMY, POSSIBLE BILATERAL PELVIC AND PARA AORTIC LYMPH NODE DISSECTION, POSSIBLE STAGING FOR OVARIAN CANCER, POSSIBLE CYSTOSCOPY, POSSIBLE OPEN PROCEDURE Scheduled Procedures Name Priority Associated Diagnoses Date/Ti me ROBOTIC ASSISTED HYSTERECTOMY PELVIC MASS 08/17/2025 1:52 PM CDT Health Maintenance Due Date Last Done Comments Colorectal Cancer Screening Colonoscopy (10 Years) 1966 Annual Physical 1969 Hepatitis C 1984 Hepatitis B Vaccines (1 of 3 - 19+ 3-dose series) 1985 Mammogram Screening 2006 Pneumococcal Vaccine: 50+ Years (1 of 1 - PCV) 2016 COVID-19 Vaccine (3 - 2024-2 6 season) 2025 02/21/2021, 02/01/2021 Cervical Cancer Screening Pa p [...] on patient's age to complete this topic Goals Goal Patient Goal Type Associated Problems Recent Progress Patient-Stated? 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 Procedure Name Priority Date/Time Associated Diagnosis Comments IMMUNOASSAY, TUMOR ANTIGEN, CA 125 Routine 07/06/2025 12:50 PM CDT Other ovarian cyst, unspecified side HE4 OVARIAN CANCER MARKER Routine 07/06/2025 12:50 PM CDT Other ovarian cyst, unspecified side VAGINITIS SCREEN (VDS) Routine 06/07/2025 5:00 PM CDT HUMAN PAPILLOMAVIRUS, HIGH-RISK TYPES Routine 06/01/2024 12:00 PM CDT CYTOPATH CERV/VAG THIN LAYER Routine 06/01/2024 12:00 AM CDT from Last 3 Months or Most Recently Relevant to Health Maintenance Results * HE4 OVARIAN CANCER MARKER (07/06/2025 12:50 PM CDT) HE4 OVARIAN CA MONITORING 66 pmol/L 07/15/2025 4:11 PM CDT [facility] Comment: Female Reference Ranges for HE4, Ovarian Cancer Monitoring: Female Premenopausal < OR = 70 pmol/L Female Postmenopausal < OR = 140 pmol/L Test performed by [facility] [id number] [place] [address] Hr Assistant: Cindi Villalba MD,PHD,ORTIZ Test Reported by George Templeton, [facility], [address] [place] [address] Samson Pacheco M.D., Ph.D., Director of Laboratories , [place] [id number] 07/06/2025 12:5 0 PM CDT Cynthia Lopez MD LABORATORY Final Res ult [facility] [address] [place] [address], [place] [phone] * IMMUNOASSAY, TUMOR ANTIGEN, CA 125 (07/06/2025 12:50 PM CDT) CA 125 10.4 0.0 - 35.0 U/mL 07/06/2025 6:28 PM CDT [facility] Comment: ASSAY PERFORMED BY CHEMILUMINESCENCE METHODOLOGY USING [employer] [facility]. PATIENT RESULTS DETERMINED BY ASSAYS USING DIFFERENT MANUFACTURERS FOR METHODS MAY NOT BE COMPARABLE. 07/06/2025 12:5 0 PM CDT Cynthia Lopez MD LABORATORY Final Res ult Performing Organization Address [facility] de Phone Number [facility] [address] [place] [address], [place] [phone] * VAGINITIS SCREEN (DYLAN, TRICH, & G. VAG) (06/07/2025 5:00 PM CDT) Pathologist [facility] SPECIMEN SOURCE VAGINAL SPECIMEN 06/07/2025 4:59 PM CDT [facility] TRICHOMONAS NEGATIVE NEGATIVE 06/07/2025 6:21 PM CDT [facility] Comment:NOT DETECTED BY DNA PROBE GARDNERELLA VAGINALIS NEGATIVE NEGATIVE 06/07/2025 6:21 PM CDT [facility] Comment:NOT DETECTED BY DNA PROBE DYLAN SPECIES NEGATIVE NEGATIVE 6:21 PM CDT [facility] Comment:NOT DETECTED BY DNA PROBE VAGINAL STRUCTURE / Unknown 06/07/2025 5:00 PM CDT us Cynthia Lopez MD MICROBIOLOGY - GENERAL OR DERABLES Final Result Performing Organization Address City/[facility]/ZIP Co de Phone Number [facility] [address] [place] [address], [phone] * HUMAN PAPILLOMAVIRUS, HIGH-RISK TYPES (06/01/2024 12:00 PM CDT) SPECIMEN CERVIX 06/06/2024 8:38 AM CDT [facility] HPV DNA HIGH RISK NEGATIVE NEGATIVE 06/07/2024 12:25 AM CDT [facility] Comment:SEE CYTOLOGY REPORT 06/01/2024 12:0 0 PM CDT us Cynthia Lopez MD PATHOLOGY/CYTOLOGY ORDERA BLES Final Result [facility] [address] [place] [address], * Cytopath Cerv/Vag Thin Layer (06/01/2024 12:00 AM CDT) THIN PREP PAP [facility] [address] [place] [address] Department of Pathology Pathology Report CERVICAL/VAGINAL PAP SMEAR REPORT Name: BUTCH BARRIENTOS Age: 8 1965 (Age: 58) Location: [facility] Sex: F Collected Date: 06/01/2024 Hospital #: [id number] Date Received: 06/06/2024 Date Reported: 06/10/2024 Provider: CYNTHIA ALLEN MD INTERPRETATION CERVICAL/ENDOCERVI MEHDI: SATISFACTORY FOR EVALUATION-PARTIAL [...] 67, and 69. Electronically Signed Out By GIULIANA Blood (ASCP) CLINICAL HISTORY Z12.4 SCREENING CERVICAL CANCER [...] is not effective in detecting cervical adenocarcinoma. [facility] 06/01/2024 06/06/2024 8:0 7 AM CDT Comment:CERVICAL/ENDOCERVICA L us Cynthia Lopez MD PATHOLOGY/CYTOLOGY ORDERA BLES Final Result [facility] [address] [place] [address], from Last 3 Months or Most Recently Relevant to Health Maintenance Additional Health Concerns Active Problems Noted Date Diagnosed Date Autogenerated Problem 08/03/2025 Insurance MEDICAID Member Subscriber Plan / Payer (Ef fective 2018-Present) Name:Butch Barrientos Relation to Subscriber:Self Name:Butch Barrientos Payer ID:Not on file Group ID:Not on file Type:Not on file Address: [address] [place] [address] Care Teams Ad Terminal Makeup Operator Relationship Specialty Start Date End Date Xavi Allen MD [address] [place] [address] PCP - General INTERNAL MEDICINE 05/10/19
--- OUTSIDE RECORDS SUMMARY | 2025-08-09 15:00 | XMS_ITS | Encounter Summary ---
Author Organization [facility] Address 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
--- OUTSIDE RECORDS SUMMARY | 2025-08-09 15:00 | XMS_ITS | Encounter Summary ---
Author Organization [facility] Address 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
== END 2025-08-09 14:25 | disposition home or self-care (01) ==
PROVIDERS: PCP Internal Medicine; Visit Provider Internal Medicine
DX: Z01.818 Encounter for other preprocedural examination (principal); R05.9 Cough, unspecified
CPT/HCPCS: 71046

== ENCOUNTER 2025-08-24 13:11 | Emergency (ER) | payer OTHER, MEDICAID, SELFPAY ==
--- OUTSIDE RECORDS SUMMARY | 2025-02-22 07:15 | XMS_ITS | Continuity of Care Document ---
Author Organization [facility] Address [address] [place] [address] Phone Care Team Providers Care Customer Service Technician Name Role Phone Rocael SANCHEZ, Mina Unavailable Unavaila ble Allergies, Adverse Reactions, Alerts Substance Reaction Status Criticality OXYCODONE HCL Active No Information azathioprine Active No Information AZATHIOPRINE SODIUM Active No Infor mation ibuprofen Active No Information HYDROCODONE BITARTRATE Active No In formation Sulfa (Sulfonamide Antibiotics) Active No Information Medications Medication Instructions Dosage Effective Dates (start - stop) Status Comments baclofen 10 mg Tab take 1 tablet (10MG) by oral route 4 times every day 10 MG - Active Neurontin 100 mg Cap take 3 capsule (300MG) by oral route 3 times every day 300 MG - Active Calcio Raul 500 mg Tab - Active Celexa 10 mg Tab take 1 tablet (10MG) by oral route every day 10 MG - Active Vitamin D 1,000 unit Cap - Active Ampyra 10 mg tablet,extended release take 1 tablet by oral route 2 times every day 10 MG - Active carbamazepine ER 100 mg capsule,extended release [id number] take 1 capsule by oral route every 12 hours 100 MG - Active Zyrtec 10 mg capsule - Active ipratropium bromide 0.02 % solution for inhalation inhale 2.5 milliliter by inhalation route every 6 hours via nebulizer 500 MCG - Active levothyroxine 13 mcg capsule take 1 capsule by oral route every day 13 MCG - Active levalbuterol 0.63 mg/3 mL solution for nebulization inhale 3 milliliter by nebulization route every 8 hours 0.63 MG - Active montelukast 10 mg tablet take 1 tablet by oral route every day in the evening 10 MG - Active pantoprazole 40 mg intravenous solution infuse (40MG) by intravenous route every day 40 MG - Active Oxianujo 0.1 %-4 % topical ointment - Active metronidazole 375 mg capsule take 1 capsule by oral route every 6 hours 375 MG - Active Kesimpta Pen 20 mg/0.4 mL subcutaneous pen injector inject (20MG) by subcutaneous route every month 20 MG - Active Fosamax 10 mg Tab take 1 tablet (10MG) by oral route every day in the morning, at least 30 minutes before the first food, beverage, or medication of the day - No Longer Active Nuvigil 150 mg Tab No Longer Active Procedures Procedure Date GDX Optic Nerve OFFICE/OUTPATIENT VISIT, NEW OFFICE/OUTPATIENT VISIT, EST OFFICE/OUTPATIENT VISIT, EST OFFICE/OUTPATIENT VISIT, EST VISUAL FIELD EXAMINATION(S) REFRACTION Advance Directives Directive Yes / No Effective Date File Name No Information Encounters Encounter Description Practice Location Reason(s) For Visit Diagnoses Date Provider Providers Copied on Encounter OFFICE/OUTPA TIENT VISIT, [facility], [address] [place] [address] [address], [place], [place], [id number], tel:[phone] [facility] MS (chief complaint) MS (multiple sclerosis)Opt ic neuritisNucle ar sclerosis of both eyesCataract, cortical, both eyesInsuffici ency of tear film of both eyes 5 Rocael Enriquez. [address] , [address], [place], [place], [address], [place]. tel:[phone] Referring Provider: Radha Lin MD, [address], [place], [address]. tel:[phone] OFFICE/OUTPA TIENT VISIT, [facility], [address], [place], [place], [id number], [place] tel:[phone] [facility] Cataract, Nuclear SclerosisOpti c Atrophy Oct-0 2 Lavell Reese. [address] [facility], [address], [place], [place], [address], [place]. tel:[phone] Referring Provider: Hugh Perales, [address] [place] [address] [address], [place], [address]. tel:[phone] OFFICE/OUTPA TIENT VISIT, [facility], [address] [place], [place] [address] [address], [place], [place], [address], [place] tel:[phone] [facility] Optic atrophy, unspecifiedSe nile nuclear sclerosis Oct-0 1 Lavell Hugh. [address] [place] [address], [address], [place], [place], [address], [place]. tel:[phone] OFFICE/OUTPA TIENT VISIT, [facility], [address] [place], [place] [address], [place], [place], [address], [place] tel:[phone] [facility] No Information Bob- 0 Lavell Reese. [address] [place] [address], [address], [place], [place], [address], [place]. tel:[phone] Referring Provider: Rudy Boston MD P, [address] [facility] [address], [place], [address]. tel:[phone] Family History Family Member Type Diagnosis Age At Onset Paternal aunt Problem Macular degeneration Problem (finding) Family history of Diabe jaqueline mellitus Mother Problem Cataracts Payers Payer name Insurance type Covered alliance party ID Abraham lambert(s) Samuel Rule CI [id number] Medicaid [place] [id number] Social History Type Description Quantity Date Captured Comments Alcohol Use Details No Caffeine Use Details Unknown Tobacco Use Status Current non-smoker Smoking Status Never smoker Non-Smoking Tobacco Use Details : No Details Available : No Details Available Sex Female Vital Signs Date / Time: Height Weight BMI Pulse Rate Blood Pressure Temperature Respiratory Rate Body Surface Area Head Circumference Head Circ. Percentile Wt./Juan. Percentile BMI percentile Pulse Ox Inhaled Ox 1:05 PM 57.00 in 70.307 kg (155.00 lbs) 33.5 4 kg/m eter (2) Chief Complaint And Reason For Visit From encounter dated '02/22/2025 12:15'. MS (chief complaint). Description: 59 year old female presents for an evaluation of MS. Hx of Opticatrophy and Optic neuritis. Patient states DV and NV has become blurry. Patient reports last week she had intense pain OS - Lasted around 1 minute. She say's it was different than her usual optic neuritis. Struggling with glare when driving at night. Using Thera Tears PRN OU. ON OCT orderedto - Last seen in 2011Followed by Dr. Lin Reason For Referral Reason For Referral No Information History Of Present Illness Encounter Date Complaint History Of Prese nt Illness MS 59 year old pedro pablo antoine presents for an evaluation of MS. Hx of Optic atrophy and Optic neuritis. Patient states DV and NV has become blurry. Patient reports last week she had intense pain OS - Lasted around 1 minute. She say's it was different than her usual optic neuritis. Struggling with glare when driving at night. Using Thera Tears PRN OU. ON OCT ordered today - Last seen in 2011Followed by Dr. 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 No treatment currently recommended. The patient will monitor vision changes and contact us with any decrease in vision. Related to Cataract, Nuclear Sclerosis Cataract, Nuclear Sc lerosis, OU - mild Related to Cataract, Nuclear Sclerosis Optic Atrophy, OU, h /o optic neuritis - Glaucoma risk is low Related to Optic Atrophy Assessments Type Assessment Date assessment MS (multiple sclerosis) 025 assessment Optic neuritis impression MS (multiple sclerosis): G35 Jan impression Optic neuritis: H46.9. H/o spora dic episodes assessment Nuclear sclerosis of both eyes M impression Nuclear sclerosis of both eyes: H25.13 assessment Cataract, cortical, both eyes Ma impression Cataract, cortical, both eyes: H 26.9 assessment Insufficiency of tear film of jacob th eyes impression Insufficiency of tear film of jacob th eyes: H04.123 Patient Care Teams Name Effective Dates (start - stop) Status Members No Information
--- OUTSIDE RECORDS SUMMARY | 2025-02-22 07:15 | XMS_ITS | Continuity of Care Document ---
Author Organization [facility] Address [address] [address] [place] [address] Phone Care Team Providers Care Sales Representative Business Courses Name Role Phone Rocael SANCHEZ, Mina Unavailable [...] Active carbamazepine ER 100 mg capsule,extended release [id number] take 1 capsule by oral route every [...] Providers Copied on Encounter OFFICE/OUTPA TIENT VISIT, [facility], [address] [place] [address] [address], [place], [place], [id number], tel:[phone] OPH CONSULT [facility] MS (chief complaint) MS (multiple sclerosis)Opt ic neuritisNucle ar sclerosis of both eyesCataract, cortical, both eyesInsuffici ency of tear film of both eyes 5 Rocael Enriquez. [address] , [address], [place], [place], [address], [place]. tel:[phone] Referring Provider: Radha Lin MD, [address], [place], [address]. tel:[phone] OFFICE/OUTPA TIENT VISIT, [facility], [address], [place], [place], [address], [place] tel:[phone] [facility] Cataract, Nuclear SclerosisOpti c Atrophy Oct-0 2 Lavell Reese. [address] [facility], [address], [place], [place], [address], [place]. tel:[phone] Referring Provider: Hugh Perales, [address] [place] [address] [address], [place], [address]. tel:[phone] OFFICE/OUTPA TIENT VISIT, [facility], [address] [place], [place] [address], [place], [place], [address], [place] tel:[phone] [facility]SULT [facility] Optic atrophy, unspecifiedSe nile nuclear sclerosis Oct-0 1 Lavell Hugh. [address] [place] [address], [address], [place], [place], [address], [place]. tel:[phone] OFFICE/OUTPA TIENT VISIT, [facility], [address] [place], [place] [address], [place], [place], [address], [place] tel:[phone] OPH CONSULT [facility] No Information Bob- 0 Lavell Reese. [address] [place] [address], [address], [place], [place], [address], [place]. tel:[phone] Referring Provider: Rudy Boston MD P, [address] [facility] [address], [place], [address]. tel:[phone] Family History Family Member Type Diagnosis Age At Onset Paternal aunt Problem Macular degeneration Problem (finding) Family history of Diabe jaqueline mellitus Mother Problem Cataracts Payers Payer name Insurance type Covered libertarian ID Abraham lambert(s) Samuel Rule CI [id number] Medicaid [place] [id number] Social History Type Description Quantity Date Captured [...]
--- OUTSIDE RECORDS SUMMARY | 2025-08-23 14:10 | XMS_ITS | Encounter Summary ---
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 Answer Date of Assessment Author Status No 08/17/2025 7:35 AM Celeste Olguin RN Active * Do you have serious difficulty walking or climbing stairs? Answer Date of Assessment Author Status Yes 08/17/2025 7:35 AM CARLITOT Celeste Gupta RN Active * Do you have difficulty dressing or bathing? Answer Date of Assessment Author Status No 08/17/2025 7:35 AM CARLITOT Celeste Gupta RN Active * Because of a physical, mental, or emotional condition, do you have difficulty doing errands alone such as visiting a doctor's office or shopping? Answer Date of Assessment Author Status No 08/17/2025 7:35 AM CARLITOT Celeste Gupta RN Active documented as of this encounter Mental Status * Because of a physical, mental, or emotional condition, do you have serious difficulty concentrating, remembering, or making decisions? Answer Entry Date Author Status No 08/17/2025 7:35 AM CARLITOT Celeste Gupta RN Active documented in this encounter Plan of Treatment Pending Results Name Type Priority Associated Diagnoses Date /Time URINE BACTERIA CULTURE Microbiology Routine Urinary symptom or sign 08/23/2025 2:30 PM CDT Scheduled Orders Name Type Priority Associated Diagnoses Orde r Schedule URINE BACTERIA CULTURE Microbiology Routine Urinary symptom or sign Once for 1 Occurrences starting 08/23/2025 until 08/23/2025 documented as of this encounter Goals Goal Patient Goal Type Associated Problems Recent Progress Patient-Stated? Author Autogenerat ed Goal Care Plan Autogenerated Problem No Sivan Merlos RN documented as of this encounter Procedures Procedure Name Priority Date/Time Associated Diagnosis Comments HC URINALYSIS AUTO W/MICRO Routine 08/23/2025 2:30 PM CDT Urinary symptom or sign documented in this encounter Results * (ABNORMAL) URINALYSIS (08/23/2025 2:30 PM CDT) COLOR (U) YELLOW 08/23/2025 3:31 PM CDT [facility] TRANSPARENCY CLOUDY 08/23/2025 3:31 PM CDT [facility] SPECIFIC GRAVITY (U) 1.020 1.000 - 1.025 08/23/2025 3:31 PM CDT [facility] U PH 7.5 5.0 - 8.0 08/23/2025 3:31 PM CDT [facility] LEUKOCYTES (U) 3+(A) NEGATIVE 08/23/2025 3:31 PM CDT [facility] NITRITES NEGATIVE NEGATIVE 08/23/2025 3:31 PM CDT [facility] PROTEIN RANDOM (U) 2+(A) NEGATIVE 08/23/2025 3:31 PM CDT [facility] GLUCOSE (U) NEGATIVE NEGATIVE 08/23/2025 3:31 PM CDT [facility] KETONES MG/DL (U) NEGATIVE NEGATIVE 08/23/2025 3:31 PM CDT [facility] UROBILINOGEN 0.2 <1.0 EU/DL 08/23/2025 3:31 PM CDT [facility] BILIRUBIN (U) NEGATIVE NEGATIVE 08/23/2025 3:31 PM CDT [facility] BLOOD (U) 1+(A) NEGATIVE 08/23/2025 3:31 PM CDT [facility] WBC/HPF 50-100(A) 0 - 5 /HPF 08/23/2025 3:31 PM CDT [facility] RBC/HPF 0-5 0 - 5 /HPF 08/23/2025 3:31 PM CDT [facility] EPI/LPF OCCASIONAL /LPF 08/23/2025 3:31 PM CDT [facility] BACTERIA (U) 2+ /HPF 08/23/2025 3:31 PM CDT [facility] URINE SPECIMEN OBTAINED BY CLEAN CATCH PROCEDURE / Unknown 08/23/2025 2:30 PM CDT us Amada PURI URINE ORDERABLES Final Resu lt [facility] [address] [place] [address], documented in this encounter Visit Diagnoses Diagnosis Urinary symptom or sign documented in this encounter Additional Health Concerns Active Problems Noted Date Diagnosed Date Autogenerated Problem 08/03/2025 documented as of this encounter Care Teams Automobile Carpets Molder Relationship Specialty Start Date End Date Xavi Allen MD [address] [place] [id number] PCP - General INTERNAL MEDICINE 05/10/19 documented as of this encounter
--- NOTE | ~2025-08-24 | US_ITS ---
EXAMINATION: US venous doppler [facility], 08/24/2025 13:41 CDT HISTORY: recent pelvic surgery with swollen bilateral ext COMPARISON: None Technique: Osman-scale and color Doppler images were attempted of the lower saphenofemoral junction, common femoral vein,superficial femoral vein, proximal deep femoral vein, proximal deep femoral vein, popliteal vein and posterior tibial veins. Findings: Deep Venous System:Normal flow, augmentation and compressibility. No echogenic thrombus identified. Superficial Venous SystemNo superficial thrombophlebitis. Soft tissues: Soft tissues are unremarkable. Impression: Negative for DVT. Reviewed, dictated and finalized at location P. Impression: Negative for DVT.
[2025-08-24 13:11] VITALS: BP 142/80; PULSE 78; RESP 16; TEMP 36.7; O2SAT 96
--- NOTE | 2025-08-24 14:13 | ED.EXTPRO ---
HPI - Extremity Problem General Chief complaint: Extremity Problem,Nontraumatic Stated complaint: bilateral leg swelling Time Seen by Provider: 08/24/25 13:19 Source: patient and family Mode of arrival: ambulatory Limitations: no limitations History of Present Illness HPI Narrative: this is a 60-year-old female with recent pelvic surgery was sent in by her primary with lower extremity edema bilaterally and concern for deep venous thrombosis. Patient has no shortness of breath no calf pain or tenderness currently no lower extremity swelling has good pulses bilaterally lower extremities with good range of motion, patient states that swelling has significantly improved from a couple a days prior. There is no fever chills no shortness of breath no chest pain no nausea vomiting no abdominal pain. MD Complaint: extremity swelling Onset (ago): day(s) Pain Consistency: now resolved Location: lower extremity Related Data Home Medications ?Medication ?Instructions ?Recorded ?Confirmed ?Last Taken ?Type alendronate 70 mg tablet 70 mg PO WEEKLY 01/09/24 01/09/24 Unknown History armodafinil 150 mg tablet 150 mg PO QAM 01/09/24 01/09/24 Unknown History baclofen 20 mg tablet 20 mg PO BID 01/09/24 01/09/24 Unknown History carbamazepine 100 mg 100 mg PO BID 01/09/24 01/09/24 Unknown History tablet,extended release,12 hr citalopram 40 mg tablet 20 mg PO QAM 01/09/24 01/09/24 Unknown History dalfampridine 10 mg 10 mg PO BID 01/09/24 01/09/24 Unknown History tablet,extended release,12 hr (Ampyra) gabapentin 100 mg capsule 100 mg PO BID 01/09/24 01/09/24 Unknown History montelukast 10 mg tablet 10 mg PO BID 01/09/24 01/09/24 Unknown History nitrofurantoin macrocrystal 50 mg 50 mg PO QHS 01/09/24 01/09/24 Unknown History capsule ofatumumab 20 mg/0.4 mL 20 mg subcut [id number] 01/09/24 01/09/24 Unknown History subcutaneous pen injector (Kesimpta Pen) pantoprazole 40 mg tablet,delayed 40 mg PO DAILY 01/09/24 01/09/24 Unknown History release levalbuterol tartrate 45 1 inh inhalation DAILY 08/24/25 Unknown History mcg/actuation aerosol inhaler Allergies Allergy/AdvReac Type Severity Reaction Status Date / Time azathioprine Allergy Unknown UNK Verified 08/24/25 13:41 hydrocodone Allergy Unknown Unknown Verified 08/24/25 13:41 ibuprofen Allergy Unknown Unknown Verified 08/24/25 13:41 Sulfa (Sulfonamide Allergy Unknown Unknown Verified 08/24/25 13:41 Antibiotics) Review of Systems Review of Systems: All systems reviewed & are unremarkable except as noted in HPI and below PMFSH Past Medical History Medical History Multiple sclerosis Exam Const: General: healthy appearing, no acute distress and alert Nutritional Appearance: well nourished and obese Orientation/consciousness: patient oriented x3 Limitations: no limitations Chest: Chest palpation & inspection: normal inspection of the chest Resp: Effort & Inspection: normal respiratory effort Auscultation: clear to auscultation bilaterally Cardio: Rate: regular rate Rhythm: regular rhythm GI: GI Palp: Yes Soft to palpation Auscultation: normal bowel sounds : General: Yes bladder normal to palpation Back/Spine/Pelvis: Back: no CVA tenderness Skin: General skin exam: normal color Rashes: no rashes Wounds: no wounds Neuro: General: patient oriented x3, moves all extremities and no meningeal signs Extrem: General: edema Other: Lower extremity edema nonpitting bilateral Course Course Emergency Course: patient comfortable with currently no pitting edema states that her edema has gotten better and had ultrasounds bilateral lower extremities which showed no deep venous thrombosis. Vital Signs Vital signs: Vital Signs Temperature 36.7 C 08/24/25 13:11 Pulse Rate 78 08/24/25 13:11 Respiratory Rate 16 08/24/25 13:11 Blood Pressure 142/80 H 08/24/25 13:11 Pulse Oximetry 96 08/24/25 13:11 Oxygen Delivery Room Air 08/24/25 13:11 Temperature 36.7 C 08/24/25 13:11 Pulse Rate 78 08/24/25 13:11 Respiratory Rate 16 08/24/25 13:11 Blood Pressure 142/80 H 08/24/25 13:11 Pulse Oximetry 96 08/24/25 13:11 Oxygen Delivery Room Air 08/24/25 13:11 Critical Care Time Critical Care Time Critical Care Time: No Discharge Plan Discharge Clinical Impression: Lower extremity edema Patient Disposition: Home Condition: Stable Instructions: Antibiotic Form, Edema (ED) Additional Instructions: advised patient to follow with primary care physician within the next week further evaluation and treatment. Patient Language: Greek Prescriptions: No Action nitrofurantoin macrocrystal 50 mg capsule 50 mg PO QHS citalopram 40 mg tablet 20 mg PO QAM carbamazepine 100 mg tablet extended release 12 hr 100 mg PO BID alendronate 70 mg tablet 70 mg PO WEEKLY baclofen 20 mg tablet 20 mg PO BID pantoprazole 40 mg tablet,delayed release (DR/EC) 40 mg PO DAILY montelukast 10 mg tablet 10 mg PO BID gabapentin 100 mg capsule 100 mg PO BID armodafinil 150 mg tablet 150 mg PO QAM dalfampridine [Ampyra] 10 mg Tablet Extended Release 12 Hr 10 mg PO BID Kesimpta Pen 20 mg/0.4 mL Pen Injector 20 mg SUBCUT [id number] levalbuterol tartrate 45 mcg/actuation HFA aerosol inhaler 1 inh INHALATION DAILY ketorolac 10 mg tablet 10 mg PO Q8H PRN (Reason: pain) Qty: 14 0RF Rx Instructions: maximum total duration of 5 days from all oral, intranasal, or parenteral formulations Follow-up/Referrals: Xavi Allen MD [Primary Care Provider, Internal Medicine] Time of Disposition: 14:17
[2025-08-24 14:19] VITALS: BP 141/82; PULSE 67; RESP 20; O2SAT 94
--- OUTSIDE RECORDS SUMMARY | 2025-08-24 16:04 | XMS_ITS | Encounter Summary ---
Author Organization [facility] Address [address] [place] [address] Care Team Providers Care Strap Cutting Machine Operator Name Role Phone Xavi Allen MD Primary Care Provider [phone] Encounter Details Date Type Department Care Team (Late st Contact Info) Description 01/07/2023 Sport/Life Message Enc [facility] [place] [address] Denise Hernandez, [facility] [address] [facility] [place] [address] Visit Follow Up Social History Tobacco Use [...] PM CDT Legal Sex Female 11:04 PM SUPPORT TEAM ASSOC Gender Identity Not on file Sexual Orientation Not on file COVID-19 Exposure Response Date Recorded In the last 10 days, have yo u been in contact with someone who was confirmed or suspected to have Coronavirus/COVID-19? No / Unsure 01/07/2023 11:06 AM SUPPORT TEAM ASSOC documented as of this encounter Plan of Treatment Not on file documented as of this encounter Visit Diagnoses Not on filedocumented in this encounter Care Teams Strap Cutting Machine Operator Relationship Specialty Start Date End Date Xavi Allen MD [address] [place] [address] PCP - General INTERNAL MEDICINE 05/10/19 documented as of this encounter
--- OUTSIDE RECORDS SUMMARY | 2025-08-24 16:04 | XMS_ITS | Encounter Summary ---
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 No / Unsure 01/08/2021 2:12 PM YARD GENERAL CAR SUPERVISOR documented as of this encounter Plan of Treatment Not on file documented as of this encounter Visit Diagnoses Not on filedocumented in this encounter Care Teams Air Pumper Relationship Specialty Start Date End Date Xavi Allen MD [address] [place] [address] PCP - General INTERNAL MEDICINE 05/10/19 documented as of this encounter
--- OUTSIDE RECORDS SUMMARY | 2025-08-24 16:04 | XMS_ITS | Encounter Summary ---
Author Organization [facility] Address [address] [place] [address] Care Team Providers Care Toddler Guide Name Role Phone Xavi Allen MD Primary Care Provider Encounter Details Date Type Department Care Team (Late st Contact Info) Description 01/19/2008 Outpatient Historical [facility] DEPT Radha Dong MD [address] [facility] [address] [place] [address] Multiple Sclerosis ([facility]) Social History Tobacco Use Types Packs/Day Years Used Date Smoking Tobacco: Never Assessed Comments Unknown Sex and Gender Information Value Date Recorded Sex Assigned at Not on file Legal Sex Female 3:52 AM GIRL FRIDAY Gender Identity Not on file Sexual Orientation Not on file documented as of this encounter Plan of Treatment Not on file documented as of this encounter Procedures Procedure Name Priority Date/Time Associated Diagnosis Comments MRI BRAIN W WO CONTRAST Timed Study 01/19/2008 11:44 AM GIRL FRIDAY documented in this encounter Results * MRI BRAIN W WO CONTRAST (01/19/2008 11:44 AM GIRL FRIDAY) Anatomical Region Laterality Modality Head Other 01/19/2008 11:4 4 AM GIRL FRIDAY Narrative 01/19/2008 2:11 PM GIRL FRIDAY [facility] [address] [place], [place] [address] Admit Date: 01/19/2008 BUTCH EDGE Sex: F Admit Prov: RADHA DONG Date: 1965 Primary Care Prov: CMRN: [id number] Room: [facility] SSN: [id number] IMAGING SERVICES Ordering Prov: N/A Accession Number: [id number] Interpretation MRI of the brain, with and [...] Historical - 01/19/2008 [facility] [address] [place], [place] [address] Admit Date: 01/19/2008 [place]CH EDGE Sex: F Admit Prov: RADHA DONG Date: 1965 Primary Care Prov: CMRN: [id number] [facility]: [id number] IMAGING SERVICES Ordering Prov: N/A Interpretation MRI [...] upper cervical spine is low on the [id number], possibly artifactual. There is no diffusion restriction. [...] sclerosis documented in this encounter Care Teams Toddler Guide Relationship Specialty Start Date End Date Xavi Allen MD [address] [place] [address] PCP - General Internal Medicine 07/02/18 documented as of this encounter
--- OUTSIDE RECORDS SUMMARY | 2025-08-24 16:04 | XMS_ITS | Encounter Summary ---
Author Organization [facility] Address [address] [place] [address] Care Team Providers Care Director Of Assessment Name Role Phone Xavi Allen MD Primary Care Provider [phone] Encounter Details Date Type Department Care Team (Late st Contact Info) Description 09/02/2006 Outpatient [facility] Division of Neurology [address] [facility] [address] [address] Radha Lin MD [address] [facility] [address] [place] [id number] Social History Tobacco Use Types Packs/Day Years Used Date Smoking Tobacco: Never Assessed Comments Unknown Sex and Gender Information Value Date Recorded Sex Assigned at Not on file Legal Sex Female 3:[address] FREIGHT Gender Identity Not on file Sexual Orientation Not on file documented as of this encounter Plan of Treatment Not on file documented as of this encounter Visit Diagnoses Not on filedocumented in this encounter Care Teams Director Of Assessment Relationship Specialty Start Date End Date Xavi Allen MD [address] [place] [address] PCP - General Internal Medicine 07/02/18 documented as of this encounter
--- OUTSIDE RECORDS SUMMARY | 2025-08-24 16:04 | XMS_ITS | Encounter Summary ---
Author Organization [facility] Address [address] [place] [address] Care Team Providers Care Automatic Grinder Operator Name Role Phone Xavi Allen MD Primary Care Provider [phone] Encounter Details Date Type Department Care Team (Late st Contact Info) Description 02/11/2006 Outpatient [facility] Division of Neurology [address] [address] Radha Lin MD [address] [facility] [address] [place] [address] Social History Tobacco Use Types Packs/Day Years Used Date Smoking Tobacco: Never Assessed Comments Unknown Sex and Gender Information Value Date Recorded Sex Assigned at Not on file 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
--- OUTSIDE RECORDS SUMMARY | 2025-08-24 16:04 | XMS_ITS | Encounter Summary ---
Author Organization [facility] Address [address] [place] [address] Care Team Providers Care Leak Inspector Name Role Phone Xavi Allen MD Primary Care Provider [phone] Encounter Details Date Type Department Care Team (Latest Contact Info) Description 01/19/2009 Outpatient [facility] [address] [facility] [place] [address] [place] [address] Radha Dong MD [address] [facility] [address] [place] [address] Multiple Sclerosis (CMS/[facility]) Social History Tobacco Use Types Packs/Day Years Used Date Smoking Tobacco: Never Assessed Comments Unknown Sex and Gender Information Value Date Recorded Sex Assigned at Not on file Legal Sex Female 3:52 AM SILK TOP HAT BODY MAKER Gender Identity Not on file Sexual Orientation Not on file documented as of this encounter Plan of Treatment Not on file documented as of this encounter Procedures Procedure Name Priority Date/Time Associated Diagnosis Comments MRI BRAIN W WO CONTRAST Routine 01/19/2009 1:16 PM SILK TOP HAT BODY MAKER documented in this encounter Results * MRI BRAIN W WO CONTRAST (01/19/2009 1:16 PM SILK TOP HAT BODY MAKER) Anatomical Region Laterality Modality Head Other 01/19/2009 1:16 PM SILK TOP HAT BODY MAKER Narrative 01/22/2009 9:03 PM SILK TOP HAT BODY MAKER [facility] [address] [place], [place] [address] Admit Date: 01/19/2009 [place] EDGE Sex: F Admit Prov: RADHA DONG Date: 1965 Primary Care Prov: CMRN: [id number] Room: [facility] SSN: [id number] IMAGING SERVICES Ordering Prov: N/A Accession Number: [id number] Interpretation EXAM: MRI OF THE BRAIN WITHOUT [...] AMK Procedure Note Rudy Morel - 01/22/2009 [facility] [address] [place], [place] [address] Admit Date: 01/19/2009 [place]GE Sex: F Admit Prov: RADHA DONG Date: 1965 Primary Care Prov: CMRN: [id number] Room: [facility] SSN: [address] [place] [address] IMAGING SERVICES Ordering Prov: N/A Interpretation EXAM: [...] sclerosis documented in this encounter Care Teams Leak Inspector Relationship Specialty Start Date End Date Xavi Allen MD [address] [place] [address] PCP - General Internal Medicine 07/02/18 documented as of this encounter
--- OUTSIDE RECORDS SUMMARY | 2025-08-24 16:04 | XMS_ITS | Encounter Summary ---
Author Organization [facility] Address [address] [place] [address] Care Team Providers Care Manager Human Resources Name Role Phone Xavi Allen MD Primary Care Provider [phone] Encounter Details Date Type Department Care Team (Latest Contact Info) Description 09/02/2006 Outpatient Historical HIS [facility] KASI Lin, Radha Batres MD [address] [place] [address] Multiple Sclerosis (CMS/[facility]) (Primary Dx) Social History Tobacco Use Types Packs/Day Years Used Date Smoking Tobacco: Never Assessed Comments Unknown Sex and Gender Information Value Date Recorded Sex Assigned at Not on file Legal Sex Female 3:52 AM CELL ROOM SUPERVISOR Gender Identity Not on file Sexual [...] URINE ORDERABLES Final Result Performing Organization Address [facility] de Phone Number INTERFACE SYSTEM Refer [...] URINE ORDERABLES Final Result Performing Organization Address [facility] Phone Number INTERFACE SYSTEM Refer to clinic/hospital department * TSH REFLEXIVE (09/02/2006 1:07 PM CDT) TSH 3.82 0.27 - 4.20 uU/mL INTERFACE SYSTEM 09/02/2006 1:07 PM CDT Radha Lin MD CHEMISTRY ORDERABLES Final Re sult Performing Organization Address [facility] Phone Number INTERFACE SYSTEM Refer to clinic/hospital department documented in this encounter Visit Diagnoses Diagnosis Multiple sclerosis (CMS/HCC)- Primary Multiple sclerosis documented in this encounter Care Teams Manager Human Resources Relationship Specialty Start Date End Date Xavi Allen MD [address] [place] [address] PCP - General Internal Medicine 07/02/18 documented as of this encounter
--- OUTSIDE RECORDS SUMMARY | 2025-08-24 16:04 | XMS_ITS | Encounter Summary ---
Author Organization [facility] Address 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
--- OUTSIDE RECORDS SUMMARY | 2025-08-24 16:04 | XMS_ITS | Encounter Summary ---
Author Organization [facility] Address [address] [place] [address] Care Team Providers Care Passenger Conductor Name Role Phone Xavi Allen MD Primary Care Provider [phone] Encounter Details Date Type Department Care Team (Late st Contact Info) Description 03/07/2002 Outpatient [facility] Division of Neurology [address] [address] Maverick Boyce MD [address] [place] [id number] Social History Tobacco Use Types Packs/Day Years Used Date Smoking Tobacco: Never Assessed Comments Unknown Sex and Gender Information Value Date Recorded Sex Assigned at Not on file Legal Sex Female 3:52 AM GUEST RELATIONS EXECUTIVE Gender Identity Not on file Sexual Orientation Not on file documented as of this encounter Plan of Treatment Not on file documented as of this encounter Visit Diagnoses Not on filedocumented in this encounter Care Teams Passenger Conductor Relationship Specialty Start Date End Date Xavi Allen MD [address] [place] [address] PCP - General Internal Medicine 07/02/18 documented as of this encounter
--- OUTSIDE RECORDS SUMMARY | 2025-08-24 16:04 | XMS_ITS | Patient Health Record ---
Author Organization [facility] [place] ([address]) Address [address] [place] [address] Care Team Providers Care Coal Sample Tester Name Role Phone Alejandro, Xavi Primary Care Provider Manny Guzman Unavailable [phone] Allergies Allergen (clinical drug ingredient) Drug/Non Drug Allergy documented on EMR Reaction Allergy Type Onset Date Status oxycodone oxyCODONE Unknown Drug Allergy Active Substance with sulfonamide structure and antibacterial mechanism of action (substance) Sulfa Antibiotics Unknown Drug Allergy Active Results Component Value Reference Range Notes -Respiratory Allergens w/Tot al IgE Area 8 Reviewed date:05/23/2025 06:59:26 PM Interpretation: Performing Lab:[facility], [address] [place] [id number], Phone - [phone], Director - Tyler Notes/Report: Class Description Levels of Specific IgE Class Description of Class ----- < 0.10 0 Negative 0.10 - 0.31 0/I Equivocal/Low 0.32 - 0.55 I Low 0.56 - 1.40 II Moderate 1.41 - 3.90 III High 3.91 - 19.00 IV Very High 19.01 - 100.00 V Very High >100.00 Very High Immunoglobulin E, Total 9 6-495 IU/mL J211-FqO D pteronyssinus <0.10 Class 0 kU/L Y490-WvI D farinae <0.10 Class 0 kU/L A663-SdB Cat Dander <0.10 Class 0 kU/L S793-UuX Dog Dander <0.10 Class 0 kU/L B174-MrV Mouse Urine <0.10 Class 0 kU/L N274-YxN Bermuda Grass <0.10 Class 0 kU/L V073-PeY Venkat Grass <0.10 Class 0 kU/L A135-MqO Cockroach, Indonesian <0.10 Class 0 kU/L K508-RhZ Penicillium chrysogen <0.10 Class 0 kU /L B150-KcN Cladosporium herbarum <0.10 Class 0 kU /L N407-OmG Aspergillus fumigatus <0.10 Class 0 kU /L N475-AoL Alternaria alternata <0.10 Class 0 kU/ L C256-IpK Maple/Casper <0.10 Class 0 kU/L A789-EtL Wilkinson, Mountain <0.10 Class 0 kU/L D387-LhA [place], White <0.10 Class 0 kU/L P622-AjH Elm, Portuguese <0.10 Class 0 kU/L G267-NgW [place] <0.10 Class 0 kU/L E661-KgB Maple [place] <0.10 Class 0 kU/L M895-QfS [place] <0.10 Class 0 kU/L M949-ZzI Dom, White <0.10 Class 0 kU/L A682-XgW Pecan, [place]'S <0.10 Class 0 kU/L I303-KnP White [place] <0.10 Class 0 kU/L P218-KsS Ragweed, Short <0.10 Class 0 kU/L C189-MfK Thistle, Malawian <0.10 Class 0 kU/L B866-XuP Pigweed, Common <0.10 Class 0 kU/L R773-FmV Rough Marshelder <0.10 Class 0 kU/L Reason [...] 04/25/2025 Active Tacrolimus 0.1 % 1 application Quality Compliance Consultant ally Once a day Active metroNIDAZOLE 0.75 [...] bedtime Orally Once a day Active Ipratropium [place] 0.03 % 2 sprays in e ach [...] Status Risk Notes Problem Chronic allergic conjunctivitis (05559849) Other chronic allergic conjunctivitis (H10.45) Active confirmed Problem Allergic rhinitis caused by pollen (disorder) (61794643) Allergic rhinitis due to pollen (J30.1) Active confirmed Problem Allergic rhinitis (71111432) Other allergic rhinitis (J30.89) Active confirmed Problem Chronic rhinitis (46774134) Chronic rhinitis (J31.0) Active confirmed Problem Chronic sinusitis (71146635) Chronic sinusitis, unspecified (J32.9) Active confirmed Problem Mild intermittent asthma (185967353) Mild intermittent asthma, uncomplicated (J45.20) Active confirmed Problem Uncomplicated moderate persistent asthma (991141284) Moderate persistent asthma, uncomplicated (J45.40) Active confirmed Problem Uncomplicated severe persistent asthma (969562385) Severe persistent asthma, uncomplicated (J45.50) Active confirmed Problem Allergic rhinitis caused by animal hair and dander (216313050433096) Allergic rhinitis due to animal (cat) (dog) hair and dander (J30.81) Active confirmed Vital Signs Blood pressure diastolic 84 mm Hg 06/13/2025 Oximetry 97 % 06/13/2025 Height 62 in 06/13/2025 Blood pressure systolic 131 mm Hg 06/13/2025 Weight 160.8 lbs 06/13/2025 BMI 29.41 kg/m2 06/13/2025 Encounters Encounter Location Date Provider Diagnosis [facility] [address] [place] [address] 06/13/2025 Manny Jackson Hypertrophy of nasal turbinates J34.3 [facility] [address] [place] [address] 04/25/2025 Manny Jackson Allergic rhinitis du e [...] Provider Name:Manny Jackson, 10/16/2025 11:00:00 AM, [address], [place], [address], Insurance Providers Payer Name Payer Address Payer Phone Subscriber Number Group Number Insured Name Patient Relationship to Insured Coverage Start Date Coverage End Date Samuel Rule Insurance [facility] [address] [address] [place] [address] [id number] An Barrientos Self - patient is the insured Medical (General) History Medical History History ICD Code Cough variant asthma J45.991 Multiple sclerosis
--- OUTSIDE RECORDS SUMMARY | 2025-08-24 16:04 | XMS_ITS | Patient Health Record ---
Author Organization [facility] Address [address] [place], [place] [id number] Care Team Providers Care Lens Edger Name Role Phone Xavi Allen Unavailable Unavailable Reason For Referral No Information Medications Medication SIG (Take, Route, Frequency, Duration) Notes Start Date End Date Status cholecalciferol 0.025 MG Oral Tablet ORAL cholecalciferol 0.025 MG Ora l TabletOriginal Medicationcholecalciferol 0.025 MG Oral Tablet *Reorder from [facility] for eRx and Interaction Alerts* 08/11/20 16 Active calcium carbonate 1250 MG Oral Tablet ORAL calcium carbonate 1250 MG Oral TabletOriginal Medicationcalcium carbonate 1250 MG Oral Tablet *Reorder from [facility] for eRx and Interaction Alerts* 08/11/20 16 Active levothyroxine sodium 0.137 MG Oral Capsule ORAL levothyroxine sodium 0.137 M G Oral CapsuleOriginal Medicationlevothyroxine sodium 0.137 MG Oral Capsule *Reorder from [facility] for eRx and Interaction Alerts* 08/11/20 16 Active citalopram 20 MG Oral Tablet [Celexa] ORAL citalopram 20 MG Oral Tablet [Celexa]Original Medicationcitalopram 20 MG Oral Tablet [Celexa] *Reorder from [facility] for eRx and Interaction Alerts* 08/11/20 16 Active Baclofen 20 MG Oral Tablet ORAL baclofen 20 MG Oral TabletOriginal Medicationbaclofen 20 MG Oral Tablet *Reorder from [facility] for eRx and Interaction Alerts* 08/11/20 16 [...] Medicationmontelukast 10 MG Oral Tablet *Reorder from [facility] for eRx and Interaction Alerts* 08/11/20 16 Active 12 HR dalfampridine 10 MG Extended Release Oral Tablet [Ampyra] ORAL 12 HR dalfampridine 10 MG Extended Release Oral Tablet [Ampyra]Original [id number] HR dalfampridine 10 MG Extended Release Oral Tablet [Ampyra] *Reorder from [facility] for eRx and Interaction Alerts* 08/11/20 16 Active Gabapentin 100 MG Oral Capsule ORAL gabapentin 100 MG Oral CapsuleOriginal Medicationgabapentin 100 MG Oral Capsule *Reorder from [facility] for eRx and Interaction Alerts* 08/11/20 16 Active alendronic acid 70 MG Oral Tablet [Fosamax] ORAL alendronic acid 70 MG Oral Tablet [Fosamax]Original Medicationalendronic acid 70 MG Oral Tablet [Fosamax] *Reorder from [facility] for eRx and Interaction Alerts* 08/11/20 16 Active 15 ML natalizumab 20 MG/ML Injection [Tysabri] INTRAVENOUS 15 ML natalizumab 20 MG/ML Injection [Tysabri]Original Febtcvopxg91 ML natalizumab 20 MG/ML Injection [Tysabri] *Reorder from [facility] for eRx and Interaction Alerts* 08/11/20 16 Active armodafinil 50 MG Oral Tablet [Nuvigil] ORAL armodafinil 50 MG Oral Table t [Nuvigil]Original Medicationarmodafinil 50 MG Oral Tablet [Nuvigil] *Reorder from [facility] for eRx and Interaction Alerts* 08/11/20 16 Active Plan Of Treatment No Information Insurance Providers Payer Name Payer Address Payer Phone Subscriber Number Group Number Insured Name Patient Relationship to Insured Coverage Start Date Coverage End Date Samuel Rule Insurance ([facility]) [address] [address] [place], [place] [id number] BUTCH HOLT Self - patient is the insured
--- OUTSIDE RECORDS SUMMARY | 2025-08-24 16:04 | XMS_ITS | Encounter Summary ---
Author Organization [facility] Address [address] [place] [address] Care Team Providers Care Sheep And Wheat Farmer Name Role Phone Xavi Allen MD Primary Care Provider [phone] Encounter Details Date Type Department Care Team (Late st Contact Info) Description 05/21/2005 Outpatient [facility]3] Division of Neurology [address] [address] Radha Lin MD [address] [facility] [address] [place] [address] Social History Tobacco Use Types Packs/Day Years Used Date Smoking Tobacco: Never Assessed Comments Unknown Sex and Gender Information Value Date Recorded Sex Assigned at Not on file Legal Sex Female 3:52 AM CYLINDER BATCHER Gender Identity Not on file Sexual Orientation Not on file documented as of this encounter Plan of Treatment Not on file documented as of this encounter Visit Diagnoses Not on filedocumented in this encounter Care Teams Sheep And Wheat Farmer Relationship Specialty Start Date End Date Xavi Allen MD [address] [place] [address] PCP - General Internal Medicine 07/02/18 documented as of this encounter
--- OUTSIDE RECORDS SUMMARY | 2025-08-24 16:04 | XMS_ITS | Encounter Summary ---
Author Organization [facility] Address [address] [place] [address] Care Team Providers Care Resident Advisor Name Role Phone Xavi Allen MD Primary Care Provider [phone] Encounter Details Date Type Department Care Team (Late st Contact Info) Description 03/01/2002 Outpatient Historical [facility] Social History Tobacco Use Types Packs/Day Years Used Date Smoking Tobacco: Never Assessed Comments Unknown Sex and Gender Information Value Date Recorded Sex Assigned at Not on file Legal Sex Female 3:52 AM TECHNICAL CONSULTANT Gender Identity Not on file Sexual Orientation Not on file documented as of this encounter Plan of Treatment Not on file documented as of this encounter Visit Diagnoses Not on filedocumented in this encounter Care Teams Resident Advisor Relationship Specialty Start Date End Date Xavi Allen MD [address] [place] [address] PCP - General Internal Medicine 07/02/18 documented as of this encounter
--- OUTSIDE RECORDS SUMMARY | 2025-08-24 16:04 | XMS_ITS | Encounter Summary ---
Author Organization [facility] Address [address] [place] [address] Care Team Providers Care Store Mgr Name Role Phone Xavi Allen MD Primary Care Provider [phone] Encounter Details Date Type Department Care Team (Latest Contact Info) Description 03/01/2002 Outpatient Historical HIS [facility] Radha Lin MD [address] [facility] [address] [place] [address] MULTIPLE SCLEROSIS (CMS/HCC) (Primary Dx) Social History Tobacco Use Types Packs/Day Years Used Date Smoking Tobacco: Never Assessed Comments Unknown Sex and Gender Information Value Date Recorded Sex Assigned at Not on file Legal Sex Female 3:52 AM DAY CARE ASSISTANT Gender Identity Not on file Sexual Orientation Not on file documented as of this encounter Plan of Treatment Not on file documented as of this encounter Visit Diagnoses Diagnosis Multiple sclerosis (CMS/HCC)- Primary Multiple sclerosis documented in this encounter Care Teams Store Mgr Relationship Specialty Start Date End Date Xavi Allen MD [address] [place] [address] PCP - General Internal Medicine 07/02/18 documented as of this encounter
--- OUTSIDE RECORDS SUMMARY | 2025-08-24 16:04 | XMS_ITS | Encounter Summary ---
Author Organization [facility] Address [address] [place] [address] Care Team Providers Care Recruitment Advertising Manager Name Role Phone aXvi Allen MD Primary Care Provider [phone] Encounter Details Date Type Department Care Team (Late st Contact Info) Description 08/19/2005 Outpatient [facility] Division of Neurology [address] [address] Radha Lin MD [address] [facility] [address] [place] [address] Social History Tobacco Use Types Packs/Day Years Used Date Smoking Tobacco: Never Assessed Comments Unknown Sex and Gender Information Value Date Recorded Sex Assigned at Not on file Legal Sex Female 3:52 AM GRAVEL INSPECTOR Gender Identity Not on file Sexual Orientation Not on file documented as of this encounter Plan of Treatment Not on file documented as of this encounter Visit Diagnoses Not on filedocumented in this encounter Care Teams Recruitment Advertising Manager Relationship Specialty Start Date End Date Xavi Allen MD [address] [place] [address] PCP - General Internal Medicine 07/02/18 documented as of this encounter
--- OUTSIDE RECORDS SUMMARY | 2025-08-24 16:04 | XMS_ITS | Encounter Summary ---
Author Organization [facility] Address [address] [place] [address] Care Team Providers Care Glass Worker Name Role Phone Xavi Allen MD Primary Care Provider [phone] Encounter Details Date Type Department Care Team (Late st Contact Info) Description 03/01/2002 Outpatient [facility] Division of Neurology [address] [address] Maverick oByce MD [address] [place] [phone] Social History Tobacco Use Types Packs/Day Years Used Date Smoking Tobacco: Never Assessed Comments Unknown Sex and Gender Information Value Date Recorded Sex Assigned at Not on file Legal Sex Female 3:52 AM LOGISTICS ENGINEERING MANAGER Gender Identity Not on file Sexual Orientation Not on file documented as of this encounter Plan of Treatment Not on file documented as of this encounter Visit Diagnoses Not on filedocumented in this encounter Care Teams Glass Worker Relationship Specialty Start Date End Date Xavi Allen MD [address] [place] [address] PCP - General Internal Medicine 07/02/18 documented as of this encounter
--- OUTSIDE RECORDS SUMMARY | 2025-08-24 16:04 | XMS_ITS | Clinical Summary ---
Author Organization [facility] Address [address] [place] [address] Phone Care Team Providers Care Preschool Teacher'S Assistant Name Role Phone Xavi Allen MD Primary Care Provider [phone] Allergies Active Allergy Reactions Criticality Noted Date [...] tablet Take 75 mcg by mouth daily soil sort worker. Active triamcinolone acetonide (KENALOG) 0.1 % [...] sec Assessment & Plan (01/17/2016 1:49 PM CHEESEMAKER): . Resolved Problems Problem Noted Date Diagnosed [...] on file Legal Sex Female 3:52 AM CHEESEMAKER Gender Identity Not on file Sexual Orientation Not on file Occupation Industry Job Start Date Job End Date Not on file Not on file Not on file Not on file Last Filed Vital Signs Vital Sign Reading Time Taken Comments Blood Pressure 145/84 01/25/2018 3:07 PM CHEESEMAKER Pulse 104 01/25/2018 3:07 PM CHEESEMAKER Temperature 36.9 C (98.4 F) 01/25/2018 3:07 PM CHEESEMAKER Respiratory Rate 18 01/25/2018 2:26 PM CHEESEMAKER Oxygen Saturation 98% 08/17/2017 1:37 PM CDT Inhaled Oxygen Concentration - - Weight 70.3 kg (155 lb) 12/28/2017 10:37 AM CHEESEMAKER Height 144.8 cm (4' 9) 12/28/2017 10:37 AM CHEESEMAKER Body Mass Index 33.54 12/28/2017 10:37 AM CHEESEMAKER Plan of Treatment Health Maintenance Due Date [...] 10/12/2020, 09/16/2019, Additional history exists COVID-19 Vaccine (2024- 6 season) 2025 02/21/2021, 02/01/2021 CERVICAL CANCER SCREENING 06/01/2027 PAP SMEAR 06/01/2027 06/01/2024 DTAP/TDAP/TD VACCINES (2 - T d or Tdap) 10/20/2028 10/20/2018 ZOSTER VACCINE Completed 10/30/2021, 01/01, 07/05/2020 Insurance Advance Directives For more information, please contact: [phone] * Full Code (Latest Code Status on File) Date Activated Date Inactivated Comments 03/01/2016 1:21 AM 03/04/2016 8:01 PM Care Teams Preschool Teacher'S Assistant Relationship Specialty Start Date End Date Xavi Allen MD [address] [place] [address] PCP - General Internal Medicine 07/02/18
--- OUTSIDE RECORDS SUMMARY | 2025-08-24 16:04 | XMS_ITS | Encounter Summary ---
Author Organization [facility] Address [address] [place] [address] Care Team Providers Care Die Cast Operator Name Role Phone Xavi Allen MD Primary Care Provider Encounter Details Date Type Department Care Team (Late st Contact Info) Description 09/02/2006 Outpatient Historical [facility] 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
--- OUTSIDE RECORDS SUMMARY | 2025-08-24 16:05 | XMS_ITS | Encounter Summary ---
Author Organization [facility] Address [address] [place] [address] Care Team Providers Care Account Support Specialist Name Role Phone Xavi Allen MD Primary Care Provider [phone] Encounter Details Date Type Department Care Team (Late st Contact Info) Description 09/06/2002 Outpatient [facility] Division of Neurology 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
--- OUTSIDE RECORDS SUMMARY | 2025-08-24 16:05 | XMS_ITS | Encounter Summary ---
Author Organization [facility] Address [address] [place] [address] Care Team Providers Care Scouring Pads Supervisor Name Role Phone Xavi Allen MD Primary Care Provider [phone] Encounter Details Date Type Department Care Team (Late st Contact Info) Description 02/21/2003 Outpatient [facility] Division of Neurology [address] [address] Radha Lin MD [address] [facility] [facility] [address] [place] [address] Social History Tobacco Use Types Packs/Day Years Used Date Smoking Tobacco: Never Assessed Comments Unknown Sex and Gender Information Value Date Recorded Sex Assigned at Not on file Legal Sex Female 3:52 AM SMASHER HAND Gender Identity Not on file Sexual Orientation Not on file documented as of this encounter Plan of Treatment Not on file documented as of this encounter Visit Diagnoses Not on filedocumented in this encounter Care Teams Scouring Pads Supervisor Relationship Specialty Start Date End Date Xavi Allen MD [address] [place] [address] PCP - General Internal Medicine 07/02/18 documented as of this encounter
--- OUTSIDE RECORDS SUMMARY | 2025-08-24 16:05 | XMS_ITS | Encounter Summary ---
Author Organization [facility] Address 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
--- OUTSIDE RECORDS SUMMARY | 2025-08-24 16:05 | XMS_ITS | Encounter Summary ---
Author Organization [facility] Address 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
--- OUTSIDE RECORDS SUMMARY | 2025-08-24 16:05 | XMS_ITS | Encounter Summary ---
Author Organization [facility] Address [address] [place] [address] Care Team Providers Care Forensic Specialist Name Role Phone Xavi Allen MD Primary Care Provider [phone] Encounter Details Date Type Department Care Team (Late st Contact Info) Description 04/07/2003 Outpatient [facility] Division of Neurology 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
--- OUTSIDE RECORDS SUMMARY | 2025-08-24 16:05 | XMS_ITS | Encounter Summary ---
Author Organization [facility] Address [address] 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
--- OUTSIDE RECORDS SUMMARY | 2025-08-24 16:05 | XMS_ITS | Encounter Summary ---
Author Organization [facility] Address 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
--- OUTSIDE RECORDS SUMMARY | 2025-08-24 16:05 | XMS_ITS | Encounter Summary ---
Author Organization [facility] Address 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
--- OUTSIDE RECORDS SUMMARY | 2025-08-24 16:05 | XMS_ITS | Encounter Summary ---
Author Organization [facility] Address 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
--- OUTSIDE RECORDS SUMMARY | 2025-08-24 16:05 | XMS_ITS | Encounter Summary ---
Author Organization [facility] Address [address] [place] [address] Care Team Providers Care [employer] Flatbed Truck Driver Name Role Phone Xavi Allen MD Primary Care Provider [phone] Encounter Details Date Type Department Care Team (Latest Contact Info) Description 01/19/2001 Outpatient Historical [facility] Radha Lin MD [address] [facility] [address] [place] [phone] Special screening for osteoporosis (Primary Dx) Social History Tobacco Use Types Packs/Day Years Used Date Smoking Tobacco: Never Assessed Comments Unknown Sex and Gender Information Value Date Recorded Sex Assigned at Not on file Legal Sex Female 3:52 AM PUBLIC SERVICE DIRECTOR Gender Identity Not on file Sexual Orientation Not on file documented as of this encounter Plan of Treatment Not on file documented as of this encounter Visit Diagnoses Diagnosis Special screening for osteoporosis- Primary documented in this encounter Care Teams [employer] Flatbed Truck Driver Relationship Specialty Start Date End Date Xavi Allen MD [address] [place] [address] PCP - General Internal Medicine 07/02/18 documented as of this encounter
--- OUTSIDE RECORDS SUMMARY | 2025-08-24 16:05 | XMS_ITS | Encounter Summary ---
Author Organization [facility] Address [address] [place] [address] Care Team Providers Care Instructor Adjunct Surgical Technician Name Role Phone Xavi Allen MD Primary Care Provider [phone] Encounter Details Date Type Department Care Team (Late st Contact Info) Description 11/25/2002 Outpatient [facility] Division of Neurology [address], [address] [address] Maverick Boyce MD [address] [place] [phone] Social History Tobacco Use Types Packs/Day Years Used Date Smoking Tobacco: Never Assessed Comments Unknown Sex and Gender Information Value Date Recorded Sex Assigned at Not on file Legal Sex Female 3:52 AM ENGINEERING AND OPERATIONS DIRECTOR Gender Identity Not on file Sexual Orientation Not on file documented as of this encounter Plan of Treatment Not on file documented as of this encounter Visit Diagnoses Not on filedocumented in this encounter Care Teams Instructor Adjunct Surgical Technician Relationship Specialty Start Date End Date Xavi Allen MD [address] [place] [address] PCP - General Internal Medicine 07/02/18 documented as of this encounter
--- OUTSIDE RECORDS SUMMARY | 2025-08-24 16:05 | XMS_ITS | Encounter Summary ---
Author Organization [facility] Address [address] [place] [address] Care Team Providers Care Pot Liner Name Role Phone Xavi Allen MD Primary Care Provider [phone] Encounter Details Date Type Department Care Team (Late st Contact Info) Description 03/22/[address] [facility] Division of Neurology 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
--- OUTSIDE RECORDS SUMMARY | 2025-08-24 16:05 | XMS_ITS | Encounter Summary ---
Author Organization [facility] Address 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
--- OUTSIDE RECORDS SUMMARY | 2025-08-24 16:05 | XMS_ITS | Encounter Summary ---
Author Organization [facility] Address [address] [place] [address] Care Team Providers Care Repair Electric Motor Assembler Name Role Phone Xavi Allen MD Primary Care Provider Encounter Details Date Type Department Care Team (Late st Contact Info) Description 10/31/2002 Outpatient Historical [facility] Social History Tobacco Use Types Packs/Day Years Used Date Smoking Tobacco: Never Assessed Comments Unknown Sex and Gender Information Value Date Recorded Sex Assigned at Not on file Legal Sex Female 3:52 AM NET PROGRAMMER Gender Identity Not on file Sexual Orientation Not on file documented as of this encounter Plan of Treatment Not on file documented as of this encounter Visit Diagnoses Not on filedocumented in this encounter Care Teams Repair Electric Motor Assembler Relationship Specialty Start Date End Date Xavi Allen MD [address] [place] [address] PCP - General Internal Medicine 07/02/18 documented as of this encounter
--- OUTSIDE RECORDS SUMMARY | 2025-08-24 16:05 | XMS_ITS | Encounter Summary ---
Author Organization [facility] Address 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
--- OUTSIDE RECORDS SUMMARY | 2025-08-24 16:05 | XMS_ITS | Encounter Summary ---
Author Organization [facility] Address [address] [place] [address] Care Team Providers Care Hard Hat Diver Name Role Phone Xavi Allen MD Primary Care Provider Encounter Details Date Type Department Care Team (Late st Contact Info) Description 08/08/2002 Outpatient Historical [facility] Social History Tobacco Use Types Packs/Day Years Used Date Smoking Tobacco: Never Assessed Comments Unknown Sex and Gender Information Value Date Recorded Sex Assigned at Not on file Legal Sex Female 3:52 AM BUSINESS CONSULTANT Gender Identity Not on file Sexual Orientation Not on file documented as of this encounter Plan of Treatment Not on file documented as of this encounter Visit Diagnoses Not on filedocumented in this encounter Care Teams Hard Hat Diver Relationship Specialty Start Date End Date Xavi Allen MD [address] [place] [address] PCP - General Internal Medicine 07/02/18 documented as of this encounter
--- OUTSIDE RECORDS SUMMARY | 2025-08-24 16:05 | XMS_ITS | Clinical Summary ---
Author Organization [facility] Address [address] [place] [address] Care Team Providers Care Accounts Payable Administrator Name Role Phone Xavi Allen MD Primary Care Provider [phone] Source Comments [facility],non-owned Affiliates and Associated Physician Practices is amultiple site organization consisting of ambulatory clinics and hospital sitesin [place], [place], [place] and [place]. This disclosure is being madepursuant to the Care Everywhere program and may not contain all information available regarding this patient. Last updated 18.[facility] Allergies Active Allergy Reactions Criticality Noted [...] 7 - 26 mg/dL 04/05/2018 10:33 AM [facility] Creatinine 0.7 0.6 - 1.2 mg/dL 04/05/2018 10:33 AM [facility] Sodium 137 136 - 145 mmol/L 04/05/2018 10:33 AM [facility] Potassium 4.3 3.5 - 4.5 mmol/L 04/05/2018 10:33 AM [facility] Chloride 104 98 - 107 mmol/L 04/05/2018 10:33 AM [facility] CO2 25 22 - 29 mmol/L 04/05/2018 10:33 AM [facility] Glucose 117(H) 70 - 115 mg/dL 04/05/2018 10:33 AM [facility] Calcium 8.5 8.4 - 10.2 mg/dL 04/05/2018 10:33 AM [facility] Anion Gap 12 8 - 18 04/05/2018 10:33 AM [facility] BUN/Creatinine Ratio 16 7 - 23 04/05/2018 10:33 AM [facility] Osmolality Calculated 284 270 - 300 mOsm/kg 04/05/2018 10:33 AM [facility] eGFR >60 >60 mL/min/1.7 3 m2 04/05/2018 10:33 AM [facility] Blood BLOOD SPECIMEN / Unknown 04/05/2018 9:46 AM CDT 04/05/2018 10:01 AM CDT us Najma Walls GROUNDHAND-PRINTED CIRCUIT DESIGNER LAB - CHEMISTRY ORDERABL ES Final Result [facility] [address] [place] [address] from Last 3 Months or Most Recently Relevant to Health Maintenance Insurance [facility] Member Subscriber Plan / Payer (Ef fective 2011-Present) Name:Butch Barrientos Relation to Subscriber:Self Name:BUTCH BARRIENTOS Payer ID:[id number] (NAIC) Type:PPO Address: [place] [phone] MEDICAID - OUT OF STATE [facility] Advance Directives * Full Code (Latest Code Status on File) Date Activated Date Inactivated Comments 03/31/2018 11:53 PM 04/09/2018 2:02 PM Care Teams Accounts Payable Administrator Relationship Specialty Start Date End Date Xavi Allen MD [address] [place] [id number] PCP - General 05/03/18
--- OUTSIDE RECORDS SUMMARY | 2025-08-24 16:05 | XMS_ITS | Encounter Summary ---
Author Organization [facility] Address [address] [place] [address] Care Team Providers Care Warp Spinner Name Role Phone Xavi Allen MD Primary Care Provider [phone] Encounter Details Date Type Department Care Team (Late st Contact Info) Description 01/23/2004 Outpatient [facility] Division of Neurology [address] [address] Radha Lin MD [address] [facility] [facility] [address] [place] [phone] Social History Tobacco Use Types Packs/Day Years Used Date Smoking Tobacco: Never Assessed Comments Unknown Sex and Gender Information Value Date Recorded Sex Assigned at Not on file 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
--- OUTSIDE RECORDS SUMMARY | 2025-08-24 16:05 | XMS_ITS | Encounter Summary ---
Author Organization [facility] Address 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
--- OUTSIDE RECORDS SUMMARY | 2025-08-24 16:05 | XMS_ITS | Encounter Summary ---
Author Organization [facility] Address [address] [place] [address] Care Team Providers Care Child Care Sitter Name Role Phone Xavi Allen MD Primary Care Provider [phone] Encounter Details Date Type Department Care Team (Late st Contact Info) Description 03/01/2002 Outpatient [facility] Division of Neurology [address] [address] Radha Lin MD [address] [facility] [place] [phone] Social History Tobacco Use Types Packs/Day Years Used Date Smoking Tobacco: Never Assessed Comments Unknown Sex and Gender Information Value Date Recorded Sex Assigned at Not on file Legal Sex Female 3:52 AM COAT OPERATOR INSULATOR Gender Identity Not on file Sexual Orientation Not on file documented as of this encounter Plan of Treatment Not on file documented as of this encounter Visit Diagnoses Not on filedocumented in this encounter Care Teams Child Care Sitter Relationship Specialty Start Date End Date Xavi Allen MD [address] [place] [address] PCP - General Internal Medicine 07/02/18 documented as of this encounter
--- OUTSIDE RECORDS SUMMARY | 2025-08-24 16:05 | XMS_ITS | Encounter Summary ---
Author Organization [facility] Address [address] [place] [address] Care Team Providers Care Student Ministry Pastor Name Role Phone Xavi Allen MD Primary Care Provider [phone] Encounter Details Date Type Department Care Team (Late st Contact Info) Description 10/31/2002 Outpatient [facility] Division [facility] [address] [address] Radha Lin MD [address] [facility] [address] [place] [phone] Social History Tobacco Use Types Packs/Day Years Used Date Smoking Tobacco: Never Assessed Comments Unknown Sex and Gender Information Value Date Recorded Sex Assigned at Not on file Legal Sex Female 3:52 AM HOME DEPOT REP Gender Identity Not on file Sexual Orientation Not on file documented as of this encounter Plan of Treatment Not on file documented as of this encounter Visit Diagnoses Not on filedocumented in this encounter Care Teams Student Ministry Pastor Relationship Specialty Start Date End Date Xavi Allen MD [address] [place] [address] PCP - General Internal Medicine 07/02/18 documented as of this encounter
--- OUTSIDE RECORDS SUMMARY | 2025-08-24 16:05 | XMS_ITS | Encounter Summary ---
Author Organization [facility] Address [address] [place] [address] Care Team Providers Care Lead Burner Apprentice Name Role Phone Xavi Allen MD Primary Care Provider [phone] Encounter Details Date Type Department Care Team (Latest Contact Info) Description 12/02/2000 Outpatient Historical [facility] KASI Lin, Radha Batres MD [address] [facility] [facility] [address] [place] [phone] Multiple sclerosis (CMS/HCC) (Primary Dx) Social History Tobacco Use Types Packs/Day Years Used Date Smoking Tobacco: Never Assessed Comments Unknown Sex and Gender Information Value Date Recorded Sex Assigned at Not on file 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
--- OUTSIDE RECORDS SUMMARY | 2025-08-24 16:05 | XMS_ITS | Encounter Summary ---
Author Organization [facility] Address [address] [place] [address] Care Team Providers Care Inspector Type Name Role Phone Xavi Allen MD Primary Care Provider [phone] Encounter Details Date Type Department Care Team (Late st Contact Info) Description 05/16/2003 Outpatient [facility] Division of Neurology [address], [address] [address] Maverick Boyce MD [address] [place] [id number] Social History Tobacco Use Types Packs/Day Years Used Date Smoking Tobacco: Never Assessed Comments Unknown Sex and Gender Information Value Date Recorded Sex Assigned at Not on file 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
--- OUTSIDE RECORDS SUMMARY | 2025-08-24 16:05 | XMS_ITS | Encounter Summary ---
Author Organization [facility] Address [address] [place] [address] Care Team Providers Care Manager Wind Name Role Phone Xavi Allen MD Primary Care Provider [phone] Encounter Details Date Type Department Care Team (Late st Contact Info) Description 09/06/2002 Outpatient [facility] Division of Neurology [address] [address] Radha Lin MD [address] [facility] [address] [place] [phone] Social History Tobacco Use Types Packs/Day Years Used Date Smoking Tobacco: Never Assessed Comments Unknown Sex and Gender Information Value Date Recorded Sex Assigned at Not on file 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
--- OUTSIDE RECORDS SUMMARY | 2025-08-24 16:05 | XMS_ITS | Encounter Summary ---
Author Organization [facility] Address 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
--- OUTSIDE RECORDS SUMMARY | 2025-08-24 16:05 | XMS_ITS | Encounter Summary ---
Author Organization [employer] [facility] Address [address] [place] [address] Care Team Providers Care Manager Small Business Name Role Phone Xavi Allen MD Primary Care Provider [phone] Encounter Details Date Type Department Care Team (Latest Contact Info) Description 04/04/2003 Outpatient Historical [facility] NEURO PSYCHOLOGY Rudy Palma V., PhD 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
--- OUTSIDE RECORDS SUMMARY | 2025-08-24 16:05 | XMS_ITS | Encounter Summary ---
Author Organization [facility] Address [address] [place] [address] Care Team Providers Care Telecommunications Sales Representative Name Role Phone Xavi Allen MD Primary Care Provider Encounter Details Date Type Department Care Team (Late st Contact Info) Description 06/14/2002 Outpatient Historical [facility] Social History Tobacco Use Types Packs/Day Years Used Date Smoking Tobacco: Never Assessed Comments Unknown Sex and Gender Information Value Date Recorded Sex Assigned at Not on file Legal Sex Female 3:52 AM CONE PICKER Gender Identity Not on file Sexual Orientation Not on file documented as of this encounter Plan of Treatment Not on file documented as of this encounter Visit Diagnoses Not on filedocumented in this encounter Care Teams Telecommunications Sales Representative Relationship Specialty Start Date End Date Xavi Allen MD [address] [place] [address] PCP - General Internal Medicine 07/02/18 documented as of this encounter
--- OUTSIDE RECORDS SUMMARY | 2025-08-24 16:05 | XMS_ITS | Encounter Summary ---
Author Organization [facility] Address [address] [place] [address] Care Team Providers Care Ductfixing Plumber Name Role Phone Xavi Allen MD Primary Care Provider Encounter Details Date Type Department Care Team (Late st Contact Info) Description 02/22/2004 Outpatient Historical [facility] Social History Tobacco Use Types Packs/Day Years Used Date Smoking Tobacco: Never Assessed Comments Unknown Sex and Gender Information Value Date Recorded Sex Assigned at Not on file Legal Sex Female 3:52 AM CORPORATE CONTROLLER Gender Identity Not on file Sexual Orientation Not on file documented as of this encounter Plan of Treatment Not on file documented as of this encounter Visit Diagnoses Not on filedocumented in this encounter Care Teams Ductfixing Plumber Relationship Specialty Start Date End Date Xavi Allen MD [address] [place] [address] PCP - General Internal Medicine 07/02/18 documented as of this encounter
--- OUTSIDE RECORDS SUMMARY | 2025-08-24 16:05 | XMS_ITS | Encounter Summary ---
Author Organization [facility] Address [address] [place] [address] Care Team Providers Care Hardware Designer Name Role Phone Xavi Allen MD Primary Care Provider [phone] Encounter Details Date Type Department Care Team (Late st Contact Info) Description 12/02/2000 Outpatient [facility] Division of Neurology [address], [address] [address] Radha Lin MD [address] [facility] [address] [place] [phone] Social History Tobacco Use Types Packs/Day Years Used Date Smoking Tobacco: Never Assessed Comments Unknown Sex and Gender Information Value Date Recorded Sex Assigned at Not on file Legal Sex Female 3:52 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
--- OUTSIDE RECORDS SUMMARY | 2025-08-24 16:05 | XMS_ITS | Encounter Summary ---
Author Organization [facility] Address [address] [place] [address] Care Team Providers Care Certified Ophthalmic Assistant Name Role Phone Xavi Allen MD Primary Care Provider [phone] Encounter Details Date Type Department Care Team (Late st Contact Info) Description 02/16/[address] [facility] Division of Neurology [address], [address] [address] Radha Lin MD [address] [facility] [address] [place] [phone] Social History Tobacco Use Types Packs/Day Years Used Date Smoking Tobacco: Never Assessed Comments Unknown Sex and Gender Information Value Date Recorded Sex Assigned at Not on file Legal Sex Female 3:52 AM TOP TILE DECORATOR Gender Identity Not on file Sexual Orientation Not on file documented as of this encounter Plan of Treatment Not on file documented as of this encounter Visit Diagnoses Not on filedocumented in this encounter Care Teams Certified Ophthalmic Assistant Relationship Specialty Start Date End Date Xavi Allen MD [address] [place] [address] PCP - General Internal Medicine 07/02/18 documented as of this encounter
--- OUTSIDE RECORDS SUMMARY | 2025-08-24 16:05 | XMS_ITS | Encounter Summary ---
Author Organization [employer] Address 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
--- OUTSIDE RECORDS SUMMARY | 2025-08-24 16:05 | XMS_ITS | Encounter Summary ---
Author Organization [facility] Address 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
--- OUTSIDE RECORDS SUMMARY | 2025-08-24 16:05 | XMS_ITS | Encounter Summary ---
Author Organization [facility] Address 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
--- OUTSIDE RECORDS SUMMARY | 2025-08-24 16:05 | XMS_ITS | Encounter Summary ---
Author Organization [facility] Address [address] [place] [address] Care Team Providers Care Curtain Inspector Name Role Phone Xavi Allen MD Primary Care Provider [phone] Encounter Details Date Type Department Care Team (Late st Contact Info) Description 05/17/2002 Outpatient Historical [facility] Social History Tobacco Use Types Packs/Day Years Used Date Smoking Tobacco: Never Assessed Comments Unknown Sex and Gender Information Value Date Recorded Sex Assigned at Not on file Legal Sex Female 3:52 AM ONLINE MERCHANDISING COORDINATOR Gender Identity Not on file Sexual Orientation Not on file documented as of this encounter Plan of Treatment Not on file documented as of this encounter Visit Diagnoses Not on filedocumented in this encounter Care Teams Curtain Inspector Relationship Specialty Start Date End Date Xavi Allen MD [address] [place] [address] PCP - General Internal Medicine 07/02/18 documented as of this encounter
--- OUTSIDE RECORDS SUMMARY | 2025-08-24 16:05 | XMS_ITS | Encounter Summary ---
Author Organization [facility] Address 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
--- OUTSIDE RECORDS SUMMARY | 2025-08-24 16:05 | XMS_ITS | Encounter Summary ---
Author Organization [facility] Address [address] [place] [address] Care Team Providers Care Contact Lens Flashing Puncher Name Role Phone Xavi Allen MD Primary Care Provider [phone] Encounter Details Date Type Department Care Team (Late st Contact Info) Description 01/23/2004 Outpatient [facility] Division of Neurology [address] [address] Maverick Boyce MD [address] [place] [address] Social History Tobacco Use Types Packs/Day Years Used Date Smoking Tobacco: Never Assessed Comments Unknown Sex and Gender Information Value Date Recorded Sex Assigned at Not on file 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
--- OUTSIDE RECORDS SUMMARY | 2025-08-24 16:05 | XMS_ITS | Encounter Summary ---
Author Organization [facility] Address [address] [place] [address] Care Team Providers Care Director Business Development Name Role Phone Xavi Allen MD Primary Care Provider [phone] Encounter Details Date Type Department Care Team (Late st Contact Info) Description 01/03/2003 Inpatient Historical [facility], Maximo Temple MD NO ADDRESS ON FILE Esequiel Olivares MD [address] [address] URINARY FREQUENCY (Primary Dx) Social History Tobacco Use Types Packs/Day Years Used Date Smoking Tobacco: Never Assessed Comments Unknown Sex and Gender Information Value Date Recorded Sex Assigned at Not on file Legal Sex Female 3:52 AM MEDICAL EDUCATOR Gender Identity Not on file Sexual Orientation Not on file documented as of this encounter Plan of Treatment Not on file documented as of this encounter Visit Diagnoses Diagnosis Urinary frequency- Primary documented in this encounter Care Teams Director Business Development Relationship Specialty Start Date End Date Xavi Allen MD [address] [place] [address] PCP - General Internal Medicine 07/02/18 documented as of this encounter
--- OUTSIDE RECORDS SUMMARY | 2025-08-24 16:05 | XMS_ITS | Encounter Summary ---
Author Organization [facility] Address [address] [place] [address] Care Team Providers Care Dental Laboratory Technology Teacher Name Role Phone Xavi Allen MD Primary Care Provider [phone] Encounter Details Date Type Department Care Team (Late st Contact Info) Description 03/20/2003 Outpatient Historical [facility] Social History Tobacco Use Types Packs/Day Years Used Date Smoking Tobacco: Never Assessed Comments Unknown Sex and Gender Information Value Date Recorded Sex Assigned at Not on file Legal Sex Female 3:52 AM SENIOR ESTIMATOR Gender Identity Not on file Sexual Orientation Not on file documented as of this encounter Plan of Treatment Not on file documented as of this encounter Visit Diagnoses Not on filedocumented in this encounter Care Teams Dental Laboratory Technology Teacher Relationship Specialty Start Date End Date Xavi Allen MD [address] [place] [address] PCP - General Internal Medicine 07/02/18 documented as of this encounter
--- OUTSIDE RECORDS SUMMARY | 2025-08-24 16:05 | XMS_ITS | Encounter Summary ---
Author Organization [facility] Address [address] [place] [address] Care Team Providers Care Locomotive Observer Name Role Phone Xavi Allen MD Primary Care Provider [phone] Encounter Details Date Type Department Care Team (Latest Contact Info) Description 03/30/2001 Outpatient Historical [facility] NEURO PSYCHOLOGY Rudy Palma V., PhD [address] [place] [address] Multiple sclerosis (CMS/HCC) (Primary Dx) Social History Tobacco Use Types Packs/Day Years Used Date Smoking Tobacco: Never Assessed Comments Unknown Sex and Gender Information Value Date Recorded Sex Assigned at Not on file Legal Sex Female 3:52 AM RIVET THROWER Gender Identity Not on file Sexual Orientation Not on file documented as of this encounter Plan of Treatment Not on file documented as of this encounter Visit Diagnoses Diagnosis Multiple sclerosis (CMS/HCC)- Primary Multiple sclerosis documented in this encounter Care Teams Locomotive Observer Relationship Specialty Start Date End Date Xavi Allen MD [address] [place] [address] PCP - General Internal Medicine 07/02/18 documented as of this encounter
--- OUTSIDE RECORDS SUMMARY | 2025-08-24 16:05 | XMS_ITS | Encounter Summary ---
Author Organization [facility] Address [address] [facility] [place] [address] Care Team Providers Care Field Operations Supervisor Name Role Phone Xavi Allen MD Primary Care Provider [phone] Encounter Details Date Type Department Care Team (Late st Contact Info) Description 03/14/2025 Lab [facility] [address] [facility] [place] [address] Jennifer Lucio DO [address] [facility] [address] [place] [address] Social History Tobacco Use Types Packs/Day Years [...] AM CDT) Case Report Dermatopathology Report Case: [id number] Authorizing Provider: Jennifer Lucio DO Collected: 03/14/2025 09:31 AM Ordering Location: [facility] - Received: 03/14/2025 04:30 PM DermPath Lab Pathologist: Angelia Lloyd MD Specimen: Skin, left confucianism 4:19 PM CDT DERMATOPATHOLOGY LABORATORY Final Diagnosis Specimen A. SKIN, left confucianism: ACTINIC KERATOSIS, LICHENOID (L57.0) 4:19 PM CDT DERMATOPATHOLOGY LABORATORY at 1619 CDT Clinical History ISK, R/O Atypia 4:19 PM CDT DERMATOPATHOLOGY LABORATORY Gross Description Specimen A: Received is one formalin filled container labeled with the patient's name and designated left confucianism. The specimen consists of a shave biopsy measuring 10x7x1 mm. Jar 0. 4:19 PM CDT DERMATOPATHOLOGY LABORATORY Microscopic Description Specimen A. SKIN, left confucianism: There is focal parakeratosis. The lower half [...] characteristic determined by the Dermatopathology Laboratory at [facility], directed by Dr. Raine Lloyd. These tests need not be, and therefore are not, approved by the [place] Food and Drug Administration. The tests are used for clinical purposes. Billing Codes Specimen Charges Stain Charges 24846 1 5 4:19 PM CDT DERMATOPATHOLOGY LABORATORY Embedded Images 5 4:19 PM CDT DERMATOPATHOLOGY LABORATORY Pathology/Cytolo gy TISSUE SPECIMEN FROM SKIN / Unknown 03/14/2025 9:31 AM CDT 03/14/2025 4:30 PM CDT us Jennifer Lucio DO LAB - PATHOLOGY/CYTOLOGY ORDERABLES Final Result DERMATOPATHOLOGY LABORATORY [facility] - Department of Dermatology [address], [address] [phone] documented in this encounter Visit Diagnoses Not on filedocumented in this encounter Care Teams Field Operations Supervisor Relationship Specialty Start Date End Date Xavi Allen MD [address] [place], [place] [phone] PCP - General 05/03/18 documented as of this encounter
--- OUTSIDE RECORDS SUMMARY | 2025-08-24 16:05 | XMS_ITS | Encounter Summary ---
Author Organization [facility] Address [address] [place] [address] Care Team Providers Care Machine Repair Person Name Role Phone Xavi Allen MD Primary Care Provider [phone] Encounter Details Date Type Department Care Team (Late st Contact Info) Description 03/22/2002 Outpatient [facility] Division of Neurology [address] [address] Radha Lin MD [address] [facility] [address] [place] [phone] Social History Tobacco Use Types Packs/Day Years Used Date Smoking Tobacco: Never Assessed Comments Unknown Sex and Gender Information Value Date Recorded Sex Assigned at Not on file Legal Sex Female 3:52 AM CLERK GENERAL OFFICE Gender Identity Not on file Sexual Orientation Not on file documented as of this encounter Plan of Treatment Not on file documented as of this encounter Visit Diagnoses Not on filedocumented in this encounter Care Teams Machine Repair Person Relationship Specialty Start Date End Date Xavi Allen MD [address] [place] [address] PCP - General Internal Medicine 07/02/18 documented as of this encounter
--- OUTSIDE RECORDS SUMMARY | 2025-08-24 16:05 | XMS_ITS | Encounter Summary ---
Author Organization [facility] Address [address] [place] [address] Care Team Providers Care Delivery Driver/Supervisor Name Role Phone Xavi Allen MD Primary Care Provider [phone] Encounter Details Date Type Department Care Team (Late st Contact Info) Description 11/25/2002 Outpatient Historical [facility] Social History Tobacco Use Types Packs/Day Years Used Date Smoking Tobacco: Never Assessed Comments Unknown Sex and Gender Information Value Date Recorded Sex Assigned at Not on file Legal Sex Female 3:52 AM TECHNOLOGY RISK INTERN Gender Identity Not on file Sexual Orientation Not on file documented as of this encounter Plan of Treatment Not on file documented as of this encounter Visit Diagnoses Not on filedocumented in this encounter Care Teams Delivery Driver/Supervisor Relationship Specialty Start Date End Date Xavi Allen MD [address] [place] [address] PCP - General Internal Medicine 07/02/18 documented as of this encounter
--- OUTSIDE RECORDS SUMMARY | 2025-08-24 16:05 | XMS_ITS | Encounter Summary ---
Author Organization [facility] Address [address] [place] [address] Care Team Providers Care Upholstery Restorer Name Role Phone Xavi Allen MD Primary Care Provider [phone] Encounter Details Date Type Department Care Team (Late st Contact Info) Description 08/19/2001 Outpatient [facility] Division of Neurology [address], [address] [address] Radha Lin MD [address] [facility] [address] [place] [phone] Social History Tobacco Use Types Packs/Day Years Used Date Smoking Tobacco: Never Assessed Comments Unknown Sex and Gender Information Value Date Recorded Sex Assigned at Not on file Legal Sex Female 3:52 AM MOLD SWABBER Gender Identity Not on file Sexual Orientation Not on file documented as of this encounter Plan of Treatment Not on file documented as of this encounter Visit Diagnoses Not on filedocumented in this encounter Care Teams Upholstery Restorer Relationship Specialty Start Date End Date Xavi Allen MD [address] [place] [address] PCP - General Internal Medicine 07/02/18 documented as of this encounter
--- OUTSIDE RECORDS SUMMARY | 2025-08-24 16:05 | XMS_ITS | Encounter Summary ---
Author Organization [facility] Address [address] [place] [address] Care Team Providers Care Wire Winding Machine Tender Name Role Phone Xavi Allen MD Primary Care Provider [phone] Encounter Details Date Type Department Care Team (Late st Contact Info) Description 12/26/2002 Outpatient Historical [facility] KAS[facility] Lin, Radha Batres MD [address] [facility] [address] [place] [phone] Social History Tobacco Use Types Packs/Day Years Used Date Smoking Tobacco: Never Assessed Comments Unknown Sex and Gender Information Value Date Recorded Sex Assigned at Not on file Legal Sex Female 3:52 AM CLAY WASHER Gender Identity Not on file Sexual Orientation Not on file documented as of this encounter Plan of Treatment Not on file documented as of this encounter Visit Diagnoses Not on filedocumented in this encounter Care Teams Wire Winding Machine Tender Relationship Specialty Start Date End Date Xavi Allen MD [address] [place] [address] PCP - General Internal Medicine 07/02/18 documented as of this encounter
--- OUTSIDE RECORDS SUMMARY | 2025-08-24 16:05 | XMS_ITS | Encounter Summary ---
Author Organization [facility] Address [address] [place] [address] Care Team Providers Care Communications Maintainer Name Role Phone Xavi Allen MD Primary Care Provider [phone] Encounter Details Date Type Department Care Team (Late st Contact Info) Description 03/22/2002 Outpatient [facility] Division of Neurology [address] [address] Maverick Boyce MD [address] [place] [phone] Social History Tobacco Use Types Packs/Day Years Used Date Smoking Tobacco: Never Assessed Comments Unknown Sex and Gender Information Value Date Recorded Sex Assigned at Not on file Legal Sex Female 3:52 AM MANAGER SAP Gender Identity Not on file Sexual Orientation Not on file documented as of this encounter Plan of Treatment Not on file documented as of this encounter Visit Diagnoses Not on filedocumented in this encounter Care Teams Communications Maintainer Relationship Specialty Start Date End Date Xavi Allen MD [address] [place] [address] PCP - General Internal Medicine 07/02/18 documented as of this encounter
--- OUTSIDE RECORDS SUMMARY | 2025-08-24 16:05 | XMS_ITS | Encounter Summary ---
Author Organization [facility] Address [address] [place] [address] Care Team Providers Care Rim Turning Machine Operator Name Role Phone Xavi Allen MD Primary Care Provider Encounter Details Date Type Department Care Team (Late st Contact Info) Description 02/21/2003 Outpatient Historical [facility] Social History Tobacco Use Types Packs/Day Years Used Date Smoking Tobacco: Never Assessed Comments Unknown Sex and Gender Information Value Date Recorded Sex Assigned at Not on file Legal Sex Female 3:52 AM DATA GOVERNANCE CONSULTANT Gender Identity Not on file Sexual Orientation Not on file documented as of this encounter Plan of Treatment Not on file documented as of this encounter Visit Diagnoses Not on filedocumented in this encounter Care Teams Rim Turning Machine Operator Relationship Specialty Start Date End Date Xavi Allen MD [address] [place] [address] PCP - General Internal Medicine 07/02/18 documented as of this encounter
--- OUTSIDE RECORDS SUMMARY | 2025-08-24 16:05 | XMS_ITS | Encounter Summary ---
Author Organization [facility] Address [address] [place] [address] Care Team Providers Care Coffee Shop Manager Name Role Phone Xavi Allen MD Primary Care Provider [phone] Encounter Details Date Type Department Care Team (Late st Contact Info) Description 10/03/2002 Outpatient [facility] Division of Neurology [address], [address] [address] Radha Lin MD [address] [facility] [address] [place] [phone] Social History Tobacco Use Types Packs/Day Years Used Date Smoking Tobacco: Never Assessed Comments Unknown Sex and Gender Information Value Date Recorded Sex Assigned at Not on file Legal Sex Female 3:52 AM DIAMOND POWDER MIXER Gender Identity Not on file Sexual Orientation Not on file documented as of this encounter Plan of Treatment Not on file documented as of this encounter Visit Diagnoses Not on filedocumented in this encounter Care Teams Coffee Shop Manager Relationship Specialty Start Date End Date Xavi Allen MD [address] [place] [address] PCP - General Internal Medicine 07/02/18 documented as of this encounter
--- OUTSIDE RECORDS SUMMARY | 2025-08-24 16:05 | XMS_ITS | Encounter Summary ---
Author Organization [facility] Address [address] [place] [address] Care Team Providers Care Manager Commercial Real Estate Name Role Phone Xavi Allen MD Primary Care Provider [phone] Encounter Details Date Type Department Care Team (Late st Contact Info) Description 09/06/2002 Outpatient [facility] Division of Neurology [address] [address] Radha Lin MD [address] [facility] [address] [place] [phone] Social History Tobacco Use Types Packs/Day Years Used Date Smoking Tobacco: Never Assessed Comments Unknown Sex and Gender Information Value Date Recorded Sex Assigned at Not on file Legal Sex Female 3:52 AM STRATEGIC ANALYST Gender Identity Not on file Sexual Orientation Not on file documented as of this encounter Plan of Treatment Not on file documented as of this encounter Visit Diagnoses Not on filedocumented in this encounter Care Teams Manager Commercial Real Estate Relationship Specialty Start Date End Date Xavi Allen MD [address] [place] [address] PCP - General Internal Medicine 07/02/18 documented as of this encounter
--- OUTSIDE RECORDS SUMMARY | 2025-08-24 16:05 | XMS_ITS | Encounter Summary ---
Author Organization [facility] Address [address] [place] [address] Care Team Providers Care Tear Down Worker Name Role Phone Xavi Allen MD Primary Care Provider [phone] Encounter Details Date Type Department Care Team (Late st Contact Info) Description 02/02/2004 Outpatient [facility] Division of Neurology [address] [address] Maverick Boyce MD [address] [place] [phone] Social History Tobacco Use Types Packs/Day Years Used Date Smoking Tobacco: Never Assessed Comments Unknown Sex and Gender Information Value Date Recorded Sex Assigned at Not on file Legal Sex Female 3:52 AM OFFICE SWEEPER Gender Identity Not on file Sexual Orientation Not on file documented as of this encounter Plan of Treatment Not on file documented as of this encounter Visit Diagnoses Not on filedocumented in this encounter Care Teams Tear Down Worker Relationship Specialty Start Date End Date Xavi Allen MD [address] [place] [address] PCP - General Internal Medicine 07/02/18 documented as of this encounter
--- OUTSIDE RECORDS SUMMARY | 2025-08-24 16:05 | XMS_ITS | Encounter Summary ---
Author Organization [facility] Address [address] [place] [address] Care Team Providers Care Cement Rubber Name Role Phone Xavi Allen MD Primary Care Provider [phone] Encounter Details Date Type Department Care Team (Late st Contact Info) Description 03/20/2003 Outpatient Historical [facility] Radha Lin MD [address] [facility] [address] [place] [address] Social History Tobacco Use Types Packs/Day Years Used Date Smoking Tobacco: Never Assessed Comments Unknown Sex and Gender Information Value Date Recorded Sex Assigned at Not on file Legal Sex Female 3:52 AM REGISTERED CLINICAL DIETITIAN Gender Identity Not on file Sexual Orientation Not on file documented as of this encounter Plan of Treatment Not on file documented as of this encounter Visit Diagnoses Not on filedocumented in this encounter Care Teams Cement Rubber Relationship Specialty Start Date End Date Xavi Allen MD [address] [place] [address] PCP - General Internal Medicine 07/02/18 documented as of this encounter
--- OUTSIDE RECORDS SUMMARY | 2025-08-24 16:05 | XMS_ITS | Encounter Summary ---
Author Organization [facility] Address [address] [place] [address] Care Team Providers Care Research Statistician Name Role Phone Xavi Allen MD Primary Care Provider [phone] Encounter Details Date Type Department Care Team (Late st Contact Info) Description 03/03/2003 Outpatient [facility] Division of Neurology [address] [address] Radha Lin MD [address] [facility] [address] [place] [phone] Social History Tobacco Use Types Packs/Day Years Used Date Smoking Tobacco: Never Assessed Comments Unknown Sex and Gender Information Value Date Recorded Sex Assigned at Not on file Legal Sex Female 3:52 AM MANAGER OFFICE SERVICES Gender Identity Not on file Sexual Orientation Not on file documented as of this encounter Plan of Treatment Not on file documented as of this encounter Visit Diagnoses Not on filedocumented in this encounter Care Teams Research Statistician Relationship Specialty Start Date End Date Xavi Allen MD [address] [place] [address] PCP - General Internal Medicine 07/02/18 documented as of this encounter
--- OUTSIDE RECORDS SUMMARY | 2025-08-24 16:05 | XMS_ITS | Encounter Summary ---
Author Organization [facility] Address [address] [place] [address] Care Team Providers Care Engineer Remote Control Diesel Name Role Phone Xavi Allen MD Primary Care Provider [phone] Encounter Details Date Type Department Care Team (Late st Contact Info) Description 04/07/2003 Outpatient [facility] Division of Neurology [address], [address] [address] Maverick Boyce MD [address] [place] [phone] Social History Tobacco Use Types Packs/Day Years Used Date Smoking Tobacco: Never Assessed Comments Unknown Sex and Gender Information Value Date Recorded Sex Assigned at Not on file Legal Sex Female 3:52 AM LOSS PREVENTION INVESTIGATOR Gender Identity Not on file Sexual Orientation Not on file documented as of this encounter Plan of Treatment Not on file documented as of this encounter Visit Diagnoses Not on filedocumented in this encounter Care Teams Engineer Remote Control Diesel Relationship Specialty Start Date End Date Xavi Allen MD [address] [place] [address] PCP - General Internal Medicine 07/02/18 documented as of this encounter
--- OUTSIDE RECORDS SUMMARY | 2025-08-24 16:05 | XMS_ITS | Encounter Summary ---
Author Organization [facility] Address [address] [place] [address] Care Team Providers Care Shank Taper Name Role Phone Xavi Allen MD Primary Care Provider [phone] Encounter Details Date Type Department Care Team (Late st Contact Info) Description 01/03/2003 Outpatient Historical [facility] Esequiel Olivares MD [address] [address] RETENTION OF URINE UNSPEC (Primary Dx) Social History Tobacco Use Types Packs/Day Years Used Date Smoking Tobacco: Never Assessed Comments Unknown Sex and Gender Information Value Date Recorded Sex Assigned at Not on file Legal Sex Female 3:52 AM CAFETERIA MONITOR Gender Identity Not on file Sexual Orientation Not on file documented as of this encounter Plan of Treatment Not on file documented as of this encounter Visit Diagnoses Diagnosis Retention of urine, unspecified- Primary documented in this encounter Care Teams Shank Taper Relationship Specialty Start Date End Date Xavi Allen MD [address] [place] [address] PCP - General Internal Medicine 07/02/18 documented as of this encounter
--- OUTSIDE RECORDS SUMMARY | 2025-08-24 16:05 | XMS_ITS | Encounter Summary ---
Author Organization [facility] Address [address] [place] [address] Care Team Providers Care Journeyman Mechanic Name Role Phone Xavi Allen MD Primary Care Provider [phone] Encounter Details Date Type Department Care Team (Late st Contact Info) Description 03/20/2003 Outpatient Historical [facility] Social History Tobacco Use Types Packs/Day Years Used Date Smoking Tobacco: Never Assessed Comments Unknown Sex and Gender Information Value Date Recorded Sex Assigned at Not on file Legal Sex Female 3:52 AM AGRICULTURAL SERVICE TECHNICIAN Gender Identity Not on file Sexual Orientation Not on file documented as of this encounter Plan of Treatment Not on file documented as of this encounter Visit Diagnoses Not on filedocumented in this encounter Care Teams Journeyman Mechanic Relationship Specialty Start Date End Date Xavi Allen MD [address] [place] [address] PCP - General Internal Medicine 07/02/18 documented as of this encounter
--- OUTSIDE RECORDS SUMMARY | 2025-08-24 16:05 | XMS_ITS | Encounter Summary ---
Author Organization [facility] Address [address] [place] [address] Care Team Providers Care Bit Setter Name Role Phone Xavi Allen MD Primary Care Provider Encounter Details Date Type Department Care Team (Late st Contact Info) Description 12/04/2003 Outpatient Historical [facility] Social History Tobacco Use Types Packs/Day Years Used Date Smoking Tobacco: Never Assessed Comments Unknown Sex and Gender Information Value Date Recorded Sex Assigned at Not on file Legal Sex Female 3:52 AM ORDER PROCESSING SPECIALIST Gender Identity Not on file Sexual Orientation Not on file documented as of this encounter Plan of Treatment Not on file documented as of this encounter Visit Diagnoses Not on filedocumented in this encounter Care Teams Bit Setter Relationship Specialty Start Date End Date Xavi Allen MD [address] [place] [address] PCP - General Internal Medicine 07/02/18 documented as of this encounter
--- OUTSIDE RECORDS SUMMARY | 2025-08-24 16:05 | XMS_ITS | Encounter Summary ---
Author Organization [facility] Address [address] [place] [address] Care Team Providers Care Bark Scaler Name Role Phone Xavi Allen MD Primary Care Provider Encounter Details Date Type Department Care Team (Late st Contact Info) Description 04/18/2002 Outpatient Historical [facility] Social History Tobacco Use Types Packs/Day Years Used Date Smoking Tobacco: Never Assessed Comments Unknown Sex and Gender Information Value Date Recorded Sex Assigned at Not on file Legal Sex Female 3:52 AM CANDY POLISHER Gender Identity Not on file Sexual Orientation Not on file documented as of this encounter Plan of Treatment Not on file documented as of this encounter Visit Diagnoses Not on filedocumented in this encounter Care Teams Bark Scaler Relationship Specialty Start Date End Date Xavi Allen MD [address] [place] [address] PCP - General Internal Medicine 07/02/18 documented as of this encounter
--- OUTSIDE RECORDS SUMMARY | 2025-08-24 16:05 | XMS_ITS | Encounter Summary ---
Author Organization [facility] Address [address] [place] [address] Care Team Providers Care Punchboard Assembler Name Role Phone Xavi Allen MD Primary Care Provider [phone] Encounter Details Date Type Department Care Team (Late st Contact Info) Description 11/25/2002 Outpatient [facility] Division of Neurology [address] [address] Radha Lin MD [address] [facility] [address] [place] [phone] Social History Tobacco Use Types Packs/Day Years Used Date Smoking Tobacco: Never Assessed Comments Unknown Sex and Gender Information Value Date Recorded Sex Assigned at Not on file Legal Sex Female 3:52 AM FIRE POT OPERATOR Gender Identity Not on file Sexual Orientation Not on file documented as of this encounter Plan of Treatment Not on file documented as of this encounter Visit Diagnoses Not on filedocumented in this encounter Care Teams Punchboard Assembler Relationship Specialty Start Date End Date Xavi Allen MD [address] [place] [address] PCP - General Internal Medicine 07/02/18 documented as of this encounter
--- OUTSIDE RECORDS SUMMARY | 2025-08-24 16:05 | XMS_ITS | Encounter Summary ---
Author Organization [facility] Address [address] [place] [address] Care Team Providers Care Gear Shaver Set Up Operator Name Role Phone Xavi Allen MD Primary Care Provider Encounter Details Date Type Department Care Team (Late st Contact Info) Description 04/16/2004 Outpatient Historical [facility] Social History Tobacco Use Types Packs/Day Years Used Date Smoking Tobacco: Never Assessed Comments Unknown Sex and Gender Information Value Date Recorded Sex Assigned at Not on file Legal Sex Female 3:52 AM LIFE SKILLS COACH Gender Identity Not on file Sexual Orientation Not on file documented as of this encounter Plan of Treatment Not on file documented as of this encounter Visit Diagnoses Not on filedocumented in this encounter Care Teams Gear Shaver Set Up Operator Relationship Specialty Start Date End Date Xavi Allen MD [address] [place] [address] PCP - General Internal Medicine 07/02/18 documented as of this encounter
--- OUTSIDE RECORDS SUMMARY | 2025-08-24 16:05 | XMS_ITS | Encounter Summary ---
Author Organization [facility] Address [address] [place] [address] Care Team Providers Care Waiter/Waitress Captain Name Role Phone Xavi Allen MD Primary Care Provider [phone] Encounter Details Date Type Department Care Team (Late st Contact Info) Description 01/27/2003 Outpatient Historical [facility] Social History Tobacco Use Types Packs/Day Years Used Date Smoking Tobacco: Never Assessed Comments Unknown Sex and Gender Information Value Date Recorded Sex Assigned at Not on file Legal Sex Female 3:52 AM CONTOUR PATH TAPE MILL OPERATOR Gender Identity Not on file Sexual Orientation Not on file documented as of this encounter Plan of Treatment Not on file documented as of this encounter Visit Diagnoses Not on filedocumented in this encounter Care Teams Waiter/Waitress Captain Relationship Specialty Start Date End Date Xavi Allen MD [address] [place] [address] PCP - General Internal Medicine 07/02/18 documented as of this encounter
--- OUTSIDE RECORDS SUMMARY | 2025-08-24 16:05 | XMS_ITS | Encounter Summary ---
Author Organization [facility] Address [address] [place] [address] Care Team Providers Care Salvage Supervisor Name Role Phone Xavi Allen MD Primary Care Provider [phone] Encounter Details Date Type Department Care Team (Late st Contact Info) Description 01/23/2004 Outpatient Historical [facility] Social History Tobacco Use Types Packs/Day Years Used Date Smoking Tobacco: Never Assessed Comments Unknown Sex and Gender Information Value Date Recorded Sex Assigned at Not on file Legal Sex Female 3:52 AM AMMUNITION ASSEMBLY LABORER Gender Identity Not on file Sexual Orientation Not on file documented as of this encounter Plan of Treatment Not on file documented as of this encounter Visit Diagnoses Not on filedocumented in this encounter Care Teams Salvage Supervisor Relationship Specialty Start Date End Date Xavi Allen MD [address] [place] [address] PCP - General Internal Medicine 07/02/18 documented as of this encounter
--- OUTSIDE RECORDS SUMMARY | 2025-08-24 16:05 | XMS_ITS | Encounter Summary ---
Author Organization [facility] Address [address] Mishran: Epic Prelude ADT [place] [address] Care Team Providers Care Surgical Coordinator Name Role Phone Xavi Allen MD Primary Care Provider Encounter Details Date Type Department Care Team ([facility] Contact Info) Description 02/22/2004 Outpatient Historical Social History Tobacco Use Types Packs/Day Years Used Date Smoking Tobacco: Never Assessed Comments Unknown Sex and Gender Information Value Date Recorded Sex Assigned at Not on file Legal Sex Female 3:52 AM SATELLITE TELEVISION INSTALLER Gender Identity Not on file Sexual Orientation Not on file documented as of this encounter Plan of Treatment Not on file documented as of this encounter Visit Diagnoses Not on filedocumented in this encounter Care Teams Surgical Coordinator Relationship Specialty Start Date End Date Xavi Allen MD [address] [place] [address] PCP - General Internal Medicine 07/02/18 documented as of this encounter
--- OUTSIDE RECORDS SUMMARY | 2025-08-24 16:05 | XMS_ITS | Encounter Summary ---
Author Organization [facility] Address [address] [place] [address] Care Team Providers Care Special Librarian Name Role Phone Xavi Allen MD Primary Care Provider [phone] Encounter Details Date Type Department Care Team (Late st Contact Info) Description 02/02/2004 Outpatient [facility] Division of Neurology [address], [address] [address] Radha Lin MD [address] [facility] [address] [place] [phone] Social History Tobacco Use Types Packs/Day Years Used Date Smoking Tobacco: Never Assessed Comments Unknown Sex and Gender Information Value Date Recorded Sex Assigned at Not on file Legal Sex Female 3:52 AM UNIT MANAGER CONVENIENCE STORES Gender Identity Not on file Sexual Orientation Not on file documented as of this encounter Plan of Treatment Not on file documented as of this encounter Visit Diagnoses Not on filedocumented in this encounter Care Teams Special Librarian Relationship Specialty Start Date End Date Xavi Allen MD [address] [place] [address] PCP - General Internal Medicine 07/02/18 documented as of this encounter
--- OUTSIDE RECORDS SUMMARY | 2025-08-24 16:05 | XMS_ITS | Encounter Summary ---
Author Organization [facility] Address 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
--- OUTSIDE RECORDS SUMMARY | 2025-08-24 16:05 | XMS_ITS | Encounter Summary ---
Author Organization [facility] Address 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
--- OUTSIDE RECORDS SUMMARY | 2025-08-24 16:05 | XMS_ITS | Encounter Summary ---
Author Organization [facility] Address [address] [place] [address] Care Team Providers Care Engineering Research Manager Name Role Phone Xavi Allen MD Primary Care Provider [phone] Encounter Details Date Type Department Care Team (Late st Contact Info) Description 02/21/2003 Outpatient [facility] Division of Neurology [address] [address] Maverick Boyce MD [address] [place] [phone] Social History Tobacco Use Types Packs/Day Years Used Date Smoking Tobacco: Never Assessed Comments Unknown Sex and Gender Information Value Date Recorded Sex Assigned at Not on file 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
--- OUTSIDE RECORDS SUMMARY | 2025-08-24 16:05 | XMS_ITS | Encounter Summary ---
Author Organization [facility] Address 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
--- OUTSIDE RECORDS SUMMARY | 2025-08-24 16:05 | XMS_ITS | Encounter Summary ---
Author Organization [facility] Address [address] [place] [address] Care Team Providers Care Aquatics Instructor Name Role Phone Xavi Allen MD Primary Care Provider [phone] Encounter Details Date Type Department Care Team (Late st Contact Info) Description 03/02/2001 Outpatient [facility] Division of Neurology [address] [facility] [address] [address] Radha Lin MD [address] [facility] [address] [place] [phone] Social History Tobacco Use Types Packs/Day Years Used Date Smoking Tobacco: Never Assessed Comments Unknown Sex and Gender Information Value Date Recorded Sex Assigned at Not on file 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
--- OUTSIDE RECORDS SUMMARY | 2025-08-24 16:05 | XMS_ITS | Encounter Summary ---
Author Organization [facility] Address 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
--- OUTSIDE RECORDS SUMMARY | 2025-08-24 16:05 | XMS_ITS | Encounter Summary ---
Author Organization [facility] Address [address] [place] [address] Care Team Providers Care Logging Crew Foreman Name Role Phone Xavi Allen MD Primary Care Provider [phone] Encounter Details Date Type Department Care Team (Late st Contact Info) Description 03/11/2002 Outpatient [facility] Division of Neurology [address] [address] Maverick Boyce MD [address] [place] [phone] Social History Tobacco Use Types Packs/Day Years Used Date Smoking Tobacco: Never Assessed Comments Unknown Sex and Gender Information Value Date Recorded Sex Assigned at Not on file 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
--- OUTSIDE RECORDS SUMMARY | 2025-08-24 16:06 | XMS_ITS | Encounter Summary ---
Author Organization [facility] Address 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
--- OUTSIDE RECORDS SUMMARY | 2025-08-24 16:06 | XMS_ITS | Encounter Summary ---
Author Organization [facility] Address 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
--- OUTSIDE RECORDS SUMMARY | 2025-08-24 16:06 | XMS_ITS | Encounter Summary ---
Author Organization [facility] Address 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
--- OUTSIDE RECORDS SUMMARY | 2025-08-24 16:06 | XMS_ITS | Encounter Summary ---
Author Organization [facility] Address [address] [place] [address] Care Team Providers Care Pressroom Foreman Name Role Phone Xavi Allen MD Primary Care Provider [phone] Encounter Details Date Type Department Care Team (Late st Contact Info) Description 07/09/2004 Outpatient Historical Division of Neurology [address] [address] (Excluded Provider) [place] [address] [facility] [address] [place] [address] Social History Tobacco Use Types Packs/Day Years Used Date Smoking Tobacco: Never Assessed Comments Unknown Sex and Gender Information Value Date Recorded Sex Assigned at Not on file 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
--- OUTSIDE RECORDS SUMMARY | 2025-08-24 16:06 | XMS_ITS | Encounter Summary ---
Author Organization [facility] Address [address] [place] [address] Care Team Providers Care Performance Architect Name Role Phone Xavi Allen MD Primary Care Provider [phone] Encounter Details Date Type Department Care Team (Late st Contact Info) Description 12/27/[address] [facility] Radha Lin MD [address] [facility] 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
--- OUTSIDE RECORDS SUMMARY | 2025-08-24 16:06 | XMS_ITS | Encounter Summary ---
Author Organization [facility] Address [address] [place] [address] Care Team Providers Care Cross Tie Turner Name Role Phone Xavi Allen MD Primary Care Provider [phone] Encounter Details Date Type Department Care Team (Late st Contact Info) Description 08/08/2003 Outpatient [facility] Division of Neurology [address] [address] Maverick Boyce MD [address] [place] [phone] Social History Tobacco Use Types Packs/Day Years Used Date Smoking Tobacco: Never Assessed Comments Unknown Sex and Gender Information Value Date Recorded Sex Assigned at Not on file 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
--- OUTSIDE RECORDS SUMMARY | 2025-08-24 16:06 | XMS_ITS | Clinical Summary ---
Author Organization [facility] Address Formerly [place] [address] Care Team Providers Care Spin Table Operator Name Role Phone Xavi Laurent MD Primary Care Provider [phone] Allergies Active Allergy Reactions Criticality Noted Date Comments Azathioprine Rash Medium 02/03/2013 Full body rash Gadoterate Meglumine Rash Medium 12/18/2023 Patient developed red progressive spots on her chest arms and legs shortly after being given contrast. Hydrocodone Rash Low 03/31/2018 Body rash Hydrocodone-Ibuprofen Rash Medium 03/03/2013 Sulfa Antibiotics Rash Medium 09/03/2011 Gives me a fever Sulfamethoxazole-Trime thoprim Unknown,Other (see comment) 02/03/2013 gives me fever and rash Medications baclofen 20 MG tablet Take 1 tablet (20 mg total) by mouth 2 (two) times daily. 03/16/20 18 Active Calcium Carbonate Antacid 1000 MG Chew Tab Chew 1 tablet by mouth daily. Active magnesium oxide 400 MG tablet Take 1 tablet (400 mg total) by mouth daily. Active montelukast 10 MG tablet Take 1 tablet (10 mg total) by mouth nightly at bedtime. 06/27/20 Active pantoprazole EC 40 MG tablet Take 1 tablet (40 mg total) by mouth daily. 06/27/20 Active gabapentin 100 MG capsule Take 1 capsule (100 mg total) by mouth 2 (two) times a day. 06/27/20 Active vitamin D3, cholecalcifero l, 25 MCG (1000 UT) capsule Take 1 capsule (1,000 Units total) by mouth daily. Active cetirizine 10 MG tablet Take 1 tablet (10 mg total) by mouth nightly. Active alendronate 70 MG tablet Take 1 tablet (70 mg total) by mouth once a week. 05/08/20 15 Active Dalfampridine 10 MG TABLET SR 12 HR Take 10 mg by mouth every 12 (twelve) hours. 01/09/20 20 Active Ofatumumab (KESIMPTA) 20 MG/0.4ML Solution Auto-injector Inject 20 mg into the skin every 30 (thirty) days. 03/26/20 21 Active citalopram (CELEXA) 40 MG tablet Take 1 tablet (40 mg total) by mouth daily. 09/05/20 22 Active ondansetron (ZOFRAN) 4 MG tablet Take 1 tablet (4 mg total) by mouth every 8 (eight) hours as needed for Nausea. 20 tablet 07/30/20 24 Active carBAMazepine ER (CARBATROL) 100 MG 12 hr capsule Take 1 capsule (100 mg total) by mouth 2 (two) times daily. Active levalbuterol (XOPENEX) 0.31 MG/3ML nebulizer solution Take 3 mLs (0.31 mg total) by nebulization every 4 (four) hours as needed for Wheezing. Active nitrofurantoin (MACRODANTIN) 100 MG capsule Take 1 capsule (100 mg total) by mouth 2 (two) times a day. Has 3 days remaining - treatment for UTI 01/10/20 25 Active levothyroxine (SYNTHROID) 125 MCG tablet Take 0.5 tablets (62.5 mcg total) by mouth every morning. 06/26/20 25 Active nitrofurantoin 50 MG capsule Take 1 capsule (50 mg total) by mouth daily. 01/04/20 15 025 Discontinued Armodafinil 150 MG Tab Take 150 mg by mouth daily. 10/20/20 17 025 Discontinued levothyroxine 75 MCG tablet 08/14/20 025 Discontinued citalopram 40 MG tablet 08/14/20 20 025 Discontinued Active Problems Problem Noted Date Diagnosed Date Patellar tendonitis of right knee 08/24/2024 Contusion of right knee, initial encounter 08/24 Weakness 02/17/2024 Gait abnormality 02/17/2024 Vestibular dizziness 02/17/2024 Sprain of medial collateral ligament of left knee, initial encounter 01/07/2023 De Quervain's tenosynovitis, right 07/06/2019 Back pain 05/24/2019 Encounters Date Type Department Care Team Description 08/23/2025 2:10 PM CDT Hospital Encounter [facility] [address] [place] [address] Amada Dye APNP Arrived 08/23/2025 Orders Only [facility] [address] [place] [address] Amada Dye APNP 08/23/2025 Travel 08/17/2025 8:32 AM CDT Anesthesia Event [facility] [place] [address] [place] [address] Von Key MD Bracco, Kendra A, RN 08/17/2025 8:30 AM CDT - 08/17/2025 1:52 PM CDT Surgery [facility] [place] [address] [place] [address] Maury Gutierrez MD ROBOTIC ASSISTED LAPAROSCOPIC BILATERAL SALPINGO-OOPHORECTO MY, EXCISION OF RIGHT PELVIC MASS 08/17/2025 6:40 AM CDT - 08/17/2025 2:50 PM CDT Hospital Encounter [facility] OR [address] [place] [address] Maury Gutierrez MD Discharge Disposition: Home or Self Care (Routine Discharge) 08/17/2025 Orders Only [facility] [place] [address] [place] [address] Sada Villar MD 08/09/2025 Travel 08/07/2025 Scan [facility] [address] [place] [address] Scanned, Documents Lab (SCAN) 08/07/2025 Scan [facility] Health Information [facility] [address] [place] [address] Scanned, Documents Lab Results 08/07/2025 Scan [facility] Health Information [address] [place] [address] Scanned, Documents Lab Results 08/07/2025 Scan [facility] Information [facility] [address] [place] [address] Scanned, Documents Lab Results 08/07/2025 Scan [facility] Information [address] [place] [address] Scanned, Documents 08/07/2025 Scan [facility] Information [facility] [address] [place] [address] Scanned, Documents Lab (SCAN) 07/06/2025 12:35 PM CDT - 07/06/2025 11:59 PM CDT Hospital Encounter [facility] [address] [place] [address] Cynthia Lopez MD Discharge Disposition: Home or Self Care (Routine Discharge) 07/06/2025 Orders Only [facility] [address] [place] [address] Cynthia Lopez MD 07/06/2025 Travel 07/05/2025 Orders Only [facility] [address] [place] [address] Cynthia Lopez MD 06/07/2025 4:58 PM CDT - 06/07/2025 11:59 PM CDT Hospital Encounter 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 Gender Identity Not on file Sexual Orientation Not on file Last Filed Vital Signs Vital Sign Reading Time Taken Comments Blood Pressure 136/95 08/17/2025 1:16 PM CDT Pulse 63 08/17/2025 1:16 PM CDT Temperature 36 C (96.8 F) 08/17/2025 1:16 PM CDT Respiratory Rate 16 08/17/2025 1:16 PM CDT Oxygen Saturation 94% 08/17/2025 1:16 PM CDT Inhaled Oxygen Concentration - - Weight 72.6 kg (160 lb) 08/09/2025 1:35 PM CDT Height 144.8 cm (4' 9) 08/09/2025 1:35 PM CDT Body Mass Index 34.62 08/09/2025 1:35 PM CDT Plan of Treatment Health Maintenance Due Date Last Done Comments Colorectal Cancer Screening Colonoscopy (10 Years) 1966 Annual Physical 1969 Hepatitis C 1984 Mammogram Screening 2006 Pneumococcal Vaccine: 50+ Years (1 of 1 - PCV) 2016 COVID-19 Vaccine (2024-2 6 season) 2025 02/21/2021, 02/01/2021 Cervical Cancer Screening Pa p Smear (Age 30 to 64) Every 3 Years 06/01/2027 06/01/2024, 02/02/2019 Cervical Cancer Screening Pa p with HPV Testing (Age 30 to 64) Every 5 Years 06/01/2029 06/01/2024 Cervical Cancer Screening wi th HPV 06/01/2029 DTaP, Tdap and Td Vaccines ( 3 - Td or Tdap) 01/09/2034 01/09/2024, 10/20/2018 Zoster Vaccines Completed 10/30/2021, 01/19/2021, 07/05/2020 Meningococcal [...] Plan Autogenerated Problem No Sivan Merlos RN Medical Devices Implanted Type Area Windows Administrator Device Identifier Shelf Expiration Date Model / Serial / Lot Barrier Adh 6x5in Absorb Cntrl Bynd [facility] Pelv Ster - [id number] Implanted:Qty: 1 on 08/17/2025 by Maury Gutierrez MD at [facility] Barrier [employer] 06/29/2029 [id number] / / [id number] Procedures Procedure Name Priority Date/Time Associated Diagnosis Comments HC URINALYSIS AUTO W/MICRO Routine 08/23/2025 2:30 PM CDT Urinary symptom or sign ROBOTIC ASSISTED HYSTERECTOMY 08/17/2025 8:02 AM CDT PELVIC MASS Case Notes NOT ON ANY GLP MEDS PER OFC. TYPE & SCREEN Routine 08/17/2025 7:18 AM CDT PATHOLOGY Routine 08/17/2025 12:00 AM CDT ECG GENERIC (SCAN ORDER) Routine 08/07/2025 12:00 AM CDT OUTSIDE LAB (SCAN ORDER) Routine 08/07/2025 12:00 AM CDT OUTSIDE LAB (SCAN ORDER) Routine 08/07/2025 12:00 AM CDT OUTSIDE LAB (SCAN ORDER) Routine 08/07/2025 12:00 AM CDT OUTSIDE LAB (SCAN ORDER) Routine 08/07/2025 12:00 AM CDT OUTSIDE LAB (SCAN ORDER) Routine 08/07/2025 12:00 AM CDT IMMUNOASSAY, TUMOR ANTIGEN, CA 125 Routine 07/06/2025 [...] Relevant to Health Maintenance Results * (ABNORMAL) URINALYSIS (08/23/2025 2:30 PM CDT) COLOR (U) YELLOW 08/23/2025 3:31 PM CDT [facility] TRANSPARENCY CLOUDY 08/23/2025 3:31 PM CDT [facility] SPECIFIC GRAVITY (U) 1.020 1.000 - 1.025 08/23/2025 3:31 PM CDT [facility] U PH 7.5 5.0 - 8.0 08/23/2025 3:31 PM CDT [facility] LEUKOCYTES (U) 3+(A) NEGATIVE 08/23/2025 3:31 PM CDT [facility] NITRITES NEGATIVE NEGATIVE 08/23/2025 3:31 PM CDT [facility] PROTEIN RANDOM (U) 2+(A) NEGATIVE 08/23/2025 3:31 PM CDT [facility] GLUCOSE (U) NEGATIVE NEGATIVE 08/23/2025 3:31 PM CDT [facility] KETONES MG/DL (U) NEGATIVE NEGATIVE 08/23/2025 3:31 PM CDT [facility] UROBILINOGEN 0.2 <1.0 EU/DL 08/23/2025 3:31 PM CDT [facility] BILIRUBIN (U) NEGATIVE NEGATIVE 08/23/2025 3:31 PM CDT [facility] BLOOD (U) 1+(A) NEGATIVE 08/23/2025 3:31 PM CDT [facility] WBC/HPF 50-100(A) 0 - 5 /HPF 08/23/2025 3:31 PM CDT [facility] RBC/HPF 0-5 0 - 5 /HPF 08/23/2025 3:31 PM CDT [facility] EPI/LPF OCCASIONAL /LPF 08/23/2025 3:31 PM CDT [facility] BACTERIA (U) 2+ /HPF 08/23/2025 3:31 PM CDT [facility] URINE SPECIMEN OBTAINED BY CLEAN CATCH PROCEDURE / Unknown 08/23/2025 2:30 PM CDT us Amada Dye APNP URINE ORDERABLES Final Resu lt [facility] [address] [place] [address], * TYPE & SCREEN (08/17/2025 7:18 AM CDT) ABO/RH O POSITIVE 08/17/2025 8:55 AM CDT [facility] ANTIBODY SCREEN NEGATIVE 08/17/2025 8:55 AM CDT [facility] SAMPLE EXPIRATION 08/20/2025,2 359 08/17/2025 8:16 AM CDT [facility] 08/17/2025 7:18 AM CDT us Maury Gutierrez MD BLOOD BANK TEST ORDERABLES Corazon l Result Performing Organization Address City/[facility] Co de Phone Number [facility] [address] [place] [address], [phone] * Pathology (08/17/2025 12:00 AM CDT) PATHOLOGY [facility] Department of Laboratory Medicine [address] [place] [address] , extension [phone] Pathology Report Surgical Pathology Report Name: BUTCH HOLT Specimen #: [id number] Age: 8 1965 (Age: 60) Location: [facility] Sex: F Procedure Date: 08/17/2025 Hospital #: [id number] Date Received: 08/17/2025 Date Reported: 08/18/2025 Provider: MAURY GUTIERREZ MD Source: A: Right ovary and fallopian tube B: Left ovary and fallopian tube Clinical History: Pelvic mass FINAL DIAGNOSIS: A. Ovary and fallopian tube, right, salpingo-oophorect mitchell: - Mucinous cystadenoma with associated mural fibroma. - Fallopian tube with a few benign paratubal cysts, otherwise unremarkable. B. Ovary and fallopian tube, left, salpingo-oophorect mitchell: - Ovary with benign surface epithelial inclusion cysts. - Fallopian tube with few benign paratubal cysts, otherwise unremarkable. - Separate benign cyst with ciliated epithelial lining (3.6 cm). Gross Description: A. Received fresh, labeled with the patient's label and right fallopian tube and ovary, is a 59 g, 10.6 x 7.7 x 1.8 cm aggregate of disrupted cystic tissue. Sections reveal a 1.8 x 1.7 x 0.7 cm white-swain firm nodular area. The remaining tissue shows white-swain to pink-swain rubbery cut surfaces. Normal ovarian parenchyma is not identified. A fimbriated fallopian tube is identified. It is 3.2 cm in length and 0.4 cm in diameter. The fallopian tube appears to have been previously ligated. The fimbria are pink-brown. The serosal surface is pink-swain, smooth, and convoluted. Sections reveal pink-swain cut surfaces. A slightly dilated lumen is identified. There are no grossly identifiable masses or lesions. Grinder Machine Knife Setter sections are submitted for frozen section subsequent permanent sections as follows: A1 - telephone services sales representative section of nodular area [id number] telephone services sales representative sections of cystic tissue Additional telephone services sales representative sections are submitted as follows: A3-A4 - additional telephone services sales representative sections of cystic tissue [id number] entirely submitted and telephone services sales representative cross-sections of fallopian tube B. Received in formalin, labeled with a patient's label and as left fallopian tube and ovary, is an intact ovary with an attached fimbriated fallopian tube. The ovary is 2 g and 2.4 x 1.6 x 0.7 cm. The serosal surface is white-swain and cerebriform. Sections reveal a 0.8 x 0.7 x 0.5 cm cyst that contains clear fluid. There are no grossly identifiable masses or lesions. The fimbriated fallopian tube is at 1.0 cm in length and 0.4 cm in diameter. The fimbria are pink-brown. The serosal surface is pink-swain and smooth. Sections reveal pink-swain cut surfaces. A slightly dilated lumen is identified. There are no grossly identifiable masses or lesions. There is also a 3.6 x 1.6 x 1.3 cm cyst. The external surface of the cyst is pink-swain and smooth. The internal surface of the cyst is pink-swain and smooth. The cystic contents include clear fluid. Sections reveal pink-swain rubbery cut surfaces. There are no grossly identifiable masses, lesions, or papillary excrescences. Grinder Machine Knife Setter sections are submitted as follows: [id number] section of ovary [id number] entirely submitted and remainder of fallopian tube entirely submitted [id number] sections of cyst Gross examination (when applicable), interpretation, and sign out were performed at [facility], [address] [place] [address]. Intraoperative Diagnosis: FS A1-2) right ovary, FS: - Mucinous cystadenoma (Griselda Quinn M.D.) Please note: The frozen section was performed and interpreted at [facility] in [place], [place]. Electronically Signed Out GRISELDA QUINN MD [facility] TISSUE (OTHER (type in comments)) 08/17/2025 10:07 AM CDT Comment:PLEASE CALL EXT [phone] WITH RESULTS Maury Gutierrez MD PATHOLOGY/CYTOLOGY ORDERABLES F inal Result Performing Organization Address City/[facility] Co de Phone Number [facility] [address] [place] [address], [phone] * ECG (08/07/2025 12:00 AM CDT) 08/07/2025 [facility] Scanned SCANNING Final Resul t Performing Organization Address City/[facility] Co de Phone Number [facility] * OUTSIDE LAB (08/07/2025 12:00 AM CDT) Only the most recent of5 resultswithin the time period is included. 08/07/2025 [facility] Scanned SCANNING Final Resul t [facility] * HE4 OVARIAN CANCER MARKER (07/06/2025 12:50 PM CDT) HE4 OVARIAN CA MONITORING 66 pmol/L 07/15/2025 4:11 PM CDT [facility] Comment: Female Reference Ranges for HE4, Ovarian Cancer Monitoring: Female Premenopausal < OR = 70 pmol/L Female Postmenopausal < OR = 140 pmol/L Test performed by [facility] [address] [place] [address] Cloud Security Architect: Cindi Villalba MD,PHD,ORTIZ Test Reported by [facility], [facility], [address] [place], [place] Samson Pacheco M.D., Ph.D., Director of Laboratories , [facility] [id number] 07/06/2025 12:5 0 PM CDT Cynthia Lopez MD LABORATORY Final Res ult Performing Organization Address City/[facility]/ZIP Co de Phone Number [facility] [phone] [place] [address], * IMMUNOASSAY, TUMOR ANTIGEN, CA 125 (07/06/2025 12:50 PM CDT) CA 125 10.4 0.0 - 35.0 U/mL 07/06/2025 6:28 PM CDT [facility] Comment: ASSAY PERFORMED BY CHEMILUMINESCENCE METHODOLOGY USING [employer]. PATIENT RESULTS DETERMINED BY ASSAYS USING DIFFERENT MANUFACTURERS FOR METHODS MAY NOT BE COMPARABLE. 07/06/2025 12:5 0 PM CDT Cynthia Lopez MD LABORATORY Final Res ult Performing Organization Address [facility]/ZIP Co de Phone Number [facility] [address] [place] [address], [place] [phone] * VAGINITIS SCREEN (DYLAN, TRICH, & G. VAG) (06/07/2025 5:00 PM CDT) SPECIMEN SOURCE VAGINAL SPECIMEN 06/07/2025 4:59 PM CDT [facility] TRICHOMONAS NEGATIVE NEGATIVE 06/07/2025 6:21 PM CDT [facility] Comment:NOT DETECTED BY DNA PROBE GARDNERELLA VAGINALIS NEGATIVE NEGATIVE 06/07/2025 6:21 PM CDT [facility] Comment:NOT DETECTED BY DNA PROBE DYLAN SPECIES NEGATIVE NEGATIVE 6:21 PM CDT [facility] Comment:NOT DETECTED BY DNA PROBE VAGINAL STRUCTURE / Unknown 06/07/2025 5:00 PM CDT Cynthia Lopez MD MICROBIOLOGY - GENERAL OR DERABLES Final Result Performing Organization Address [facility] Co de Phone Number [facility] [address] [place] [address], [place] [phone] * HUMAN PAPILLOMAVIRUS, HIGH-RISK TYPES (06/01/2024 12:00 PM CDT) SPECIMEN CERVIX 06/06/2024 8:[address] [facility] HPV DNA HIGH RISK NEGATIVE NEGATIVE 06/07/2024 12:[address] [facility] Comment:SEE CYTOLOGY REPORT 06/01/2024 12:0 0 PM CDT Cynthia Lopez MD PATHOLOGY/CYTOLOGY ORDERA BLES Final Result Performing Organization Address City/[facility]/ZIP Co de Phone Number [facility] [address] [place] [address], * Cytopath Cerv/Vag Thin Layer (06/01/2024 12:00 AM CDT) THIN PREP PAP [address] [address] Department of Pathology Pathology Report CERVICAL/VAGINAL PAP SMEAR REPORT Name: BUTCH HOLT Age: 8 1965 (Age: 58) Location: [facility] Sex: F Collected Date: 06/01/2024 [facility] #: [id number] Date Received: 06/06/2024 Date Reported: 06/10/2024 Provider: CYNTHIA LAURENT MD INTERPRETATION CERVICAL/ENDOCERVI MEHDI: SATISFACTORY FOR [...] is not effective in detecting cervical adenocarcinoma. [facility] () [facility] 06/01/2024 06/06/2024 8:0 7 AM CDT Comment:CERVICAL/ENDOCERVICA L Cynthia Lopez MD PATHOLOGY/CYTOLOGY ORDERA BLES Final Result [facility] [address] [place] [address], from Last 3 Months or Most Recently Relevant to Health Maintenance Additional Health Concerns Active Problems Noted Date Diagnosed Date Autogenerated Problem 08/03/2025 Insurance MEDICAID DEPT OF [address] Care Teams Spin Table Operator Relationship Specialty Start Date End Date Xavi Laurent MD [address] [place] [address] PCP - General INTERNAL MEDICINE 05/10/19
--- OUTSIDE RECORDS SUMMARY | 2025-08-24 16:06 | XMS_ITS | Clinical Summary ---
Author Organization [facility] Building B Address [address] [place] [address] Care Team Providers Care Manager Inventory Name Role Phone Xavi Allen MD Primary Care Provider [phone] Allergies Active Allergy Reactions Criticality Noted Date [...] armodafiniL (NUVIGIL) 250 mg tabletIndicati ons:Multiple sclerosis TAKE ONE TABLET BY MOUTH ONCE DAILY 30 tablet 1 5 Active gabapentin (NEURONTIN) 100 mg capsuleIndicat ions:Multiple sclerosis TAKE 1 CAPSULE BY MOUTH TWO TIMES A DAY 60 capsule 5 5 Active dalfampridine 10 mg tablet extended release 12 hrIndications: Multiple sclerosis Take 1 tablet (10 mg total) by mouth every 12 (twelve) hours 180 tablet 5 Active citalopram (CeleXA) 40 mg tablet TAKE ONE TABLET BY MOUTH DAILY 90 tablet 5 Active carBAMazepine XR (TEGretol XR) 100 mg 12 hr tablet TAKE 1 TABLET (100 MG TOTAL) BY MOUTH 2 (TWO) TIMES A DAY 180 tablet 5 Active azelastine (ASTELIN) 137 mcg (0.1 %) nasal spray every 12 hours 5 Active oxyBUTYnin (DITROPAN) 5 mg tablet Take 1 tablet (5 mg total) by mouth 2 (two) times a day 5 Active Flonase Allergy Relief 50 mcg/actuation nasal spray every 12 hours 5 Active levothyroxine (SYNTHROID) 125 mcg tablet 5 Active Kesimpta Pen 20 mg/0.4 mL pen injectorIndica tions:relapsin g form of multiple sclerosis Inject 20 mg under the skin every 30 (thirty) days 0.4 mL 5 5 Active baclofen (LIORESAL) 20 mg tabletIndicati ons:Multiple sclerosis TAKE 1 TABLET BY MOUTH TWICE DAILY 60 tablet 5 5 Active baclofen (LIORESAL) 20 mg tabletIndicati ons:Multiple sclerosis Take 1 tablet (20 mg total) by mouth 2 (two) times a day 60 tablet 3 5 025 Discontinued Active Problems Problem Noted Date Diagnosed Date History of recurrent psychosocial stressors 01/01 Falls infrequently 01/28/2020 Anxiety and depression 11/27/2019 History of cervical fracture 06/23/2018 Neurogenic dysfunction of the urinary bladder Neurogenic bowel 06/23/2018 Dysphagia 06/23/2018 Multiple sclerosis (CMS/HCC) 01/25/2018 Overview (01/23/2025): MS medication history: RRMS/SPMS [...] with Dr Lin and radiologist Dr. Shannon. trim sawyer due to her change in JCV status [...] Visit [facility] [address] [place] [address] [phone] Osbaldo Link MD Multiple sclerosis ([facility]) (HCC) (Primary Dx) 07/24/2025 Telephone [facility] [address] [place] [phone] Osbaldo Link MD Med Refill from Last [...] on file Legal Sex Female 2:51 PM RESORT HOST Gender Identity Female 07/23/2020 1:37 PM CDT [...] Screening 06/01/2025 06/01/2024 Covid-19 Vaccine (4 - 5-2 6 season) 2025 10/12/2021, 02/21/2021, 02/01/2021 Influenza [...] Comment: For additional information, please refer to [email or web address] (This link is being provided for informational/ [...] a test for HCV RNA (test code 11180) is suggested. For additional information please refer to [email or web address] (This link is being provided for informational/ educational purposes only.) Blood specimen (specimen) 03/18/2021 3:02 PM CDT 03/18/2021 3:04 PM CDT Narrative [facility] - 03/19/2021 11:26 AM CDT AN UPDATE OR CORRECTION HAS BEEN MADE TO NAME us Radha Lin MD LAB MICROBIOLOGY - GENERAL O RDERABLES Final Result Performing Organization Address City/State/[facility] Co va Phone Number [facility] [address] [place] [address] from Last 3 Months or Most Recently Relevant to Health Maintenance Insurance IDPA [facility] [place] [employer] [employer] [place] [employer] [place] [employer] Care Teams Manager Inventory Relationship Specialty Start Date End Date Xavi Allen MD PCP - General Internal Medicine 01/20/18
--- OUTSIDE RECORDS SUMMARY | 2025-08-24 16:06 | XMS_ITS | Encounter Summary ---
Author Organization [facility] Address [address] [place] [address] Care Team Providers Care Crime Scene Analyst Name Role Phone Xavi Allen MD Primary Care Provider Encounter Details Date Type Department Care Team (Late st Contact Info) Description 07/09/2004 Outpatient Historical Division of Neurology [address] [facility] [address] Av Alvarado MD [address] [place] [id number] Social History Tobacco Use Types Packs/Day Years Used Date Smoking Tobacco: Never Assessed Comments Unknown Sex and Gender Information Value Date Recorded Sex Assigned at Not on file Legal Sex Female 3:52 AM AMMONIA NITRATE OPERATOR Gender Identity Not on file Sexual Orientation Not on file documented as of this encounter Plan of Treatment Not on file documented as of this encounter Visit Diagnoses Not on filedocumented in this encounter Care Teams Crime Scene Analyst Relationship Specialty Start Date End Date Xavi Allen MD [address] [place] [address] PCP - General Internal Medicine 07/02/18 documented as of this encounter
--- OUTSIDE RECORDS SUMMARY | 2025-08-24 16:06 | XMS_ITS | Encounter Summary ---
Author Organization [facility] Address [address] [place] [address] Care Team Providers Care Insight Director Name Role Phone Xavi Allen MD Primary Care Provider Encounter Details Date Type Department Care Team (Late st Contact Info) Description 08/08/2003 Outpatient Historical [facility] Social History Tobacco Use Types Packs/Day Years Used Date Smoking Tobacco: Never Assessed Comments Unknown Sex and Gender Information Value Date Recorded Sex Assigned at Not on file Legal Sex Female 3:52 AM BOTTOM BRUSHER Gender Identity Not on file Sexual Orientation Not on file documented as of this encounter Plan of Treatment Not on file documented as of this encounter Visit Diagnoses Not on filedocumented in this encounter Care Teams Insight Director Relationship Specialty Start Date End Date Xavi Allen MD [address] [place] [address] PCP - General Internal Medicine 07/02/18 documented as of this encounter
--- OUTSIDE RECORDS SUMMARY | 2025-08-24 16:06 | XMS_ITS | Encounter Summary ---
Author Organization [facility] Address [address] [place] [address] Care Team Providers Care Heel Seat Flap Stapler Name Role Phone Xavi Allen MD Primary Care Provider [phone] Encounter Details Date Type Department Care Team (Late st Contact Info) Description 08/06/2004 Outpatient Historical [facility] Social History Tobacco Use Types Packs/Day Years Used Date Smoking Tobacco: Never Assessed Comments Unknown Sex and Gender Information Value Date Recorded Sex Assigned at Not on file Legal Sex Female 3:52 AM HOST AND HOSTESS Gender Identity Not on file Sexual Orientation Not on file documented as of this encounter Plan of Treatment Not on file documented as of this encounter Visit Diagnoses Not on filedocumented in this encounter Care Teams Heel Seat Flap Stapler Relationship Specialty Start Date End Date Xavi Allen MD [address] [place] [address] PCP - General Internal Medicine 07/02/18 documented as of this encounter
--- OUTSIDE RECORDS SUMMARY | 2025-08-24 16:06 | XMS_ITS | Encounter Summary ---
Author Organization [facility] Address 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
--- OUTSIDE RECORDS SUMMARY | 2025-08-24 16:06 | XMS_ITS | Encounter Summary ---
Author Organization [facility] Address 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
--- OUTSIDE RECORDS SUMMARY | 2025-08-24 16:06 | XMS_ITS | Encounter Summary ---
Author Organization [facility] Address 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
--- OUTSIDE RECORDS SUMMARY | 2025-08-24 16:06 | XMS_ITS | Encounter Summary ---
Author Organization [facility] Address [address] [place] [address] Care Team Providers Care Nursery Manager Name Role Phone Xavi Allen MD Primary Care Provider [phone] Encounter Details Date Type Department Care Team (Late st Contact Info) Description 11/05/2004 Outpatient Historical [facility] Radha Lin MD [address] [facility] [address] [place] [phone] Social History Tobacco Use Types Packs/Day Years Used Date Smoking Tobacco: Never Assessed Comments Unknown Sex and Gender Information Value Date Recorded Sex Assigned at Not on file Legal Sex Female 3:52 AM TECHNICAL ASSOC Gender Identity Not on file Sexual Orientation Not on file documented as of this encounter Plan of Treatment Not on file documented as of this encounter Visit Diagnoses Not on filedocumented in this encounter Care Teams Nursery Manager Relationship Specialty Start Date End Date Xavi Allen MD [address] [place] [address] PCP - General Internal Medicine 07/02/18 documented as of this encounter
--- OUTSIDE RECORDS SUMMARY | 2025-08-24 16:06 | XMS_ITS | Encounter Summary ---
Author Organization [facility] Address [address] [place] [address] Care Team Providers Care Electronics Technician Name Role Phone Xavi Allen MD Primary Care Provider [phone] Encounter Details Date Type Department Care Team (Latest Contact Info) Description 08/23/2025 Travel Social History Tobacco Use Types Packs/Day [...] PM CDT Legal Sex Female 11:04 PM JAVA J2EE ARCHITECT Gender Identity Not on file Sexual Orientation Not on file documented as of this encounter Functional Status * Are you deaf or do you have serious difficulty hearing Answer Date of Assessment Author Status No 08/17/2025 7:35 AM Celeste Olguin RN Active * Are you blind or do you have serious difficulty seeing, even when wearing glasses? Answer Date of Assessment Author Status No 08/17/2025 7:35 AM Celeste Olguin RN Active * Do you have serious difficulty walking or climbing stairs? Answer Date of Assessment Author Status Yes 08/17/2025 7:35 AM Celeste Olguin RN Active * Do you have difficulty dressing or bathing? Answer Date of Assessment Author Status No 08/17/2025 7:35 AM Celeste Olguin RN Active * Because of a physical, mental, or emotional condition, do you have difficulty doing errands alone such as visiting a doctor's office or shopping? Answer Date of Assessment Author Status No 08/17/2025 7:35 AM Celeste Olguin RN Active documented as of this encounter Mental Status * Because of a physical, mental, or emotional condition, do you have serious difficulty concentrating, remembering, or making decisions? Answer Entry Date Author Status No 08/17/2025 7:35 AM Celeste Olguin RN Active documented in this encounter Plan of Treatment Not on file documented as of this encounter Goals Goal Patient Goal Type Associated Problems Recent Progress Patient-Stated? Author Autogenerat ed Goal Care Plan Autogenerated Problem No Sivan Merlos RN documented as of this encounter Visit Diagnoses Not on filedocumented in this encounter Additional Health Concerns Active Problems Noted Date Diagnosed Date Autogenerated Problem 08/03/2025 documented as of this encounter Care Teams Electronics Technician Relationship Specialty Start Date End Date Xavi Allen MD [address] [place] [address] PCP - General INTERNAL MEDICINE 05/10/19 documented as of this encounter
--- OUTSIDE RECORDS SUMMARY | 2025-08-24 16:06 | XMS_ITS | Encounter Summary ---
Author Organization [facility] Address [address] [place] [address] Care Team Providers Care Vending Machine Repairer Name Role Phone Xavi Allen MD Primary Care Provider Encounter Details Date Type Department Care Team (Late st Contact Info) Description 07/12/2003 Outpatient Historical [facility] Social History Tobacco Use Types Packs/Day Years Used Date Smoking Tobacco: Never Assessed Comments Unknown Sex and Gender Information Value Date Recorded Sex Assigned at Not on file Legal Sex Female 3:52 AM RN LABOR DELIVERY Gender Identity Not on file Sexual Orientation Not on file documented as of this encounter Plan of Treatment Not on file documented as of this encounter Visit Diagnoses Not on filedocumented in this encounter Care Teams Vending Machine Repairer Relationship Specialty Start Date End Date Xavi Allen MD [address] [place] [address] PCP - General Internal Medicine 07/02/18 documented as of this encounter
--- OUTSIDE RECORDS SUMMARY | 2025-08-24 16:06 | XMS_ITS | Encounter Summary ---
Author Organization [facility] Address [address] [place] [address] Care Team Providers Care Data Entry Manager Name Role Phone Xavi Allen MD Primary Care Provider [phone] Encounter Details Date Type Department Care Team (Late st Contact Info) Description 12/03/2004 Outpatient [facility] Division of Neurology [address] [address] Maverick Boyce MD [address] [place] [id number] Social History Tobacco Use Types Packs/Day Years Used Date Smoking Tobacco: Never Assessed Comments Unknown Sex and Gender Information Value Date Recorded Sex Assigned at Not on file Legal Sex Female 3:52 AM HOSPICE RN Gender Identity Not on file Sexual Orientation Not on file documented as of this encounter Plan of Treatment Not on file documented as of this encounter Visit Diagnoses Not on filedocumented in this encounter Care Teams Data Entry Manager Relationship Specialty Start Date End Date Xavi Allen MD [address] [place] [address] PCP - General Internal Medicine 07/02/18 documented as of this encounter
--- OUTSIDE RECORDS SUMMARY | 2025-08-24 16:06 | XMS_ITS | Encounter Summary ---
Author Organization [facility] Address 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
--- OUTSIDE RECORDS SUMMARY | 2025-08-24 16:06 | XMS_ITS | Encounter Summary ---
Author Organization [facility] Address [address] [place] [address] Care Team Providers Care Learning Support Resource Room Teacher Name Role Phone Xavi Allen MD Primary Care Provider [phone] Encounter Details Date Type Department Care Team (Late st Contact Info) Description 04/16/2004 Outpatient [facility] Division of Neurology [address] [address] Maverick Boyce MD [address] [place] [phone] Social History Tobacco Use Types Packs/Day Years Used Date Smoking Tobacco: Never Assessed Comments Unknown Sex and Gender Information Value Date Recorded Sex Assigned at Not on file Legal Sex Female 3:52 AM SECURITY SYSTEM TECHNICIAN Gender Identity Not on file Sexual Orientation Not on file documented as of this encounter Plan of Treatment Not on file documented as of this encounter Visit Diagnoses Not on filedocumented in this encounter Care Teams Learning Support Resource Room Teacher Relationship Specialty Start Date End Date Xavi Allen MD [address] [place] [address] PCP - General Internal Medicine 07/02/18 documented as of this encounter
--- OUTSIDE RECORDS SUMMARY | 2025-08-24 16:06 | XMS_ITS | Encounter Summary ---
Author Organization [facility] Address [address] [place] [address] Care Team Providers Care Flight Hostess Name Role Phone Xavi Allen MD Primary Care Provider [phone] Encounter Details Date Type Department Care Team (Late st Contact Info) Description 02/17/2005 Outpatient [facility] Division of Neurology [address] [address] Radha Lin MD [address] [facility] [address] [place] [phone] Social History Tobacco Use Types Packs/Day Years Used Date Smoking Tobacco: Never Assessed Comments Unknown Sex and Gender Information Value Date Recorded Sex Assigned at Not on file 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
--- OUTSIDE RECORDS SUMMARY | 2025-08-24 16:06 | XMS_ITS | Encounter Summary ---
Author Organization [facility] Address 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
--- OUTSIDE RECORDS SUMMARY | 2025-08-24 16:06 | XMS_ITS | Encounter Summary ---
Author Organization [facility] Address [address] [place] [address] Care Team Providers Care Engineer Geophysical Laboratory Name Role Phone Xavi Allen MD Primary Care Provider [phone] Encounter Details Date Type Department Care Team (Late st Contact Info) Description 08/08/2003 Outpatient [facility] Division of Neurology [address] [address] Radha Lin MD [address] [facility] [address] [place] [phone] Social History Tobacco Use Types Packs/Day Years Used Date Smoking Tobacco: Never Assessed Comments Unknown Sex and Gender Information Value Date Recorded Sex Assigned at Not on file 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
--- OUTSIDE RECORDS SUMMARY | 2025-08-24 16:06 | XMS_ITS | Encounter Summary ---
Author Organization [facility] Address [address] [place] [address] Care Team Providers Care Geodetic Engineer Name Role Phone Xavi Allen MD Primary Care Provider [phone] Encounter Details Date Type Department Care Team (Late st Contact Info) Description 01/24/2005 Outpatient Historical [facility] Radha Lin MD [address] [facility] [address] [place] [phone] Social History Tobacco Use Types Packs/Day Years Used Date Smoking Tobacco: Never Assessed Comments Unknown Sex and Gender Information Value Date Recorded Sex Assigned at Not on file Legal Sex Female 3:52 AM BUSINESS SCHOOL DEAN Gender Identity Not on file Sexual Orientation Not on file documented as of this encounter Plan of Treatment Not on file documented as of this encounter Visit Diagnoses Not on filedocumented in this encounter Care Teams Geodetic Engineer Relationship Specialty Start Date End Date Xavi Allen MD [address] [place] [address] PCP - General Internal Medicine 07/02/18 documented as of this encounter
--- OUTSIDE RECORDS SUMMARY | 2025-08-24 16:06 | XMS_ITS | Encounter Summary ---
Author Organization [facility] Address [address] [place] [address] Care Team Providers Care Speech Coach Name Role Phone Xavi Allen MD Primary Care Provider [phone] Encounter Details Date Type Department Care Team (Late st Contact Info) Description 10/31/2003 [facility]patient [facility] Division [facility]rology [address] [facility] [address] Radha Lin MD [address] [facility] [address] [place] [phone] Social History Tobacco Use Types Packs/Day Years Used Date Smoking Tobacco: Never Assessed Comments Unknown Sex and Gender Information Value Date Recorded Sex Assigned at Not on file Legal Sex Female 3:52 AM CORRECTIONAL SUBSTANCE ABUSE COUNSELOR Gender Identity Not on file Sexual Orientation Not on file documented as of this encounter Plan of Treatment Not on file documented as of this encounter Visit Diagnoses Not on filedocumented in this encounter Care Teams Speech Coach Relationship Specialty Start Date End Date Xavi Allen MD [address] [place] [address] PCP - General Internal Medicine 07/02/18 documented as of this encounter
--- OUTSIDE RECORDS SUMMARY | 2025-08-24 16:06 | XMS_ITS | Encounter Summary ---
Author Organization [facility] Address [address] [place] [address] Care Team Providers Care Petroleum Engineering Teacher Name Role Phone Xavi Allen MD Primary Care Provider [phone] Encounter Details Date Type Department Care Team (Late st Contact Info) Description 06/13/2004 Outpatient Historical [facility] Social History Tobacco Use Types Packs/Day Years Used Date Smoking Tobacco: Never Assessed Comments Unknown Sex and Gender Information Value Date Recorded Sex Assigned at Not on file Legal Sex Female 3:52 AM OIL SCOUT Gender Identity Not on file Sexual Orientation Not on file documented as of this encounter Plan of Treatment Not on file documented as of this encounter Visit Diagnoses Not on filedocumented in this encounter Care Teams Petroleum Engineering Teacher Relationship Specialty Start Date End Date Xavi Allen MD [address] [place] [address] PCP - General Internal Medicine 07/02/18 documented as of this encounter
--- OUTSIDE RECORDS SUMMARY | 2025-08-24 16:06 | XMS_ITS | Encounter Summary ---
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 Author Autogenerat ed Goal Care Plan Autogenerated Problem No Sivan Merlos RN documented as of this encounter Results * (ABNORMAL) URINALYSIS (08/23/2025 2:30 PM CDT) COLOR (U) YELLOW 08/23/2025 3:31 PM CDT [facility] TRANSPARENCY CLOUDY 08/23/2025 3:31 PM CDT [facility] SPECIFIC GRAVITY (U) 1.020 1.000 - 1.025 08/23/2025 3:31 PM CDT [facility] U PH 7.5 5.0 - 8.0 08/23/2025 3:31 PM CDT [facility] LEUKOCYTES (U) 3+(A) NEGATIVE 08/23/2025 3:31 PM CDT [facility] NITRITES NEGATIVE NEGATIVE 08/23/2025 3:31 PM CDT [facility] PROTEIN RANDOM (U) 2+(A) NEGATIVE 08/23/2025 3:31 PM CDT [facility] GLUCOSE (U) NEGATIVE NEGATIVE 08/23/2025 3:31 PM CDT [facility] KETONES MG/DL (U) NEGATIVE NEGATIVE 08/23/2025 3:31 PM CDT [facility] UROBILINOGEN 0.2 <1.0 EU/DL 08/23/2025 3:31 PM CDT [facility] BILIRUBIN (U) NEGATIVE NEGATIVE 08/23/2025 3:31 PM CDT [facility] BLOOD (U) 1+(A) NEGATIVE 08/23/2025 3:31 PM CDT [facility] WBC/HPF 50-100(A) 0 - 5 /HPF 08/23/2025 3:31 PM CDT [facility] RBC/HPF 0-5 0 - 5 /HPF 08/23/2025 3:31 PM CDT [facility] EPI/LPF OCCASIONAL /LPF 08/23/2025 3:31 PM CDT [facility] BACTERIA (U) 2+ /HPF 08/23/2025 3:31 PM CDT [facility] URINE SPECIMEN OBTAINED BY CLEAN CATCH PROCEDURE / Unknown 08/23/2025 2:30 PM CDT us Amada Dye APAVA URINE ORDERABLES Final Resu lt [facility] [address] [place] [address], documented in this encounter Visit Diagnoses Diagnosis Urinary symptom or sign- Primary documented in this encounter Additional Health Concerns Active Problems Noted Date Diagnosed Date Autogenerated Problem 08/03/2025 documented as of this encounter Care Teams Material Man Relationship Specialty Start Date End Date Xavi Allen MD [address] [place] [address] PCP - General INTERNAL MEDICINE 05/10/19 documented as of this encounter
--- OUTSIDE RECORDS SUMMARY | 2025-08-24 16:06 | XMS_ITS | Encounter Summary ---
Author Organization [facility] Address [address] [place] [address] Care Team Providers Care Ell Tutor Name Role Phone Xavi Allen MD Primary Care Provider Encounter Details Date Type Department Care Team (Late st Contact Info) Description 08/08/2003 Outpatient Historical [facility] Social History Tobacco Use Types Packs/Day Years Used Date Smoking Tobacco: Never Assessed Comments Unknown Sex and Gender Information Value Date Recorded Sex Assigned at Not on file Legal Sex Female 3:52 AM COLOR SPRAYER Gender Identity Not on file Sexual Orientation Not on file documented as of this encounter Plan of Treatment Not on file documented as of this encounter Visit Diagnoses Not on filedocumented in this encounter Care Teams Ell Tutor Relationship Specialty Start Date End Date Xavi Allen MD [address] [place] [address] PCP - General Internal Medicine 07/02/18 documented as of this encounter
--- OUTSIDE RECORDS SUMMARY | 2025-08-24 16:06 | XMS_ITS | Encounter Summary ---
Author Organization [facility] Address [address] [place] [address] Care Team Providers Care Slitter Operator Name Role Phone Xavi Allen MD Primary Care Provider [phone] Encounter Details Date Type Department Care Team (Late st Contact Info) Description 10/05/2003 Outpatient Historical [facility] Social History Tobacco Use Types Packs/Day Years Used Date Smoking Tobacco: Never Assessed Comments Unknown Sex and Gender Information Value Date Recorded Sex Assigned at Not on file Legal Sex Female 3:52 AM PIECE WORK INSPECTOR Gender Identity Not on file Sexual Orientation Not on file documented as of this encounter Plan of Treatment Not on file documented as of this encounter Visit Diagnoses Not on filedocumented in this encounter Care Teams Slitter Operator Relationship Specialty Start Date End Date Xavi Allen MD [address] [place] [address] PCP - General Internal Medicine 07/02/18 documented as of this encounter
--- OUTSIDE RECORDS SUMMARY | 2025-08-24 16:06 | XMS_ITS | Encounter Summary ---
Author Organization [facility] Address 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
--- OUTSIDE RECORDS SUMMARY | 2025-08-24 16:32 | XMS_ITS | Encounter Summary ---
Author Organization [facility] Address [address] [place] [address] Care Team Providers Care Parts Professional Name Role Phone Xavi Allen MD Primary Care Provider [phone] Encounter Details Date Type Department Care Team (Late st Contact Info) Description 08/19/2005 Outpatient [facility] Division of Neurology [address], [address] [address] Radha Lin MD [address] [facility] [address] [place] [phone] Social History Tobacco Use Types Packs/Day Years Used Date Smoking Tobacco: Never Assessed Comments Unknown Sex and Gender Information Value Date Recorded Sex Assigned at Not on file Legal Sex Female 3:52 AM SCIENTIFIC INFORMATICS LEADER Gender Identity Not on file Sexual Orientation Not on file documented as of this encounter Plan of Treatment Not on file documented as of this encounter Visit Diagnoses Not on filedocumented in this encounter Care Teams Parts Professional Relationship Specialty Start Date End Date Xavi Allen MD [address] [place] [address] PCP - General Internal Medicine 07/02/18 documented as of this encounter
--- OUTSIDE RECORDS SUMMARY | 2025-08-24 16:32 | XMS_ITS | Encounter Summary ---
Author Organization [facility] Address [address] [place] [address] Care Team Providers Care Resource Specialist Name Role Phone Xavi Allen MD Primary Care Provider [phone] Encounter Details Date Type Department Care Team (Latest Contact Info) Description 01/19/2001 Outpatient Historical [facility] Radha Lin MD [address] [facility] [address] [place] [phone] Special screening for osteoporosis (Primary Dx) Social History Tobacco Use Types Packs/Day Years Used Date Smoking Tobacco: Never Assessed Comments Unknown Sex and Gender Information Value Date Recorded Sex Assigned at Not on file Legal Sex Female 3:52 AM SUPERVISOR PACKING Gender Identity Not on file Sexual Orientation Not on file documented as of this encounter Plan of Treatment Not on file documented as of this encounter Visit Diagnoses Diagnosis Special screening for osteoporosis- Primary documented in this encounter Care Teams Resource Specialist Relationship Specialty Start Date End Date Xavi Allen MD [address] [place] [address] PCP - General Internal Medicine 07/02/18 documented as of this encounter
--- OUTSIDE RECORDS SUMMARY | 2025-08-24 16:32 | XMS_ITS | Encounter Summary ---
Author Organization [facility] Address [address] [place] [address] Care Team Providers Care Supervisor Self Service Store Name Role Phone Xavi Allen MD Primary Care Provider [phone] Encounter Details Date Type Department Care Team (Latest Contact Info) Description 01/19/2009 Outpatient [facility] [address] [place] [address] Radha Dong MD [address] [facility] [address] [place] [address] Multiple Sclerosis (CMS[facility]) Social History Tobacco Use Types Packs/Day Years Used Date Smoking Tobacco: Never Assessed Comments Unknown Sex and Gender Information Value Date Recorded Sex Assigned at Not on file Legal Sex Female 3:52 AM PEWTER FINISHER Gender Identity Not on file Sexual Orientation Not on file documented as of this encounter Plan of Treatment Not on file documented as of this encounter Procedures Procedure Name Priority Date/Time Associated Diagnosis Comments MRI BRAIN W WO CONTRAST Routine 01/19/2009 1:16 PM PEWTER FINISHER documented in this encounter Results * MRI BRAIN W WO CONTRAST (01/19/2009 1:16 PM PEWTER FINISHER) Anatomical Region Laterality Modality Head Other 01/19/2009 1:16 PM PEWTER FINISHER Narrative 01/22/2009 9:03 PM PEWTER FINISHER [facility] [address] [place], [place] [address] Admit Date: 01/19/2009 [place] EDGE Sex: F Admit Prov: RADHA DONG Date: 1965 Primary Care Prov: CMRN: [id number] Room: [facility] SSN: [id number] IMAGING SERVICES Ordering Prov: N/A Accession Number: [id number] Interpretation EXAM: MRI OF THE BRAIN WITHOUT [...] AMK Procedure Note Rudy Morel - 01/22/2009 [facility] [address] [place], [place] [address] Admit Date: 01/19/2009 [place] EDGE Sex: F Admit Prov: RADHA DONG Date: 1965 Primary Care Prov: CMRN: [id number] Room: [facility] SSN: [address] [place] [address] IMAGING SERVICES Ordering Prov: N/A Interpretation EXAM: [...] documented in this encounter Care Teams Supervisor Self Service Store Relationship Specialty Start Date End Date Xavi Allen MD [address] [place] [address] PCP - General Internal Medicine 07/02/18 documented as of this encounter
--- OUTSIDE RECORDS SUMMARY | 2025-08-24 16:32 | XMS_ITS | Encounter Summary ---
Author Organization [facility] Address 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
--- OUTSIDE RECORDS SUMMARY | 2025-08-24 16:32 | XMS_ITS | Encounter Summary ---
Author Organization [facility] Address [address] [place] [address] Care Team Providers Care Battery Stacker Name Role Phone Xavi Allen MD Primary Care Provider [phone] Encounter Details Date Type Department Care Team (Late st Contact Info) Description 01/19/2008 Outpatient Historical [facility] Radha Dong MD [address] [facility] [address] [place] [address] [facility] Social History Tobacco Use Types Packs/Day Years Used Date Smoking Tobacco: Never Assessed Comments Unknown Sex and Gender Information Value Date Recorded Sex Assigned at Not on file Legal Sex Female 3:52 AM CO FOUNDER AND CTO Gender Identity Not on file Sexual Orientation Not on file documented as of this encounter Plan of Treatment Not on file documented as of this encounter Procedures Procedure Name Priority Date/Time Associated Diagnosis Comments MRI BRAIN W WO CONTRAST Timed Study 01/19/2008 11:44 AM CO FOUNDER AND CTO documented in this encounter Results * MRI BRAIN W WO CONTRAST (01/19/2008 11:44 AM CO FOUNDER AND CTO) Anatomical Region Laterality Modality Head Other 01/19/2008 11:4 4 AM CO FOUNDER AND CTO Narrative 01/19/2008 2:11 PM CO FOUNDER AND CTO [facility] [address] [place], [place] [address] Admit Date: 01/19/2008 BUT[place] EDGE Sex: F Admit Prov: RADHA DONG Date: 1965 Primary Care Prov: CMRN: [id number] Room: [facility] SSN: [id number] IMAGING SERVICES Ordering Prov: N/A Accession Number: [id number] Interpretation MRI of the brain, with and [...] AMK Procedure Note Provider, Historical - 01/19/2008 [facility] [address] [place], [place] [address] Admit Date: 01/19/2008 [place] EDGE Sex: F Admit Prov: RADHA DONG Date: 1965 Primary Care Prov: CMRN: [id number] [facility]: [id number] IMAGING SERVICES Ordering Prov: N/A Interpretation MRI [...] upper cervical spine is low on the [id number], possibly artifactual. There is no diffusion restriction. [...] sclerosis documented in this encounter Care Teams Battery Stacker Relationship Specialty Start Date End Date Xavi Allen MD [address] [place] [address] PCP - General Internal Medicine 07/02/18 documented as of this encounter
--- OUTSIDE RECORDS SUMMARY | 2025-08-24 16:32 | XMS_ITS | Encounter Summary ---
Author Organization [facility] Address [address] [place] [address] Care Team Providers Care Airport Ramp Agent Name Role Phone Xavi Allen MD Primary Care Provider Encounter Details Date Type Department Care Team (Late st Contact Info) Description 03/07/2002 Outpatient [facility] Division of Neurology [address] [facility] [address] Maverick Boyce MD [address] [place] [phone] Social History Tobacco Use Types Packs/Day Years Used Date Smoking Tobacco: Never Assessed Comments Unknown Sex and Gender Information Value Date Recorded Sex Assigned at Not on file Legal Sex Female 3:52 AM WORKERS COMPENSATION ADJUSTER Gender Identity Not on file Sexual Orientation Not on file documented as of this encounter Plan of Treatment Not on file documented as of this encounter Visit Diagnoses Not on filedocumented in this encounter Care Teams Airport Ramp Agent Relationship Specialty Start Date End Date Xavi Allen MD [address] [place] [address] PCP - General Internal Medicine 07/02/18 documented as of this encounter
--- OUTSIDE RECORDS SUMMARY | 2025-08-24 16:32 | XMS_ITS | Encounter Summary ---
Author Organization [facility] Address [address] [place] [address] Care Team Providers Care Insurance Claims Examiner Name Role Phone Xavi Allen MD Primary Care Provider [phone] Encounter Details Date Type Department Care Team (Late st Contact Info) Description 03/01/2002 Outpatient [facility] Division of Neurology [address] [address] Radha Lin MD [address] [facility] [address] [place] [phone] Social History Tobacco Use Types Packs/Day Years Used Date Smoking Tobacco: Never Assessed Comments Unknown Sex and Gender Information Value Date Recorded Sex Assigned at Not on file Legal Sex Female 3:52 AM OWNER SPA DIRECTOR Gender Identity Not on file Sexual Orientation Not on file documented as of this encounter Plan of Treatment Not on file documented as of this encounter Visit Diagnoses Not on filedocumented in this encounter Care Teams Insurance Claims Examiner Relationship Specialty Start Date End Date Xavi Allen MD [address] [place] [address] PCP - General Internal Medicine 07/02/18 documented as of this encounter
--- OUTSIDE RECORDS SUMMARY | 2025-08-24 16:32 | XMS_ITS | Encounter Summary ---
Author Organization [facility] Address [address] [place] [address] Care Team Providers Care Surgery Center Administrator Name Role Phone Xavi Allen MD Primary Care Provider [phone] Encounter Details Date Type Department Care Team (Late st Contact Info) Description 03/01/2002 Outpatient [facility] Division of Neurology [address] [facility] [address] Maverick Boyce MD [address] [place] [address] Social History Tobacco Use Types Packs/Day Years Used Date Smoking Tobacco: Never Assessed Comments Unknown Sex and Gender Information Value Date Recorded Sex Assigned at Not on file Legal Sex Female 3:52 AM SUPPLY TECH Gender Identity Not on file Sexual Orientation Not on file documented as of this encounter Plan of Treatment Not on file documented as of this encounter Visit Diagnoses Not on filedocumented in this encounter Care Teams Surgery Center Administrator Relationship Specialty Start Date End Date Xavi Allen MD [address] [place] [address] PCP - General Internal Medicine 07/02/18 documented as of this encounter
--- OUTSIDE RECORDS SUMMARY | 2025-08-24 16:32 | XMS_ITS | Encounter Summary ---
Author Organization [facility] Address [address] [place] [address] Care Team Providers Care Health Nurse Name Role Phone Xavi Allen MD Primary Care Provider [phone] Encounter Details Date Type Department Care Team (Latest Contact Info) Description 03/01/2002 Outpatient Historical [facility] Radha Lin MD [address] [facility] [address] [place] [address] MULTIPLE SCLEROSIS (CMS/HCC) (Primary Dx) Social History Tobacco Use Types Packs/Day Years Used Date Smoking Tobacco: Never Assessed Comments Unknown Sex and Gender Information Value Date Recorded Sex Assigned at Not on file Legal Sex Female 3:52 AM PRODUCT PROMOTER SALES PERSON Gender Identity Not on file Sexual Orientation Not on file documented as of this encounter Plan of Treatment Not on file documented as of this encounter Visit Diagnoses Diagnosis Multiple sclerosis (CMS/HCC)- Primary Multiple sclerosis documented in this encounter Care Teams Health Nurse Relationship Specialty Start Date End Date Xavi Allen MD [address] [place] [address] PCP - General Internal Medicine 07/02/18 documented as of this encounter
--- OUTSIDE RECORDS SUMMARY | 2025-08-24 16:32 | XMS_ITS | Encounter Summary ---
Author Organization [facility] Address [address] [place] [address] Care Team Providers Care Brass Pourer Name Role Phone Xavi Allen MD Primary Care Provider Encounter Details Date Type Department Care Team (Latest Contact Info) Description 09/02/2006 Outpatient Historical [facility] KASI Lin, Radha Batres MD [address] [place] [address] Multiple Sclerosis (CMS[facility]) (Primary Dx) Social History Tobacco Use Types Packs/Day Years Used Date Smoking Tobacco: Never Assessed Comments Unknown Sex and Gender Information Value Date Recorded Sex Assigned at Not on file Legal Sex Female 3:52 AM DUBBING MACHINE OPERATOR Gender Identity Not on file [...] URINE ORDERABLES Final Result Performing Organization Address [facility] de Phone Number INTERFACE SYSTEM [...] URINE ORDERABLES Final Result Performing Organization Address [facility] Phone Number INTERFACE SYSTEM Refer to clinic/hospital department * TSH REFLEXIVE (09/02/2006 1:07 PM CDT) TSH 3.82 0.27 - 4.20 uU/mL INTERFACE SYSTEM 09/02/2006 1:07 PM CDT Radha Lin MD CHEMISTRY ORDERABLES Final Re sult Performing Organization Address [facility] Phone Number INTERFACE SYSTEM Refer to clinic/hospital department documented in this encounter Visit Diagnoses Diagnosis Multiple sclerosis (CMS/HCC)- Primary Multiple sclerosis documented in this encounter Care Teams Brass Pourer Relationship Specialty Start Date End Date Xavi Allen MD [address] [place] [address] PCP - General Internal Medicine 07/02/18 documented as of this encounter
--- OUTSIDE RECORDS SUMMARY | 2025-08-24 16:32 | XMS_ITS | Encounter Summary ---
Author Organization [facility] Address [address] [place] [address] Care Team Providers Care Olive Grower Name Role Phone Xavi Allen MD Primary Care Provider [phone] Encounter Details Date Type Department Care Team (Late st Contact Info) Description 09/02/2006 Outpatient [facility] Division of Neurology [address] [address] Radha Lin MD [address] [facility] [address] [place] [phone] Social History Tobacco Use Types Packs/Day Years Used Date Smoking Tobacco: Never Assessed Comments Unknown Sex and Gender Information Value Date Recorded Sex Assigned at Not on file Legal Sex Female 3:52 AM ALCOHOL LAW ENFORCEMENT AGENT Gender Identity Not on file Sexual Orientation Not on file documented as of this encounter Plan of Treatment Not on file documented as of this encounter Visit Diagnoses Not on filedocumented in this encounter Care Teams Olive Grower Relationship Specialty Start Date End Date Xavi Allen MD [address] [place] [address] PCP - General Internal Medicine 07/02/18 documented as of this encounter
--- OUTSIDE RECORDS SUMMARY | 2025-08-24 16:32 | XMS_ITS | Encounter Summary ---
Author Organization [facility] Address [address] [place] [address] Care Team Providers Care Painting Instructor Name Role Phone Xavi Allen MD Primary Care Provider Encounter Details Date Type Department Care Team (Late st Contact Info) Description 05/21/2005 Outpatient Historical [facility] KASI Lin, Radha Batres MD [address] [facility] [address] [place] [address] Social History Tobacco Use Types Packs/Day Years Used Date Smoking Tobacco: Never Assessed Comments Unknown Sex and Gender Information Value Date Recorded Sex Assigned at Not on file Legal Sex Female 3:52 AM RELIEF PHARMACIST Gender Identity Not on file Sexual Orientation [...] on filedocumented in this encounter Care Teams Painting Instructor Relationship Specialty Start Date End Date Xavi Allen MD [address] [place] [address] PCP - General Internal Medicine 07/02/18 documented as of this encounter
--- OUTSIDE RECORDS SUMMARY | 2025-08-24 16:32 | XMS_ITS | Encounter Summary ---
Author Organization [facility] Address [address] [place] [address] Care Team Providers Care Sports Health Club Membership Advisors Name Role Phone Xavi Allen MD Primary Care Provider Encounter Details Date Type Department Care Team (Late st Contact Info) Description 03/22/2002 Outpatient Historical [facility] Social History Tobacco Use Types Packs/Day Years Used Date Smoking Tobacco: Never Assessed Comments Unknown Sex and Gender Information Value Date Recorded Sex Assigned at Not on file Legal Sex Female 3:52 AM HOUSE CARPENTER HELPER Gender Identity Not on file Sexual Orientation Not on file documented as of this encounter Plan of Treatment Not on file documented as of this encounter Visit Diagnoses Not on filedocumented in this encounter Care Teams Sports Health Club Membership Advisors Relationship Specialty Start Date End Date Xavi Allen MD [address] [place] [address] PCP - General Internal Medicine 07/02/18 documented as of this encounter
--- OUTSIDE RECORDS SUMMARY | 2025-08-24 16:32 | XMS_ITS | Encounter Summary ---
Author Organization [facility] Address [address] [place] [address] Care Team Providers Care Social Media Manager Name Role Phone Xavi Allen MD Primary Care Provider [phone] Encounter Details Date Type Department Care Team (Late st Contact Info) Description 12/02/2000 Outpatient [facility] Division of Neurology [address] [address] Radha Lin MD [address] [facility] [place] [phone] Social History Tobacco Use Types Packs/Day Years Used Date Smoking Tobacco: Never Assessed Comments Unknown Sex and Gender Information Value Date Recorded Sex Assigned at Not on file Legal Sex Female 3:52 AM LEAD MINER BLASTING Gender Identity Not on file Sexual Orientation Not on file documented as of this encounter Plan of Treatment Not on file documented as of this encounter Visit Diagnoses Not on filedocumented in this encounter Care Teams Social Media Manager Relationship Specialty Start Date End Date Xavi Allen MD [address] [place] [address] PCP - General Internal Medicine 07/02/18 documented as of this encounter
--- OUTSIDE RECORDS SUMMARY | 2025-08-24 16:32 | XMS_ITS | Encounter Summary ---
Author Organization [facility] Address [address] [place] [address] Care Team Providers Care Railcar Switcher Name Role Phone Xavi Allen MD Primary Care Provider Encounter Details Date Type Department Care Team (Late st Contact Info) Description 03/01/2002 Outpatient Historical [facility] Social History Tobacco Use Types Packs/Day Years Used Date Smoking Tobacco: Never Assessed Comments Unknown Sex and Gender Information Value Date Recorded Sex Assigned at Not on file Legal Sex Female 3:52 AM SPECIAL AGENT Gender Identity Not on file Sexual Orientation Not on file documented as of this encounter Plan of Treatment Not on file documented as of this encounter Visit Diagnoses Not on filedocumented in this encounter Care Teams Railcar Switcher Relationship Specialty Start Date End Date Xavi Allen MD [address] [place] [address] PCP - General Internal Medicine 07/02/18 documented as of this encounter
--- OUTSIDE RECORDS SUMMARY | 2025-08-24 16:32 | XMS_ITS | Encounter Summary ---
Author Organization [facility] Address [address] [place] [address] Care Team Providers Care Forklift Picker Name Role Phone Xavi Allen MD Primary Care Provider [phone] Encounter Details Date Type Department Care Team (Late st Contact Info) Description 05/21/2005 Outpatient [facility] Division of Neurology [address], [address] [address] Radha Lin MD [address] [facility] [address] [place] [phone] Social History Tobacco Use Types Packs/Day Years Used Date Smoking Tobacco: Never Assessed Comments Unknown Sex and Gender Information Value Date Recorded Sex Assigned at Not on file Legal Sex Female 3:52 AM COMIC WRITER Gender Identity Not on file Sexual Orientation Not on file documented as of this encounter Plan of Treatment Not on file documented as of this encounter Visit Diagnoses Not on filedocumented in this encounter Care Teams Forklift Picker Relationship Specialty Start Date End Date Xavi Allen MD [address] [place] [address] PCP - General Internal Medicine 07/02/18 documented as of this encounter
--- OUTSIDE RECORDS SUMMARY | 2025-08-24 16:32 | XMS_ITS | Encounter Summary ---
Author Organization [facility] Address [address] [place] [address] Care Team Providers Care Structural Steel Equipment Erector Name Role Phone Xavi Allen MD Primary Care Provider [phone] Encounter Details Date Type Department Care Team (Late st Contact Info) Description 02/11/2006 Outpatient [facility] Division of Neurology [address] [address] Radha Lin MD [address] [facility] [address] [place] [phone] Social History Tobacco Use Types Packs/Day Years Used Date Smoking Tobacco: Never Assessed Comments Unknown Sex and Gender Information Value Date Recorded Sex Assigned at Not on file Legal Sex Female 3:52 AM MILLED RICE BROKER Gender Identity Not on file Sexual Orientation Not on file documented as of this encounter Plan of Treatment Not on file documented as of this encounter Visit Diagnoses Not on filedocumented in this encounter Care Teams Structural Steel Equipment Erector Relationship Specialty Start Date End Date Xavi Allen MD [address] [place] [address] PCP - General Internal Medicine 07/02/18 documented as of this encounter
--- OUTSIDE RECORDS SUMMARY | 2025-08-24 16:32 | XMS_ITS | Encounter Summary ---
Author Organization [facility] Address [address] [place] [address] Care Team Providers Care Policy And Planning Manager Name Role Phone Xavi Allen MD Primary Care Provider [phone] Encounter Details Date Type Department Care Team (Late st Contact Info) Description 03/11/2002 Outpatient [facility] Division of Neurology [address] [address] Maverick Boyce MD [address] [place] [phone] Social History Tobacco Use Types Packs/Day Years [...] on filedocumented in this encounter Care Teams Policy And Planning Manager Relationship Specialty Start Date End Date Xavi Allen MD [address] [place] [address] PCP - General Internal Medicine 07/02/18 documented as of this encounter
--- OUTSIDE RECORDS SUMMARY | 2025-08-24 16:32 | XMS_ITS | Encounter Summary ---
Author Organization [facility] Address [address] [place] [address] Care Team Providers Care Home Care Associate Name Role Phone Xavi Allen MD Primary Care Provider [phone] Encounter Details Date Type Department Care Team (Late st Contact Info) Description 09/02/2006 Outpatient Historical [facility] [address] [address] Rahda Lin MD [address] [place] [phone] Social History Tobacco Use Types Packs/Day Years Used Date Smoking Tobacco: Never Assessed Comments Unknown Sex and Gender Information Value Date Recorded Sex Assigned at Not on file Legal Sex Female 3:52 AM ORGANIZATIONAL CONSULTANT Gender Identity Not on file Sexual Orientation Not on file documented as of this encounter Plan of Treatment Not on file documented as of this encounter Visit Diagnoses Not on filedocumented in this encounter Care Teams Home Care Associate Relationship Specialty Start Date End Date Xavi Allen MD [address] [place] [address] PCP - General Internal Medicine 07/02/18 documented as of this encounter
--- OUTSIDE RECORDS SUMMARY | 2025-08-24 16:33 | XMS_ITS | Encounter Summary ---
Author Organization [facility] Address [address] [place] [address] Care Team Providers Care Elevator Constructor Helper Name Role Phone Xavi Allen MD Primary Care Provider Encounter Details Date Type Department Care Team (Late st Contact Info) Description 11/25/2002 Outpatient Historical [facility] Social History Tobacco Use Types Packs/Day Years Used Date Smoking Tobacco: Never Assessed Comments Unknown Sex and Gender Information Value Date Recorded Sex Assigned at Not on file Legal Sex Female 3:52 AM CONTENT PRODUCER Gender Identity Not on file Sexual Orientation Not on file documented as of this encounter Plan of Treatment Not on file documented as of this encounter Visit Diagnoses Not on filedocumented in this encounter Care Teams Elevator Constructor Helper Relationship Specialty Start Date End Date Xavi Allen MD [address] [place] [address] PCP - General Internal Medicine 07/02/18 documented as of this encounter
--- OUTSIDE RECORDS SUMMARY | 2025-08-24 16:33 | XMS_ITS | Encounter Summary ---
Author Organization [facility] Address [address] [place] [address] Care Team Providers Care E Commerce Director Name Role Phone Xavi Allen MD Primary Care Provider [phone] Encounter Details Date Type Department Care Team (Late st Contact Info) Description 05/17/2002 Outpatient Historical [facility] Social History Tobacco Use Types Packs/Day Years Used Date Smoking Tobacco: Never Assessed Comments Unknown Sex and Gender Information Value Date Recorded Sex Assigned at Not on file Legal Sex Female 3:52 AM ASSISTANT PLANT MANAGER Gender Identity Not on file Sexual Orientation Not on file documented as of this encounter Plan of Treatment Not on file documented as of this encounter Visit Diagnoses Not on filedocumented in this encounter Care Teams E Commerce Director Relationship Specialty Start Date End Date Xavi Allen MD [address] [place] [address] PCP - General Internal Medicine 07/02/18 documented as of this encounter
--- OUTSIDE RECORDS SUMMARY | 2025-08-24 16:33 | XMS_ITS | Encounter Summary ---
Author Organization [facility] Address [address] [place] [address] Care Team Providers Care Spa Director/Finance Name Role Phone Xavi Allen MD Primary Care Provider [phone] Encounter Details Date Type Department Care Team (Late st Contact Info) Description 12/26/2002 Outpatient Historical [facility] KASI Lin, Radha Batres MD [address] [facility] [address] [place] [phone] Social History Tobacco Use Types Packs/Day Years Used Date Smoking Tobacco: Never Assessed Comments Unknown Sex and Gender Information Value Date Recorded Sex Assigned at Not on file Legal Sex Female 3:52 AM MULTIPLE PUNCH PRESS OPERATOR Gender Identity Not on file Sexual Orientation Not on file documented as of this encounter Plan of Treatment Not on file documented as of this encounter Visit Diagnoses Not on filedocumented in this encounter Care Teams Spa Director/Finance Relationship Specialty Start Date End Date Xavi Allen MD [address] [place] [address] PCP - General Internal Medicine 07/02/18 documented as of this encounter
--- OUTSIDE RECORDS SUMMARY | 2025-08-24 16:33 | XMS_ITS | Encounter Summary ---
Author Organization [facility] Address [address] [place] [address] Care Team Providers Care Sausage Inspector Name Role Phone Xavi Allen MD Primary Care Provider [phone] Encounter Details Date Type Department Care Team (Late st Contact Info) Description 05/16/2003 Outpatient [facility] Division of Neurology [address], [address] [address] Maverick Boyce MD [address] [place] [phone] Social History Tobacco Use Types Packs/Day Years Used Date Smoking Tobacco: Never Assessed Comments Unknown Sex and Gender Information Value Date Recorded Sex Assigned at Not on file Legal Sex Female 3:52 AM NICU RN Gender Identity Not on file Sexual Orientation Not on file documented as of this encounter Plan of Treatment Not on file documented as of this encounter Visit Diagnoses Not on filedocumented in this encounter Care Teams Sausage Inspector Relationship Specialty Start Date End Date Xavi Allen MD [address] [place] [address] PCP - General Internal Medicine 07/02/18 documented as of this encounter
--- OUTSIDE RECORDS SUMMARY | 2025-08-24 16:33 | XMS_ITS | Encounter Summary ---
Author Organization [facility] Address [address] [place] [address] Care Team Providers Care Public Health Educator Name Role Phone Xavi Allen MD Primary Care Provider [phone] Encounter Details Date Type Department Care Team (Late st Contact Info) Description 02/16/2002 Outpatient [facility] Division of Neurology [address] [facility] [address] [facility] [address] Radha Lin MD [address] [facility] [address] [place] [address] Social History Tobacco Use Types Packs/Day Years Used Date Smoking Tobacco: Never Assessed Comments Unknown Sex and Gender Information Value Date Recorded Sex Assigned at Not on file Legal Sex Female 3:52 AM CREDENTIALING COORDINATOR Gender Identity Not on file Sexual Orientation Not on file documented as of this encounter Plan of Treatment Not on file documented as of this encounter Visit Diagnoses Not on filedocumented in this encounter Care Teams Public Health Educator Relationship Specialty Start Date End Date Xavi Allen MD [address] [place] [address] PCP - General Internal Medicine 07/02/18 documented as of this encounter
--- OUTSIDE RECORDS SUMMARY | 2025-08-24 16:33 | XMS_ITS | Encounter Summary ---
Author Organization [facility] Address [address] [place] [address] Care Team Providers Care Fiberglass Luggage Molder Name Role Phone Xavi Allen MD Primary Care Provider [phone] Encounter Details Date Type Department Care Team (Late st Contact Info) Description 09/06/2002 Outpatient [facility] Division of Neurology [address] [address] Radha Lin MD [address] [facility] [address] [place] [address] Social History Tobacco Use Types Packs/Day Years Used Date Smoking Tobacco: Never Assessed Comments Unknown Sex and Gender Information Value Date Recorded Sex Assigned at Not on file Legal Sex Female 3:52 AM FIBERGLASS LUGGAGE MOLDER Gender Identity Not on file Sexual Orientation Not on file documented as of this encounter Plan of Treatment Not on file documented as of this encounter Visit Diagnoses Not on filedocumented in this encounter Care Teams Fiberglass Luggage Molder Relationship Specialty Start Date End Date Xavi Allen MD [address] [place] [address] PCP - General Internal Medicine 07/02/18 documented as of this encounter
--- OUTSIDE RECORDS SUMMARY | 2025-08-24 16:33 | XMS_ITS | Encounter Summary ---
Author Organization [facility] Address [address] [place] [address] Care Team Providers Care Jde Developer Name Role Phone Xavi Allen MD Primary Care Provider [phone] Encounter Details Date Type Department Care Team (Late st Contact Info) Description 11/25/2002 Outpatient [facility] Division of Neurology [address] [address] Radha Lin MD [address] [facility] [address] [place] [phone] Social History Tobacco Use Types Packs/Day Years Used Date Smoking Tobacco: Never Assessed Comments Unknown Sex and Gender Information Value Date Recorded Sex Assigned at Not on file Legal Sex Female 3:52 AM PHARMACIST APPRENTICE Gender Identity Not on file Sexual Orientation Not on file documented as of this encounter Plan of Treatment Not on file documented as of this encounter Visit Diagnoses Not on filedocumented in this encounter Care Teams Jde Developer Relationship Specialty Start Date End Date Xavi Allen MD [address] [place] [address] PCP - General Internal Medicine 07/02/18 documented as of this encounter
--- OUTSIDE RECORDS SUMMARY | 2025-08-24 16:33 | XMS_ITS | Encounter Summary ---
Author Organization [facility] Address [address] [place] [address] Care Team Providers Care Student Support Advisor Name Role Phone Xavi Allen MD Primary Care Provider [phone] Encounter Details Date Type Department Care Team (Late st Contact Info) Description 09/06/2002 Outpatient [facility] Division of Neurology [address] [facility] [address] Maverick Boyce MD [address] [place] [address] Social History Tobacco Use Types Packs/Day Years Used Date Smoking Tobacco: Never Assessed Comments Unknown Sex and Gender Information Value Date Recorded Sex Assigned at Not on file Legal Sex Female 3:52 AM VALET ATTENDANT Gender Identity Not on file Sexual Orientation Not on file documented as of this encounter Plan of Treatment Not on file documented as of this encounter Visit Diagnoses Not on filedocumented in this encounter Care Teams Student Support Advisor Relationship Specialty Start Date End Date Xavi Allen MD [address] [place] [address] PCP - General Internal Medicine 07/02/18 documented as of this encounter
--- OUTSIDE RECORDS SUMMARY | 2025-08-24 16:33 | XMS_ITS | Encounter Summary ---
Author Organization [facility] Address [address] [place] [address] Care Team Providers Care Sewer Pipe Press Operator Name Role Phone Xavi Allen MD Primary Care Provider [phone] Encounter Details Date Type Department Care Team (Latest Contact Info) Description 03/30/2001 Outpatient Historical [facility] Radha Lin MD [address] [facility] [address] [place] [phone] Multiple sclerosis (CMS/HCC) (Primary Dx) Social History Tobacco Use Types Packs/Day Years Used Date Smoking Tobacco: Never Assessed Comments Unknown Sex and Gender Information Value Date Recorded Sex Assigned at Not on file Legal Sex Female 3:52 AM MULTIMEDIA PRODUCTION ASSISTANT Gender Identity Not on file Sexual Orientation Not on file documented as of this encounter Plan of Treatment Not on file documented as of this encounter Visit Diagnoses Diagnosis Multiple sclerosis (CMS/HCC)- Primary Multiple sclerosis documented in this encounter Care Teams Sewer Pipe Press Operator Relationship Specialty Start Date End Date Xavi Allen MD [address] [place] [address] PCP - General Internal Medicine 07/02/18 documented as of this encounter
--- OUTSIDE RECORDS SUMMARY | 2025-08-24 16:33 | XMS_ITS | Encounter Summary ---
Author Organization [facility] Address [address] [place] [address] Care Team Providers Care Sheet Metal Assembler And Riveter Name Role Phone Xavi Allen MD Primary Care Provider [phone] Encounter Details Date Type Department Care Team (Late st Contact Info) Description 08/08/2002 Outpatient Historical [facility] Social History Tobacco Use Types Packs/Day Years Used Date Smoking Tobacco: Never Assessed Comments Unknown Sex and Gender Information Value Date Recorded Sex Assigned at Not on file Legal Sex Female 3:52 AM GRAVITY METER OBSERVER Gender Identity Not on file Sexual Orientation Not on file documented as of this encounter Plan of Treatment Not on file documented as of this encounter Visit Diagnoses Not on filedocumented in this encounter Care Teams Sheet Metal Assembler And Riveter Relationship Specialty Start Date End Date Xavi Allen MD [address] [place] [address] PCP - General Internal Medicine 07/02/18 documented as of this encounter
--- OUTSIDE RECORDS SUMMARY | 2025-08-24 16:33 | XMS_ITS | Encounter Summary ---
Author Organization [facility] Address [address] [place] [address] Care Team Providers Care Mud Boss Name Role Phone Xavi Allen MD Primary Care Provider [phone] Encounter Details Date Type Department Care Team (Late st Contact Info) Description 09/06/2002 Outpatient [facility] Division of Neurology [address] [address] Radha Lin MD [address] [facility] [address] [place] [phone] Social History Tobacco Use Types Packs/Day Years Used Date Smoking Tobacco: Never Assessed Comments Unknown Sex and Gender Information Value Date Recorded Sex Assigned at Not on file Legal Sex Female 3:52 AM TV PRODUCTION ASSISTANT Gender Identity Not on file Sexual Orientation Not on file documented as of this encounter Plan of Treatment Not on file documented as of this encounter Visit Diagnoses Not on filedocumented in this encounter Care Teams Mud Boss Relationship Specialty Start Date End Date Xavi Allen MD [address] [place] [address] PCP - General Internal Medicine 07/02/18 documented as of this encounter
--- OUTSIDE RECORDS SUMMARY | 2025-08-24 16:33 | XMS_ITS | Encounter Summary ---
Author Organization [facility] Address [address] [place] [address] Care Team Providers Care Filter Press Operator Name Role Phone Xavi Allen MD Primary Care Provider Encounter Details Date Type Department Care Team (Late st Contact Info) Description 04/21/2003 Outpatient Historical [facility] Social History Tobacco Use Types Packs/Day Years Used Date Smoking Tobacco: Never Assessed Comments Unknown Sex and Gender Information Value Date Recorded Sex Assigned at Not on file Legal Sex Female 3:52 AM STRUCTURAL IRON WORKER Gender Identity Not on file Sexual Orientation Not on file documented as of this encounter Plan of Treatment Not on file documented as of this encounter Visit Diagnoses Not on filedocumented in this encounter Care Teams Filter Press Operator Relationship Specialty Start Date End Date Xavi Allen MD [address] [place] [address] PCP - General Internal Medicine 07/02/18 documented as of this encounter
--- OUTSIDE RECORDS SUMMARY | 2025-08-24 16:33 | XMS_ITS | Encounter Summary ---
Author Organization [facility] Address [address] [place] [address] Care Team Providers Care Back Sewer Name Role Phone Xavi Allen MD Primary Care Provider [phone] Encounter Details Date Type Department Care Team (Late st Contact Info) Description 01/03/2003 Outpatient Historical [facility] Esequiel Olivares MD [address] [address] RETENTION OF URINE UNSPEC (Primary Dx) Social History Tobacco Use Types Packs/Day Years Used Date Smoking Tobacco: Never Assessed Comments Unknown Sex and Gender Information Value Date Recorded Sex Assigned at Not on file Legal Sex Female 3:52 AM FORMULATION SCIENTIST Gender Identity Not on file Sexual Orientation Not on file documented as of this encounter Plan of Treatment Not on file documented as of this encounter Visit Diagnoses Diagnosis Retention of urine, unspecified- Primary documented in this encounter Care Teams Back Sewer Relationship Specialty Start Date End Date Xavi Allen MD [address] [place] [address] PCP - General Internal Medicine 07/02/18 documented as of this encounter
--- OUTSIDE RECORDS SUMMARY | 2025-08-24 16:33 | XMS_ITS | Encounter Summary ---
Author Organization [facility] Address [address] [place] [address] Care Team Providers Care Production Utility Worker Name Role Phone Xavi Allen MD Primary Care Provider Encounter Details Date Type Department Care Team (Late st Contact Info) Description 10/31/2002 Outpatient Historical [facility] Social History Tobacco Use Types Packs/Day Years Used Date Smoking Tobacco: Never Assessed Comments Unknown Sex and Gender Information Value Date Recorded Sex Assigned at Not on file Legal Sex Female 3:52 AM BAR CAPTAIN Gender Identity Not on file Sexual Orientation Not on file documented as of this encounter Plan of Treatment Not on file documented as of this encounter Visit Diagnoses Not on filedocumented in this encounter Care Teams Production Utility Worker Relationship Specialty Start Date End Date Xavi Allen MD [address] [place] [address] PCP - General Internal Medicine 07/02/18 documented as of this encounter
--- OUTSIDE RECORDS SUMMARY | 2025-08-24 16:33 | XMS_ITS | Encounter Summary ---
Author Organization [facility] Address [address] [place] [address] Care Team Providers Care Bag Press Operator Name Role Phone Xavi Allen MD Primary Care Provider Encounter Details Date Type Department Care Team (Late st Contact Info) Description 06/14/2002 Outpatient Historical [facility] Social History Tobacco Use Types Packs/Day Years Used Date Smoking Tobacco: Never Assessed Comments Unknown Sex and Gender Information Value Date Recorded Sex Assigned at Not on file Legal Sex Female 3:52 AM PHARMACY ANCILLARY Gender Identity Not on file Sexual Orientation Not on file documented as of this encounter Plan of Treatment Not on file documented as of this encounter Visit Diagnoses Not on filedocumented in this encounter Care Teams Bag Press Operator Relationship Specialty Start Date End Date Xavi Allen MD [address] [place] [address] PCP - General Internal Medicine 07/02/18 documented as of this encounter
--- OUTSIDE RECORDS SUMMARY | 2025-08-24 16:33 | XMS_ITS | Encounter Summary ---
Author Organization [facility] Address [address] [place] [address] Care Team Providers Care Auto Self Service Station Attendant Name Role Phone Xavi Allen MD Primary Care Provider Encounter Details Date Type Department Care Team (Late st Contact Info) Description 09/06/2002 Outpatient Historical [facility] Social History Tobacco Use Types Packs/Day Years Used Date Smoking Tobacco: Never Assessed Comments Unknown Sex and Gender Information Value Date Recorded Sex Assigned at Not on file Legal Sex Female 3:52 AM ASIAN ART CURATOR Gender Identity Not on file Sexual Orientation Not on file documented as of this encounter Plan of Treatment Not on file documented as of this encounter Visit Diagnoses Not on filedocumented in this encounter Care Teams Auto Self Service Station Attendant Relationship Specialty Start Date End Date Xavi Allen MD [address] [place] [address] PCP - General Internal Medicine 07/02/18 documented as of this encounter
--- OUTSIDE RECORDS SUMMARY | 2025-08-24 16:33 | XMS_ITS | Encounter Summary ---
Author Organization [facility] Address [address] [place] [address] Care Team Providers Care Economics Department Chair Name Role Phone Xavi Allen MD Primary Care Provider [phone] Encounter Details Date Type Department Care Team (Late st Contact Info) Description 03/22/2002 Outpatient [facility] Division of Neurology [address], [address] [address] Maverick Boyce MD [address] [place] [id number] Social History Tobacco Use Types Packs/Day Years Used Date Smoking Tobacco: Never Assessed Comments Unknown Sex and Gender Information Value Date Recorded Sex Assigned at Not on file Legal Sex Female 3:52 AM WORKERS COMPENSATION CONSULTANT Gender Identity Not on file Sexual Orientation Not on file documented as of this encounter Plan of Treatment Not on file documented as of this encounter Visit Diagnoses Not on filedocumented in this encounter Care Teams Economics Department Chair Relationship Specialty Start Date End Date Xavi Allen MD [address] [place] [address] PCP - General Internal Medicine 07/02/18 documented as of this encounter
--- OUTSIDE RECORDS SUMMARY | 2025-08-24 16:33 | XMS_ITS | Encounter Summary ---
Author Organization [facility] Address [address] [place] [address] Care Team Providers Care Financial Business Analyst Name Role Phone Xavi Allen MD Primary Care Provider Encounter Details Date Type Department Care Team (Late st Contact Info) Description 07/12/2002 Outpatient Historical [facility] Social History Tobacco Use Types Packs/Day Years Used Date Smoking Tobacco: Never Assessed Comments Unknown Sex and Gender Information Value Date Recorded Sex Assigned at Not on file Legal Sex Female 3:52 AM EXECUTIVE MANAGER Gender Identity Not on file Sexual Orientation Not on file documented as of this encounter Plan of Treatment Not on file documented as of this encounter Visit Diagnoses Not on filedocumented in this encounter Care Teams Financial Business Analyst Relationship Specialty Start Date End Date Xavi Allen MD [address] [place] [address] PCP - General Internal Medicine 07/02/18 documented as of this encounter
--- OUTSIDE RECORDS SUMMARY | 2025-08-24 16:33 | XMS_ITS | Encounter Summary ---
Author Organization [facility] Address [address] [place] [address] Care Team Providers Care Senior Physician Name Role Phone Xavi Allen MD Primary Care Provider [phone] Encounter Details Date Type Department Care Team (Late st Contact Info) Description 04/07/2003 Outpatient [facility] Division of Neurology [address] [address] Maverick Boyce MD [address] [place] [phone] Social History Tobacco Use Types Packs/Day Years Used Date Smoking Tobacco: Never Assessed Comments Unknown Sex and Gender Information Value Date Recorded Sex Assigned at Not on file Legal Sex Female 3:52 AM PHYSICAL THERAPIST ASSISTANT Gender Identity Not on file Sexual Orientation Not on file documented as of this encounter Plan of Treatment Not on file documented as of this encounter Visit Diagnoses Not on filedocumented in this encounter Care Teams Senior Physician Relationship Specialty Start Date End Date Xavi Allen MD [address] [place] [address] PCP - General Internal Medicine 07/02/18 documented as of this encounter
--- OUTSIDE RECORDS SUMMARY | 2025-08-24 16:33 | XMS_ITS | Encounter Summary ---
Author Organization [facility] Address [address] [place] [address] Care Team Providers Care Stock Unloader Name Role Phone Xavi Allen MD Primary Care Provider Encounter Details Date Type Department Care Team (Late st Contact Info) Description 05/16/2003 Outpatient Historical [facility] Social History Tobacco Use Types Packs/Day Years Used Date Smoking Tobacco: Never Assessed Comments Unknown Sex and Gender Information Value Date Recorded Sex Assigned at Not on file Legal Sex Female 3:52 AM PRINTER REPAIR TECHNICIAN Gender Identity Not on file Sexual Orientation Not on file documented as of this encounter Plan of Treatment Not on file documented as of this encounter Visit Diagnoses Not on filedocumented in this encounter Care Teams Stock Unloader Relationship Specialty Start Date End Date Xavi Allen MD [address] [place] [address] PCP - General Internal Medicine 07/02/18 documented as of this encounter
--- OUTSIDE RECORDS SUMMARY | 2025-08-24 16:33 | XMS_ITS | Encounter Summary ---
Author Organization [facility] Address [address] [place] [address] Care Team Providers Care Tower Equipment Repairer Name Role Phone Xavi Allen MD Primary Care Provider [phone] Encounter Details Date Type Department Care Team (Late st Contact Info) Description 03/20/2003 Outpatient Historical [facility] Radha Lin MD [address] [facility] [address] [place] [phone] Social History Tobacco Use Types Packs/Day Years Used Date Smoking Tobacco: Never Assessed Comments Unknown Sex and Gender Information Value Date Recorded Sex Assigned at Not on file Legal Sex Female 3:52 AM PROM BURN OFF OPERATOR Gender Identity Not on file Sexual Orientation Not on file documented as of this encounter Plan of Treatment Not on file documented as of this encounter Visit Diagnoses Not on filedocumented in this encounter Care Teams Tower Equipment Repairer Relationship Specialty Start Date End Date Xavi Allen MD [address] [place] [address] PCP - General Internal Medicine 07/02/18 documented as of this encounter
--- OUTSIDE RECORDS SUMMARY | 2025-08-24 16:33 | XMS_ITS | Encounter Summary ---
Author Organization [facility] Address [address] [place] [address] Care Team Providers Care Market Risk Specialist Name Role Phone Xavi Allen MD Primary Care Provider [phone] Encounter Details Date Type Department Care Team (Late st Contact Info) Description 12/26/2002 Outpatient Historical [facility] KASI Lin, Radha Batres MD [address] [facility] [address] [place] [phone] Social History Tobacco Use Types Packs/Day Years Used Date Smoking Tobacco: Never Assessed Comments Unknown Sex and Gender Information Value Date Recorded Sex Assigned at Not on file Legal Sex Female 3:52 AM PARKING LOT ATTENDANT Gender Identity Not on file Sexual Orientation Not on file documented as of this encounter Plan of Treatment Not on file documented as of this encounter Visit Diagnoses Not on filedocumented in this encounter Care Teams Market Risk Specialist Relationship Specialty Start Date End Date Xavi Allen MD [address] [place] [address] PCP - General Internal Medicine 07/02/18 documented as of this encounter
--- OUTSIDE RECORDS SUMMARY | 2025-08-24 16:33 | XMS_ITS | Encounter Summary ---
Author Organization [facility] Address [address] [place] [address] Care Team Providers Care Cable Spooler Name Role Phone Xavi Allen MD Primary Care Provider [phone] Encounter Details Date Type Department Care Team (Late st Contact Info) Description 10/03/2002 Outpatient Historical [facility] Social History Tobacco Use Types Packs/Day Years Used Date Smoking Tobacco: Never Assessed Comments Unknown Sex and Gender Information Value Date Recorded Sex Assigned at Not on file Legal Sex Female 3:52 AM WAGE AND SALARY ADMINISTRATOR Gender Identity Not on file Sexual Orientation Not on file documented as of this encounter Plan of Treatment Not on file documented as of this encounter Visit Diagnoses Not on filedocumented in this encounter Care Teams Cable Spooler Relationship Specialty Start Date End Date Xavi Allen MD [address] [place] [address] PCP - General Internal Medicine 07/02/18 documented as of this encounter
--- OUTSIDE RECORDS SUMMARY | 2025-08-24 16:33 | XMS_ITS | Encounter Summary ---
Author Organization [facility] Address [address] [address] [place] [address] Care Team Providers Care Cryptographic Machine Operator Name Role Phone Xavi Allen MD Primary Care Provider [phone] Encounter Details Date Type Department Care Team (Late st Contact Info) Description 06/16/2003 Outpatient Historical [facility] Social History Tobacco Use Types Packs/Day Years Used Date Smoking Tobacco: Never Assessed Comments Unknown Sex and Gender Information Value Date Recorded Sex Assigned at Not on file Legal Sex Female 3:52 AM SECURITY PROGRAM MANAGER Gender Identity Not on file Sexual Orientation Not on file documented as of this encounter Plan of Treatment Not on file documented as of this encounter Visit Diagnoses Not on filedocumented in this encounter Care Teams Cryptographic Machine Operator Relationship Specialty Start Date End Date Xavi Allen MD [address] [place] [address] PCP - General Internal Medicine 07/02/18 documented as of this encounter
--- OUTSIDE RECORDS SUMMARY | 2025-08-24 16:33 | XMS_ITS | Encounter Summary ---
Author Organization [facility] Address [address] [place] [address] Care Team Providers Care Material Distributor Name Role Phone Xavi Allen MD Primary Care Provider [phone] Encounter Details Date Type Department Care Team (Late st Contact Info) Description 04/07/2003 Outpatient [facility] Division of Neurology [address], [address] [address] Maverick Boyce MD [address] [place] [phone] Social History Tobacco Use Types Packs/Day Years Used Date Smoking Tobacco: Never Assessed Comments Unknown Sex and Gender Information Value Date Recorded Sex Assigned at Not on file 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
--- OUTSIDE RECORDS SUMMARY | 2025-08-24 16:33 | XMS_ITS | Encounter Summary ---
Author Organization [facility] Address [address] [place] [address] Care Team Providers Care Cook Fishing Vessel Name Role Phone Xavi Allen MD Primary Care Provider [phone] Encounter Details Date Type Department Care Team (Late st Contact Info) Description 03/03/2003 Outpatient Historical [facility] MRI DEPT Radha Lin MD [address] 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
--- OUTSIDE RECORDS SUMMARY | 2025-08-24 16:33 | XMS_ITS | Encounter Summary ---
Author Organization [facility] Address 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
--- OUTSIDE RECORDS SUMMARY | 2025-08-24 16:33 | XMS_ITS | Encounter Summary ---
Author Organization [facility] Address [address] [place] [address] Care Team Providers Care Slate Roofer Helper Name Role Phone Xavi Allen MD Primary Care Provider [phone] Encounter Details Date Type Department Care Team (Late st Contact Info) Description 10/31/2002 Outpatient [facility] Division of Neurology [address], [address] [address] Radha Lin MD [address] [facility] [address] [place] [phone] Social History Tobacco Use Types Packs/Day Years Used Date Smoking Tobacco: Never Assessed Comments Unknown Sex and Gender Information Value Date Recorded Sex Assigned at Not on file Legal Sex Female 3:52 AM PATTERNMAKER HAND Gender Identity Not on file Sexual Orientation Not on file documented as of this encounter Plan of Treatment Not on file documented as of this encounter Visit Diagnoses Not on filedocumented in this encounter Care Teams Slate Roofer Helper Relationship Specialty Start Date End Date Xavi Allen MD [address] [place] [address] PCP - General Internal Medicine 07/02/18 documented as of this encounter
--- OUTSIDE RECORDS SUMMARY | 2025-08-24 16:33 | XMS_ITS | Encounter Summary ---
Author Organization [facility] Address 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
--- OUTSIDE RECORDS SUMMARY | 2025-08-24 16:33 | XMS_ITS | Encounter Summary ---
Author Organization [facility] Address [address] [place] [address] Care Team Providers Care Charcoal Kiln Burner Name Role Phone Xavi Allen MD Primary Care Provider [phone] Encounter Details Date Type Department Care Team (Late st Contact Info) Description 08/19/2001 Outpatient [facility] Division of Neurology [address] [address] Radha Lin MD [address] [facility] [address] [place] [phone] Social History Tobacco Use Types Packs/Day Years Used Date Smoking Tobacco: Never Assessed Comments Unknown Sex and Gender Information Value Date Recorded Sex Assigned at Not on file 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
--- OUTSIDE RECORDS SUMMARY | 2025-08-24 16:33 | XMS_ITS | Encounter Summary ---
Author Organization [facility] Address [address] [place] [address] Care Team Providers Care Processing Technologist Name Role Phone Xavi Allen MD Primary Care Provider [phone] Encounter Details Date Type Department Care Team (Latest Contact Info) Description 12/02/2000 Outpatient Historical HIS 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
--- OUTSIDE RECORDS SUMMARY | 2025-08-24 16:33 | XMS_ITS | Encounter Summary ---
Author Organization [facility] Address [address] [place] [address] Care Team Providers Care Choral Director Name Role Phone Xavi Allen MD Primary Care Provider Encounter Details Date Type Department Care Team (Late st Contact Info) Description 03/22/2002 Outpatient [facility] Division of Neurology [address] [address] Radha Lin MD [address] [facility] [address] [place] [phone] Social History Tobacco Use Types Packs/Day Years [...] on filedocumented in this encounter Care Teams Choral Director Relationship Specialty Start Date End Date Xavi Allen MD [address] [place] [address] PCP - General Internal Medicine 07/02/18 documented as of this encounter
--- OUTSIDE RECORDS SUMMARY | 2025-08-24 16:33 | XMS_ITS | Encounter Summary ---
Author Organization [facility] Address [address] [place] [address] Care Team Providers Care Funeral Home Manager Name Role Phone Xavi Allen MD Primary Care Provider [phone] Encounter Details Date Type Department Care Team (Late st Contact Info) Description 03/02/2001 Outpatient [facility] Division of Neurology [address] [address] Radha Lin MD [address] [facility] [address] [place] [phone] Social History Tobacco Use Types Packs/Day Years Used Date Smoking Tobacco: Never Assessed Comments Unknown Sex and Gender Information Value Date Recorded Sex Assigned at Not on file 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
--- OUTSIDE RECORDS SUMMARY | 2025-08-24 16:33 | XMS_ITS | Encounter Summary ---
Author Organization [employer] [facility] Address [address] [place] [address] Care Team Providers Care Clinic Manager Name Role Phone Xavi Allen MD Primary Care Provider [phone] Encounter Details Date Type Department Care Team (Latest Contact Info) Description 04/04/2003 Outpatient Historical [facility] Rudy Palma V., PhD 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
--- OUTSIDE RECORDS SUMMARY | 2025-08-24 16:33 | XMS_ITS | Encounter Summary ---
Author Organization [facility] Address [address] [place] [address] Care Team Providers Care Setter Machine Name Role Phone Xavi Allen MD Primary Care Provider [phone] Encounter Details Date Type Department Care Team (Latest Contact Info) Description 03/30/2001 Outpatient Historical [facility] Rudy Palma V., PhD 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
--- OUTSIDE RECORDS SUMMARY | 2025-08-24 16:33 | XMS_ITS | Encounter Summary ---
Author Organization [facility] Address [address] [place] [address] Care Team Providers Care Canine Service Teacher Name Role Phone Xavi Allen MD Primary Care Provider Encounter Details Date Type Department Care Team (Late st Contact Info) Description 03/20/2003 Outpatient Historical [facility] MRI DEPT Social History Tobacco Use Types Packs/Day Years Used Date Smoking Tobacco: Never Assessed Comments Unknown Sex and Gender Information Value Date Recorded Sex Assigned at Not on file Legal Sex Female 3:52 AM CLINICAL DOCUMENTATION MANAGER Gender Identity Not on file Sexual Orientation Not on file documented as of this encounter Plan of Treatment Not on file documented as of this encounter Visit Diagnoses Not on filedocumented in this encounter Care Teams Canine Service Teacher Relationship Specialty Start Date End Date Xavi Allen MD [address] [place] [address] PCP - General Internal Medicine 07/02/18 documented as of this encounter
--- OUTSIDE RECORDS SUMMARY | 2025-08-24 16:33 | XMS_ITS | Encounter Summary ---
Author Organization [facility] Address [address] [place] [address] Care Team Providers Care Box Lining Machine Operator Name Role Phone Xavi Allen MD Primary Care Provider Encounter Details Date Type Department Care Team (Late st Contact Info) Description 11/25/2002 Outpatient [facility] Division of Neurology [address] [address] Maverick Boyce MD [address] [place] [address] Social History Tobacco Use Types Packs/Day Years Used Date Smoking Tobacco: Never Assessed Comments Unknown Sex and Gender Information Value Date Recorded Sex Assigned at Not on file 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
--- OUTSIDE RECORDS SUMMARY | 2025-08-24 16:33 | XMS_ITS | Encounter Summary ---
Author Organization [facility] Address [address] [place] [address] Care Team Providers Care Addiction Professional Name Role Phone Xavi Allen MD Primary Care Provider [phone] Encounter Details Date Type Department Care Team (Late st Contact Info) Description 06/14/2002 Outpatient [facility] Division of Neurology [address] [address] Maverick Boyce MD [address] [place] [phone] Social History Tobacco Use Types Packs/Day Years Used Date Smoking Tobacco: Never Assessed Comments Unknown Sex and Gender Information Value Date Recorded Sex Assigned at Not on file 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
--- OUTSIDE RECORDS SUMMARY | 2025-08-24 16:33 | XMS_ITS | Encounter Summary ---
Author Organization [facility] Address [address] [place] [address] Care Team Providers Care Field Crop I Farmworker Name Role Phone Xavi Allen MD Primary Care Provider [phone] Encounter Details Date Type Department Care Team (Late st Contact Info) Description 10/03/2002 Outpatient [facility] Division of Neurology [address] [address] Radha Lin MD [address] [place] [phone] Social History Tobacco Use Types Packs/Day Years Used Date Smoking Tobacco: Never Assessed Comments Unknown Sex and Gender Information Value Date Recorded Sex Assigned at Not on file 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
--- OUTSIDE RECORDS SUMMARY | 2025-08-24 16:33 | XMS_ITS | Encounter Summary ---
Author Organization [facility] Address [address] [place] [address] Care Team Providers Care Shaker Repairer Name Role Phone Xavi Allen MD Primary Care Provider Encounter Details Date Type Department Care Team (Late st Contact Info) Description 04/18/2002 Outpatient Historical [facility] Social History Tobacco Use Types Packs/Day Years Used Date Smoking Tobacco: Never Assessed Comments Unknown Sex and Gender Information Value Date Recorded Sex Assigned at Not on file Legal Sex Female 3:52 AM FRAMING AND HANGING Gender Identity Not on file Sexual Orientation Not on file documented as of this encounter Plan of Treatment Not on file documented as of this encounter Visit Diagnoses Not on filedocumented in this encounter Care Teams Shaker Repairer Relationship Specialty Start Date End Date Xavi Allen MD [address] [place] [address] PCP - General Internal Medicine 07/02/18 documented as of this encounter
--- OUTSIDE RECORDS SUMMARY | 2025-08-24 16:33 | XMS_ITS | Encounter Summary ---
Author Organization [facility] Address 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
--- OUTSIDE RECORDS SUMMARY | 2025-08-24 16:33 | XMS_ITS | Encounter Summary ---
Author Organization [facility] Address [address] 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
--- OUTSIDE RECORDS SUMMARY | 2025-08-24 16:34 | XMS_ITS | Encounter Summary ---
Author Organization [facility] Address [address] [place] [address] Care Team Providers Care Community Recreation Programmer Name Role Phone Xavi Allen MD Primary Care Provider [phone] Encounter Details Date Type Department Care Team (Late st Contact Info) Description 10/31/2003 Outpatient [facility] Division of Neurology [address] [address] Maverick Boyce MD [address] [place] [address] Social History Tobacco Use Types Packs/Day Years Used Date Smoking Tobacco: Never Assessed Comments Unknown Sex and Gender Information Value Date Recorded Sex Assigned at Not on file 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
--- OUTSIDE RECORDS SUMMARY | 2025-08-24 16:34 | XMS_ITS | Encounter Summary ---
Author Organization [facility] Address [address] [place] [address] Care Team Providers Care Pulverizer Feeder Name Role Phone Xavi Allen MD Primary Care Provider Encounter Details Date Type Department Care Team (Late st Contact Info) Description 12/04/[address] 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
--- OUTSIDE RECORDS SUMMARY | 2025-08-24 16:34 | XMS_ITS | Encounter Summary ---
Author Organization [facility] Address [address] [place] [address] Care Team Providers Care Casting Inspector Name Role Phone Xavi Allen MD Primary Care Provider [phone] Encounter Details Date Type Department Care Team (Late st Contact Info) Description 07/09/2004 Outpatient Historical Division of Neurology [address] [address] Av Alvarado MD [address] [place] [phone] Social History Tobacco Use Types Packs/Day Years Used Date Smoking Tobacco: Never Assessed Comments Unknown Sex and Gender Information Value Date Recorded Sex Assigned at Not on file 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
--- OUTSIDE RECORDS SUMMARY | 2025-08-24 16:34 | XMS_ITS | Encounter Summary ---
Author Organization [facility] Address [address] [place] [address] Care Team Providers Care Land Lease Information Clerk Name Role Phone Xavi Allen MD Primary Care Provider Encounter Details Date Type Department Care Team (Late st Contact Info) Description 01/23/2004 Outpatient Historical [facility] Social History Tobacco Use Types Packs/Day Years Used Date Smoking Tobacco: Never Assessed Comments Unknown Sex and Gender Information Value Date Recorded Sex Assigned at Not on file Legal Sex Female 3:52 AM ROUTE DELIVERY DRIVER Gender Identity Not on file Sexual Orientation Not on file documented as of this encounter Plan of Treatment Not on file documented as of this encounter Visit Diagnoses Not on filedocumented in this encounter Care Teams Land Lease Information Clerk Relationship Specialty Start Date End Date Xavi Allen MD [address] [place] [address] PCP - General Internal Medicine 07/02/18 documented as of this encounter
--- OUTSIDE RECORDS SUMMARY | 2025-08-24 16:34 | XMS_ITS | Encounter Summary ---
Author Organization [facility] Address 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
--- OUTSIDE RECORDS SUMMARY | 2025-08-24 16:34 | XMS_ITS | Encounter Summary ---
Author Organization [facility] Address 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
--- OUTSIDE RECORDS SUMMARY | 2025-08-24 16:34 | XMS_ITS | Encounter Summary ---
Author Organization [facility] Address [address] [place] [address] Care Team Providers Care Agricultural Technician Name Role Phone Xavi Allen MD Primary Care Provider [phone] Encounter Details Date Type Department Care Team (Late st Contact Info) Description 03/14/2025 Lab Requisition [facility] [address] [place] [address] Jennifer Lucio DO [address] [place] [place] [address] Social History Tobacco Use Types Packs/Day Years [...] AM CDT) Case Report Dermatopathology Report Case: [id number] Authorizing Provider: Jennifer Lucio DO Collected: 03/14/2025 09:31 AM Ordering Location: [facility] - Received: 03/14/2025 04:30 PM DermPath Lab Pathologist: Angelia Lloyd MD Specimen: Skin, left jain 4:19 PM CDT DERMATOPATHOLOGY LABORATORY Final Diagnosis Specimen A. SKIN, left jain: ACTINIC KERATOSIS, LICHENOID (L57.0) 4:19 PM CDT DERMATOPATHOLOGY LABORATORY at 1619 CDT Clinical History ISK, R/O Atypia 4:19 PM CDT DERMATOPATHOLOGY LABORATORY Gross Description Specimen A: Received is one formalin filled container labeled with the patient's name and designated left jain. The specimen consists of a shave biopsy measuring 10x7x1 mm. Jar 0. 4:19 PM CDT DERMATOPATHOLOGY LABORATORY Microscopic Description Specimen A. SKIN, left jain: There is focal parakeratosis. The lower half [...] characteristic determined by the Dermatopathology Laboratory at [facility], directed by Dr. Raine Lloyd. These tests need not be, and therefore are not, approved by the [place] Food and Drug Administration. The tests are used for clinical purposes. Billing Codes Specimen Charges Stain Charges 84070 1 5 4:19 PM CDT DERMATOPATHOLOGY LABORATORY Embedded Images 5 4:19 PM CDT DERMATOPATHOLOGY LABORATORY Pathology/Cytolo gy TISSUE SPECIMEN FROM SKIN / Unknown 03/14/2025 9:31 AM CDT 03/14/2025 4:30 PM CDT us Jennifer Lucio DO LAB - PATHOLOGY/CYTOLOGY ORDERABLES Final Result DERMATOPATHOLOGY LABORATORY [facility] - Department of Dermatology [address] [phone] documented in this encounter Visit Diagnoses Not on filedocumented in this encounter Care Teams Agricultural Technician Relationship Specialty Start Date End Date Xavi Allen MD [address] [place], [place] [phone] PCP - General 05/03/18 documented as of this encounter
--- OUTSIDE RECORDS SUMMARY | 2025-08-24 16:34 | XMS_ITS | Encounter Summary ---
Author Organization [facility] Address [address] [place] [address] Care Team Providers Care Chief Steward/Stewardess Name Role Phone Xavi Allen MD Primary Care Provider [phone] Encounter Details Date Type Department Care Team (Late st Contact Info) Description 01/27/[address] Outpatient [address] 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
--- OUTSIDE RECORDS SUMMARY | 2025-08-24 16:34 | XMS_ITS | Encounter Summary ---
Author Organization [facility] Address [address] [place] [address] Care Team Providers Care Art Class Model Name Role Phone Xavi Allen MD Primary Care Provider [phone] Encounter Details Date Type Department Care Team (Late st Contact Info) Description 08/08/2003 Outpatient [facility] Division of Neurology [address] [address] Maverick Boyce MD [address] [place] [phone] Social History Tobacco Use Types Packs/Day Years [...] on filedocumented in this encounter Care Teams Art Class Model Relationship Specialty Start Date End Date Xavi Allen MD [address] [place] [address] PCP - General Internal Medicine 07/02/18 documented as of this encounter
--- OUTSIDE RECORDS SUMMARY | 2025-08-24 16:34 | XMS_ITS | Encounter Summary ---
Author Organization [facility] Address [address] 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
--- OUTSIDE RECORDS SUMMARY | 2025-08-24 16:34 | XMS_ITS | Encounter Summary ---
Author Organization [facility] Address 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
--- OUTSIDE RECORDS SUMMARY | 2025-08-24 16:34 | XMS_ITS | Encounter Summary ---
Author Organization [facility] Address 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
--- OUTSIDE RECORDS SUMMARY | 2025-08-24 16:34 | XMS_ITS | Encounter Summary ---
Author Organization [facility] Address [address] [place] [address] Care Team Providers Care Piece Meat Trimmer Name Role Phone Xavi Allen MD Primary Care Provider Encounter Details Date Type Department Care Team (Late st Contact Info) Description 10/31/2003 Outpatient Historical [facility] Social History Tobacco Use Types Packs/Day Years Used Date Smoking Tobacco: Never Assessed Comments Unknown Sex and Gender Information Value Date Recorded Sex Assigned at Not on file Legal Sex Female 3:52 AM INTERNATIONAL FIRST OFFICER Gender Identity Not on file Sexual Orientation Not on file documented as of this encounter Plan of Treatment Not on file documented as of this encounter Visit Diagnoses Not on filedocumented in this encounter Care Teams Piece Meat Trimmer Relationship Specialty Start Date End Date Xavi Allen MD [address] [place] [address] PCP - General Internal Medicine 07/02/18 documented as of this encounter
--- OUTSIDE RECORDS SUMMARY | 2025-08-24 16:34 | XMS_ITS | Encounter Summary ---
Author Organization [facility] Address 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
--- OUTSIDE RECORDS SUMMARY | 2025-08-24 16:34 | XMS_ITS | Clinical Summary ---
Author Organization [facility] Address [address] [facility] [place] [address] Care Team Providers Care Patient Registration Representative Name Role Phone Xavi Allen MD Primary Care Provider [phone] Allergies Active Allergy Reactions Criticality Noted Date [...] with Dr Lin and radiologist Dr. Shannon. 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 [...] Visit [facility] [address] [place] [phone] Osbaldo Link MD Multiple sclerosis ([facility]) (HCC) (Primary Dx) 07/24/2025 Telephone [facility] Care [address] [place] [phone] Osbaldo Link MD Med Refill from Last [...] on file Legal Sex Female 2:51 PM FORESTRY HUNTER Gender Identity Female 07/23/2020 1:37 PM CDT [...] Comment: For additional information, please refer to http://Call Loop.[employer]/faq/UPP270 (This link is being provided for informational/ [...] a test for HCV RNA (test code 57108) is suggested. For additional information please refer to http://Call Loop.[employer]/faq/QLG21d4 (This link is being provided for informational/ educational purposes only.) Blood specimen (specimen) 03/18/2021 3:02 PM CDT 03/18/2021 3:04 PM CDT Narrative [facility] - 03/19/2021 11:26 AM CDT AN UPDATE OR CORRECTION HAS BEEN MADE TO NAME us Radha Lin MD LAB MICROBIOLOGY - GENERAL O RDERABLES Final Result Performing Organization Address City/State/[facility] [place] Phone Number [facility] [address] [facility] [place] [address] from Last 3 Months or Most Recently Relevant to Health Maintenance Insurance IDPA [facility] [place] IDPA [employer] [place] [employer] [place] Care Teams Patient Registration Representative Relationship Specialty Start Date End Date Xavi Allen MD PCP - General Internal Medicine 01/20/18
--- OUTSIDE RECORDS SUMMARY | 2025-08-24 16:34 | XMS_ITS | Encounter Summary ---
Author Organization [facility] Address 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
--- OUTSIDE RECORDS SUMMARY | 2025-08-24 16:34 | XMS_ITS | Encounter Summary ---
Author Organization [facility] Address [address] [place] [address] Care Team Providers Care Repair Servicer Name Role Phone Xavi Allen MD Primary Care Provider [phone] Encounter Details Date Type Department Care Team (Late st Contact Info) Description 10/31/2003 Outpatient [facility] Division of Neurology [address] [facility] [address] Radha Lin MD [address] [facility] [address] [place] [phone] Social History Tobacco Use Types Packs/Day Years Used Date Smoking Tobacco: Never Assessed Comments Unknown Sex and Gender Information Value Date Recorded Sex Assigned at Not on file 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
--- OUTSIDE RECORDS SUMMARY | 2025-08-24 16:34 | XMS_ITS | Encounter Summary ---
Author Organization [facility] Address 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
--- OUTSIDE RECORDS SUMMARY | 2025-08-24 16:34 | XMS_ITS | Encounter Summary ---
Author Organization [facility] Address [address] [place] [address] Care Team Providers Care Command And Control Officer Name Role Phone Xavi Allen MD Primary Care Provider [phone] Encounter Details Date Type Department Care Team (Late st Contact Info) Description 01/23/2004 Outpatient [facility] Division [facility] Neurology [address] [address] Radha Lin MD [address] [facility] [address] [place] [phone] Social History Tobacco Use Types Packs/Day Years Used Date Smoking Tobacco: Never Assessed Comments Unknown Sex and Gender Information Value Date Recorded Sex Assigned at Not on file Legal Sex Female 3:52 AM PHOTOGRAPHER APPRENTICE LITHOGRAPHIC Gender Identity Not on file Sexual Orientation Not on file documented as of this encounter Plan of Treatment Not on file documented as of this encounter Visit Diagnoses Not on filedocumented in this encounter Care Teams Command And Control Officer Relationship Specialty Start Date End Date Xavi Allen MD [address] [place] [address] PCP - General Internal Medicine 07/02/18 documented as of this encounter
--- OUTSIDE RECORDS SUMMARY | 2025-08-24 16:34 | XMS_ITS | Encounter Summary ---
Author Organization [facility] Address [address] [place] [address] Care Team Providers Care Utility Tech Name Role Phone Xavi Allen MD Primary Care Provider Encounter Details Date Type Department Care Team (Late st Contact Info) Description 01/23/2004 Outpatient [facility] Division of Neurology [address] [facility] [address] Maverick Boyce MD [address] [place] [phone] Social History Tobacco Use Types Packs/Day Years Used Date Smoking Tobacco: Never Assessed Comments Unknown Sex and Gender Information Value Date Recorded Sex Assigned at Not on file 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
--- OUTSIDE RECORDS SUMMARY | 2025-08-24 16:34 | XMS_ITS | Encounter Summary ---
Author Organization [facility] Address [address] [place] [address] Care Team Providers Care Floor And Wall Applier Liquid Name Role Phone Xavi Allen MD Primary Care Provider Encounter Details Date Type Department Care Team (Late st Contact Info) Description 03/22/2004 Outpatient Historical [facility] Social History Tobacco Use Types Packs/Day Years Used Date Smoking Tobacco: Never Assessed Comments Unknown Sex and Gender Information Value Date Recorded Sex Assigned at Not on file Legal Sex Female 3:52 AM CASINO FLOOR PERSON Gender Identity Not on file Sexual Orientation Not on file documented as of this encounter Plan of Treatment Not on file documented as of this encounter Visit Diagnoses Not on filedocumented in this encounter Care Teams Floor And Wall Applier Liquid Relationship Specialty Start Date End Date Xavi Allen MD [address] [place] [address] PCP - General Internal Medicine 07/02/18 documented as of this encounter
--- OUTSIDE RECORDS SUMMARY | 2025-08-24 16:34 | XMS_ITS | Encounter Summary ---
Author Organization [facility] Address [address] [place] [address] Care Team Providers Care Assistant Golf Coach Name Role Phone Xavi Allen MD Primary Care Provider [phone] Encounter Details Date Type Department Care Team (Late st Contact Info) Description 09/08/2003 Outpatient Historical [facility] Social History Tobacco Use Types Packs/Day Years Used Date Smoking Tobacco: Never Assessed Comments Unknown Sex and Gender Information Value Date Recorded Sex Assigned at Not on file Legal Sex Female 3:52 AM SPECIAL CRIMES INVESTIGATOR Gender Identity Not on file Sexual Orientation Not on file documented as of this encounter Plan of Treatment Not on file documented as of this encounter Visit Diagnoses Not on filedocumented in this encounter Care Teams Assistant Golf Coach Relationship Specialty Start Date End Date Xavi Allen MD [address] [place] [address] PCP - General Internal Medicine 07/02/18 documented as of this encounter
--- OUTSIDE RECORDS SUMMARY | 2025-08-24 16:34 | XMS_ITS | Encounter Summary ---
Author Organization [facility] Address [address] [place] [address] Care Team Providers Care Manager Home Name Role Phone Xavi Allen MD Primary Care Provider [phone] Encounter Details Date Type Department Care Team (Late st Contact Info) Description 01/24/2005 Outpatient Historical [facility] Radha Lin MD [address] [facility] [address] [place] [phone] Social History Tobacco Use Types Packs/Day Years Used Date Smoking Tobacco: Never Assessed Comments Unknown Sex and Gender Information Value Date Recorded Sex Assigned at Not on file Legal Sex Female 3:52 AM BUNG DRIVER Gender Identity Not on file Sexual Orientation Not on file documented as of this encounter Plan of Treatment Not on file documented as of this encounter Visit Diagnoses Not on filedocumented in this encounter Care Teams Manager Home Relationship Specialty Start Date End Date Xavi Allen MD [address] [place] [address] PCP - General Internal Medicine 07/02/18 documented as of this encounter
--- OUTSIDE RECORDS SUMMARY | 2025-08-24 16:34 | XMS_ITS | Encounter Summary ---
Author Organization [facility] Address [address] [place] [address] Care Team Providers Care It Business Process Architect Name Role Phone Xavi Allen MD Primary Care Provider [phone] Encounter Details Date Type Department Care Team (Late st Contact Info) Description 03/22/2004 Outpatient [facility] Division of Neurology [address] [facility] [address] Radha Lin MD [address] [facility] [address] [place] [phone] Social History Tobacco Use Types Packs/Day Years Used Date Smoking Tobacco: Never Assessed Comments Unknown Sex and Gender Information Value Date Recorded Sex Assigned at Not on file Legal Sex Female 3:52 AM DOCUMENTATION LIAISON Gender Identity Not on file Sexual Orientation Not on file documented as of this encounter Plan of Treatment Not on file documented as of this encounter Visit Diagnoses Not on filedocumented in this encounter Care Teams It Business Process Architect Relationship Specialty Start Date End Date Xavi Allen MD [address] [place] [address] PCP - General Internal Medicine 07/02/18 documented as of this encounter
--- OUTSIDE RECORDS SUMMARY | 2025-08-24 16:34 | XMS_ITS | Encounter Summary ---
Author Organization [facility] Address [address] [place] [address] Care Team Providers Care Rougher For Cement Name Role Phone Xavi Allen MD Primary Care Provider Encounter Details Date Type Department Care Team (Late st Contact Info) Description 04/16/2004 Outpatient Historical [facility] Social History Tobacco Use Types Packs/Day Years Used Date Smoking Tobacco: Never Assessed Comments Unknown Sex and Gender Information Value Date Recorded Sex Assigned at Not on file Legal Sex Female 3:52 AM BOOTH CASHIER Gender Identity Not on file Sexual Orientation Not on file documented as of this encounter Plan of Treatment Not on file documented as of this encounter Visit Diagnoses Not on filedocumented in this encounter Care Teams Rougher For Cement Relationship Specialty Start Date End Date Xavi Allen MD [address] [place] [address] PCP - General Internal Medicine 07/02/18 documented as of this encounter
--- OUTSIDE RECORDS SUMMARY | 2025-08-24 16:34 | XMS_ITS | Encounter Summary ---
Author Organization [facility] Address 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
--- OUTSIDE RECORDS SUMMARY | 2025-08-24 16:34 | XMS_ITS | Encounter Summary ---
Author Organization [facility] Address [address] [place] [address] Care Team Providers Care Log Cutter Name Role Phone Xavi Allen MD Primary Care Provider [phone] Encounter Details Date Type Department Care Team (Late st Contact Info) Description 07/09/2004 Outpatient Historical Division of Neurology [address] [address] (Excluded Provider) [place] [address] [facility] [address] [place] [address] Social History Tobacco Use Types Packs/Day Years Used Date Smoking Tobacco: Never Assessed Comments Unknown Sex and Gender Information Value Date Recorded Sex Assigned at Not on file Legal Sex Female 3:52 AM TREE SPECIALIST Gender Identity Not on file Sexual Orientation Not on file documented as of this encounter Plan of Treatment Not on file documented as of this encounter Visit Diagnoses Not on filedocumented in this encounter Care Teams Log Cutter Relationship Specialty Start Date End Date Xavi Allen MD [address] [place] [address] PCP - General Internal Medicine 07/02/18 documented as of this encounter
--- OUTSIDE RECORDS SUMMARY | 2025-08-24 16:34 | XMS_ITS | Encounter Summary ---
Author Organization [facility] Address [address] [place] [address] Care Team Providers Care Apprentice Painter Hand Name Role Phone Xavi Allen MD Primary Care Provider Encounter Details Date Type Department Care Team (Late st Contact Info) Description 09/05/2004 Outpatient [address] [facility] C[facility] Social History Tobacco Use Types Packs/Day Years Used Date Smoking Tobacco: Never Assessed Comments Unknown Sex and Gender Information Value Date Recorded Sex Assigned at Not on file Legal Sex Female 3:52 AM LEATHER PIECE INSPECTOR Gender Identity Not on file Sexual Orientation Not on file documented as of this encounter Plan of Treatment Not on file documented as of this encounter Visit Diagnoses Not on filedocumented in this encounter Care Teams Apprentice Painter Hand Relationship Specialty Start Date End Date Xavi Allen MD [address] [place] [address] PCP - General Internal Medicine 07/02/18 documented as of this encounter
--- OUTSIDE RECORDS SUMMARY | 2025-08-24 16:34 | XMS_ITS | Clinical Summary ---
Author Organization [facility] Address [address] [place] [address] Care Team Providers Care Litigation Coordinator Name Role Phone Xavi Allen MD Primary Care Provider [phone] Source Comments [facility],non-owned Affiliates and Associated Physician Practices is amultiple site organization consisting of ambulatory clinics and hospital sitesin [place], [place], [place] and [place]. This disclosure is being madepursuant to the Care Everywhere program and may not contain all information available regarding this patient. Last updated 18.[facility] Allergies Active Allergy Reactions Criticality [...] 7 - 26 mg/dL 04/05/2018 10:33 AM [facility] Creatinine 0.7 0.6 - 1.2 mg/dL 04/05/2018 10:33 AM [facility] Sodium 137 136 - 145 mmol/L 04/05/2018 10:33 AM [facility] Potassium 4.3 3.5 - 4.5 mmol/L 04/05/2018 10:33 AM [facility] Chloride 104 98 - 107 mmol/L 04/05/2018 10:33 AM [facility] CO2 25 22 - 29 mmol/L 04/05/2018 10:33 AM [facility] Glucose 117(H) 70 - 115 mg/dL 04/05/2018 10:33 AM [facility] Calcium 8.5 8.4 - 10.2 mg/dL 04/05/2018 10:33 AM [facility] Anion Gap 12 8 - 18 04/05/2018 10:33 AM [facility] BUN/Creatinine Ratio 16 7 - 23 04/05/2018 10:33 AM [facility] Osmolality Calculated 284 270 - 300 mOsm/kg 04/05/2018 10:33 AM [facility] eGFR >60 >60 mL/min/1.7 3 m2 04/05/2018 10:33 AM [facility] Blood BLOOD SPECIMEN / Unknown 04/05/2018 9:46 AM CDT 04/05/2018 10:01 AM CDT us Najma Walls [facility] SUPERVISOR LAB - CHEMISTRY ORDERABL ES Final Result [facility] [address] [place] [address] from Last 3 Months or Most Recently Relevant to Health Maintenance Insurance [facility] Member Subscriber Plan / Payer (Ef fective 2011-Present) Name:Butch Barrientos Relation to Subscriber:Self Name:BUTCH BARRIENTOS Payer ID:[id number] (NAIC) Type:PPO Address: [place] [id number] MEDICAID - OUT OF STATE [facility] Advance Directives * Full Code (Latest Code Status on File) Date Activated Date Inactivated Comments 03/31/2018 11:53 PM 04/09/2018 2:02 PM Care Teams Litigation Coordinator Relationship Specialty Start Date End Date Xavi Allen MD [address] [place] [id number] PCP - General 05/03/18
--- OUTSIDE RECORDS SUMMARY | 2025-08-24 16:34 | XMS_ITS | Encounter Summary ---
Author Organization [facility] Address 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
--- OUTSIDE RECORDS SUMMARY | 2025-08-24 16:34 | XMS_ITS | Clinical Summary ---
Author Organization [facility] Address [address] [place] [address] Phone Care Team Providers Care Svp Of Digital Name Role Phone Xavi Allen MD Primary Care Provider [phone] Allergies Active Allergy Reactions Criticality Noted Date [...] tablet Take 75 mcg by mouth daily anode rebuilder. Active triamcinolone acetonide (KENALOG) 0.1 % Cream [...] sec Assessment & Plan (01/17/2016 1:49 PM BUSINESS ACCOUNT EXECUTIVE): . Resolved Problems Problem Noted Date Diagnosed [...] file Legal Sex Female 3:52 AM BUSINESS ACCOUNT EXECUTIVE Gender Identity Not on file Sexual Orientation Not on file Occupation Industry Job Start Date Job End Date Not on file Not on file Not on file Not on file Last Filed Vital Signs Vital Sign Reading Time Taken Comments Blood Pressure 145/84 01/25/2018 3:07 PM BUSINESS ACCOUNT EXECUTIVE Pulse 104 01/25/2018 3:07 PM BUSINESS ACCOUNT EXECUTIVE Temperature 36.9 C (98.4 F) 01/25/2018 3:07 PM BUSINESS ACCOUNT EXECUTIVE Respiratory Rate 18 01/25/2018 2:26 PM BUSINESS ACCOUNT EXECUTIVE Oxygen Saturation 98% 08/17/2017 1:37 PM CDT Inhaled Oxygen Concentration - - Weight 70.3 kg (155 lb) 12/28/2017 10:37 AM BUSINESS ACCOUNT EXECUTIVE Height 144.8 cm (4' 9) 12/28/2017 10:37 AM BUSINESS ACCOUNT EXECUTIVE Body Mass Index 33.54 12/28/2017 10:37 AM BUSINESS ACCOUNT EXECUTIVE Plan of Treatment Health Maintenance Due Date [...] Advance Directives For more information, please contact: [phone] * Full Code (Latest Code Status on File) Date Activated Date Inactivated Comments 03/01/2016 1:21 AM 03/04/2016 8:01 PM Care Teams Svp Of Digital Relationship Specialty Start Date End Date Xavi Allen MD [address] [place] [address] PCP - General Internal Medicine 07/02/18
--- OUTSIDE RECORDS SUMMARY | 2025-08-24 16:34 | XMS_ITS | Encounter Summary ---
Author Organization [facility] Address [address] [place] [address] Care Team Providers Care Marketing Budget Analyst Name Role Phone Xavi Allen MD Primary Care Provider [phone] Encounter Details Date Type Department Care Team (Late st Contact Info) Description 01/03/2003 Inpatient Historical [facility], Maximo Temple MD NO ADDRESS ON FILE Esequiel Olivares MD [address] [address] URINARY FREQUENCY (Primary Dx) Social History Tobacco Use Types Packs/Day Years Used Date Smoking Tobacco: Never Assessed Comments Unknown Sex and Gender Information Value Date Recorded Sex Assigned at Not on file Legal Sex Female 3:52 AM SHINGLE CARRIER Gender Identity Not on file Sexual Orientation Not on file documented as of this encounter Plan of Treatment Not on file documented as of this encounter Visit Diagnoses Diagnosis Urinary frequency- Primary documented in this encounter Care Teams Marketing Budget Analyst Relationship Specialty Start Date End Date Xavi Allen MD [address] [place] [address] PCP - General Internal Medicine 07/02/18 documented as of this encounter
--- OUTSIDE RECORDS SUMMARY | 2025-08-24 16:34 | XMS_ITS | Encounter Summary ---
Author Organization [facility] Address [address] [place] [address] Care Team Providers Care Emission Technician Name Role Phone Xavi Allen MD Primary Care Provider [phone] Encounter Details Date Type Department Care Team (Late st Contact Info) Description 04/16/2004 Outpatient [facility] Division of Neurology [address], [address] [address] Maverick Boyce MD [address] [place] [id number] Social History Tobacco Use Types Packs/Day Years Used Date Smoking Tobacco: Never Assessed Comments Unknown Sex and Gender Information Value Date Recorded Sex Assigned at Not on file Legal Sex Female 3:52 AM SENIOR PORTFOLIO ANALYST Gender Identity Not on file Sexual Orientation Not on file documented as of this encounter Plan of Treatment Not on file documented as of this encounter Visit Diagnoses Not on filedocumented in this encounter Care Teams Emission Technician Relationship Specialty Start Date End Date Xavi Allen MD [address] [place] [address] PCP - General Internal Medicine 07/02/18 documented as of this encounter
--- OUTSIDE RECORDS SUMMARY | 2025-08-24 16:34 | XMS_ITS | Encounter Summary ---
Author Organization [facility] Address [address] [place] [address] Care Team Providers Care Medium Cycle Salesperson Name Role Phone Xavi Allen MD Primary Care Provider Encounter Details Date Type Department Care Team (Late st Contact Info) Description 03/03/2003 Outpatient [facility] Division of Neurology [address] [address] Radha Lin MD [address] [place] [phone] Social History Tobacco Use Types Packs/Day Years Used Date Smoking Tobacco: Never Assessed Comments Unknown Sex and Gender Information Value Date Recorded Sex Assigned at Not on file Legal Sex Female 3:52 AM BILLING CLINICIAN Gender Identity Not on file Sexual Orientation Not on file documented as of this encounter Plan of Treatment Not on file documented as of this encounter Visit Diagnoses Not on filedocumented in this encounter Care Teams Medium Cycle Salesperson Relationship Specialty Start Date End Date Xavi Allen MD [address] [place] [address] PCP - General Internal Medicine 07/02/18 documented as of this encounter
--- OUTSIDE RECORDS SUMMARY | 2025-08-24 16:34 | XMS_ITS | Encounter Summary ---
Author Organization [facility] Address [address] [place] [address] Care Team Providers Care Airplane Gas Tank Liner Assembler Name Role Phone Xavi Allen MD Primary Care Provider [phone] Encounter Details Date Type Department Care Team (Late st Contact Info) Description 12/03/2004 Outpatient [facility] Division of Neurology [address] [address] Maverick Boyce MD [address] [place] [id number] Social History Tobacco Use Types Packs/Day Years Used Date Smoking Tobacco: Never Assessed Comments Unknown Sex and Gender Information Value Date Recorded Sex Assigned at Not on file Legal Sex Female 3:52 AM GOSPEL WORKER Gender Identity Not on file Sexual Orientation Not on file documented as of this encounter Plan of Treatment Not on file documented as of this encounter Visit Diagnoses Not on filedocumented in this encounter Care Teams Airplane Gas Tank Liner Assembler Relationship Specialty Start Date End Date Xavi Allen MD [address] [place] [address] PCP - General Internal Medicine 07/02/18 documented as of this encounter
--- OUTSIDE RECORDS SUMMARY | 2025-08-24 16:34 | XMS_ITS | Encounter Summary ---
Author Organization [facility] Address [address] [place] [address] Care Team Providers Care Patent Chemist Name Role Phone Xavi Allen MD Primary Care Provider [phone] Encounter Details Date Type Department Care Team (Late st Contact Info) Description 02/02/2004 Outpatient [facility] Division of Neurology [address] [address] Maverick Boyce MD [address] [place] [phone] Social History Tobacco Use Types Packs/Day Years Used Date Smoking Tobacco: Never Assessed Comments Unknown Sex and Gender Information Value Date Recorded Sex Assigned at Not on file Legal Sex Female 3:52 AM IN FLIGHT REFUELING CRAFTSMAN Gender Identity Not on file Sexual Orientation Not on file documented as of this encounter Plan of Treatment Not on file documented as of this encounter Visit Diagnoses Not on filedocumented in this encounter Care Teams Patent Chemist Relationship Specialty Start Date End Date Xavi Allen MD [address] [place] [address] PCP - General Internal Medicine 07/02/18 documented as of this encounter
--- OUTSIDE RECORDS SUMMARY | 2025-08-24 16:34 | XMS_ITS | Encounter Summary ---
Author Organization [employer] [facility] [facility] Address [address] [place] [address] Care Team Providers Care Fire Hydrant Mechanic Name Role Phone Xavi Allen MD Primary Care Provider [phone] Encounter Details Date Type Department Care Team (Late st Contact Info) Description 02/17/2005 Outpatient [facility] Division of Neurology [address] [address] Radha Lin MD [address] [facility] [address] [place] [phone] Social History Tobacco Use Types Packs/Day Years Used Date Smoking Tobacco: Never Assessed Comments Unknown Sex and Gender Information Value Date Recorded Sex Assigned at Not on file Legal Sex Female 3:52 AM STRANDING MACHINE OPERATOR HELPER Gender Identity Not on file Sexual Orientation Not on file documented as of this encounter Plan of Treatment Not on file documented as of this encounter Visit Diagnoses Not on filedocumented in this encounter Care Teams Fire Hydrant Mechanic Relationship Specialty Start Date End Date Xavi Allen MD [address] [place] [address] PCP - General Internal Medicine 07/02/18 documented as of this encounter
--- OUTSIDE RECORDS SUMMARY | 2025-08-24 16:34 | XMS_ITS | Encounter Summary ---
Author Organization [facility] Address [address] [place] [address] Care Team Providers Care Svp Business Development Name Role Phone Xavi Allen MD Primary Care Provider Encounter Details Date Type Department Care Team (Late st Contact Info) Description 10/09/2004 Outpatient Historical [facility] Social History Tobacco Use Types Packs/Day Years Used Date Smoking Tobacco: Never Assessed Comments Unknown Sex and Gender Information Value Date Recorded Sex Assigned at Not on file Legal Sex Female 3:52 AM FIELD ASSESSOR Gender Identity Not on file Sexual Orientation Not on file documented as of this encounter Plan of Treatment Not on file documented as of this encounter Visit Diagnoses Not on filedocumented in this encounter Care Teams Svp Business Development Relationship Specialty Start Date End Date Xavi Allen MD [address] [place] [address] PCP - General Internal Medicine 07/02/18 documented as of this encounter
--- OUTSIDE RECORDS SUMMARY | 2025-08-24 16:34 | XMS_ITS | Encounter Summary ---
Author Organization [facility] Address [address] [place] [address] Care Team Providers Care Yarn Weight And Strength Tester Name Role Phone Xavi Allen MD Primary Care Provider [phone] Encounter Details Date Type Department Care Team (Late st Contact Info) Description 08/08/2003 Outpatient [facility] Division of Neurology [address] [address] Radha Lin MD [address] [address] [place] [phone] Social History Tobacco Use Types Packs/Day Years Used Date Smoking Tobacco: Never Assessed Comments Unknown Sex and Gender Information Value Date Recorded Sex Assigned at Not on file Legal Sex Female 3:52 AM STOCK FEEDER Gender Identity Not on file Sexual Orientation Not on file documented as of this encounter Plan of Treatment Not on file documented as of this encounter Visit Diagnoses Not on filedocumented in this encounter Care Teams Yarn Weight And Strength Tester Relationship Specialty Start Date End Date Xavi Allen MD [address] [place] [address] PCP - General Internal Medicine 07/02/18 documented as of this encounter
--- OUTSIDE RECORDS SUMMARY | 2025-08-24 16:34 | XMS_ITS | Encounter Summary ---
Author Organization [facility] Address [address] [place] [address] Care Team Providers Care Processing Clerk Name Role Phone Xavi Allen MD Primary Care Provider Encounter Details Date Type Department Care Team (Late st Contact Info) Description 07/09/2004 Outpatient Historical [facility] Social History Tobacco Use Types Packs/Day Years Used Date Smoking Tobacco: Never Assessed Comments Unknown Sex and Gender Information Value Date Recorded Sex Assigned at Not on file Legal Sex Female 3:52 AM STRAW HAT WASHER OPERATOR Gender Identity Not on file Sexual Orientation Not on file documented as of this encounter Plan of Treatment Not on file documented as of this encounter Visit Diagnoses Not on filedocumented in this encounter Care Teams Processing Clerk Relationship Specialty Start Date End Date Xavi Allen MD [address] [place] [address] PCP - General Internal Medicine 07/02/18 documented as of this encounter
--- OUTSIDE RECORDS SUMMARY | 2025-08-24 16:34 | XMS_ITS | Encounter Summary ---
Author Organization [facility] Address [address] [place] [address] Care Team Providers Care Ticket Maker Name Role Phone Xavi Allen MD Primary Care Provider [phone] Encounter Details Date Type Department Care Team (Late st Contact Info) Description 02/21/2003 Outpatient [facility] Division of Neurology [address] [address] Maverick Boyce MD [address] [place] [phone] Social History Tobacco Use Types Packs/Day Years Used Date Smoking Tobacco: Never Assessed Comments Unknown Sex and Gender Information Value Date Recorded Sex Assigned at Not on file Legal Sex Female 3:52 AM ANIMAL HUSBANDRY MANAGER Gender Identity Not on file Sexual Orientation Not on file documented as of this encounter Plan of Treatment Not on file documented as of this encounter Visit Diagnoses Not on filedocumented in this encounter Care Teams Ticket Maker Relationship Specialty Start Date End Date Xavi Allen MD [address] [place] [address] PCP - General Internal Medicine 07/02/18 documented as of this encounter
--- OUTSIDE RECORDS SUMMARY | 2025-08-24 16:34 | XMS_ITS | Encounter Summary ---
Author Organization [facility] Address [address] [place] [address] Care Team Providers Care Embroidery Specialist Name Role Phone Xavi Allen MD Primary Care Provider Encounter Details Date Type Department Care Team (Late st Contact Info) Description 08/08/2003 Outpatient Historical [facility] Social History Tobacco Use Types Packs/Day Years Used Date Smoking Tobacco: Never Assessed Comments Unknown Sex and Gender Information Value Date Recorded Sex Assigned at Not on file Legal Sex Female 3:52 AM TYPE MAPPER Gender Identity Not on file Sexual Orientation Not on file documented as of this encounter Plan of Treatment Not on file documented as of this encounter Visit Diagnoses Not on filedocumented in this encounter Care Teams Embroidery Specialist Relationship Specialty Start Date End Date Xavi Allen MD [address] [place] [address] PCP - General Internal Medicine 07/02/18 documented as of this encounter
--- OUTSIDE RECORDS SUMMARY | 2025-08-24 16:34 | XMS_ITS | Encounter Summary ---
Author Organization [email or web address] Address [address] [place] [address] Care Team Providers Care Air Support Operations Operator Name Role Phone Xavi Allen MD Primary Care Provider Encounter Details Date Type Department Care Team (Late st Contact Info) Description 08/08/2003 Outpatient Historical [facility] Social History Tobacco Use Types Packs/Day Years Used Date Smoking Tobacco: Never Assessed Comments Unknown Sex and Gender Information Value Date Recorded Sex Assigned at Not on file Legal Sex Female 3:52 AM I O PSYCHOLOGIST Gender Identity Not on file Sexual Orientation Not on file documented as of this encounter Plan of Treatment Not on file documented as of this encounter Visit Diagnoses Not on filedocumented in this encounter Care Teams Air Support Operations Operator Relationship Specialty Start Date End Date Xavi Allen MD [address] [place] [address] PCP - General Internal Medicine 07/02/18 documented as of this encounter
--- OUTSIDE RECORDS SUMMARY | 2025-08-24 16:34 | XMS_ITS | Encounter Summary ---
Author Organization [employer] Address [address] [place] [address] Care Team Providers Care Radiology Asst Name Role Phone Xavi Allen MD Primary Care Provider Encounter Details Date Type Department Care Team (Late st Contact Info) Description 10/05/2003 Outpatient Historical [facility] Social History Tobacco Use Types Packs/Day Years Used Date Smoking Tobacco: Never Assessed Comments Unknown Sex and Gender Information Value Date Recorded Sex Assigned at Not on file Legal Sex Female 3:52 AM FIELD CANE SCALER HELPER Gender Identity Not on file Sexual Orientation Not on file documented as of this encounter Plan of Treatment Not on file documented as of this encounter Visit Diagnoses Not on filedocumented in this encounter Care Teams Radiology Asst Relationship Specialty Start Date End Date Xavi Allen MD [address] [place] [address] PCP - General Internal Medicine 07/02/18 documented as of this encounter
--- OUTSIDE RECORDS SUMMARY | 2025-08-24 16:34 | XMS_ITS | Encounter Summary ---
Author Organization [facility] Address [address] [place] [address] Care Team Providers Care Shoeshiner Name Role Phone Xavi Allen MD Primary Care Provider [phone] Encounter Details Date Type Department Care Team (Late st Contact Info) Description 02/02/2004 Outpatient [facility] Division of [facility]rology [address] [address] Radha Lin MD [address] [facility] [address] [place] [phone] Social History Tobacco Use Types Packs/Day Years Used Date Smoking Tobacco: Never Assessed Comments Unknown Sex and Gender Information Value Date Recorded Sex Assigned at Not on file Legal Sex Female 3:52 AM ALL ROUND LOGGER Gender Identity Not on file Sexual Orientation Not on file documented as of this encounter Plan of Treatment Not on file documented as of this encounter Visit Diagnoses Not on filedocumented in this encounter Care Teams Shoeshiner Relationship Specialty Start Date End Date Xavi Allen MD [address] [place] [address] PCP - General Internal Medicine 07/02/18 documented as of this encounter
--- OUTSIDE RECORDS SUMMARY | 2025-08-24 16:34 | XMS_ITS | Encounter Summary ---
Author Organization [facility] Address [address] [place] [address] Care Team Providers Care Order Schedule Clerk Name Role Phone Xavi Allen MD Primary Care Provider [phone] Encounter Details Date Type Department Care Team (Late st Contact Info) Description 02/21/2003 Outpatient [facility] Division of Neurology [address] [address] Radha Lin MD [address] [facility] [address] [place] [phone] Social History Tobacco Use Types Packs/Day Years Used Date Smoking Tobacco: Never Assessed Comments Unknown Sex and Gender Information Value Date Recorded Sex Assigned at Not on file 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
--- OUTSIDE RECORDS SUMMARY | 2025-08-24 16:34 | XMS_ITS | Encounter Summary ---
Author Organization [facility] Address 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
--- OUTSIDE RECORDS SUMMARY | 2025-08-24 16:34 | XMS_ITS | Encounter Summary ---
Author Organization [facility] Address [address] [place] [address] Care Team Providers Care Chest Painting And Sealing Supervisor Name Role Phone Xavi Allen MD Primary Care Provider [phone] Encounter Details Date Type Department Care Team (Late st Contact Info) Description 11/05/2004 Outpatient Historical [facility] Radha Lin MD [address] [facility] [address] [place] [id number] Social History Tobacco Use Types Packs/Day Years Used Date Smoking Tobacco: Never Assessed Comments Unknown Sex and Gender Information Value Date Recorded Sex Assigned at Not on file 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
--- OUTSIDE RECORDS SUMMARY | 2025-08-24 16:34 | XMS_ITS | Encounter Summary ---
Author Organization [facility] Address 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
== END 2025-08-24 14:19 | disposition home or self-care (01) ==
PROVIDERS: Emergency Provider Emergency Medicine; PCP Internal Medicine
DX: R60.0 Localized edema (principal); G35 Multiple sclerosis
CPT/HCPCS: 93970; 99284